=== PATIENT | male | born 1965 | race Caucasian/White ===

== ENCOUNTER 2022-06-23 10:48 | Emergency (ER) | payer MEDICARE, MEDICAID, SELFPAY ==
--- NOTE | ~2022-06-23 | CT_ITS ---
EXAMINATION: CT HEAD WITHOUT CONTRAST CT CERVICAL SPINE WITHOUT CONTRAST CLINICAL INFORMATION: Found down. Unwitnessed fall. COMPARISON: None available. TECHNIQUE: Contiguous axial imaging was performed from the skull base to vertex without intravenous administration of contrast. Contiguous axial imaging was performed from the upper chest through the skull base without intravenous administration of contrast. Coronal and sagittal reformats were obtained at the acquisition workstation. This CT examination was performed using dose optimization techniques as appropriate, variously including the following: *Automated exposure control. *Adjustment of mA and/or kV according to patient size (this includes techniques or standardized protocols for targeted exams where dose is matched to indication/reason for exam; i.e. extremities or head). *Use of iterative reconstruction technique. DLP: 2449 mGy-cm FINDINGS: Head: Changes of prior left pterional craniotomy. There is also changes of prior surgery of the anterior wall the right maxillary sinus and malleable plate and screw fixation of the right mandibular body/ramus. There is no evidence of acute intracranial hemorrhage or edematous territorial infarction. Khan-white matter differentiation is preserved. Scattered and partially confluent hypoattenuation in the periventricular and deep white matter are consistent with moderate microangiopathy. Proportional prominence of the ventricles and sulcal spaces without evidence of obstructive hydrocephalus. No abnormal mass effect or midline shift. No extra-axial fluid collections. Chronic hyperostotic changes of the right maxillary sinus green. Chronic appearing depression of the right lamina papyracea. Chronic appearing deformity of the nasal bones. Moderate mucosal thickening of the right maxillary sinus. Mild mucosal thickening of the remaining paranasal sinuses. The mastoid air cells and visualized paranasal sinuses are clear. Cervical Spine: The atlantooccipital and atlantoaxial articulations remain well aligned. Moderate to advanced degenerative arthropathy of the atlantodental articulation. Ankylosis of the C3-C4 and C6-C7 facets. Straightening of the normal cervical lordosis. Otherwise, normal anatomic alignment. No evidence of acute fracture or subluxation. The vertebral body heights are maintained. Advanced degenerative disc disease at C3-C4 and from C5-T1. Moderate degenerative disc disease at all additional levels. Disc-osteophyte complex formation at C5-C6 and C6-C7 appears to lead to at least mild spinal canal stenosis at these levels. Facet and uncovertebral joint arthropathy leads to osseous encroachment on the neural foramina from C2-C7. There is no prevertebral soft tissue swelling. The thyroid gland and remaining cervical soft tissues are normal in appearance. Moderate paraseptal blebs along the right lung apex. Otherwise, the lung apices demonstrate no abnormalities. CT/CT cervical spine wo IV con IMPRESSION: 1. No evidence of acute intracranial hemorrhage or edematous territorial infarction. 2. Moderate underlying microangiopathy and generalized cerebral volume loss. 3. No evidence of acute fracture or traumatic subluxation of the cervical spine. 4. Moderate to advanced multilevel degenerative spondyloarthropathy of the cervical spine. On this limited exam without intrathecal contrast, there appears to be at least mild spinal canal stenoses at C5-C6 and C6-C7.
[2022-06-23 11:01] VITALS: BP 118/80; BP 121/84; PULSE 88; PULSE 89; RESP 18; TEMP 36.4; O2SAT 95; BMI 26.9
--- NOTE | 2022-06-23 11:20 | PC.NURSE ---
patient a/ox3 . words slurred , patient reports drinking a liter of vodka today . heart rate regular at 89 bets per minutes . breathing even and unlabored . lungs diminished throughout , history of smoking . patient also reports use of fentynl as times but not today . skin is dry and warm . abdomen soft . patient to C.T. for images . patient aware of plan of care .
--- NOTE | 2022-06-23 11:22 | ED_ITS ---
HPI - Alcohol General Chief Complaint: ETOH/Substance Use Stated Complaint: ETOH INTOX,FOUND ON GROUND PER EMS Time Seen by Provider: 06/23/22 11:07 Source: patient and EMS Mode of arrival: EMS Limitations: altered mental status (Intoxication) History of Present Illness HPI narrative: 57 y/o homeless male with history of psychotic disorder and polysubstance use who presents to the ER via EMS after he was found intoxicated, passed out at a bus stop. Patient reports drinking half a gallon of vodka today. He states he fell and hit his head last week. He cannot recall or give any details surrounding the event. He is a poor historian. Patient arrives to the ER intoxicated, slurring his words. He is incontinent of urine. He has superficial abrasions on the dorsal aspect of his bilateral hands and fingers. Wounds appear to be old. He also has dried blood on the top of his head, no open wounds or active bleeding. We have no record of the patient here. He states he usually goes to [facility] or [facility]. Will get lab workup and CT scan of his head and neck given he was found down. MD complaint: alcohol intoxication Last drink: Just prior to admission Amount of alcohol consumed: 1/2 of a gal of vodka Chronic alcohol use: Yes Previous visits for alcohol intoxication: Yes Treatments prior to arrival: none Related Data Allergies Allergy/AdvReac Type Severity Reaction Status Date / Time naproxen [NAPROXEN] Allergy Intermediate RASH Unverified 02/29/20 17:00 Review of Systems Review of Systems: Yes all other systems are reviewed and are negative [facility] Social History Social History Alcohol intake: current Smoked in Last 30 Days: Yes Advance Directives: No Advance Directives Information Provided: No Physical Exam ED Vital Signs: Vital Signs - 24 hr 06/23/22 11:01 06/23/22 13:41 Temperature 97.6 F 98.6 F Pulse Rate 89 90 Respiratory Rate 18 20 Blood Pressure 121/84 122/93 H Pulse Oximetry 95 96 Oxygen Delivery Method Room Air Room Air BMI result Body Mass Index 26.9 Appearance: Somewhat lethargic male sitting up in the stretcher, appears much older than stated age. Oriented X2. No acute distress. Poorly kempt Head: Normocephalic, 3 cm area of dried blood on the top of the head, no open wounds. Eyes: Pupils equal, round and reactive to light. ENT: Pharynx normal. Poor dentition. Neck: Normal inspection. Neck supple. CVS: Normal heart rate and rhythm. Pulses normal. Respiratory: No respiratory distress. Breath sounds normal. Abdomen: Soft and nontender. +BS x4 Skin: Skin warm and dry. Normal skin color. Normal skin turgor. No rashes. Extremities: No lower extremity edema. Dorsal aspect of digits 2 through 5 on the bilateral hands with superficial abrasions in various stages of healing. Neuro: Oriented X 2. Moves all extremities, follows simple commands, can answer basic questions, intermittently confused and hostile. Course Course Course Narrative: 57-year-old male with history of polysubstance abuse and alcohol abuse presents to the ER for evaluation after he was found down, intoxicated at a bus station today. Given dried blood on the head and lack of history, will get CT of the head and neck along with basic lab workup. Will attempt to get records from [facility] as patient has a [facility] bracelet on and hospital socks on. Reevaluation(s) Reevaluation #1: [facility] records reviewed - patient was in [facility] ER last night at 06:45 after he was found down noncommunicative at a bus station with a broken bottle of liquor next to him. He was given 100 mg of phenobarbital and ultimately discharged at 06:00 today. His records reveal that he frequently leaves AMA. Labs and imaging are still pending. Reevaluation #2: Labs unremarkable. Mild hypokalemia. Given oral repletion. No coagulopathy. Cbc hemolyzed. He had recent lab work done at [facility]. Will hold off on restarting him. Alcohol level is 233. Will evaluate him for possible detox once clinically sober Reevaluation #3: Patient AAO x3, he is wanting to go home. We discussed detox and he declined. He wants to leave. Counseled on his lab results. Stable for d/c. Medical Decision Making Medical Decision Making [facility] Narrative: 57-year-old male with history of polysubstance abuse and alcohol abuse and dependence presents to the ER for evaluation after was found down by station. W ill need to rule out ICH or traumatic intracranial injury, spinal injury. No other evidence major trauma on examination. Will check labs, imaging, U tox and alcohol level. Differential Diagnosis Differential Diagnoses: The differential diagnosis associated with the presentation includes Alcohol intoxication, polysubstance abuse, ICH, metabolic derangements, anemia, syncope and collapse Lab Data MDM Lab Attestation statement: I reviewed the patient's lab results. Lab work reviewed, mild hypokalemia with potassium of 3.1 Mild rhabdomyolysis with CK of 484. 06/23/22 12:24 Labs: Lab Results 06/23/22 06/23/22 06/23/22 Range/Units 12:24 12:24 13:28 WBC Cancelled RBC Cancelled Hgb Cancelled Hct Cancelled MCV Cancelled MCH Cancelled MCHC Cancelled RDW Cancelled Plt Count Cancelled MPV Cancelled Immature Gran % (Auto) Cancelled Neut % (Auto) Cancelled Lymph % (Auto) Cancelled [place] % (Auto) Cancelled Eos % (Auto) Cancelled Baso % (Auto) Cancelled Lymph # (Auto) Cancelled [place] # (Auto) Cancelled Eos # (Auto) Cancelled Baso # (Auto) Cancelled Abs Immat Gran (auto) Cancelled Absolute Neuts (auto) Cancelled Absolute Nucleated RBC Cancelled Nucleated RBC % (auto) Cancelled PT (10.0-13.1) SEC INR (0.9-1.1) APTT (26.0-36.4) SEC Sodium 143 (135-145) mmol/L Potassium 3.2 L (3.3-5.1) mmol/L Chloride 104 (96-108) mmol/L Carbon Dioxide 29 (22-29) mmol/L Anion Gap 13 (12-20) BUN 4 L (9-16) mg/dL Creatinine 0.64 (0.5-1.4) mg/dL Estim Creat Clear Calc 143.9 Estimated GFR > 60 Random Glucose 95 (60-115) mg/dL Calcium 8.6 (8.4-10.2) mg/dL Magnesium 1.6 (1.6-2.6) mg/dL Total Bilirubin 0.3 (0.0-1.0) mg/dL Direct Bilirubin < 0.2 (0.0-0.5) mg/dL AST 43 H (5-37) U/L ALT 24 (0-40) U/L Alkaline Phosphatase 78 (39-117) U/L Total Creatine Kinase 484 H (38-174) U/L Total Protein 6.3 L (6.5-8.0) g/dL Albumin 3.8 (3.5-5.0) g/dL Urine Opiates Screen Not Detected (Not Detect) Urine Fentanyl Screen Not Detected (Not Detect) Ur Barbiturates Screen POSITIVE H (Not Detect) Ur Phencyclidine Scrn Not Detected (Not Detect) Ur Amphetamines Screen Not Detected (Not Detect) U Benzodiazepines Scrn Not Detected (Not Detect) Urine Cocaine Screen Not Detected (Not Detect) U Marijuana (THC) Screen Not Detected (Not Detect) Ethyl Alcohol mg/dL 06/23/22 06/23/22 Range/Units 13:28 13:28 WBC RBC Hgb Hct MCV MCH MCHC RDW Plt Count MPV Immature Gran % (Auto) Neut % (Auto) Lymph % (Auto) [place] % (Auto) Eos % (Auto) Baso % (Auto) Lymph # (Auto) [place] # (Auto) Eos # (Auto) Baso # (Auto) Abs Immat Gran (auto) Absolute Neuts (auto) Absolute Nucleated RBC Nucleated RBC % (auto) PT 11.9 (10.0-13.1) SEC INR 1.0 (0.9-1.1) APTT 28.7 (26.0-36.4) SEC Sodium (135-145) mmol/L Potassium (3.3-5.1) mmol/L Chloride (96-108) mmol/L Carbon Dioxide (22-29) mmol/L Anion Gap (12-20) BUN (9-16) mg/dL Creatinine (0.5-1.4) mg/dL Estim Creat Clear Calc Estimated GFR Random Glucose (60-115) mg/dL Calcium (8.4-10.2) mg/dL Magnesium (1.6-2.6) mg/dL Total Bilirubin (0.0-1.0) mg/dL Direct Bilirubin (0.0-0.5) mg/dL AST (5-37) U/L ALT (0-40) U/L Alkaline Phosphatase (39-117) U/L Total Creatine Kinase (38-174) U/L Total Protein (6.5-8.0) g/dL Albumin (3.5-5.0) g/dL Urine Opiates Screen (Not Detect) Urine Fentanyl Screen (Not Detect) Ur Barbiturates Screen (Not Detect) Ur Phencyclidine Scrn (Not Detect) Ur Amphetamines Screen (Not Detect) U Benzodiazepines Scrn (Not Detect) Urine Cocaine Screen (Not Detect) U Marijuana (THC) Screen (Not Detect) Ethyl Alcohol 233 mg/dL Radiology Impression Discussion of test interpretation with radiology: I have reviewed the radiologist's reading. Radiologist Impression: IMPRESSION: 1.? No evidence of acute intracranial hemorrhage or edematous territorial infarction. 2.? Moderate underlying microangiopathy and generalized cerebral volume loss. 3.? No evidence of acute fracture or traumatic subluxation of the cervical spine. 4.? Moderate to advanced multilevel degenerative spondyloarthropathy of the cervical spine. On this limited exam without intrathecal contrast, there appears to be at least mild spinal canal stenoses at C5-C6 and C6-C7. Independent Historian Clinical information obtained from an independent historian. History obtained from or confirmed by: EMS External Record Review External record reviewed: Outside ED record [facility] reviewed, discharged early this morning after receiving phenobarbital. Social Determinants Patient?s care significantly limited by Social Determinants of Health including: Inadequate housing, Alcoholism and drug addiction in family, Unemployment and Other Social Determinant of Health Medications Administered Discontinued Medications Generic Name Dose Route Start Last Admin Trade Name Freq PRN Reason Stop Dose Admin Potassium Chloride 40 meq 06/23/22 14:04 06/23/22 15:13 Potassium Chloride Er 20 Meq Tab.Er.Prt PO 06/23/22 14:05 40 meq ONCE ONE Administration Discharge Plan Discharge Clinical Impression: Alcoholic intoxication, Rhabdomyolysis, Acute hypokalemia Patient Disposition: Home, Self-Care Additional Instructions: Do not drink alcohol or use illicit drugs. They can kill you. Recommend detox. Follow-up with your primary care doctor. Interventions: Steedman-Suicide Risk Severity Scale Last Done: 06/23/22 15:13
[2022-06-23 12:56] LABS: Amphetamine Screen Urine Not Detected (Not Detect); Barbiturates, Urine POSITIVE (Not Detect); Benzodiazepines Screen Urine Not Detected (Not Detect); Cannabinoid Screen Urine Not Detected (Not Detect); Cocaine Screen Urine Not Detected (Not Detect); Fentanyl, urine Not Detected (Not Detect); Opiate Screen Urine Not Detected (Not Detect); Phencyclidine Screen Urine Not Detected (Not Detect)
[2022-06-23 13:41] VITALS: BP 122/93; PULSE 90; RESP 20; TEMP 37; O2SAT 96
[2022-06-23 13:42] LABS: Prothrombin Time 11.9 SEC (10.0-13.1)
[2022-06-23 13:45] LABS: Partial Thromboplastin Time 28.7 SEC (26.0-36.4)
[2022-06-23 13:52] LABS: Ethanol 233 mg/dL
[2022-06-23 13:56] LABS: Alanine Aminotransferase 24 U/L (0-40); Albumin Level 3.8 g/dL (3.5-5.0); Alkaline Phosphatase 78 U/L (39-117); Anion Gap 13 (12-20); Aspartate Amino Transferase 43 U/L (5-37); Bilirubin Direct < 0.2 mg/dL (0.0-0.5); Bilirubin Total 0.3 mg/dL (0.0-1.0); Blood Urea Nitrogen 4 mg/dL (9-16); Calcium 8.6 mg/dL (8.4-10.2); Carbon Dioxide 29 mmol/L (22-29); Chloride 104 mmol/L (96-108); Creatinine Clr Calc Pharmacy 143.9; Estimated Glomerular Filt Rate > 60; Glucose Random 95 mg/dL (60-115); Magnesium 1.6 mg/dL (1.6-2.6); Potassium 3.2 mmol/L (3.3-5.1); Sodium 143 mmol/L (135-145); Total Protein 6.3 g/dL (6.5-8.0)
[2022-06-23] MEDS: Potassium Chloride ER 20 MEQ TAB.ER.PRT 40 MEQ PO (15:13)
== END 2022-06-23 16:20 | disposition home or self-care (01) ==
PROVIDERS: Physician Assistant; Emergency Provider Student in an Organized Health Care Education/Training Program
DX: F19.10 Other psychoactive substance abuse, uncomplicated (principal); F10.220 Alcohol dependence with intoxication, uncomplicated; Y90.7 Blood alcohol level of 200-239 mg/100 ml; E87.6 Hypokalemia; M62.82 Rhabdomyolysis; Z91.81 History of falling
CPT/HCPCS: 36415; 70450; 72125; 80048; 80076; 80307; 82077; 82550; 83735; 85025; 85610; 85730; 99284; 99285

== ENCOUNTER 2022-06-23 19:25 | Emergency (ER) | payer MEDICARE, MEDICAID, SELFPAY ==
[2022-06-23 19:31] VITALS: BP 121/84; BP 131/77; PULSE 91; PULSE 92; RESP 14; TEMP 36.6; O2SAT 93; O2SAT 94; BMI 36.6
[2022-06-23 20:13] LABS: MANUAL DIFF FLAG NO
[2022-06-23 20:15] LABS: Basophils Percent Auto 0.6 % (0-2); Eosinophils Absolute Auto 0.2 X10*3/uL (0.0-0.4); Eosinophils Percent Auto 3.3 % (0-4); Hematocrit 33.3 % (42.0-52.0); Hemoglobin 10.5 g/dl (14.0-18.0); Imm Gran Abs Auto 0.01 X10*3/uL (0.00-0.03); Imm Gran Pct Auto 0.2 % (0.0-0.4); Lymphocytes Absolute Auto 1.8 X10*3/uL (1.2-4.9); Mean Corpuscular HGB Conc 31.5 g/dl (31.0-36.0); Mean Corpuscular Hemoglobin 22.6 pg (27.0-33.0); Mean Corpuscular Volume 71.6 fL (80.0-98.0); Mean Platelet Volume 9.1 fL (9.4-12.4); Monocytes Absolute Auto 0.4 X10*3/uL (0.1-1.2); Monocytes Percent Auto 8.9 % (2-11); Neutrophils Absolute Auto 2.4 x10*3/uL (2.0-8.3); Platelet Count 223 X10*3/uL (160-400); Red Blood Count 4.65 X10*6/uL (4.60-5.80); Red Cell Distribution Width 22.5 % (11.0-16.0); White Blood Count 4.8 X10*3/uL (4.8-10.8)
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
--- OUTSIDE RECORDS SUMMARY | 2022-06-23 20:25 | XMS_ITS | Continuity of Care Document ---
:1965 Author Organization [facility] Address [address] [place] [address]- Care Team Providers Name Role Phone Madhu HASSAN, Елена Primary Care Physician Encounter [facility] Date(s): 03/25/21 - 04/24/21 [facility] [address] [place], [place] [address] Allergies, Adverse Reactions, Alerts Substance Reaction Severity [...] Refills, Maintenance, 12/27/20 9:09:00 EDT, CR Tablet, [facility]/pharmacy #[id number], Partial fill upon patient request if the prescription is for a schedule II opioid drug., 182, cm, 12/27/20 6:15:00 E... Start Date: 12/27/20 Stop Date: 04/26/21 Status: Orderedazithromycin 250 mg oral tablet 1 tablet = 250 mg, By Mouth, Daily, begin tomorrow, # 4 tablet, 0 Refills, Maintenance, 02/25/21 17:53:00 EDT, Tablet, [facility]/pharmacy #[id number], Partial fill upon patient request if the prescription is for aschedule II opioid drug., 183, cm, 01/24/21 11:13... Start Date: 02/25/21 Stop Date: 03/01/21 Status: OrderedcloNIDine 0.1 mg oral tablet 1, tablet, By Mouth, 2 times a day, # 60 tablet, Refills 0, Tot. Refills 0, Maintenance, 12/22/20 15:38:00 EDT, Route to Pharmacy Electronically, [id number], 182, cm, 11/22/20 11:13:00 EDT, Height, 88.2, [...] 11 Refills, Maintenance, 11/22/20 11:29:00 EDT, Inhaler, [facility]/pharmacy #[id number], Partial fill upon patient request if the prescription is for a schedule II opioid drug., 1 puffs Inhalation Daily, 182, cm, 11/22/20 11:... Start Date: 11/22/20 Status: Orderednicotine 21 mg/24 hr transdermal film, extended release 1 patch, Topically, Daily, # 30 patch, 0 Refills, Maintenance, 01/24/21 13:02:00 EDT, Patch, [facility], Partial fill upon patient request if [...] 0 Refills, Maintenance, 01/24/21 13:01:00 EDT, Lozenge, [facility], Partial fill upon patient request if [...] capsule, By Mouth, Daily at bedtime, # 90 capsule, Refills 11, Tot. Refills 11, Maintenance, 04/11/21 16:46:00 EDT, Route to Pharmacy Electronically, [facility]/pharmacy #[id number], Partial fill upon patient request if the prescription is for a schedule... Start Date: 04/11/21 Status: OrderedProAir HFA 90 mcg/inh inhalation aerosol 2 puffs, Inhalation, Every 4 hours, PRN as needed for wheezing, # 2 each, 11 Refills, Maintenance, 11/22/20 11:29:00 EDT, [id number] fill upon patient request if the prescription is for a schedule II opioid drug., 2 puffs Inh... Start Date: 11/22/20 Stop Date: 11/17/21 Status: OrderedrisperiDONE 1 mg oral tablet 1, tablet, By Mouth, Daily in AM, # 90 tablet, Refills 11, Tot. Refills 11, Maintenance, 04/11/21 16:46:00 EDT, [id number], cm, 03/31/21 19:04:00 EDT, Height, 82, kg, 03/31/21 19:04:00 EDT, Dry Weight Start Date: 04/11/21 Status: OrderedrisperiDONE 2 mg oral tablet 1, tablet, By Mouth, Daily at bedtime, # 90 tablet, Refills 11, Tot. Refills 11, Maintenance, 04/11/21 16:46:00 EDT, [id number], cm, 03/31/21 19:04:00 EDT, Height, 82, kg, 03/31/21 19:04:00 EDT, Dry Weight Start Date: 04/11/21 Status: OrderedSuboxone 8 mg-2 mg sublingual film 1 film, Sublingual, Daily, dissolve under the tongue, # 7 film, 0 Refills, Maintenance, 01/24/21 11:11:00 EDT, Film, [facility] 3, Partial fill upon patient request if the prescription is for a schedule II opioid drug. [id number], 1 film Hilario... Start Date: 01/24/21 Status: Orderedthiamine 100 mg oral tablet 100 mg, 1, tablet, By Mouth, 2 times a day, # 90 tablet, Refills 0, Tot. Refills 0, Maintenance, 01/24/21 13:02:00 EDT, Route to Pharmacy Electronically, [facility] 3, Partial fill upon patient request if the prescription is for a schedule... Start Date: 01/24/21 Status: OrderedtraZODone 150 mg oral tablet 1 tablet = 150 mg, By Mouth, Daily at bedtime, # 90 tablet, 11 Refills, Maintenance, 04/11/21 16:46:00 EDT, Tablet, [facility]/pharmacy #[id number], Partial fill upon patient request if the prescription is for a schedule II opioid drug., 183, cm, 03/31/21 19:04:00... Start Date: 04/11/21 Status: OrderedTrileptal 600 mg oral tablet 1 tablet = 600 mg, By Mouth, 2 times a day, # 180 tablet, 11 Refills, Maintenance, 04/11/21 16:46:00EDT, Tablet, [facility]/pharmacy #[id number], Partial fill upon patient request if the prescription is for a schedule II opioid drug., 183, cm, 03/31/21 19:04:00 E... Start Date: 04/11/21 Status: Ordered Problem List Condition Effective Dates [...]
--- OUTSIDE RECORDS SUMMARY | 2022-06-23 20:25 | XMS_ITS | Continuity of Care Document ---
:[address] [facility] Address [address] [place] [address]- Care Team Providers Name Role Phone Madhu HASSAN, Елена Primary Care Physician Encounter [facility] Date(s): 09/05/20 - 10/16/20 [facility] [address] [place], [place] [address] Attending Physician: Елена Leung MD Allergies, [...] 0 Refills, Maintenance, 10/11/20 9:27:00 EDT, Inhaler, [facility], Partial fill upon patient request if the prescription is for a schedule II opioid drug., 1 puffs Inhalation Daily, 182, cm, 09/19/20... Start Date: 10/11/20 Status: Orderedfolic acid 1 mg oral tablet 1 mg, 1, tablet, By Mouth, Daily, # 30 tablet, Refills 0, Tot. Refills 0, Maintenance, 09/19/20 11:10:00 EDT, Route to Pharmacy Electronically, [facility]/pharmacy #[id number], 182, cm, 09/19/20 0:43:00 EDT, Height, 88.2, kg, 09/17/20 2:30:00 EDT, Dry Weight Start Date: 09/19/20 Stop Date: 10/19/20 Status: OrderedHabitrol 21 mg/24 hr transdermal film, extended release 1 patch, Topically, Daily, for 30 days, # 30 patch, 0 Refills, Acute 10/19/20 11:12:00 EDT, 09/19/2110:12:00 EDT, Patch, [facility]/pharmacy #[id number], Partial fill upon patient request if the prescription is for a schedule II opioid drug., 1 patch Topically Da... Start Date: 09/19/20 Stop Date: 10/19/20 Status: OrderedMethadone Liquid = 45 mg, By Mouth, Daily, 0 Refills, Maintenance, 09/16/20 21:50:00 EDT, Solution, Partial fill uponpatient request if the prescription is for a schedule II opioid drug. Start Date: 09/16/20 Status: Orderedmultivitamin Multiple Vitamins oral tablet 1 tablet, By Mouth, Daily, # 30 tablet, 0 Refills, Maintenance, 10/11/20 9:27:00 EDT, Tablet, [facility], Partial fill upon patient request if the prescription is for a schedule II opioiddrug., 1 tablet By Mouth Daily,x30 days, 182, cm,... Start Date: 10/11/20 Stop Date: 11/10/20 Status: Orderedprazosin 5 mg oral capsule 5 mg, 1, capsule, By Mouth, Daily at bedtime, Refills 0, Maintenance, 02/05/20 7:33:00 EDT Start Date: 02/05/20 Status: OrderedProAir HFA 90 mcg/inh inhalation aerosol 2 puffs, Inhalation, Every 4 hours, PRN as needed for wheezing, # 2 each, 0 Refills, Maintenance, 07/02/20 9:41:00 EST, Aerosol, [facility]/pharmacy #[id number], Partial fill upon patient request if the prescription is for a schedule II opioid drug., 2 puffs Inhal... Start Date: 07/02/20 Stop Date: 08/01/20 Status: Orderedpyridoxine 50 mg oral tablet 50 mg, 1, tablet, By Mouth, Daily, for 30 days, # 30 tablet, Refills 0, Tot. Refills 0, Acute 11/10/20 9:27:00 EDT, 10/11/20 9:27:00 EDT, Route to Pharmacy Electronically, [facility], Partial fill upon patient request if the prescription... Start Date: 10/11/20 Stop Date: 11/10/20 Status: OrderedRisperDAL 1 mg oral tablet 1 [...] tablet, Refills 0, Tot. Refills 0, Acute 11/10/20 9:28:00 EDT, 10/11/20 9:28:00 EDT, Route to Pharmacy Electronically, [facility], Partial fill upon patient request if the prescriptio... Start Date: 10/11/20 Stop Date: 11/10/20 Status: OrderedtraZODone 150 mg oral tablet 1 [...]
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
--- OUTSIDE RECORDS SUMMARY | 2022-06-23 20:26 | XMS_ITS | Continuity of Care Document ---
:1965 Author Organization [facility] Address [address] [place] [address]- Care Team Providers Name Role Phone Madhu HASSAN, Елена Primary Care Physician Encounter [facility] Date(s): 03/19/21 - 04/18/21 [facility] [address] [place], [place] [address] Allergies, Adverse Reactions, Alerts Substance Reaction Severity [...] Refills, Maintenance, 12/27/20 9:09:00 EDT, CR Tablet, [facility]/pharmacy #[id number], Partial fill upon patient request if the prescription is for a schedule II opioid drug., 182, cm, 12/27/20 6:15:00 E... Start Date: 12/27/20 Stop Date: 04/26/21 Status: Orderedazithromycin 250 mg oral tablet 1 tablet = 250 mg, By Mouth, Daily, begin tomorrow, # 4 tablet, 0 Refills, Maintenance, 02/25/21 17:53:00 EDT, Tablet, [facility]/pharmacy #[id number], Partial fill upon patient request if the prescription is for aschedule II opioid drug., 183, cm, 01/24/21 11:13... Start Date: 02/25/21 Stop Date: 03/01/21 Status: OrderedcloNIDine 0.1 mg oral tablet 1, tablet, By Mouth, 2 times a day, # 60 tablet, Refills 0, Tot. Refills 0, Maintenance, 12/22/20 15:38:00 EDT, Route to Pharmacy Electronically, [id number], 182, cm, 11/22/20 11:13:00 EDT, Height, 88.2, [...] 11 Refills, Maintenance, 11/22/20 11:29:00 EDT, Inhaler, [facility]/pharmacy #[id number], Partial fill upon patient request if the prescription is for a schedule II opioid drug., 1 puffs Inhalation Daily, 182, cm, 11/22/20 11:... Start Date: 11/22/20 Status: Orderednicotine 21 mg/24 hr transdermal film, extended release 1 patch, Topically, Daily, # 30 patch, 0 Refills, Maintenance, 01/24/21 13:02:00 EDT, Patch, [facility], Partial fill upon patient request if [...] 0 Refills, Maintenance, 01/24/21 13:01:00 EDT, Lozenge, [facility], Partial fill upon patient request if [...] 04/11/21 16:46:00 EDT, Route to Pharmacy Electronically, [facility]/pharmacy #[id number], Partial fill upon patient request if the prescription is for a schedule... Start Date: 04/11/21 Status: OrderedProAir HFA 90 mcg/inh inhalation aerosol 2 puffs, Inhalation, Every 4 hours, PRN as needed for wheezing, # 2 each, 11 Refills, Maintenance, 11/22/20 11:29:00 EDT, [id number] Partial fill upon patient request if the prescription is for a schedule II opioid drug., 2 puffs Inh... Start Date: 11/22/20 Stop Date: 11/17/21 Status: OrderedrisperiDONE 1 mg oral tablet 1, tablet, By Mouth, Daily in AM, # 90 tablet, Refills 11, Tot. Refills 11, Maintenance, 04/11/21 16:46:00 EDT, [id number], 183, cm, 03/31/21 19:04:00 EDT, Height, 82, kg, 03/31/21 19:04:00 EDT, Dry Weight Start Date: 04/11/21 Status: OrderedrisperiDONE 2 mg oral tablet 1, tablet, By Mouth, Daily at bedtime, # 90 tablet, Refills 11, Tot. Refills 11, Maintenance, 04/11/21 16:46:00 EDT, [id number], 183, cm, 03/31/21 19:04:00 EDT, Height, 82, kg, 03/31/21 19:04:00 EDT, Dry Weight Start Date: 04/11/21 Status: OrderedSuboxone 8 mg-2 mg sublingual film 1 film, Sublingual, Daily, dissolve under the tongue, # 7 film, 0 Refills, Maintenance, 01/24/21 11:11:00 EDT, Film, [facility], Partial fill upon patient request if the prescription is for a schedule II opioid drug. [id number], 1 film Hilario... Start Date: 01/24/21 Status: Orderedthiamine 100 mg oral tablet 100 mg, 1, tablet, By Mouth, 2 times a day, # 90 tablet, Refills 0, Tot. Refills 0, Maintenance, 01/24/21 13:02:00 EDT, Route to Pharmacy Electronically, [facility], Partial fill upon patient request if the prescription is for a schedule... Start Date: 01/24/21 Status: OrderedtraZODone 150 mg oral tablet 1 tablet = 150 mg, By Mouth, Daily at bedtime, # 90 tablet, 11 Refills, Maintenance, 04/11/21 16:46:00 EDT, Tablet, [facility]/pharmacy #[id number], Partial fill upon patient request if the prescription is for a schedule II opioid drug., 183, cm, 03/31/21 19:04:00... Start Date: 04/11/21 Status: OrderedTrileptal 600 mg oral tablet 1 tablet = 600 mg, By Mouth, 2 times a day, # 180 tablet, 11 Refills, Maintenance, 04/11/21 16:46:00EDT, Tablet, [facility]/pharmacy #[id number], Partial fill upon patient request [...]
--- OUTSIDE RECORDS SUMMARY | 2022-06-23 20:26 | XMS_ITS | Continuity of Care Document ---
:1965 Author Organization [facility] Address [address] [place] [address]- Care Team Providers Name Role Phone Елена Leung MD Primary Care Physician Encounter [facility] [place] Date(s): 01/03/21 - 01/04/[address] [address]- Encounter Diagnosis Alcohol intoxication (Final) - 01/04/21 Discharge Disposition: A-D/C Home Attending Physician: Morales Kebede MD Admitting Physician: Morales Kebede MD Referring Physician: Not on Staff, Referring [...] Refills, Maintenance, 12/27/20 9:09:00 EDT, CR Tablet, [facility]/pharmacy #[id number], Partial fill upon patient request if the prescription is for a schedule II opioid drug., 182, cm, 12/27/20 6:15:00 E... Start Date: 12/27/20 Stop Date: 04/26/21 Status: OrderedcloNIDine 0.1 mg oral tablet 1, tablet, By Mouth, 2 times a day, # 60 tablet, Refills 0, Tot. Refills 0, Maintenance, 12/22/20 15:38:00 EDT, Route to Pharmacy Electronically, [id number], 182, cm, 11/22/20 11:13:00 EDT, Height, 88.2, [...] 11 Refills, Maintenance, 11/22/20 11:29:00 EDT, Inhaler, [facility]/pharmacy #[id number], Partial fill upon patient request if the prescription is for a schedule II opioid drug., 1 puffs Inhalation Daily, 182, cm, 11/22/20 11:... Start Date: 11/22/20 Status: Orderedfolic acid 1 mg oral tablet 1 mg, 1, tablet, By Mouth, Daily, # 30 tablet, Refills 0, Tot. Refills 0, Maintenance, 09/19/20 11:10:00 EDT, Route to Pharmacy Electronically, [facility]/pharmacy #[id number], 182, cm, 09/19/20 0:43:00 EDT, Height, 88.2, kg, 09/17/20 2:30:00 EDT, Dry Weight Start Date: 09/19/20 Stop Date: 10/19/20 Status: Orderedmultivitamin Multiple Vitamins oral tablet 1 tablet, By Mouth, Daily, # 30 tablet, 0 Refills, Maintenance, 10/11/20 9:27:00 EDT, Tablet, [facility], Partial fill upon patient [...] 11/22/20 11:31:00 EDT, Route to Pharmacy Electronically, [facility]/pharmacy #[id number], Partial fill upon patient request if the prescription is for a schedule II... Start Date: 11/22/20 Status: OrderedProAir HFA 90 mcg/inh inhalation aerosol 2 puffs, Inhalation, Every 4 hours, PRN as needed for wheezing, # 2 each, 11 Refills, Maintenance, 11/22/20 11:29:00 EDT, Aerosol, [facility]/pharmacy #[id number], Partial fill upon patient request if the prescription is for a schedule II opioid drug., 2 puffs Inh... Start Date: 11/22/20 Stop Date: 11/17/21 Status: OrderedrisperiDONE 1 mg oral tablet 1, tablet, By Mouth, Daily in AM, # 30 tablet, Refills 0, Tot. Refills 0, Maintenance, 12/22/20 15:38:00 EDT, Route to Pharmacy Electronically, [id number], 182, cm, 11/22/20 11:13:00 EDT, Height, 88.2, kg, 09/17/20 2:30:00 EDT, Dry Weight Start Date: 12/22/20 Status: OrderedrisperiDONE 2 mg oral tablet 1, tablet, By Mouth, Daily at bedtime, # 30 tablet, Refills 0, Tot. Refills 0, Maintenance, 12/22/2114:38:00 EDT, Route to Pharmacy Electronically, [id number], 182, cm, 11/22/20 11:13:00 EDT, Height, 88.2, kg, 09/17/20 2:30:00 EDT, Dry Weight Start Date: 12/22/20 Status: OrderedtraZODone 150 mg oral tablet 1 tablet = 150 mg, By Mouth, Daily at bedtime, # 30 tablet, 0 Refills, Maintenance, 11/22/20 11:31:00 EDT, Tablet, [facility]/pharmacy #[id number], Partial fill upon patient request if the prescription is for a schedule II opioid drug., 182, cm, 11/22/20 11:13:00... Start Date: 11/22/20 Status: OrderedTrileptal 600 mg oral tablet 1 tablet = 600 mg, By Mouth, 2 times a day, # 60 tablet, 0 Refills, Maintenance, 11/22/20 11:31:00 EDT, Tablet, [facility]acy #[id number], Partial fill upon patient request if the prescription is for a schedule II opioid drug., 182, cm, 11/22/20 11:13:00 EDT... Start Date: 11/22/20 Status: OrderedViagra 25 mg oral tablet 1 tablet = 25 mg, By Mouth, Daily, PRN as needed for erectile dysfunction, # 5 tablet, 0 Refills, Maintenance, 11/22/20 11:36:00 EDT, Tablet, [facility]acy [id number], Partial fill upon patient request [...] 2007 Vital Signs Most recent to oldest [Reference Range]: 1 2 Oxygen Saturation [94-100 %] 95 % (01/03/21 6:59 PM) Pulse Rate [55-90 bpm] 86 bpm 86 bpm (01/03/21 7:00 PM) (01/03/21 6:59 PM) Blood Pressure [90-138/55-84 mm Hg] 116/74 mm Hg 116/ 74 mm Hg (01/03/21 7:00 PM) (01/03/21 6:59 PM) Respiratory Rate [16-30 br/min] 18 br/min 17 br/mi n (01/03/21 7:00 PM) (01/03/21 6:59 PM) Temperature [96.8-100.4 DegF] 97.3 DegF (01/03/21 6:59 PM) Mode of Delivery (Oxygen) Room air (01/03/21 6:59 PM) Temperature Route Oral (01/03/21 6:59 PM) Social History Social History Type Response Smoking Status 10 or more cigarettes (1/2 p ack or more)/day in last 30 days; Other: smokes 2 ppd for over 35+ years (age 11); entered on: 08/16/20 Sex
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
--- OUTSIDE RECORDS SUMMARY | 2022-06-23 20:26 | XMS_ITS | Continuity of Care Document ---
:1965 Author Organization [facility] Address [address] [place] [address]- Care Team Providers Name Role Phone Madhu HASSAN, Елена Primary Care Physician [facility]counter [facility] Date(s): 03/21/21 - 04/20/21 [facility] [address] [place], [place] [address] Allergies, Adverse Reactions, Alerts Substance Reaction [...] Refills, Maintenance, 12/27/20 9:09:00 EDT, CR Tablet, [facility]/pharmacy #[id number], Partial fill upon patient request if the prescription is for a schedule II opioid drug., 182, cm, 12/27/20 6:15:00 E... Start Date: 12/27/20 Stop Date: 04/26/21 Status: Orderedazithromycin 250 mg oral tablet 1 tablet = 250 mg, By Mouth, Daily, begin tomorrow, # 4 tablet, 0 Refills, Maintenance, 02/25/21 17:53:00 EDT, Tablet, [facility]/pharmacy #[id number], Partial fill upon patient request if the prescription is for aschedule II opioid drug., 183, cm, 01/24/21 11:13... Start Date: 02/25/21 Stop Date: 03/01/21 Status: OrderedcloNIDine 0.1 mg oral tablet 1, tablet, By Mouth, 2 times a day, # 60 tablet, Refills 0, Tot. Refills 0, Maintenance, 12/22/20 15:38:00 EDT, Route to Pharmacy Electronically, [facility] [id number], 182, cm, 11/22/20 11:13:00 EDT, Height, 88.2, [...] 11 Refills, Maintenance, 11/22/20 11:29:00 EDT, Inhaler, [facility]/pharmacy #[id number], Partial fill upon patient request if the prescription is for a schedule II opioid drug., 1 puffs Inhalation Daily, 182, cm, 11/22/20 11:... Start Date: 11/22/20 Status: Orderednicotine 21 mg/24 hr transdermal film, extended release 1 patch, Topically, Daily, # 30 patch, 0 Refills, Maintenance, 01/24/21 13:02:00 EDT, Patch, [facility], Partial fill upon patient request [...] 0 Refills, Maintenance, 01/24/21 13:01:00 EDT, Lozenge, [facility], Partial fill upon patient request [...] 04/11/21 16:46:00 EDT, Route to Pharmacy Electronically, [facility]/pharmacy #[id number], Partial fill upon patient request if the prescription is for a schedule... Start Date: 04/11/21 Status: OrderedProAir HFA 90 mcg/inh inhalation aerosol 2 puffs, Inhalation, Every 4 hours, PRN as needed for wheezing, # 2 each, 11 Refills, Maintenance, 11/22/20 11:29:00 EDT, [facility]ol[id number] Partial fill upon patient request if the prescription is for a schedule II opioid drug., 2 puffs Inh... Start Date: 11/22/20 Stop Date: 11/17/21 Status: OrderedrisperiDONE 1 mg oral tablet 1, tablet, By Mouth, Daily in AM, # 90 tablet, Refills 11, Tot. Refills 11, Maintenance, 04/11/21 16:46:00 EDT, [id number] 183, cm, 03/31/21 19:04:00 EDT, Height, 82, kg, 03/31/21 19:04:00 EDT, Dry Weight Start Date: 04/11/21 Status: OrderedrisperiDONE 2 mg oral tablet 1, tablet, By Mouth, Daily at bedtime, # 90 tablet, Refills 11, Tot. Refills 11, Maintenance, 04/11/21 16:46:00 EDT, [id number] 183, cm, 03/31/21 19:04:00 EDT, Height, 82, kg, 03/31/21 19:04:00 EDT, Dry Weight Start Date: 04/11/21 Status: OrderedSuboxone 8 mg-2 mg sublingual film 1 film, Sublingual, Daily, dissolve under the tongue, # 7 film, 0 Refills, Maintenance, 01/24/21 11:11:00 EDT, Film, [facility], Partial fill upon patient request if the prescription is for a schedule II opioid drug. [id number], 1 film Hilario... Start Date: 01/24/21 Status: Orderedthiamine 100 mg oral tablet 100 mg, 1, tablet, By Mouth, 2 times a day, # 90 tablet, Refills 0, Tot. Refills 0, Maintenance, 01/24/21 13:02:00 EDT, Route to Pharmacy Electronically, [facility], Partial fill upon patient request if the prescription is for a schedule... Start Date: 01/24/21 Status: OrderedtraZODone 150 mg oral tablet 1 tablet = 150 mg, By Mouth, Daily at bedtime, # 90 tablet, 11 Refills, Maintenance, 04/11/21 16:46:00 EDT, Tablet, [facility]/pharmacy #[id number], Partial fill upon patient request if the prescription is for a schedule II opioid drug., 183, cm, 03/31/21 19:04:00... Start Date: 04/11/21 Status: OrderedTrileptal 600 mg oral tablet 1 tablet = 600 mg, By Mouth, 2 times a day, # 180 tablet, 11 Refills, Maintenance, 04/11/21 16:46:00EDT, Tablet, [facility]/pharmacy #[id number], Partial fill upon patient request [...]
--- OUTSIDE RECORDS SUMMARY | 2022-06-23 20:26 | XMS_ITS | Continuity of Care Document ---
:1965 Author Organization [facility] Address [address] [place] [address]- Care Team Providers Name Role Phone Not on Staff, PCP Primary Care Physician Unavailable [facility] Date(s): 05/10/20 - 06/09/20 [facility] [address] [place] [id number] Attending Physician: Leena Linton Admitting Physician: Leena Linton Referring Physician: Leena Linton Allergies, Adverse Reactions, Alerts Substance Reaction Severity [...] 09/01/19 8:57:00 EDT, Route to Pharmacy Electronically, [facility], 183, cm, 09/01/19 0:45:00 EDT, Height, 86.5, kg, 08/29/19 22:05:00 EDT, Dry Weight Start Date: 09/01/19 Status: Orderedgabapentin 100 mg oral capsule 100 mg, 1, capsule, By Mouth, 3 times a day, # 90 capsule, Refills 0, Tot. Refills 0, Maintenance, 08/09/19 17:41:00 EST, Route to Pharmacy Electronically, [facility]/pharmacy #[id number], 186, cm, 07/31/19 11:36:00 EST, Height, 86, kg, 07/30/19 23:47:00 EST, Dry... Start Date: 08/09/19 Status: OrderedoxyCODONE 5 mg oral tablet 5 mg, 1, tablet, By Mouth, Every 6 hours, PRN, # 10 tablet, Refills 0, Tot. Refills 0, Maintenance, for pain, 09/01/19 8:57:00 EDT, Route to Pharmacy Electronically, [facility], Partial fill upon patient request, 183, cm, 09/01/19 0:45:0... Start Date: 09/01/19 Status: Orderedprazosin 5 mg oral capsule 5 mg, 1, capsule, By Mouth, Daily at bedtime, Refills 0, Maintenance, 02/05/20 7:33:00 EDT Start Date: 02/05/20 Status: OrderedRisperDAL 1 mg oral tablet 1 mg, 1, tablet, By Mouth, 2 times a day, # 60 tablet, Refills 0, Maintenance, 02/05/20 7:32:00 EDT Start Date: 02/05/20 Status: OrderedSEROquel 25 mg oral tablet 50 mg, 2, tablet, By Mouth, Daily at bedtime, # 60 tablet, Refills 0, Tot. Refills 0, Maintenance, 09/01/19 9:03:00 EDT, Route to Pharmacy Electronically, [facility], 183, cm, 09/01/19 0:45:00 EDT, Height, 86.5, kg, 08/29/19 22:05:00 EDT... Start Date: 09/01/19 Status: OrderedtiZANidine 4 mg oral capsule 1 capsule = 4 mg, By Mouth, 3 times a day, # 90 capsule, 1 Refills, Maintenance, 01/26/20 16:20:00 EDT, Capsule, [facility], 183, cm, 09/01/19 0:45:00 EDT, Height, 86.5, kg, 08/29/19 22:05:00 EDT, Dry Weight Start Date: 01/26/20 Status: OrderedtiZANidine 4 mg oral tablet 4 mg, 1, tablet, By Mouth, 3 times a day, PRN, # 21 tablet, Refills 0, Tot. Refills 0, Maintenance, Spasm, 01/29/20 9:18:00 EDT, Route to Pharmacy Electronically, [facility], 183, cm, 09/01/19 [...]
--- OUTSIDE RECORDS SUMMARY | 2022-06-23 20:26 | XMS_ITS | Continuity of Care Document ---
:1965 Author Organization [facility] Address [address] [place] [address], [address] [place] [address]- Care Team Providers Name Role Phone Jazmin Cosby DO Primary Care Physician Encounter [facility] [place] Date(s): 01/26/20 - 02/25/[address], [address] [place] [address]- [facility] Attending Physician: AdmLeena duarte Admitting Physician: Admtr, Leena Referring Physician: Admtr, Ar8 Allergies, Adverse Reactions, Alerts Substance Reaction Severity [...] 09/01/19 8:57:00 EDT, Route to Pharmacy Electronically, [facility], 183, cm, 09/01/19 0:45:00 EDT, Height, 86.5, kg, 08/29/19 22:05:00 EDT, Dry Weight Start Date: 09/01/19 Status: Orderedgabapentin 100 mg oral capsule 100 mg, 1, capsule, By Mouth, 3 times a day, # 90 capsule, Refills 0, Tot. Refills 0, Maintenance, 08/09/19 17:41:00 EST, Route to Pharmacy Electronically, [facility]/pharmacy #[id number], 186, cm, 07/31/19 11:36:00 EST, Height, 86, kg, 07/30/19 23:47:00 EST, Dry... Start Date: 08/09/19 Status: OrderedoxyCODONE 5 mg oral tablet 5 mg, 1, tablet, By Mouth, Every 6 hours, PRN, # 10 tablet, Refills 0, Tot. Refills 0, Maintenance, for pain, 09/01/19 8:57:00 EDT, Route to Pharmacy Electronically, [facility], Partial fill upon patient [...] 09/01/19 9:03:00 EDT, Route to Pharmacy Electronically, [facility], 183, cm, 09/01/19 0:45:00 EDT, Height, 86.5, kg, 08/29/19 22:05:00 EDT... Start Date: 09/01/19 Status: OrderedtiZANidine 4 mg oral capsule 1 capsule = 4 mg, By Mouth, 3 times a day, # 90 capsule, 1 Refills, Maintenance, 01/26/20 16:20:00 EDT, Capsule, [facility], 183, cm, 09/01/19 0:45:00 EDT, Height, 86.5, kg, 08/29/19 22:05:00 EDT, Dry Weight Start Date: 01/26/20 Status: OrderedtiZANidine 4 mg oral tablet 4 mg, 1, tablet, By Mouth, 3 times a day, PRN, # 21 tablet, Refills 0, Tot. Refills 0, Maintenance, Spasm, 01/29/20 9:18:00 EDT, Route to Pharmacy Electronically, [facility], 183, cm, 09/01/19 0:45:00 [...]
--- OUTSIDE RECORDS SUMMARY | 2022-06-23 20:26 | XMS_ITS | Continuity of Care Document ---
:1965 Author Organization [facility] Address [address] [place] [address]- Care Team Providers Name Role Phone Not on Staff, PCP Primary Care Physician Unavailable [facility]counter [facility] Date(s): 08/02/20 - 08/03/20 [facility] [address] [place] [id number]- Encounter Diagnosis Alcohol intoxication (Final) - 08/02/20 Discharge Disposition: A-D/C Home Attending Physician: Eyal Saravia MD Admitting Physician: Eyal Saravia MD Referring Physician: Not on Staff, Referring [...] 09/01/19 8:57:00 EDT, Route to Pharmacy Electronically, [facility], 183, cm, 09/01/19 0:45:00 EDT, Height, 86.5, kg, 08/29/19 22:05:00 EDT, Dry Weight Start Date: 09/01/19 Status: Orderedgabapentin 100 mg oral capsule 100 mg, 1, capsule, By Mouth, 3 times a day, # 90 capsule, Refills 0, Tot. Refills 0, Maintenance, 08/09/19 17:41:00 EST, [id number], cm, 07/31/19 11:36:00 EST, Height, 86, kg, 07/30/19 23:47:00 EST, Dry... Start Date: 08/09/19 Status: Orderedondansetron 4 mg oral tablet, disintegrating 1 tablet = 4 mg, By Mouth, Every 8 hours, PRN as needed for nausea/vomiting, # 9 tablet, 0 Refills, Maintenance, 07/02/20 9:41:00 EST, DIS Tablet, [facility]/pharmacy #[id number], Partial fill upon patient request,192, cm, 05/08/20 10:23:00 EST, Height, 88.5, kg,... Start Date: 07/02/20 Stop Date: 07/05/20 Status: OrderedoxyCODONE 5 mg oral tablet 5 mg, 1, tablet, By Mouth, Every 6 hours, PRN, # 10 tablet, Refills 0, Tot. Refills 0, Maintenance, for pain, 09/01/19 8:57:00 EDT, Route to Pharmacy Electronically, [facility], Partial fill upon patient [...] 0 Refills, Maintenance, 07/02/20 9:41:00 EST, Aerosol, [facility]/pharmacy #[id number], Partial fill upon patient request if [...] 09/01/19 9:03:00 EDT, Route to Pharmacy Electronically, [facility], 183, cm, 09/01/19 0:45:00 EDT, Height, 86.5, kg, 08/29/19 22:05:00 EDT... Start Date: 09/01/19 Status: OrderedtiZANidine 4 mg oral capsule 1 capsule = 4 mg, By Mouth, 3 times a day, # 90 capsule, 1 Refills, Maintenance, 01/26/20 16:20:00 EDT, Capsule, [facility], 183, cm, 09/01/19 0:45:00 EDT, Height, 86.5, kg, 08/29/19 22:05:00 EDT, Dry Weight Start Date: 01/26/20 Status: OrderedtiZANidine 4 mg oral tablet 4 mg, 1, tablet, By Mouth, 3 times a day, PRN, # 21 tablet, Refills 0, Tot. Refills 0, Maintenance, Spasm, 01/29/20 9:18:00 EDT, Route to Pharmacy Electronically, [facility], 183, cm, 09/01/19 0:45:00 [...] 3 [Reference Range]: Oxygen Saturation [94-100 %] 98 % 97 % 95 % (08/03/20 6:32 AM) (08/03/20 3:10 AM) (08/03/20 1:2 3 AM) Pulse Rate [55-90 bpm] 88 bpm 87 bpm 101 bpm (08/03/20 6:32 AM) (08/03/20 3:10 AM) *H* (08/03/20 1:24 AM ) Blood Pressure [90-138/55-84 131/93 mm Hg 105/86 mm Hg 112 /82 mm Hg mm Hg] (08/03/20 6:32 AM) (08/03/20 3:10 AM) (08/03/20 1:2 4 AM) Respiratory Rate [16-30 16 br/min 16 br/min 22 br/mi n br/min] (08/03/20 6:32 AM) (08/03/20 3:10 AM) (08/03/20 1:2 4 AM) Temperature [96.8-100.4 DegF] 97.7 DegF 97.8 DegF (08/02/20 10:28 PM) (08/02/20 4:41 PM) Mode of Delivery (Oxygen) Room air Room air Room a ir (08/03/20 6:32 AM) (08/03/20 3:10 AM) (08/03/20 1:2 3 AM) Blood pressure sites Arm, left Arm, left (08/03/20 6:32 AM) (08/02/20 10:28 PM) Temperature Route Oral Oral (08/02/20 10:28 PM) (08/02/20 4:41 PM) Social History Social History Type Response Smoking Status Current every day smoker entered on: 04/25/16 Sex
--- OUTSIDE RECORDS SUMMARY | 2022-06-23 20:26 | XMS_ITS | Continuity of Care Document ---
:1965 Author Organization [facility] [place], [facility] Address [address] [place] [address]- Care Team Providers Name Role Phone Madhu HASSAN, Елена Primary Care Physician [facility]counter [facility] Date(s): 12/27/20 - 01/26/21 [facility] [place] [address] [place] [address]- Allergies, Adverse Reactions, Alerts Substance Reaction Severity [...] Refills, Maintenance, 12/27/20 9:09:00 EDT, CR Tablet, [facility]/pharmacy #[id number], Partial fill upon patient request if the prescription is for a schedule II opioid drug., 182, cm, 12/27/20 6:15:00 E... Start Date: 12/27/20 Stop Date: 04/26/21 Status: OrderedcloNIDine 0.1 mg oral tablet 1, tablet, By Mouth, 2 times a day, # 60 tablet, Refills 0, Tot. Refills 0, Maintenance, 12/22/20 15:38:00 EDT, Route to Pharmacy Electronically, [id number], 182, cm, 11/22/20 11:13:00 EDT, Height, 88.2, [...] 11 Refills, Maintenance, 11/22/20 11:29:00 EDT, Inhaler, [facility]/pharmacy #[id number], Partial fill upon patient request if the prescription is for a schedule II opioid drug., 1 puffs Inhalation Daily, 182, cm, 11/22/20 11:... Start Date: 11/22/20 Status: Orderednicotine 21 mg/24 hr transdermal film, extended release 1 patch, Topically, Daily, # 30 patch, 0 Refills, Maintenance, 01/24/21 13:02:00 EDT, Patch, [facility], Partial fill upon patient [...] 0 Refills, Maintenance, 01/24/21 13:01:00 EDT, Lozenge, [facility], Partial fill upon patient [...] 11/22/20 11:31:00 EDT, Route to Pharmacy Electronically, [facility]/pharmacy #[id number], Partial fill upon patient request if the prescription is for a schedule II... Start Date: 11/22/20 Status: OrderedProAir HFA 90 mcg/inh inhalation aerosol 2 puffs, Inhalation, Every 4 hours, PRN as needed for wheezing, # 2 each, 11 Refills, Maintenance, 11/22/20 11:29:00 EDT, Aerosol, [facility]/pharmacy #[id number], Partial fill upon patient request if the prescription is for a schedule II opioid drug., 2 puffs Inh... Start Date: 11/22/20 Stop Date: 11/17/21 Status: OrderedrisperiDONE 1 mg oral tablet 1, tablet, By Mouth, Daily in AM, # 30 tablet, Refills 0, Tot. Refills 0, Maintenance, 12/22/20 15:38:00 EDT, Route to Pharmacy Electronically, [id number], 182, cm, 11/22/20 11:13:00 EDT, Height, 88.2, kg, 09/17/20 2:30:00 EDT, Dry Weight Start Date: 12/22/20 Status: OrderedrisperiDONE 2 mg oral tablet 1, tablet, By Mouth, Daily at bedtime, # 30 tablet, Refills 0, Tot. Refills 0, Maintenance, 12/22/2114:38:00 EDT, Route to Pharmacy Electronically, [id number], 182, cm, 11/22/20 11:13:00 EDT, Height, 88.2, kg, 09/17/20 2:30:00 EDT, Dry Weight Start Date: 12/22/20 Status: OrderedSuboxone 8 mg-2 mg sublingual film 1 film, Sublingual, Daily, dissolve under the tongue, # 7 film, 0 Refills, Maintenance, 01/24/21 11:11:00 EDT, Film, [facility], Partial fill upon patient request if the prescription is for a schedule II opioid drug. [id number], 1 film Hilario... Start Date: 01/24/21 Status: Orderedthiamine 100 mg oral tablet 100 mg, 1, tablet, By Mouth, 2 times a day, # 90 tablet, Refills 0, Tot. Refills 0, Maintenance, 01/24/21 13:02:00 EDT, Route to Pharmacy Electronically, [facility], Partial fill upon patient request if the prescription is for a schedule... Start Date: 01/24/21 Status: OrderedtraZODone 150 mg oral tablet 1 tablet = 150 mg, By Mouth, Daily at bedtime, # 30 tablet, 0 Refills, Maintenance, 11/22/20 11:31:00 EDT, Tablet, [facility]/pharmacy #[id number], Partial fill upon patient request if the prescription is for a schedule II opioid drug., 182, cm, 11/22/20 11:13:00... Start Date: 11/22/20 Status: OrderedTrileptal 600 mg oral tablet 1 tablet = 600 mg, By Mouth, 2 times a day, # 60 tablet, 0 Refills, Maintenance, 11/22/20 11:31:00 EDT, Tablet, [facility]/pharmacy #[id number], Partial fill upon patient request [...]
--- OUTSIDE RECORDS SUMMARY | 2022-06-23 20:26 | XMS_ITS | Continuity of Care Document ---
:1965 Author Organization [facility] Address [address] [place] [id number]- Care Team Providers Name Role Phone Елена Leung MD Primary Care Physician [place] [facility] [place] 08/16[place]21 - 08/20/[address] [address]- Encounter Diagnosis Alcohol intoxication (Final) - 08/16/21 Discharge Disposition: A-D/C AMA Attending Physician: Gail Carrero MD Admitting Physician: Radha Rodriguez MD Referring Physician: Not on Staff, Referring MD Allergies, Adverse Reactions, Alerts Substance Reaction Severity Status penicillins1 Active Naprosyn itching Active Swelling 1Tolerates cefazolin Immunizations Given and Recorded Vaccine Date Status [...] he undersands but continues to refuse. Medications Carafate 1 gm oral tablet 1 Gm, 1, tablet, By Mouth, 3 times a day before meals, # 90 tablet, Refills 0, Tot. Refills 0, Maintenance, 07/10/21 7:56:00 EST, Route to Pharmacy Electronically, [facility]-, Partial fill upon patient request if the prescript... Start Date: 07/10/21 Status: Orderedfluticasone-vilanterol 200 mcg-25 mcg/inh inhalation powder 1 puffs, Inhalation, Daily, # 1 each, 3 Refills, Maintenance, 07/10/21 7:55:00 EST, Inhaler, [facility]-, Partial fill upon patient request if the prescription is for a scheduleII opioid drug., 1 puffs Inhalation Daily,x30 day... Start Date: 07/10/21 Stop Date: 11/07/21 Status: Orderedgabapentin 400 mg oral capsule 400 mg, 1, capsule, By Mouth, 3 times a day, # 90 capsule, Refills 0, Tot. Refills 0, Maintenance, 07/10/21 7:55:00 EST, Route to Pharmacy Electronically, [facility], Partial fill upon patient request if the prescription is fo... Start Date: 07/10/21 Status: Orderedlisinopril 2.5 mg oral tablet 2.5 mg, 1, tablet, By Mouth, Daily, # 30 tablet, Refills 0, Maintenance, 08/16/21 21:23:00 EST, Partial fill upon patient request if the prescription is for a schedule II opioid drug. Start Date: 08/16/21 Status: Orderedmirtazapine 30 mg oral tablet 1 tablet = 30 mg, By Mouth, Daily at bedtime, # 90 tablet, 11 Refills, Maintenance, 07/10/21 7:55:00EST, Tablet, [facility]-, Partial fill upon patient request if the prescription is for a schedule II opioid drug., 183, cm, 01... Start Date: 07/10/21 Status: Orderedpantoprazole 40 mg oral delayed release tablet = 40 mg, By Mouth, Daily, # 30 each, 0 Refills, Maintenance, 07/10/21 7:55:00 EST, EC Tablet, 183, cm, 07/10/21 6:22:00 EST, Height, 88.3, kg, 07/06/21 0:05:00 EST, Dry Weight Start Date: 07/10/21 Status: Orderedprazosin 5 mg oral capsule 5 mg, Capsule, By Mouth, 08/19/21 21:00:00 EST Start Date: 08/19/21 Stop Date: 08/19/21 Status: Completedprazosin 5 mg oral capsule 5 mg, 1, [...] 3 Refills, Maintenance, 07/10/21 7:55:00 EST, Aerosol, [facility]-, Partial fill upon patient request if the prescription is for a schedule II opioid teresa... Start Date: 07/10/21 Stop Date: 11/07/21 Status: OrderedrisperiDONE 1 mg oral tablet 1 mg, 1, tablet, By Mouth, 2 times a day, # 60 tablet, Refills 0, Tot. Refills 0, Maintenance, 07/10/21 7:56:00 EST, Route to Pharmacy Electronically, [facility], Partial fill upon patient request if the prescription is for a... Start Date: 07/10/21 Status: OrderedtraZODone 150 mg oral tablet 1 [...] 0 Refills, Maintenance, 07/10/21 7:55:00 EST, Tablet, [facility]-, Partial fill upon patient request if the [...] hernia(Confirmed) Active 1second pneumothorax in 2007 Results Orders for Microbiology Reports Name Date Blood Culture 08/18/21 Blood Culture #2 08/18/21 Microbiology Reports TEST:Blood Culture STATUS:Auth (Verified) BODY SITE: SOURCE:Blood COLLECTED DATE/TIME:08/18/21 11:19 AMBlood Culture SPECIMEN DESCRIPTION : BLOOD SPECIAL REQUESTS : CRITICAL VALUE CALLED AND VERIFIED BY READBACK FOR: GRAM POSITIVE COCCI TO [id number],08/19 AT 0930 BY TECH 155 CULTURE : STAPH. SPECIES, NOT STAPH. AUREUS Single isolates of Staph. species, not Staph. aureus, Micrococci, Bacillus species, Diphtheroids, Cutibacterium acnes (formerly Propionibacterium acnes) and Viridans Group Streptococci could be skin contaminants. Multiple isolates of these organisms are more likely to be significant. Staphylococcus species (not S. aureus) was identified by multi-plex PCR REPORT STATUS : FINAL 08/20/2021TEST:Blood Culture, Second Order STATUS:Unauthenticated BODY SITE: SOURCE:Blood COLLECTED DATE/TIME:08/18/21 11:13 AMBlood Culture, Second Order SPECIMEN DESCRIPTION : BLOOD RAC SPECIAL REQUESTS : NONE CULTURE : NO GROWTH AFTER 48 HOURS REPORT STATUS : PRELIMINARY REPORT Radiology Reports Exam Date Time Procedure Performing Provider Status 08/18/21 5:37 PM Abdomen AP Janay Moore; Willard (Arturo brittany) Notes:(Abdomen AP) Reason For Exam: PainRESULT: XR Abdomen AP XR Abdomen AP 1 view INDICATION/CLINICAL QUESTION: Reason: Pain; Clinical Question(s): Perforation COMPARISON: None FINDINGS: Normal bowel gas pattern. No evidence of obstruction. No evidence of pneumoperitoneum. Please note that exam was performed supine and the hemidiaphragms were not included on the [id number]. No organomegaly, masses or calcifications. No acute bone findings. IMPRESSION: Nonobstructive bowel gas pattern. No evidence of pneumoperitoneum on supine exam without inclusion of the hemidiaphragms. WSN: [id number] Ordering Physician: Carl Pepe Dictated By: Mark Leiva MD Dictated Date/Time: 08/18/21 5:39 pm Reviewed By: Mark Leiva MD Signed By: Mark Leiva MD Signed Date/Time: 08/18/21 5:39 pm Transcribed By: DAVIN Transcribed Date/Time: 08/18/21 5:38 pm Vital Signs Most recent to oldest 1 2 3 [Reference Range]: Height 182 cm 182 cm 182 cm (08/18/21 8:10 PM) (08/17/21 7:45 AM) (08/16/21 11:44 PM) Weight 88.2 kg 88.2 kg (08/16/21 11:44 PM) (08/16/21 11:00 PM) Oxygen Saturation [94-100 %] 96 % 95 % 95 % (08/20/21 7:00 AM) (08/19/21 8:00 PM) (08/19/21 5:45 P M) Pulse Rate [55-90 bpm] 83 bpm 79 bpm 95 bpm (08/20/21 7:00 AM) (08/19/21 10:42 PM) *H* (08/19/21 8:00 PM) Body Mass Index [18.5-24.99] 26.63 *H* (08/16/21 11:44 PM) Blood Pressure [90-138/55-84 mm 136/98 mm Hg 139/93 mm Hg 139/93 mm Hg Hg] (08/20/21 7:00 AM) *H* *H* (08/19/21 10:42 PM) (08/19/21 10:30 PM) Respiratory Rate [16-30 br/min] 17 br/min 16 br/min 18 br/min (08/20/21 7:00 AM) (08/20/21 4:00 AM) (08/20/21 12:00 AM) Temperature [96.8-100.4 DegF] 98.6 DegF 98 DegF 97 .8 DegF (08/20/21 7:00 AM) (08/19/21 10:42 PM) (08/19/21 8:00 PM) Liters per Minute 1 L/min 2 L/min (08/17/21 7:45 AM) (08/16/21 8:32 PM) Mode of Delivery (Oxygen) Room air Room air Room a ir (08/20/21 7:00 AM) (08/19/21 8:00 PM) (08/19/21 5:45 P M) Blood pressure sites Arm, left Arm, right Arm, left (08/20/21 7:00 AM) (08/19/21 8:00 PM) (08/18/21 8:10 P M) Temperature Route Oral Oral Oral (08/20/21 7:00 AM) (08/19/21 10:42 PM) (08/19/21 8:00 PM) Dry Weight 88.2 kg (08/16/21 11:44 PM) Weight Obtained Via Bed scale (08/16/21 11:00 PM) Social History Social History Type Response Smoking Status 10 or more cigarettes (1/2 p ack or more)/day in last 30 days; Other: smokes 2 ppd for over 35+ years (age 11); entered on: 08/16/20 Sex
--- OUTSIDE RECORDS SUMMARY | 2022-06-23 20:26 | XMS_ITS | Continuity of Care Document ---
:1965 Author Organization [facility] Address [address] [place] [address]- Care Team Providers Name Role Phone Not on Staff, PCP Primary Care Physician Unavailable Encounter [facility] Date(s): 09/16/20 - 09/19/[address] [address] Encounter Diagnosis Alcohol withdrawal (Final) - 09/16/20 Alcohol abuse (Final) - 09/16/20 Seizure (Final) - 09/16/20 Discharge Disposition: A-Transfer VNA/Home Health Attending Physician: Mckinley HASSAN, Corinna Joya Admitting Physician: Abdelrahman Napier MD Referring Physician: Not on Staff, Referring [...] Start Date: 09/16/20 Stop Date: 09/30/20 Status: Orderedfolic acid 1 mg oral tablet 1 mg, 1, tablet, By Mouth, Daily, # 30 tablet, Refills 0, Tot. Refills 0, Maintenance, 09/19/20 11:10:00 EDT, Route to Pharmacy Electronically, [facility]/pharmacy #[id number], 182, cm, 09/19/20 0:43:00 EDT, Height, 88.2, kg, 09/17/20 2:30:00 EDT, Dry Weight Start Date: 09/19/20 Stop Date: 10/19/20 Status: OrderedHabitrol 21 mg/24 hr transdermal film, extended release 1 patch, Topically, Daily, for 30 days, # 30 patch, 0 Refills, Acute 10/19/20 11:12:00 EDT, 09/19/2110:12:00 EDT, Patch, [facility]/pharmacy #[id number], Partial fill upon patient request [...] OrderedMethadone Liquid 45 mg, Solution, By Mouth, 09/19/20 9:00:00 EDT Start Date: 09/19/20 Stop Date: 09/19/20 Status: Completedprazosin 5 mg oral capsule 5 mg, Capsule, By Mouth, 09/18/20 21:00:00 EDT Start Date: 09/18/20 Stop Date: 09/18/20 Status: Completedprazosin 5 mg oral capsule 5 mg, 1, capsule, By Mouth, Daily at bedtime, Refills 0, Maintenance, 02/05/20 7:33:00 EDT Start Date: 02/05/20 Status: OrderedProAir HFA 90 mcg/inh inhalation aerosol 2 puffs, Inhalation, Every 4 hours, PRN as needed for wheezing, # 2 each, 0 Refills, Maintenance, 07/02/20 9:41:00 EST, Aerosol, [facility]/pharmacy #[id number], Partial fill upon patient request [...] tablet, Refills 0, Tot. Refills 0, Acute 10/19/20 11:12:00 EDT, 09/19/20 11:12:00 EDT, Route to Pharmacy Electronically, [facility]/pharmacy #[id number], Partial fill upon patient request if the prescription is... Start Date: 09/19/20 Stop Date: 10/19/20 Status: OrderedtraZODone 150 mg oral tablet 1 [...] Exam Date Time Procedure Performing Provider Status 09/16/20 10:26 PM Shoulder Min 2 Views Left Emma Bueno; Au th (Verified) Notes:(Shoulder Min 2 Views Left) Reason For Exam: PainRESULT: Shoulder Min 2 Views Left Shoulder Min 2 Views Left, 3 views Reason: Pain; Clinical Question(s): Fracture COMPARISON: Left shoulder radiographs dated 07/18/2018 and 07/10/2018. Comparison is also made with CT of the chest dated 12/30/2018. FINDINGS: No fracture or dislocation. No arthritic change of the glenohumeral joint. Normal AC joint and portions of the clavicle included on the exam. Mineralization adjacent to the posterior aspect of the greater tuberosity is compatible with calcific tendinopathy. IMPRESSION: Findings compatible with known calcific tendinopathy. No acute displaced fracture. WSN: [id number] Ordering Physician: Katina Mcmahon Dictated By: Annette Fortune MD Dictated Date/Time: 09/16/20 11:11 p Reviewed By: Annette Fortune MD Signed By: Annette Fortune MD Signed Date/Time: 09/16/20 11:11 pm Transcribed By: DAVIN Transcribed Date/Time: 09/16/20 11:09 pm Exam Date Time Procedure Performing Provider Status 09/16/20 3:39 PM Chest 2 Views Frontal and Lat Sonya Burt [facility] (Verified) Notes:(Chest 2 Views Frontal and Lat) Reason For Exam: Shortness of Breath RESULT: Chest 2 Views Frontal and Lat Chest 2 Views Frontal and Lat Hx of Present Illness: presented to ED with c o SOB, nausea, tremors,etoh withdrawal. pt states lastdrink was last night. pt requesting to go back to rehab; Reason: Shortness of Breath; Clinical Question(s): Pneumonia COMPARISON: Chest radiograph dated 07/02/2020. FINDINGS: LINES AND TUBES: None. LUNGS AND PLEURA: Linear density in the left mid to lower lung likely reflects atelectasis. The lungs are otherwise clear. No pleural effusion. No pneumothorax. HEART, MEDIASTINUM AND MING: Heart is normal in size. Ectatic aorta, similar contour to prior. BONES AND SOFT TISSUES: No acute abnormality. Old right clavicle fracture. IMPRESSION: No acute abnormality. WSN: [id number] Ordering Physician: Ilene Salinas Dictated By: Sima Reese MD Dictated Date/Time: 09/16/20 3:46 pm Reviewed By: Sima Reese MD Signed By: Sima Reese MD Signed Date/Time: 09/16/20 3:46 pm Transcribed By: DAVIN Transcribed Date/Time: 09/16/20 3:45 pm Vital Signs Most recent to oldest 1 2 3 [Reference Range]: Height 182 cm 182 cm 182 cm (09/19/20 11:44 AM) (09/19/20 12:43 AM) (09/18/20 4:34 PM) Weight 88.2 kg (09/17/20 2:21 AM) Oxygen Saturation [94-100 %] 95 % 96 % 96 % (09/19/20 11:44 AM) (09/19/20 12:43 AM) (09/18/20 4:34 PM) Pulse Rate [55-90 bpm] 70 bpm 73 bpm 70 bpm (09/19/20 11:44 AM) (09/19/20 12:43 AM) (09/18/20 4:34 PM) Body Mass Index [18.5-24.99] 26.63 *H* (09/17/20 2:21 AM) Blood Pressure [90-138/55-84 mm 129/90 mm Hg 123/85 mm Hg 128/82 mm Hg Hg] (09/19/20 11:44 AM) (09/19/20 12:43 AM) (09/18/20 9:30 PM) Respiratory Rate [16-30 br/min] 20 br/min 18 br/min 20 br/min (09/19/20 12:06 PM) (09/19/20 11:44 AM) (09/19/20 11:0 6 AM) Temperature [96.8-100.4 DegF] 97.9 DegF 97.8 DegF 97 .7 DegF (09/19/20 11:44 AM) (09/19/20 12:43 AM) (09/18/20 4:34 PM) Liters per Minute 2 L/min 2 L/min (09/17/20 2:21 AM) (09/17/20 1:51 AM) Mode of Delivery (Oxygen) Room air Room air Room a ir (09/19/20 11:44 AM) (09/19/20 12:43 AM) (09/18/20 4:34 PM) Blood pressure sites Arm, left Arm, left Arm, left (09/19/20 11:44 AM) (09/19/20 12:43 AM) (09/18/20 4:34 PM) Temperature Route Oral Oral Oral (09/19/20 11:44 AM) (09/19/20 12:43 AM) (09/18/20 4:34 PM) Dry Weight 88.2 kg (09/17/20 2:21 AM) Social History Social History Type Response Smoking Status 10 or more cigarettes (1/2 p ack or more)/day in last 30 days; Other: smokes 2 ppd for over 35+ years (age 11); entered on: 08/16/20 Sex
--- OUTSIDE RECORDS SUMMARY | 2022-06-23 20:26 | XMS_ITS | Continuity of Care Document ---
:1965 Author Organization [facility] Address [address] [place] [address]- Care Team Providers Name Role Phone Not on Staff, PCP Primary Care Physician Unavailable [facility] Date(s): 07/02/20 - 07/02/[address] [address]- Encounter Diagnosis COPD exacerbation (Final) - 07/02/20 Discharge Disposition: A-D/C Home Attending Physician: Ilene Salinas MD Admitting Physician: Ilene Salinas MD Referring Physician: Not on Staff, Referring [...] 09/01/19 8:57:00 EDT, Route to Pharmacy Electronically, [facility], 183, cm, 09/01/19 0:45:00 EDT, Height, 86.5, kg, 08/29/19 22:05:00 EDT, Dry Weight Start Date: 09/01/19 Status: Orderedgabapentin 100 mg oral capsule 100 mg, 1, capsule, By Mouth, 3 times a day, # 90 capsule, Refills 0, Tot. Refills 0, Maintenance, 08/09/19 17:41:00 EST, [id number], cm, 07/31/19 11:36:00 EST, Height, 86, kg, 07/30/19 23:47:00 EST, Dry... Start Date: 08/09/19 Status: Orderedondansetron 4 mg oral tablet, disintegrating 1 tablet = 4 mg, By Mouth, Every 8 hours, PRN as needed for nausea/vomiting, # 9 tablet, 0 Refills, Maintenance, 07/02/20 9:41:00 EST, DIS Tablet, [id number] upon patient request,192, cm, 05/08/20 10:23:00 EST, Height, 88.5, kg,... Start Date: 07/02/20 Stop Date: 07/05/20 Status: OrderedoxyCODONE 5 mg oral tablet 5 mg, 1, tablet, By Mouth, Every 6 hours, PRN, # 10 tablet, Refills 0, Tot. Refills 0, Maintenance, for pain, 09/01/19 8:57:00 EDT, Route to Pharmacy Electronically, [facility], Partial fill upon patient request, [...] Maintenance, 07/02/20 9:41:00 EST, Aerosol, [facility]/pharmacy #[id number], Partial fill upon patient request if [...] 09/01/19 9:03:00 EDT, Route to Pharmacy Electronically, [facility], 183, cm, 09/01/19 0:45:00 EDT, Height, 86.5, kg, 08/29/19 22:05:00 EDT... Start Date: 09/01/19 Status: OrderedtiZANidine 4 mg oral capsule 1 capsule = 4 mg, By Mouth, 3 times a day, # 90 capsule, 1 Refills, Maintenance, 01/26/20 16:20:00 EDT, Capsule, [facility], 183, cm, 09/01/19 0:45:00 EDT, Height, 86.5, kg, 08/29/19 22:05:00 EDT, Dry Weight Start Date: 01/26/20 Status: OrderedtiZANidine 4 mg oral tablet 4 mg, 1, tablet, By Mouth, 3 times a day, PRN, # 21 tablet, Refills 0, Tot. Refills 0, Maintenance, Spasm, 01/29/20 9:18:00 EDT, Route to Pharmacy Electronically, [facility], 183, cm, 09/01/19 0:45:00 EDT, [...] Exam Date Time Procedure Performing Provider Status 07/02/20 9:26 AM Chest Portable Raul Espinosa (Verified ) Notes:(Chest Portable) Reason For Exam: Shortness of BreathRESULT: Chest Portable Examination: Portable chest performed on 07/02/20. History: Generalized malaise. Shortness of breath. Findings: A frontal view of the chest is compared to a prior study dated 05/01/2020. The cardiac silhouette is within normal limits for size. Ectasia of the aorta is seen. The lungs areclear. Deformity of the right clavicle is likely the sequela of prior trauma. IMPRESSION: There is no acute cardiopulmonary disease. WSN: [id number] Ordering Physician: Manav Candelario Dictated By: Ivy Marcum MD Dictated Date/Time: 07/02/20 9:31 am Reviewed By: vIy Marcum MD Signed By: Ivy Marcum MD Signed Date/Time: 07/02/20 9:31 am Transcribed By: DAVIN Transcribed Date/Time: 07/02/20 9:29 am Vital Signs Most recent to oldest [Reference Range]: 1 2 Weight 88.5 kg (07/02/20 8:53 AM) Oxygen Saturation [94-100 %] 95 % 100 % (07/02/20 8:53 AM) (07/02/20 8:28 AM) Pulse Rate [55-90 bpm] 81 bpm 100 bpm (07/02/20 8:53 AM) *H* (07/02/20 8:28 AM) Blood Pressure [90-138/55-84 mm Hg] 139/94 mm Hg *H* (07/02/20 8:53 AM) Respiratory Rate [16-30 br/min] 20 br/min 18 br/mi n (07/02/20 8:53 AM) (07/02/20 8:28 AM) Temperature [96.8-100.4 DegF] 97.9 DegF (07/02/20 8:53 AM) Liters per Minute 0 L/min (07/02/20 8:53 AM) Mode of Delivery (Oxygen) Room air (07/02/20 8:53 AM) Blood pressure sites Arm, left (07/02/20 8:53 AM) Temperature Route Oral (07/02/20 8:53 AM) Dry Weight 88.5 kg (07/02/20 8:53 AM) Weight Obtained Via Patient/family stated (07/02/20 8:53 AM) Dry Weight Obtained Via Patient/family stated (07/02/20 8:53 AM) Social History Social History Type Response Smoking Status Current every day smoker entered on: 04/25/16 Sex
--- OUTSIDE RECORDS SUMMARY | 2022-06-23 20:26 | XMS_ITS | Continuity of Care Document ---
:1965 Author Organization [facility] Address [address] [place] [id number]- Care Team Providers Name Role Phone Елена Leung MD Primary Care Physician Encounter [facility] [place] Date(s): 06/19/21 - 06/30/[address] [id number] Discharge Disposition: A-D/C Home Attending Physician: Kimberlee Martinez DO Admitting Physician: Gail Carrero MD Referring Physician: Not on Staff, Referring [...] Given P atient Refuses pneumococcal 23-valent vaccine 9/6/16 Not Given P atient Refuses influenza virus [...] 3 times a day, # 180 tablet, 2 Refills, Maintenance, 06/30/21 15:36:00 EST, EC Tablet, [facility], Partial fill upon patient request if the prescription is for a schedule II opioid drug., 184, cm, 06/28/21 16... Start Date: 06/30/21 Stop Date: 09/28/21 Status: OrderedCarafate 1 gm oral tablet 1 Gm, 1, tablet, By Mouth, 3 times a day before meals, # 90 tablet, Refills 0, Tot. Refills 0, Maintenance, 06/30/21 15:36:00 EST, Route to Pharmacy Electronically, [facility], Partial fill upon patient request if the prescription is for... Start Date: 06/30/21 Status: Orderedfluticasone-vilanterol 200 mcg-25 mcg/inh inhalation powder 1 puffs, Inhalation, Daily, # 1 each, 3 Refills, Maintenance, 06/30/21 15:37:00 EST, Inhaler, [facility], Partial fill upon patient request if the prescription is for a schedule II opioiddrug., 1 puffs Inhalation Daily,x30 days, 184, cm... Start Date: 06/30/21 Stop Date: 10/28/21 Status: Orderedfolic acid 1 mg oral tablet 1 mg, 1, tablet, By Mouth, Daily, # 30 tablet, Refills 0, Tot. Refills 0, Maintenance, 06/30/21 15:12:00 EST, Route to Pharmacy Electronically, [facility], Partial fill upon patient request if the prescription is for a schedule II opioid... Start Date: 06/30/21 Status: Orderedgabapentin 400 mg oral capsule 400 mg, 1, capsule, By Mouth, 3 times a day, # 90 capsule, Refills 0, Tot. Refills 0, Maintenance, 06/30/21 15:10:00 EST, Route to Pharmacy Electronically, [facility], Partial fill upon patient request if the prescription is for a schedu... Start Date: 06/30/21 Status: Orderedgabapentin 400 mg oral capsule 400 mg, Capsule, By Mouth, 06/30/21 15:00:00 EST Start Date: 06/30/21 Stop Date: 06/30/21 Status: Completedlisinopril 5 mg oral tablet 2.5 mg, 0.5, tablet, By Mouth, Daily, # 15 tablet, Refills 0, Tot. Refills 0, Maintenance, 06/30/21 15:10:00 EST, Route to Pharmacy Electronically, [facility], Partial fill upon patient request if the prescription is for a schedule II op... Start Date: 06/30/21 Status: Orderedlisinopril 5 mg oral tablet 2.5 mg, Tablet, By Mouth, Hold for: sBP<100, 06/30/21 9:00:00 EST Start Date: 06/30/21 Stop Date: 06/30/21 Status: Completedmirtazapine 30 mg oral tablet 1 tablet = 30 mg, By Mouth, Daily at bedtime, # 30 tablet, 0 Refills, Maintenance, 06/30/21 15:10:00EST, Tablet, [facility], Partial fill upon patient request if the prescription is for a schedule II opioid drug., 184, cm, 06/28/21 16:4... Start Date: 06/30/21 Status: Orderedpantoprazole 40 mg oral delayed release tablet = 40 mg, By Mouth, Daily, # 30 each, 0 Refills, Maintenance, 06/30/21 15:11:00 EST, EC Tablet, 184, cm, 06/28/21 16:47:00 EST, Height, 88.5, kg, 06/19/21 14:47:00 EST, Dry Weight Start Date: 06/30/21 Status: Orderedprazosin 1 mg oral capsule 1 mg, 1, capsule, By Mouth, Daily, # 30 capsule, Refills 0, Tot. Refills 0, Maintenance, 06/30/21 15:11:00 EST, Route to Pharmacy Electronically, [facility], Partial fill upon patient request if the prescription is for a schedule II opio... Start Date: 06/30/21 Status: Orderedprazosin 1 mg oral capsule 1 mg, Capsule, By Mouth, 06/30/21 9:00:00 EST Start Date: 06/30/21 Stop Date: 06/30/21 Status: Completedprazosin 2 mg oral capsule 1 capsule = 2 mg, By Mouth, Daily at bedtime, # 30 capsule, 0 Refills, Maintenance, 06/30/21 15:11:00 EST, Capsule, [facility], Partial fill upon patient request if the prescription is for a schedule II opioid drug., 184, cm, 06/28/21 16... Start Date: 06/30/21 Status: OrderedProAir HFA 90 mcg/inh inhalation aerosol 2 puffs, Inhalation, Every 4 hours, PRN as needed for wheezing, # 2 each, 3 Refills, Maintenance, 06/30/21 15:10:00 EST, Aerosol, [facility], Partial fill upon patient request if the prescription is for a schedule II opioid drug., 2 puff... Start Date: 06/30/21 Stop Date: 10/28/21 Status: OrderedrisperiDONE 1 mg oral tablet 1 mg, 1, tablet, By Mouth, 2 times a day, # 60 tablet, Refills 0, Tot. Refills 0, Maintenance, 06/30/21 15:11:00 EST, Route to Pharmacy Electronically, [facility], Partial fill upon patient request if the prescription is for a schedule I... Start Date: 06/30/21 Status: OrderedSodium Chloride 1000 mg oral tablet 2 tablet = 2 Gm, By Mouth, 2 times a day, # 12 tablet, 0 Refills, Maintenance, 06/30/21 15:12:00 EST, Tablet, [facility], Partial fill upon patient request if the prescription is for a schedule II opioid drug., 184, cm, 06/28/21 16:47:00... Start Date: 06/30/21 Stop Date: 07/03/21 Status: Orderedthiamine 100 mg oral tablet 100 mg, 1, tablet, By Mouth, Daily, # 30 tablet, Refills 0, Tot. Refills 0, Maintenance, 06/30/21 15:12:00 EST, Route to Pharmacy Electronically, [facility], Partial fill upon patient request if the prescription is for a schedule II opio... Start Date: 06/30/21 Status: OrderedtraZODone 150 mg oral tablet 1 tablet = 150 mg, By Mouth, Daily at bedtime, # 30 tablet, 0 Refills, Maintenance, 06/30/21 15:11:00 EST, [facility] fill upon patient request if the prescription is fora schedule II opioid drug., 184, cm, 06/28/21 16:... Start Date: 06/30/21 Status: OrderedTrileptal 600 mg oral tablet 1 tablet = 600 mg, By Mouth, 2 times a day, # 180 tablet, 0 Refills, Maintenance, 06/30/21 15:10:00 EST, Tablet, [facility], Partial fill upon patient request if the prescription is for aschedule II opioid drug., 184, cm, 06/28/21 16:47... Start Date: 06/30/21 Status: Ordered Problem List Condition Effective Dates [...] Exam Date Time Procedure Performing Provider Status 06/19/21 9:19 AM Chest Portable Rocio Bravo; Auth (Arturo d) Notes:(Chest Portable) Reason For Exam: Shortness of BreathRESULT: Chest Portable Chest Portable Hx of Present Illness: Pt c o nausea, dry heaves, last drink and fentanyl use approx 26 hours ago. Pt requesting detox; Reason: Shortness of Breath; Clinical Question(s): Pneumonia COMPARISON: Multiple priors, most recent 06/13/2021. FINDINGS: LINES AND TUBES: None. LUNGS AND PLEURA: Clear lungs. Normal pulmonary vascularity. No pleural effusion. No pneumothorax. HEART, MEDIASTINUM AND MING: Heart is normal in size. Aorta is somewhat tortuous. BONES AND SOFT TISSUES: No acute abnormality. Multiple bilateral posterior rib fractures in various stages of healing. IMPRESSION: No acute cardiopulmonary abnormality. WSN: [id number] Ordering Physician: Virginia Sotelo Dictated By: Bonifacio Mason MD Dictated Date/Time: 06/19/21 9:28 am Reviewed By: Bonifacio Mason MD Signed By: Bonifacio Mason MD Signed Date/Time: 06/19/21 9:28 am Transcribed By: DAVIN Transcribed Date/Time: 06/19/21 9:22 am Vital Signs Most recent to oldest 1 2 3 4 [Reference Range]: Height 184 cm 184 cm 184 cm (06/28/21 4:47 PM) (06/28/21 8:35 AM) (06/23/21 11:29 PM) Weight 88.5 kg (06/19/21 2:44 PM) Oxygen Saturation 96 % 95 % 96 % [94-100 %] (06/30/21 3:00 PM) (06/30/21 11:00 AM) (06/30/21 8:25 AM) Pulse Rate [55-90 bpm] 67 bpm 66 bpm 56 bpm (06/30/21 3:00 PM) (06/30/21 11:00 AM) (06/30/21 8:25 AM) Body Mass Index 26.14 [18.5-24.99] *H* (06/19/21 2:44 PM) Blood Pressure 96/64 mm Hg 104/62 mm Hg 114/73 mm Hg 114/73 mm Hg [90-138/55-84 mm Hg] (06/30/21 3:00 PM) (06/30/21 11:00 AM) (06/30/21 8:25 AM) (06/30/21 8:25 AM) Respiratory Rate [16-30 18 br/min 20 br/min 19 br/min br/min] (06/30/21 4:02 PM) (06/30/21 3:00 PM) (06/30/21 11:00 AM) Temperature [96.8-100.4 98.4 DegF 98.1 DegF 98.2 DegF DegF] (06/30/21 8:25 AM) (06/30/21 4:00 AM) (06/29/21 11:00 PM) Liters per Minute 2 L/min (06/21/21 8:00 AM) Mode of Delivery Room air Room air Room air (Oxygen) (06/30/21 3:00 PM) (06/30/21 11:00 AM) (06/30/21 8:25 AM) Blood pressure sites Arm, right Arm, right Arm, right (06/30/21 3:00 PM) (06/30/21 11:00 AM) (06/30/21 8:25 AM) Temperature Route Oral Oral Oral (06/30/21 4:00 AM) (06/29/21 11:00 PM) (06/29/21 7:00 PM) Dry Weight 88.5 kg (06/19/21 2:44 PM) Social History Social History Type Response Smoking Status 10 or more cigarettes (1/2 p ack or more)/day in last 30 days; Other: smokes 2 ppd for over 35+ years (age 11); entered on: 08/16/20 Sex
--- OUTSIDE RECORDS SUMMARY | 2022-06-23 20:26 | XMS_ITS | Continuity of Care Document ---
:1965 Author Organization [facility] Address [address] [place] [id number]- Care Team Providers Name Role Phone Елена Leung MD Primary Care Physician Encounter [facility] Date(s): 09/22/21 - 09/23/[address] [address]- Encounter Diagnosis Alcohol withdrawal (Final) - 09/22/21 Seizures (Final) - 09/22/21 Discharge Disposition: A-D/C AMA Attending Physician: Corinna Sen MD Admitting Physician: Radha Rodriguez MD Referring [...] 07/10/21 7:56:00 EST, Route to Pharmacy Electronically, [facility]-, Partial fill upon patient request if the prescript... Start Date: 07/10/21 Status: Orderedfluticasone-vilanterol 200 mcg-25 mcg/inh inhalation powder 1 puffs, Inhalation, Daily, # 1 each, 3 Refills, Maintenance, 07/10/21 7:55:00 EST, Inhaler, [facility]-, Partial fill upon patient request if the prescription is for a scheduleII opioid drug., 1 puffs Inhalation Daily,x30 day... Start Date: 07/10/21 Stop Date: 11/07/21 Status: Orderedgabapentin 400 mg oral capsule 400 mg, 1, capsule, By Mouth, 3 times a day, # 90 capsule, Refills 0, Tot. Refills 0, Maintenance, 07/10/21 7:55:00 EST, Route to Pharmacy Electronically, [facility], Partial fill upon patient request if the prescription is fo... Start Date: 07/10/21 Status: Orderedgabapentin 400 mg oral capsule 400 mg, Capsule, By Mouth, 09/23/21 9:00:00 EDT Start Date: 09/23/21 Stop Date: 09/23/21 Status: Completedlisinopril 2.5 mg oral tablet 2.5 mg, 1, tablet, By Mouth, Daily, # 30 tablet, Refills 0, Maintenance, 08/16/21 21:23:00 EST, Partial fill upon patient request if the prescription is for a schedule II opioid drug. Start Date: 08/16/21 Status: Orderedlisinopril 5 mg oral tablet 2.5 mg, Tablet, By Mouth, 09/23/21 9:00:00 EDT Start Date: 09/23/21 Stop Date: 09/23/21 Status: Completedmirtazapine 30 mg oral tablet 1 tablet = 30 mg, By Mouth, Daily at bedtime, # 90 tablet, 11 Refills, Maintenance, 07/10/21 7:55:00EST, Tablet, [facility]-, Partial fill upon patient request if the prescription is for a schedule II opioid drug., 183, cm, 01... Start Date: 07/10/21 Status: OrderedMultivitamin Tablet 1 tablet, By Mouth, Daily, 0 Refills, Maintenance, 09/04/21 9:42:00 EDT, Tablet, Partial fill upon patient request if the prescription is for a schedule II opioid drug. Start Date: 09/04/21 Status: Orderedpantoprazole 40 mg oral delayed release tablet = 40 mg, By Mouth, Daily, # 30 each, 0 Refills, Maintenance, 07/10/21 7:55:00 EST, EC Tablet, 183, cm, 07/10/21 6:22:00 EST, Height, 88.3, kg, 07/06/21 0:05:00 EST, Dry Weight Start Date: 07/10/21 Status: Orderedprazosin 1 mg oral capsule 1 mg, Capsule, By Mouth, 09/23/21 9:00:00 EDT Start Date: 09/23/21 Stop Date: 09/23/21 Status: Completedprazosin 1 mg oral capsule 1 mg, 1, [...] 3 Refills, Maintenance, 07/10/21 7:55:00 EST, Aerosol, [facility]-, Partial fill upon patient request if the prescription is for a schedule II opioid teresa... Start Date: 07/10/21 Stop Date: 11/07/21 Status: OrderedPyridoxine Tablet 50 mg, By Mouth, Daily, Refills 0, Maintenance, 09/04/21 9:42:00 EDT, Partial fill upon patient request if the prescription is for a schedule II opioid drug. Start Date: 09/04/21 Status: OrderedrisperiDONE 1 mg oral tablet 1 [...] II opioid drug. Start Date: 09/04/21 Status: Orderedthiamine 100 mg oral tablet 100 mg, 1, tablet, By Mouth, Daily, Refills 0, Maintenance, 09/04/21 9:42:00 EDT, Partial fill upon patient request if the prescription is for a schedule II opioid drug. Start Date: 09/04/21 Status: OrderedtraZODone 150 mg oral tablet 1 [...] 0 Refills, Maintenance, 07/10/21 7:55:00 EST, Tablet, [facility], Partial fill upon patient request if the prescription is for a schedule II opioid drug., 183, cm, 06/15... Start Date: 07/10/21 Status: OrderedUrea Powder = 15 Gm, By Mouth, 2 times a day, 0 Refills, Maintenance, 09/04/21 9:42:00 EDT, Powder, Partial fillupon patient request if the prescription is for a schedule II opioid drug. Start Date: 09/04/21 Status: Ordered Problem List Condition Effective Dates [...] 3 [Reference Range]: Oxygen Saturation [94-100 %] 99 % 97 % 97 % (09/23/21 9:18 AM) (09/23/21 7:37 AM) (09/23/21 6:0 8 AM) Pulse Rate [55-90 bpm] 86 bpm 88 bpm 81 bpm (09/23/21 9:18 AM) (09/23/21 7:37 AM) (09/23/21 6:0 8 AM) Blood Pressure [90-138/55-84 mm 142/100 mm Hg 142/100 mm Hg 147/89 mm Hg Hg] *H* *H* *H* (09/23/21 9:21 AM) (09/23/21 9:18 AM) (09/23/21 7:3 7 AM) Respiratory Rate [16-30 br/min] 18 br/min 19 br/min 18 br/min (09/23/21 9:22 AM) (09/23/21 9:18 AM) (09/23/21 7:3 7 AM) Temperature [96.8-100.4 DegF] 97.5 DegF 97.8 DegF 98 .5 DegF (09/23/21 7:37 AM) (09/23/21 2:47 AM) (09/23/21 2:4 0 AM) Liters per Minute 3 L/min 3 L/min 3 L/min (09/23/21 6:08 AM) (09/23/21 2:47 AM) (09/23/21 2:4 0 AM) Mode of Delivery (Oxygen) Room air Room air Nasal cannula (09/23/21 9:18 AM) (09/23/21 7:37 AM) (09/23/21 6:0 8 AM) Blood pressure sites Arm, left Arm, left Arm, left (09/23/21 9:18 AM) (09/23/21 7:37 AM) (09/23/21 6:0 8 AM) Temperature Route Oral Oral Oral (09/23/21 7:37 AM) (09/23/21 2:47 AM) (09/23/21 2:4 0 AM) Social History Social History Type Response Smoking Status Cigars or pipes but not reinier y within last 30 days entered on: 08/25/21 Sex
--- OUTSIDE RECORDS SUMMARY | 2022-06-23 20:26 | XMS_ITS | Continuity of Care Document ---
:1965 Author Organization [facility] Address [address] [place] [id number]- Care Team Providers Name Role Phone Елена Leung MD Primary Care Physician Encounter [facility] [place] Date(s): 11/26/21 - 11/27/[address] [address]- Encounter Diagnosis Opioid overdose (Final) - 11/26/21 Discharge Disposition: A-D/C AMA Attending Physician: Jayla Anderson MD Admitting Physician: Kayla Whelan MD Referring Physician: Not on Staff, Referring MD Allergies, Adverse Reactions, Alerts Substance Reaction Severity Status penicillins1 Active Naprosyn itching Active Swelling [id number] Anaphylactic reaction requiring IM epinephrine S evere Active 1Tolerates [id number] reaction requiring IM epinephrine Immunizations Given and [...] but continues to refuse. Medications Breo Ellipta 100 mcg-25 mcg/inh inhalation powder 1 puffs, Inhalation, Daily, Maintenance, 11/27/21 10:46:00 EDT, Powder, ; Start Date: 11/27/21 Status: Orderedcyclobenzaprine 10 mg oral tablet 10 mg, 1, tablet, By Mouth, 3 times a day, PRN, Refills 0, Maintenance, for spasm, 10/10/21 12:59:00EDT, ; Start Date: 10/10/21 Status: Orderedgabapentin 400 mg oral capsule 400 mg, 1, capsule, By Mouth, 3 times a day, Maintenance, 11/27/21 10:43:00 EDT, ; Start Date: 11/27/21 Status: Orderedibuprofen 600 mg oral tablet 600 mg, 1, tablet, By Mouth, 3 times a day, PRN, Refills 0, Maintenance, as needed, 10/10/21 12:57:00 EDT, ; Start Date: 10/10/21 Status: Orderedmirtazapine 30 mg oral tablet 1 tablet = 30 mg, By Mouth, Daily at bedtime, # 90 tablet, 11 Refills, Maintenance, 07/10/21 7:55:00EST, Tablet, [facility]-, Partial fill upon patient request if the [...] AM, Refills 0, Maintenance, 09/04/21 9:42:00 EDT, ; Start Date: 09/04/21 Status: Orderedprazosin 5 mg oral capsule 5 mg, 1, capsule, By Mouth, Daily at bedtime, Refills 0, Maintenance, 09/26/20 0:51:00 EDT, ; Start Date: 09/26/20 Status: OrderedProAir HFA 90 mcg/inh inhalation aerosol 2 puffs, Inhalation, Every 4 hours, PRN as needed for wheezing, # 2 each, 3 Refills, Maintenance, 07/10/21 7:55:00 EST, Aerosol, [facility], Partial fill upon patient request if the prescription is for a schedule II opioid teresa... Start Date: 07/10/21 Stop Date: 11/07/21 Status: OrderedrisperiDONE 1 mg oral tablet 1 mg, 1, tablet, By Mouth, Daily in AM, Refills 0, Maintenance, 09/04/21 9:42:00 EDT, ; Start Date: 09/04/21 Status: OrderedrisperiDONE 2 mg oral tablet, disintegrating 1 tablet = 2 mg, By Mouth, Daily at bedtime, Maintenance, 11/27/21 10:45:00 EDT, DIS Tablet, ; Start Date: 11/27/21 Status: OrderedtraZODone 150 mg oral tablet 1 tablet = 150 mg, By Mouth, Daily at bedtime, 0 Refills, Maintenance, 09/26/20 0:51:00 EDT, Tablet,; Start Date: 09/26/20 Status: OrderedTrileptal 600 mg oral tablet 1 tablet = 600 mg, By Mouth, 2 times a day, # 180 tablet, 0 Refills, Maintenance, 07/10/21 7:55:00 EST, Tablet, [facility], Partial fill upon patient request if the [...] for Microbiology Reports Name Date Blood Culture 11/26/21 Microbiology Reports TEST:Blood Culture STATUS:Unauthenticated BODY SITE: SOURCE:Blood COLLECTED DATE/TIME:11/26/21 6:19 PMBlood Culture SPECIMEN DESCRIPTION : BLOOD NO SITE SPECIAL REQUESTS : NONE CULTURE : NO GROWTH AFTER 24 HOURS REPORT STATUS : PRELIMINARY REPORT Radiology Reports Exam Date Time Procedure Performing Provider Status 11/26/21 6:41 PM Chest Portable James De La Garza; Willard (Verified) Notes:(Chest Portable) Reason For Exam: Shortness of BreathRESULT: Chest Portable Examination: Portable chest performed on 11/26/2021. History: Shortness of breath. Findings: A frontal view of the chest is compared to a prior study dated 10/11/2021. The cardiac silhouette is within normal limits for size. Left basilar atelectasis is noted. The lungs are otherwise clear. Deformity of the distal right clavicle may be the sequela of prior trauma. Impression: Left basilar atelectasis. WSN: [id number] Ordering Physician: Lázaro Medina Dictated By: Ivy Marcum MD Dictated Date/Time: 11/26/21 6:48 pm Reviewed By: Ivy Marcum MD Signed By: Ivy Marcum MD Signed Date/Time: 11/26/21 6:48 pm Transcribed By: DAVIN Transcribed Date/Time: 11/26/21 6:47 pm Vital Signs Most recent to oldest 1 2 3 [Reference Range]: Oxygen Saturation [94-100 %] 100 % 95 % 94 % (11/27/21 9:29 AM) (11/27/21 6:36 AM) (11/27/21 4:2 7 AM) Pulse Rate [55-90 bpm] 78 bpm 82 bpm 77 bpm (11/27/21 9:29 AM) (11/27/21 6:36 AM) (11/27/21 4:2 7 AM) Blood Pressure [90-138/55-84 160/102 mm Hg 159/88 mm Hg 161 /93 mm Hg mm Hg] *H* *H* *H* (11/27/21 9:29 AM) (11/27/21 6:36 AM) (11/27/21 4:2 7 AM) Respiratory Rate [16-30 16 br/min 18 br/min 18 br/mi n br/min] (11/27/21 9:29 AM) (11/27/21 6:36 AM) (11/27/21 4:2 7 AM) Temperature [96.8-100.4 DegF] 97.7 DegF 97.2 DegF 98 .2 DegF (11/27/21 6:36 AM) (11/27/21 4:27 AM) (11/27/21 12: 43 AM) Liters per Minute 3 L/min (11/26/21 6:36 PM) Mode of Delivery (Oxygen) Room air Room air Room a ir (11/27/21 6:36 AM) (11/27/21 4:27 AM) (11/27/21 2:4 5 AM) Blood pressure sites Arm, right Arm, right Arm, right (11/27/21 6:36 AM) (11/27/21 4:27 AM) (11/27/21 2:4 5 AM) Temperature Route Oral Oral Oral (11/27/21 6:36 AM) (11/27/21 4:27 AM) (11/26/21 7:0 4 PM) Social History Social History Type Response Smoking Status Not obtained due to cognitiv e impairment entered on: 09/24/21 Sex
--- OUTSIDE RECORDS SUMMARY | 2022-06-23 20:26 | XMS_ITS | Continuity of Care Document ---
:1965 Author Organization [facility] Address [address] [place] [address]- Care Team Providers Name Role Phone Madhu HASSAN, Елена Primary Care Physician Encounter [facility] Date(s): 04/11/21 - 05/11/21 [facility] [address] [place], [place] [address] Allergies, Adverse Reactions, Alerts Substance Reaction [...] Refills, Maintenance, 12/27/20 9:09:00 EDT, CR Tablet, [facility]/pharmacy #[id number], Partial fill upon patient request if the prescription is for a schedule II opioid drug., 182, cm, 12/27/20 6:15:00 E... Start Date: 12/27/20 Stop Date: 04/26/21 Status: OrderedcloNIDine 0.1 mg oral tablet 1, tablet, By Mouth, 2 times a day, # 60 tablet, Refills 0, Tot. Refills 0, Maintenance, 12/22/20 15:38:00 EDT, Route to Pharmacy Electronically, [facility] STORE [id number], 182, cm, 11/22/20 11:13:00 EDT, Height, 88.2, [...] 11 Refills, Maintenance, 11/22/20 11:29:00 EDT, Inhaler, [facility]/pharmacy #[id number], Partial fill upon patient request if the prescription is for a schedule II opioid drug., 1 puffs Inhalation Daily, 182, cm, 11/22/20 11:... Start Date: 11/22/20 Status: Orderedmirtazapine 15 mg oral tablet 1 tablet = 15 mg, By Mouth, Daily at bedtime, # 30 tablet, 0 Refills, Maintenance, 05/06/21 10:38:00EST, Tablet, Partial fill upon patient request if the prescription is for a schedule II opioid drug. Start Date: 05/06/21 Status: Orderednicotine 21 mg/24 hr transdermal film, extended release 1 patch, Topically, Daily, # 30 patch, 0 Refills, Maintenance, 01/24/21 13:02:00 EDT, Patch, [facility] 3, Partial fill upon patient request [...] 0 Refills, Maintenance, 01/24/21 13:01:00 EDT, Lozenge, [facility] 3, Partial fill upon patient request [...] 04/11/21 16:46:00 EDT, Route to Pharmacy Electronically, [facility]/pharmacy #[id number], Partial fill upon patient request if the prescription is for a schedule... Start Date: 04/11/21 Status: OrderedProAir HFA 90 mcg/inh inhalation aerosol 2 puffs, Inhalation, Every 4 hours, PRN as needed for wheezing, # 2 each, 11 Refills, Maintenance, 11/22/20 11:29:00 EDT, Aerosol, [facility]/pharmacy #[id number], Partial fill upon patient request if the prescription is for a schedule II opioid drug., 2 puffs Inh... Start Date: 11/22/20 Stop Date: 11/17/21 Status: OrderedrisperiDONE 1 mg oral tablet See Instructions, 1 tablet By Mouth Daily in AM, 2 daily at PM, # 30 tablet, Refills 11, Tot. Refills 11, Maintenance, 04/11/21 16:46:00 EDT, Instructions Replace Required Details, Route to Pharmacy Electronically, [facility]/pharmacy #[id number], 183, cm, ... Start Date: 04/11/21 Status: OrderedrisperiDONE 2 mg oral tablet 1, tablet, By Mouth, Daily at bedtime, # 90 tablet, Refills 11, Tot. Refills 11, Maintenance, 04/11/21 16:46:00 EDT, Route to Pharmacy Electronically, [facility]/pharmacy #[id number], 183, cm, 03/31/21 19:04:00 EDT, Height, 82, kg, 03/31/21 19:04:00 EDT, Dry Weight Start Date: 04/11/21 Status: Orderedthiamine 100 mg oral tablet 100 mg, 1, tablet, By Mouth, 2 times a day, # 90 tablet, Refills 0, Tot. Refills 0, Maintenance, 01/24/21 13:02:00 EDT, Route to Pharmacy Electronically, [facility], Partial fill upon patient request if the prescription is for a schedule... Start Date: 01/24/21 Status: OrderedtraZODone 150 mg oral tablet 1 tablet = 150 mg, By Mouth, Daily at bedtime, # 90 tablet, 11 Refills, Maintenance, 04/11/21 16:46:00 EDT, Tablet, [facility]/pharmacy #[id number], Partial fill upon patient request if the prescription is for a schedule II opioid drug., 183, cm, 03/31/21 19:04:00... Start Date: 04/11/21 Status: OrderedTrileptal 600 mg oral tablet 1 tablet = 600 mg, By Mouth, 2 times a day, # 180 tablet, 11 Refills, Maintenance, 04/11/21 16:46:00EDT, Tablet, [facility]/pharmacy #[id number], Partial fill upon patient [...]
--- OUTSIDE RECORDS SUMMARY | 2022-06-23 20:26 | XMS_ITS | Continuity of Care Document ---
:1965 Author Organization [facility] Address [address] [place] [address]- Care Team Providers Name Role Phone Елена Leung MD Primary Care Physician Encounter [facility] [place] Date(s): 03/26/21 - 06/08/21 [facility] [address] [place], [place] [address] Attending Physician: Елена Leung MD Allergies, Adverse [...] Refills, Maintenance, 12/27/20 9:09:00 EDT, CR Tablet, [facility]/pharmacy #[id number], Partial fill upon patient request if the prescription is for a schedule II opioid drug., 182, cm, 12/27/20 6:15:00 E... Start Date: 12/27/20 Stop Date: 04/26/21 Status: OrderedcloNIDine 0.1 mg oral tablet 1, tablet, By Mouth, 2 times a day, # 60 tablet, Refills 0, Tot. Refills 0, Maintenance, 12/22/20 15:38:00 EDT, Route to Pharmacy Electronically, [facility] STORE [id number], 182, cm, 11/22/20 11:13:00 EDT, Height, 88.2, [...] 11 Refills, Maintenance, 11/22/20 11:29:00 EDT, Inhaler, [facility]/pharmacy #[id number], Partial fill upon patient request [...] 0 Refills, Maintenance, 01/24/21 13:02:00 EDT, Patch, [facility] 3, Partial fill upon patient request [...] 0 Refills, Maintenance, 01/24/21 13:01:00 EDT, Lozenge, [facility] 3, Partial fill upon patient request [...] 04/11/21 16:46:00 EDT, Route to Pharmacy Electronically, [facility]/pharmacy #[id number], Partial fill upon patient request if the prescription is for a schedule... Start Date: 04/11/21 Status: OrderedProAir HFA 90 mcg/inh inhalation aerosol 2 puffs, Inhalation, Every 4 hours, PRN as needed for wheezing, # 2 each, 11 Refills, Maintenance, 11/22/20 11:29:00 EDT, Aerosol, [facility]/pharmacy #1130, Partial fill upon patient request [...] Replace Required Details, Route to Pharmacy Electronically, [facility]/pharmacy #1130, 183, cm, ... Start Date: 04/11/21 Status: OrderedrisperiDONE 2 mg oral tablet 1, tablet, By Mouth, Daily at bedtime, # 90 tablet, Refills 11, Tot. Refills 11, Maintenance, 04/11/21 16:46:00 EDT, Route to Pharmacy Electronically, [facility]/pharmacy #[id number], 183, cm, 03/31/21 19:04:00 EDT, Height, 82, kg, 03/31/21 19:04:00 EDT, Dry Weight Start Date: 04/11/21 Status: Orderedthiamine 100 mg oral tablet 100 mg, 1, tablet, By Mouth, 2 times a day, # 90 tablet, Refills 0, Tot. Refills 0, Maintenance, 01/24/21 13:02:00 EDT, Route to Pharmacy Electronically, [facility], Partial fill upon patient request if the prescription is for a schedule... Start Date: 01/24/21 Status: OrderedtraZODone 150 mg oral tablet 1 tablet = 150 mg, By Mouth, Daily at bedtime, # 90 tablet, 11 Refills, Maintenance, 04/11/21 16:46:00 EDT, Tablet, [facility]/pharmacy #[id number], Partial fill upon patient request [...]
--- OUTSIDE RECORDS SUMMARY | 2022-06-23 20:26 | XMS_ITS | Continuity of Care Document ---
:1965 Author Organization [facility] Address [address] [place] [address]- Care Team Providers Name Role Phone Елена Leung MD Primary Care Physician Encounter [facility] Date(s): 03/07/21 - 03/08/[address] [address]- Discharge Disposition: A-D/C Home Attending Physician: Wisam Bhakta DO Admitting Physician: Wisam Bhakta DO Referring Physician: Not on Staff, Referring MD Allergies, Adverse Reactions, Alerts Substance Reaction Severity Status penicillins Active Naprosyn itching Active Swelling Immunizations Given and Recorded Vaccine Date Status Refusal Reason SARS-CoV-2 (COVID-19) Ad26 vaccine 10/18/20 Recorded tetanus/diphtheria/pertussis, acel(Tdap) 09/28/18 Given tetanus/diphtheria/pertussis, acel(Tdap) 07/25/14 [...] Refills, Maintenance, 12/27/20 9:09:00 EDT, CR Tablet, [facility]/pharmacy #[id number], Partial fill upon patient request if the prescription is for a schedule II opioid drug., 182, cm, 12/27/20 6:15:00 E... Start Date: 12/27/20 Stop Date: 04/26/21 Status: Orderedazithromycin 250 mg oral tablet 1 tablet = 250 mg, By Mouth, Daily, begin tomorrow, # 4 tablet, 0 Refills, Maintenance, 02/25/21 17:53:00 EDT, Tablet, [facility]/pharmacy #[id number], Partial fill upon patient request if the prescription is for aschedule II opioid drug., 183, cm, 01/24/21 11:13... Start Date: 02/25/21 Stop Date: 03/01/21 Status: OrderedcloNIDine 0.1 mg oral tablet 1, tablet, By Mouth, 2 times a day, # 60 tablet, Refills 0, Tot. Refills 0, Maintenance, 12/22/20 15:38:00 EDT, Route to Pharmacy Electronically, [facility] STORE [id number], 182, cm, 11/22/20 11:13:00 EDT, Height, 88.2, [...] 11 Refills, Maintenance, 11/22/20 11:29:00 EDT, Inhaler, [facility]/pharmacy #[id number], Partial fill upon patient request if the prescription is for a schedule II opioid drug., 1 puffs Inhalation Daily, 182, cm, 11/22/20 11:... Start Date: 11/22/20 Status: Orderednicotine 21 mg/24 hr transdermal film, extended release 1 patch, Topically, Daily, # 30 patch, 0 Refills, Maintenance, 01/24/21 13:02:00 EDT, Patch, [facility] 3, Partial fill upon patient [...] 0 Refills, Maintenance, 01/24/21 13:01:00 EDT, Lozenge, [facility] 3, Partial fill upon patient [...] 11/22/20 11:31:00 EDT, Route to Pharmacy Electronically, [facility]/pharmacy #[id number], Partial fill upon patient request if the prescription is for a schedule II... Start Date: 11/22/20 Status: OrderedProAir HFA 90 mcg/inh inhalation aerosol 2 puffs, Inhalation, Every 4 hours, PRN as needed for wheezing, # 2 each, 11 Refills, Maintenance, 11/22/20 11:29:00 EDT, Aerosol, [facility]/pharmacy #1130, Partial fill upon patient request if the prescription is for a schedule II opioid drug., 2 puffs Inh... Start Date: 11/22/20 Stop Date: 11/17/21 Status: OrderedrisperiDONE 1 mg oral tablet 1, tablet, By Mouth, Daily in AM, # 30 tablet, Refills 0, Tot. Refills 0, Maintenance, 12/22/20 15:38:00 EDT, Route to Pharmacy Electronically, [facility] STORE [id number], 182, cm, 11/22/20 11:13:00 EDT, Height, 88.2, kg, 09/17/20 2:30:00 EDT, Dry Weight Start Date: 12/22/20 Status: OrderedrisperiDONE 2 mg oral tablet 1, tablet, By Mouth, Daily at bedtime, # 30 tablet, Refills 0, Tot. Refills 0, Maintenance, 12/22/2114:38:00 EDT, Route to Pharmacy Electronically, [facility] STORE [id number], 182, cm, 11/22/20 11:13:00 EDT, Height, 88.2, kg, 09/17/20 2:30:00 EDT, Dry Weight Start Date: 12/22/20 Status: OrderedSuboxone 8 mg-2 mg sublingual film 1 film, Sublingual, Daily, dissolve under the tongue, # 7 film, 0 Refills, Maintenance, 01/24/21 11:11:00 EDT, Film, [facility] 3, Partial fill upon patient request if the prescription is for a schedule II opioid drug. [id number], 1 film Hilario... Start Date: 01/24/21 Status: Orderedthiamine 100 mg oral tablet 100 mg, 1, tablet, By Mouth, 2 times a day, # 90 tablet, Refills 0, Tot. Refills 0, Maintenance, 01/24/21 13:02:00 EDT, Route to Pharmacy Electronically, [facility] 3, Partial fill upon patient request if the prescription is for a schedule... Start Date: 01/24/21 Status: OrderedtraZODone 150 mg oral tablet 1 tablet = 150 mg, By Mouth, Daily at bedtime, # 30 tablet, 0 Refills, Maintenance, 11/22/20 11:31:00 EDT, Tablet, [facility]/pharmacy #[id number], Partial fill upon patient request if the prescription is for a schedule II opioid drug., Leana, cm, 11/22/20 11:13:00... Start Date: 11/22/20 Status: OrderedTrileptal 600 mg oral tablet 1 tablet = 600 mg, By Mouth, 2 times a day, # 60 tablet, 0 Refills, Maintenance, 11/22/20 11:31:00 EDT, Tablet, [facility]/pharmacy #[id number], Partial fill upon patient [...] Range]: 1 2 Oxygen Saturation [94-100 %] 98 % 97 % (03/08/21 6:20 AM) (03/08/21 12:10 AM) Pulse Rate [55-90 bpm] 98 bpm 87 bpm *H* (03/08/21 12:10 AM) (03/08/21 6:20 AM) Blood Pressure [90-138/55-84 mm Hg] 130/89 mm Hg 133/ 97 mm Hg (03/08/21 6:20 AM) (03/08/21 12:10 AM) Respiratory Rate [16-30 br/min] 18 br/min 17 br/mi n (03/08/21 6:20 AM) (03/08/21 12:10 AM) Temperature [96.8-100.4 DegF] 97.7 DegF 98 DegF (03/08/21 6:20 AM) (03/08/21 12:10 AM) Mode of Delivery (Oxygen) Room air Room air (03/08/21 6:20 AM) (03/08/21 12:10 AM) Temperature Route Oral Oral (03/08/21 6:20 AM) (03/08/21 12:10 AM) Social History Social History Type Response Smoking Status 10 or more cigarettes (1/2 p ack or more)/day in last 30 days; Other: smokes 2 ppd for over 35+ years (age 11); entered on: 08/16/20 Sex
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
--- OUTSIDE RECORDS SUMMARY | 2022-06-23 20:27 | XMS_ITS | Continuity of Care Document ---
:1965 Author Organization [facility] Address [address] [place] [id number]- Care Team Providers Name Role Phone Елена Leung MD Primary Care Physician Encounter [facility] [place] Date(s): 08/20/21 - 08/20/[address] [address]- Encounter Diagnosis Acute alcohol intoxication (Final) - 08/20/21 Discharge Disposition: A-D/C Home Attending Physician: Cr Calderon MD Admitting Physician: Cr Calderon MD Referring Physician: Not on Staff, Referring [...] 07/10/21 7:56:00 EST, Route to Pharmacy Electronically, [facility]-, Partial fill upon patient request if the prescript... Start Date: 07/10/21 Status: Orderedfluticasone-vilanterol 200 mcg-25 mcg/inh inhalation powder 1 puffs, Inhalation, Daily, # 1 each, 3 Refills, Maintenance, 07/10/21 7:55:00 EST, Inhaler, [facility]-, Partial fill upon patient request if the prescription is for a scheduleII opioid drug., 1 puffs Inhalation Daily,x30 day... Start Date: 07/10/21 Stop Date: 11/07/21 Status: Orderedgabapentin 400 mg oral capsule 400 mg, 1, capsule, By Mouth, 3 times a day, # 90 capsule, Refills 0, Tot. Refills 0, Maintenance, 07/10/21 7:55:00 EST, Route to Pharmacy Electronically, [facility], Partial fill upon patient request if [...] tablet, 11 Refills, Maintenance, 07/10/21 7:55:00EST, Tablet, [facility]-, Partial fill upon patient request if [...] 3 Refills, Maintenance, 07/10/21 7:55:00 EST, Aerosol, [facility]-, Partial fill upon patient request if the prescription is for a schedule II opioid teresa... Start Date: 07/10/21 Stop Date: 11/07/21 Status: OrderedrisperiDONE 1 mg oral tablet 1 mg, 1, tablet, By Mouth, 2 times a day, # 60 tablet, Refills 0, Tot. Refills 0, Maintenance, 07/10/21 7:56:00 EST, Route to Pharmacy Electronically, [facility]-, Partial fill upon patient request if [...] 0 Refills, Maintenance, 07/10/21 7:55:00 EST, Tablet, [facility]-, Partial fill upon patient request if [...] Vital Signs Most recent to oldest [Reference 1 2 3 Range]: Height 180 cm 180 cm 180 cm (08/20/21 9:09 PM) (08/20/21 5:38 PM) (08/20/21 12:50 PM) Weight 90 kg 90 kg 90 kg (08/20/21 9:09 PM) (08/20/21 5:51 PM) (08/20/21 5:38 P M) Oxygen Saturation [94-100 %] 96 % 96 % 99 % (08/20/21 9:09 PM) (08/20/21 5:38 PM) (08/20/21 12:50 PM) Pulse Rate [55-90 bpm] 94 bpm 78 bpm 91 bpm *H* (08/20/21 5:38 PM) *H* (08/20/21 9:09 PM) (08/20/21 12:50 P M) Body Mass Index [18.5-24.99] 27.78 27.78 *H* *H* (08/20/21 9:09 PM) (08/20/21 5:38 PM) Blood Pressure [90-138/55-84 mm 124/54 mm Hg 99/60 mm Hg 115/85 mm Hg Hg] (08/20/21 9:09 PM) (08/20/21 5:38 PM) (08/20/21 12:50 PM) Respiratory Rate [16-30 br/min] 16 br/min 16 br/min 18 br/min (08/20/21 9:09 PM) (08/20/21 5:38 PM) (08/20/21 12:50 PM) Temperature [96.8-100.4 DegF] 97.6 DegF 97.5 DegF 97 .4 DegF (08/20/21 9:09 PM) (08/20/21 5:38 PM) (08/20/21 12:50 PM) Mode of Delivery (Oxygen) Room air Room air Room a ir (08/20/21 9:09 PM) (08/20/21 5:51 PM) (08/20/21 5:38 P M) Blood pressure sites Arm, right Arm, right Arm, right (08/20/21 9:09 PM) (08/20/21 5:51 PM) (08/20/21 5:38 P M) Temperature Route Oral Oral Rectal (08/20/21 9:09 PM) (08/20/21 5:38 PM) (08/20/21 12:50 PM) Social History Social History Type Response Smoking Status 10 or more cigarettes (1/2 p ack or more)/day in last 30 days; Other: smokes 2 ppd for over 35+ years (age 11); entered on: 08/16/20 Sex
--- OUTSIDE RECORDS SUMMARY | 2022-06-23 20:27 | XMS_ITS | Continuity of Care Document ---
:[address] [facility] Address [address] [place] [address]- Care Team Providers Name Role Phone Елена Leung MD [id number] Date(s): [facility]/22/20 - 11/29/[facility] [address] [place] [address]- Encounter Diagnosis Gastritis, alcoholic (Discharge Diagnosis) - 11/22/20 Acute gastritis with bleeding (Discharge Diagnosis) - 11/22/20 Post-traumatic stress disorder, chronic (Discharge Diagnosis) - 11/22/20 Alcohol abuse (Discharge Diagnosis) - 11/22/20 Alcohol dependency (Discharge Diagnosis) - 11/22/20 Asthma (Discharge Diagnosis) - 11/22/20 Attending Physician: Елена Leung MD Referring Physician: Mckinley HASSAN, Corinna Joya Allergies, Adverse Reactions, Alerts Substance Reaction Severity [...] 11/22/20 11:31:00 EDT, Route to Pharmacy Electronically, [facility]/pharmacy #[id number], Partial fill upon [...] 11 Refills, Maintenance, 11/22/20 11:29:00 EDT, Inhaler, [facility]/pharmacy #[id number], Partial fill upon patient request if the prescription is for a schedule II opioid drug., 1 puffs Inhalation Daily, 182, cm, 11/22/20 11:... Start Date: 11/22/20 Status: Orderedfolic acid 1 mg oral tablet 1 mg, 1, tablet, By Mouth, Daily, # 30 tablet, Refills 0, Tot. Refills 0, Maintenance, 09/19/20 11:10:00 EDT, Route to Pharmacy Electronically, [facility]/pharmacy #[id number], 182, cm, 09/19/20 0:43:00 EDT, [...] 0 Refills, Maintenance, 10/11/20 9:27:00 EDT, Tablet, [facility], Partial fill upon [...] 11/22/20 11:31:00 EDT, Route to Pharmacy Electronically, [facility]/pharmacy #[id number], Partial fill upon patient request if the prescription is for a schedule II... Start Date: 11/22/20 Status: OrderedProAir HFA 90 mcg/inh inhalation aerosol 2 puffs, Inhalation, Every 4 hours, PRN as needed for wheezing, # 2 each, 11 Refills, Maintenance, 11/22/20 11:29:00 EDT, Aerosol, [facility]/pharmacy #[id number], Partial fill upon patient request if the prescription is for a schedule II opioid drug., 2 puffs Inh... Start Date: 11/22/20 Stop Date: 11/17/21 Status: OrderedRisperDAL 1 mg oral tablet 1 mg, 1, tablet, By Mouth, Daily in AM, # 30 tablet, Refills 0, Tot. Refills 0, Maintenance, 11/22/20 11:31:00 EDT, Route to Pharmacy Electronically, [facility]/pharmacy #[id number], Partial fill upon patient request if the prescription is for a schedule II opioid... Start Date: 11/22/20 Status: OrderedrisperiDONE 2 mg oral tablet 2 mg, 1, tablet, By Mouth, Daily at bedtime, # 30 tablet, Refills 0, Tot. Refills 0, Maintenance, 11/22/20 11:31:00 EDT, Route to Pharmacy Electronically, [facility]/pharmacy #[id number], Partial fill upon patient request if the prescription is for a schedule II o... Start Date: 11/22/20 Status: Orderedthiamine 100 mg oral tablet 100 mg, 1, tablet, By Mouth, Daily, for 30 days, # 30 tablet, Refills 0, Tot. Refills 0, Acute 12/11/20 11:21:00 EDT, 11/11/20 11:21:00 EDT, Route to Pharmacy Electronically, [facility], Partial fill upon patient request if the prescript... Start Date: 11/11/20 Stop Date: 12/11/20 Status: OrderedtraZODone 150 mg oral tablet 1 tablet = 150 mg, By Mouth, Daily at bedtime, # 30 tablet, 0 Refills, Maintenance, 11/22/20 11:31:00 EDT, Tablet, [facility]/pharmacy #[id number], Partial fill upon [...] Umbilical hernia(Confirmed) Active 1second pneumothorax in 2007 Diagnosis Diagnosis Type Effective Dates Health Clinical Infor mant Status Service Gastritis, Discharge 11/22/20 alcoholic Diagnosis Acute gastritis Discharge 11/22/20 with bleeding Diagnosis Post-traumatic Discharge 11/22/20 stress disorder, Diagnosis chronic Alcohol abuse Discharge 11/22/20 Diagnosis Alcohol Discharge 11/22/20 dependency Diagnosis Asthma Discharge 11/22/20 Diagnosis Vital Signs Most recent to oldest [Reference Range]: 1 Height 182 cm (11/22/20 11:13 AM) Weight 91.1 kg (11/22/20 11:13 AM) Oxygen Saturation [94-100 %] 95 % (11/22/20 11:13 AM) Pulse Rate [55-90 bpm] 104 bpm *H* (11/22/20 11:13 AM) Body Mass Index [18.5-24.99] 27.5 *H* (11/22/20 11:13 AM) Blood Pressure [90-138/55-84 mm Hg] 148/76 mm Hg *H* (11/22/20 11:13 AM) Temperature [96.8-100.4 DegF] 98.5 DegF (11/22/20 11:13 AM) Blood pressure sites Arm, left (11/22/20 11:13 AM) Temperature Route Temporal (11/22/20 11:13 AM) Weight Obtained Via Standing scale (11/22/20 11:13 AM) Social History Social History Type Response Smoking Status 10 or more cigarettes (1/2 p ack or more)/day in last 30 days; Other: smokes 2 ppd for over 35+ years (age 11); entered on: 08/16/20 Sex
--- OUTSIDE RECORDS SUMMARY | 2022-06-23 20:27 | XMS_ITS | Continuity of Care Document ---
:1965 Author Organization [facility] Address [address] [place] [address]- Care Team Providers Name Role Phone Faboi Leung MD Primary Care Physician [place] [facility](s): 03/31/21 - 05/01/21 [facility] [address] [place], [place] [address] Attending Physician: [employer], Angie Allergies, Adverse Reactions, Alerts Substance Reaction Severity [...] Refills, Maintenance, 12/27/20 9:09:00 EDT, CR Tablet, [facility]/pharmacy #[id number], Partial fill upon patient request if the prescription is for a schedule II opioid drug., 182, cm, 12/27/20 6:15:00 E... Start Date: 12/27/20 Stop Date: 04/26/21 Status: Orderedazithromycin 250 mg oral tablet 1 tablet = 250 mg, By Mouth, Daily, begin tomorrow, # 4 tablet, 0 Refills, Maintenance, 02/25/21 17:53:00 EDT, Tablet, [facility]/pharmacy #[id number], Partial fill upon patient request if the prescription is for aschedule II opioid drug., 183, cm, 01/24/21 11:13... Start Date: 02/25/21 Stop Date: 03/01/21 Status: OrderedcloNIDine 0.1 mg oral tablet 1, tablet, By Mouth, 2 times a day, # 60 tablet, Refills 0, Tot. Refills 0, Maintenance, 12/22/20 15:38:00 EDT, Route to Pharmacy Electronically, [id number], 182, cm, 11/22/20 11:13:00 EDT, Height, 88.2, [...] 11 Refills, Maintenance, 11/22/20 11:29:00 EDT, Inhaler, [facility]/pharmacy #[id number], Partial fill upon patient request if the prescription is for a schedule II opioid drug., 1 puffs Inhalation Daily, 182, cm, 11/22/20 11:... Start Date: 11/22/20 Status: Orderednicotine 21 mg/24 hr transdermal film, extended release 1 patch, Topically, Daily, # 30 patch, 0 Refills, Maintenance, 01/24/21 13:02:00 EDT, Patch, [facility], Partial fill upon patient request [...] 0 Refills, Maintenance, 01/24/21 13:01:00 EDT, Lozenge, [facility], Partial fill upon patient request [...] 04/11/21 16:46:00 EDT, Route to Pharmacy Electronically, [facility]/pharmacy #[id number], Partial fill upon patient request if the prescription is for a schedule... Start Date: 04/11/21 Status: OrderedProAir HFA 90 mcg/inh inhalation aerosol 2 puffs, Inhalation, Every 4 hours, PRN as needed for wheezing, # 2 each, 11 Refills, Maintenance, 11/22/20 11:29:00 EDT, [facility]ol[id number] Partial fill upon patient request if the prescription is for a schedule II opioid drug., 2 puffs Inh... Start Date: 11/22/20 Stop Date: 11/17/21 Status: OrderedrisperiDONE 1 mg oral tablet 1, tablet, By Mouth, Daily in AM, # 90 tablet, Refills 11, Tot. Refills 11, Maintenance, 04/11/21 16:46:00 EDT, [id number] 183, cm, 03/31/21 19:04:00 EDT, Height, 82, kg, 03/31/21 19:04:00 EDT, Dry Weight Start Date: 04/11/21 Status: OrderedrisperiDONE 2 mg oral tablet 1, tablet, By Mouth, Daily at bedtime, # 90 tablet, Refills 11, Tot. Refills 11, Maintenance, 04/11/21 16:46:00 EDT, [id number] 183, cm, 03/31/21 19:04:00 EDT, Height, 82, kg, 03/31/21 19:04:00 EDT, Dry Weight Start Date: 04/11/21 Status: OrderedSuboxone 8 mg-2 mg sublingual film 1 film, Sublingual, Daily, dissolve under the tongue, # 7 film, 0 Refills, Maintenance, 01/24/21 11:11:00 EDT, Film, [facility], Partial fill upon patient request if the prescription is for a schedule II opioid drug. [id number], 1 film Hilario... Start Date: 01/24/21 Status: Orderedthiamine 100 mg oral tablet 100 mg, 1, tablet, By Mouth, 2 times a day, # 90 tablet, Refills 0, Tot. Refills 0, Maintenance, 01/24/21 13:02:00 EDT, Route to Pharmacy Electronically, [facility] 3, Partial fill upon patient request if the prescription is for a schedule... Start Date: 01/24/21 Status: OrderedtraZODone 150 mg oral tablet 1 tablet = 150 mg, By Mouth, Daily at bedtime, # 90 tablet, 11 Refills, Maintenance, 04/11/21 16:46:00 EDT, Tablet, [facility]/pharmacy #[id number], Partial fill upon patient request if the prescription is for a schedule II opioid drug., 183, cm, 03/31/21 19:04:00... Start Date: 04/11/21 Status: OrderedTrileptal 600 mg oral tablet 1 tablet = 600 mg, By Mouth, 2 times a day, # 180 tablet, 11 Refills, Maintenance, 04/11/21 16:46:00EDT, Tablet, [facility]/pharmacy #[id number], Partial fill upon patient request [...]
--- OUTSIDE RECORDS SUMMARY | 2022-06-23 20:27 | XMS_ITS | Continuity of Care Document ---
:1965 Author Organization [facility] Address [address] [place] [address]- Care Team Providers Name Role Phone Елена Leung MD Primary Care Physician Encounter [facility] Date(s): 06/17/21 - 07/18/21 [facility] [address] [place], [place] [address] Attending Physician: Елена Leung MD Allergies, [...] 07/10/21 7:56:00 EST, Route to Pharmacy Electronically, [facility] Partial fill upon patient request if the prescript... Start Date: 07/10/21 Status: Orderedfluticasone-vilanterol 200 mcg-25 mcg/inh inhalation powder 1 puffs, Inhalation, Daily, # 1 each, 3 Refills, Maintenance, 07/10/21 7:55:00 EST, Inhaler, [facility], Partial fill upon patient request if the prescription is for a scheduleII opioid drug., 1 puffs Inhalation Daily,x30 day... Start Date: 07/10/21 Stop Date: 11/07/21 Status: Orderedfolic acid 1 mg oral tablet 1 mg, 1, tablet, By Mouth, Daily, # 30 tablet, Refills 0, Tot. Refills 0, Maintenance, 07/10/21 7:55:00 EST, Route to Pharmacy Electronically, [facility], Partial fill upon patient request if the prescription is for a schedule... Start Date: 07/10/21 Status: Orderedgabapentin 400 mg oral capsule 400 mg, 1, capsule, By Mouth, 3 times a day, # 90 capsule, Refills 0, Tot. Refills 0, Maintenance, 07/10/21 7:55:00 EST, Route to Pharmacy Electronically, [facility], Partial fill upon patient request if the prescription is fo... Start Date: 07/10/21 Status: Orderedmethadone 10 mg oral tablet = 65 mg, By Mouth, Daily, 0 Refills, Maintenance, 07/16/21 7:50:00 EST, Tablet, Partial fill upon patient request if the prescription is for a schedule II opioid drug. Start Date: 07/16/21 Status: Orderedmirtazapine 30 mg oral tablet 1 tablet = 30 mg, By Mouth, Daily at bedtime, # 90 tablet, 11 Refills, Maintenance, 07/10/21 7:55:00EST, Tablet, [facility]-, Partial fill upon patient request if the prescription is for a schedule II opioid drug., 183, cm, 01... Start Date: 07/10/21 Status: OrderedNicoderm C-Q Clear 21 mg/24 hr transdermal film, extended release 1 patch, Topically, Daily, # 30 patch, 0 Refills, Maintenance, 07/16/21 7:51:00 EST, Patch, [facility], Partial fill upon patient request if the prescription is for a schedule II opioid drug., 182, cm, 07/11/21 21:01:00 EST, Height, 87,... Start Date: 07/16/21 Status: Orderedpantoprazole 40 mg oral delayed release tablet = 40 mg, By Mouth, Daily, # 30 each, 0 Refills, Maintenance, 07/10/21 7:55:00 EST, EC Tablet, 183, cm, 07/10/21 6:22:00 EST, Height, 88.3, kg, 07/06/21 0:05:00 EST, Dry Weight Start Date: 07/10/21 Status: OrderedProAir HFA 90 mcg/inh inhalation aerosol 2 puffs, Inhalation, Every 4 hours, PRN as needed for wheezing, # 2 each, 3 Refills, Maintenance, 07/10/21 7:55:00 EST, Aerosol, [facility]-, Partial fill upon patient request if the prescription is for a schedule II opioid teresa... Start Date: 07/10/21 Stop Date: 11/07/21 Status: OrderedrisperiDONE 1 mg oral tablet 1 mg, 1, tablet, By Mouth, 2 times a day, # 60 tablet, Refills 0, Tot. Refills 0, Maintenance, 07/10/21 7:56:00 EST, Route to Pharmacy Electronically, [facility]-, Partial fill upon patient request if the prescription is for a... Start Date: 07/10/21 Status: Orderedthiamine 100 mg oral tablet 100 mg, 1, tablet, By Mouth, Daily, # 30 tablet, Refills 0, Tot. Refills 0, Maintenance, 07/10/21 7:56:00 EST, Route to Pharmacy Electronically, [facility], Partial fill upon patient request if the prescription is for a schedu... Start Date: 07/10/21 Status: OrderedtraZODone 150 mg oral tablet 1 tablet = 150 mg, By Mouth, Daily at bedtime, # 90 tablet, 11 Refills, Maintenance, 07/10/21 7:56:00 EST, Tablet, [facility]-, Partial fill upon patient request if the prescription is for a schedule II opioid drug., 183, cm, 0... Start Date: 07/10/21 Status: OrderedTrileptal 600 mg oral tablet 1 tablet = 600 mg, By Mouth, 2 times a day, # 180 tablet, 0 Refills, Maintenance, 07/10/21 7:55:00 EST, Tablet, [facility], Partial fill upon patient request if the prescription is for a schedule II opioid drug., 183, cm, 2... Start Date: 07/10/21 Status: Ordered Problem List [...]
--- OUTSIDE RECORDS SUMMARY | 2022-06-23 20:27 | XMS_ITS | Continuity of Care Document ---
:[address] [facility] Address [address] [place] [address]- Care Team Providers Name Role Phone Madhu HASSAN, Елена Primary Care Physician Encounter [facility] Date(s): 03/28/21 - 04/27/21 [facility] [address] [place], [place] [address] Allergies, Adverse Reactions, Alerts Substance Reaction Severity [...] Refills, Maintenance, 12/27/20 9:09:00 EDT, CR Tablet, [facility]/pharmacy #[id number], Partial fill upon patient request if the prescription is for a schedule II opioid drug., 182, cm, 12/27/20 6:15:00 E... Start Date: 12/27/20 Stop Date: 04/26/21 Status: Orderedazithromycin 250 mg oral tablet 1 tablet = 250 mg, By Mouth, Daily, begin tomorrow, # 4 tablet, 0 Refills, Maintenance, 02/25/21 17:53:00 EDT, Tablet, [facility]/pharmacy #[id number], Partial fill upon patient request if the prescription is for aschedule II opioid drug., 183, cm, 01/24/21 11:13... Start Date: 02/25/21 Stop Date: 03/01/21 Status: OrderedcloNIDine 0.1 mg oral tablet 1, tablet, By Mouth, 2 times a day, # 60 tablet, Refills 0, Tot. Refills 0, Maintenance, 12/22/20 15:38:00 EDT, Route to Pharmacy Electronically, [id number], 182, cm, 11/22/20 11:13:00 EDT, Height, 88.2, [...] 11 Refills, Maintenance, 11/22/20 11:29:00 EDT, Inhaler, [facility]/pharmacy #[id number], Partial fill upon patient request if the prescription is for a schedule II opioid drug., 1 puffs Inhalation Daily, 182, cm, 11/22/20 11:... Start Date: 11/22/20 Status: Orderednicotine 21 mg/24 hr transdermal film, extended release 1 patch, Topically, Daily, # 30 patch, 0 Refills, Maintenance, 01/24/21 13:02:00 EDT, Patch, [facility], Partial fill upon patient request if [...] 0 Refills, Maintenance, 01/24/21 13:01:00 EDT, Lozenge, [facility], Partial fill upon patient request if [...] 04/11/21 16:46:00 EDT, Route to Pharmacy Electronically, [facility]/pharmacy #[id number], Partial fill upon patient request if the prescription is for a schedule... Start Date: 04/11/21 Status: OrderedProAir HFA 90 mcg/inh inhalation aerosol 2 puffs, Inhalation, Every 4 hours, PRN as needed for wheezing, # 2 each, 11 Refills, Maintenance, 11/22/20 11:29:00 EDT, [id number] fill upon patient request if the prescription is for a schedule II opioid drug., 2 puffs Inh... Start Date: 11/22/20 Stop Date: 11/17/21 Status: OrderedrisperiDONE 1 mg oral tablet 1, tablet, By Mouth, Daily in AM, # 90 tablet, Refills 11, Tot. Refills 11, Maintenance, 04/11/21 16:46:00 EDT, [id number], cm, 03/31/21 19:04:00 EDT, Height, 82, kg, 03/31/21 19:04:00 EDT, Dry Weight Start Date: 04/11/21 Status: OrderedrisperiDONE 2 mg oral tablet 1, tablet, By Mouth, Daily at bedtime, # 90 tablet, Refills 11, Tot. Refills 11, Maintenance, 04/11/21 16:46:00 EDT, [id number], cm, 03/31/21 19:04:00 EDT, Height, 82, kg, 03/31/21 19:04:00 EDT, Dry Weight Start Date: 04/11/21 Status: OrderedSuboxone 8 mg-2 mg sublingual film 1 film, Sublingual, Daily, dissolve under the tongue, # 7 film, 0 Refills, Maintenance, 01/24/21 11:11:00 EDT, Film, [facility], Partial fill upon patient request if the prescription is for a schedule II opioid drug. [id number], 1 film Hilario... Start Date: 01/24/21 Status: Orderedthiamine 100 mg oral tablet 100 mg, 1, tablet, By Mouth, 2 times a day, # 90 tablet, Refills 0, Tot. Refills 0, Maintenance, 01/24/21 13:02:00 EDT, Route to Pharmacy Electronically, [facility] 3, Partial fill upon patient request if the prescription is for a schedule... Start Date: 01/24/21 Status: OrderedtraZODone 150 mg oral tablet 1 tablet = 150 mg, By Mouth, Daily at bedtime, # 90 tablet, 11 Refills, Maintenance, 04/11/21 16:46:00 EDT, Tablet, [facility]/pharmacy #[id number], Partial fill upon patient request if the prescription is for a schedule II opioid drug., 183, cm, 03/31/21 19:04:00... Start Date: 04/11/21 Status: OrderedTrileptal 600 mg oral tablet 1 tablet = 600 mg, By Mouth, 2 times a day, # 180 tablet, 11 Refills, Maintenance, 04/11/21 16:46:00EDT, Tablet, [facility]/pharmacy #[id number], Partial fill upon patient [...]
--- OUTSIDE RECORDS SUMMARY | 2022-06-23 20:27 | XMS_ITS | Continuity of Care Document ---
:[address] [facility] Address [address] [place] [address]- Care Team Providers Name Role Phone Madhu HASSAN, Елена Primary Care Physician Encounter [facility] Date(s): 03/11/21 - 04/10/21 [facility] [address] [place], [place] [address] Allergies, Adverse Reactions, Alerts Substance Reaction Severity [...] Refills, Maintenance, 12/27/20 9:09:00 EDT, CR Tablet, [facility]/pharmacy #[id number], Partial fill upon patient request if the prescription is for a schedule II opioid drug., 182, cm, 12/27/20 6:15:00 E... Start Date: 12/27/20 Stop Date: 04/26/21 Status: Orderedazithromycin 250 mg oral tablet 1 tablet = 250 mg, By Mouth, Daily, begin tomorrow, # 4 tablet, 0 Refills, Maintenance, 02/25/21 17:53:00 EDT, Tablet, [facility]/pharmacy #[id number], Partial fill upon patient request if the prescription is for aschedule II opioid drug., 183, cm, 01/24/21 11:13... Start Date: 02/25/21 Stop Date: 03/01/21 Status: OrderedcloNIDine 0.1 mg oral tablet 1, tablet, By Mouth, 2 times a day, # 60 tablet, Refills 0, Tot. Refills 0, Maintenance, 12/22/20 15:38:00 EDT, Route to Pharmacy Electronically, [id number], 182, cm, 11/22/20 11:13:00 EDT, Height, 88.2, [...] 11 Refills, Maintenance, 11/22/20 11:29:00 EDT, Inhaler, [facility]/pharmacy #[id number], Partial fill upon patient request if the prescription is for a schedule II opioid drug., 1 puffs Inhalation Daily, 182, cm, 11/22/20 11:... Start Date: 11/22/20 Status: Orderednicotine 21 mg/24 hr transdermal film, extended release 1 patch, Topically, Daily, # 30 patch, 0 Refills, Maintenance, 01/24/21 13:02:00 EDT, Patch, [facility], Partial fill upon patient request [...] 0 Refills, Maintenance, 01/24/21 13:01:00 EDT, Lozenge, [facility], Partial fill upon patient request [...] 11/22/20 11:31:00 EDT, Route to Pharmacy Electronically, [facility]/pharmacy #[id number], Partial fill upon patient request if the prescription is for a schedule II... Start Date: 11/22/20 Status: OrderedProAir HFA 90 mcg/inh inhalation aerosol 2 puffs, Inhalation, Every 4 hours, PRN as needed for wheezing, # 2 each, 11 Refills, Maintenance, 11/22/20 11:29:00 EDT, Aerosol, [facility]/pharmacy #[id number], Partial fill upon patient request if the prescription is for a schedule II opioid drug., 2 puffs Inh... Start Date: 11/22/20 Stop Date: 11/17/21 Status: OrderedrisperiDONE 1 mg oral tablet 1, tablet, By Mouth, Daily in AM, # 30 tablet, Refills 0, Tot. Refills 0, Maintenance, 12/22/20 15:38:00 EDT, Route to Pharmacy Electronically, [id number], 182, cm, 11/22/20 11:13:00 EDT, Height, 88.2, kg, 09/17/20 2:30:00 EDT, Dry Weight Start Date: 12/22/20 Status: OrderedrisperiDONE 2 mg oral tablet 1, tablet, By Mouth, Daily at bedtime, # 30 tablet, Refills 0, Tot. Refills 0, Maintenance, 12/22/2114:38:00 EDT, Route to Pharmacy Electronically, [facility] [id number], 182, cm, 11/22/20 11:13:00 EDT, Height, 88.2, kg, 09/17/20 2:30:00 EDT, Dry Weight Start Date: 12/22/20 Status: OrderedSuboxone 8 mg-2 mg sublingual film 1 film, Sublingual, Daily, dissolve under the tongue, # 7 film, 0 Refills, Maintenance, 01/24/21 11:11:00 EDT, Film, [facility], Partial fill upon patient request if the prescription is for a schedule II opioid drug. [id number], 1 film Hilario... Start Date: 01/24/21 Status: Orderedthiamine 100 mg oral tablet 100 mg, 1, tablet, By Mouth, 2 times a day, # 90 tablet, Refills 0, Tot. Refills 0, Maintenance, 01/24/21 13:02:00 EDT, Route to Pharmacy Electronically, [facility], Partial fill upon patient request if the prescription is for a schedule... Start Date: 01/24/21 Status: OrderedtraZODone 150 mg oral tablet 1 tablet = 150 mg, By Mouth, Daily at bedtime, # 30 tablet, 0 Refills, Maintenance, 11/22/20 11:31:00 EDT, Tablet, [facility]/pharmacy #[id number], Partial fill upon patient request if the prescription is for a schedule II opioid drug., 182, cm, 11/22/20 11:13:00... Start Date: 11/22/20 Status: OrderedTrileptal 600 mg oral tablet 1 tablet = 600 mg, By Mouth, 2 times a day, # 60 tablet, 0 Refills, Maintenance, 11/22/20 11:31:00 EDT, Tablet, [facility]/pharmacy #[id number], Partial fill upon patient [...]
--- OUTSIDE RECORDS SUMMARY | 2022-06-23 20:27 | XMS_ITS | Continuity of Care Document ---
:1965 Author Organization [facility] Address [address] [place] [phone]- Care Team Providers Name Role Phone Елена Leung MD Primary Care Physician Encounter [facility] [place] [place] Date(s): 02/25/21 - 02/25/[address] [address]- Encounter Diagnosis Alcohol abuse with intoxication (Final) - 02/25/21 CAP (community acquired pneumonia) (Final) - 02/25/21 Discharge Disposition: A-D/C Home Attending Physician: Olive Angel MD Admitting Physician: Olive Angel MD Referring Physician: Not on Staff, Referring [...] Refills, Maintenance, 12/27/20 9:09:00 EDT, CR Tablet, [facility]/pharmacy #[id number], Partial fill upon patient request if the prescription is for a schedule II opioid drug., 182, cm, 12/27/20 6:15:00 E... Start Date: 12/27/20 Stop Date: 04/26/21 Status: Orderedazithromycin 250 mg oral tablet 1 tablet = 250 mg, By Mouth, Daily, begin tomorrow, # 4 tablet, 0 Refills, Maintenance, 02/25/21 17:53:00 EDT, Tablet, [facility]/pharmacy #[id number], Partial fill upon patient request if the prescription is for aschedule II opioid drug., 183, cm, 01/24/21 11:13... Start Date: 02/25/21 Stop Date: 03/01/21 Status: OrderedcloNIDine 0.1 mg oral tablet 1, tablet, By Mouth, 2 times a day, # 60 tablet, Refills 0, Tot. Refills 0, Maintenance, 12/22/20 15:38:00 EDT, Route to Pharmacy Electronically, [id number], 182, cm, 11/22/20 11:13:00 EDT, Height, 88.2, [...] 11 Refills, Maintenance, 11/22/20 11:29:00 EDT, Inhaler, [facility]/pharmacy #[id number], Partial fill upon patient request if the prescription is for a schedule II opioid drug., 1 puffs Inhalation Daily, 182, cm, 11/22/20 11:... Start Date: 11/22/20 Status: Orderednicotine 21 mg/24 hr transdermal film, extended release 1 patch, Topically, Daily, # 30 patch, 0 Refills, Maintenance, 01/24/21 13:02:00 EDT, Patch, [facility], Partial fill upon patient request if [...] 0 Refills, Maintenance, 01/24/21 13:01:00 EDT, Lozenge, [facility], Partial fill upon patient request if [...] 11/22/20 11:31:00 EDT, Route to Pharmacy Electronically, [facility]/pharmacy #[id number], Partial fill upon patient request if the prescription is for a schedule II... Start Date: 11/22/20 Status: OrderedProAir HFA 90 mcg/inh inhalation aerosol 2 puffs, Inhalation, Every 4 hours, PRN as needed for wheezing, # 2 each, 11 Refills, Maintenance, 11/22/20 11:29:00 EDT, Aerosol, [facility]/pharmacy #[id number], Partial fill upon patient request if the prescription is for a schedule II opioid drug., 2 puffs Inh... Start Date: 11/22/20 Stop Date: 11/17/21 Status: OrderedrisperiDONE 1 mg oral tablet 1, tablet, By Mouth, Daily in AM, # 30 tablet, Refills 0, Tot. Refills 0, Maintenance, 12/22/20 15:38:00 EDT, Route to Pharmacy Electronically, [id number], 182, cm, 11/22/20 11:13:00 EDT, Height, 88.2, kg, 09/17/20 2:30:00 EDT, Dry Weight Start Date: 12/22/20 Status: OrderedrisperiDONE 2 mg oral tablet 1, tablet, By Mouth, Daily at bedtime, # 30 tablet, Refills 0, Tot. Refills 0, Maintenance, 12/22/2114:38:00 EDT, Route to Pharmacy Electronically, [id number], 182, cm, 11/22/20 11:13:00 EDT, Height, 88.2, kg, 09/17/20 2:30:00 EDT, Dry Weight Start Date: 12/22/20 Status: OrderedSuboxone 8 mg-2 mg sublingual film 1 film, Sublingual, Daily, dissolve under the tongue, # 7 film, 0 Refills, Maintenance, 01/24/21 11:11:00 EDT, Film, [facility], Partial fill upon patient request if the prescription is for a schedule II opioid drug. [id number], 1 film Hilario... Start Date: 01/24/21 Status: Orderedthiamine 100 mg oral tablet 100 mg, 1, tablet, By Mouth, 2 times a day, # 90 tablet, Refills 0, Tot. Refills 0, Maintenance, 01/24/21 13:02:00 EDT, Route to Pharmacy Electronically, [facility], Partial fill upon patient request if the prescription is for a schedule... Start Date: 01/24/21 Status: OrderedtraZODone 150 mg oral tablet 1 tablet = 150 mg, By Mouth, Daily at bedtime, # 30 tablet, 0 Refills, Maintenance, 11/22/20 11:31:00 EDT, Tablet, [facility]/pharmacy #[id number], Partial fill upon patient request if the prescription is for a schedule II opioid drug., haily Dueñas, 11/22/20 11:13:00... Start Date: 11/22/20 Status: OrderedTrileptal 600 mg oral tablet 1 tablet = 600 mg, By Mouth, 2 times a day, # 60 tablet, 0 Refills, Maintenance, 11/22/20 11:31:00 EDT, Tablet, [facility]/pharmacy #[id number], Partial fill upon [...] Exam Date Time Procedure Performing Provider Status 02/25/21 1:14 PM Chest Portable Krystal Egan; Auth (Verified) Notes:(Chest Portable) Reason For Exam: Chest Pain;Other:RESULT: Chest Portable Chest Portable HX OF PRESENT ILLNESS: Hypoxic to 87% on RA. 94% on 2lpm NC. Back pain. Etoh.; Reason: Chest Pain; Clinical Question(s): CHF COMPARISON: 01/15/2021, CT angiogram from 02/21/2021 FINDINGS: LINES AND TUBES: None. LUNGS AND PLEURA: There is new left basilar airspace opacity. No pleural effusion. No pneumothorax. HEART, MEDIASTINUM AND MING: Heart is normal in size. Normal mediastinal and hilar contour. BONES AND SOFT TISSUES: No acute abnormality. IMPRESSION: New left basilar airspace opacity could be due to atelectasis, pneumonia, or aspiration. WSN: [id number] Ordering Physician: Deyanira Guardado Dictated By: Mark Cota MD Dictated Date/Time: 02/25/21 4:21 pm Reviewed By: Mark Cota MD Signed By: Mark Cota MD Signed Date/Time: 02/25/21 4:21 pm Transcribed By: DAVIN Transcribed Date/Time: 02/25/21 4:19 pm Vital Signs Most recent to oldest 1 2 3 [Reference Range]: Oxygen Saturation [94-100 %] 97 % 95 % 93 % (02/25/21 6:05 PM) (02/25/21 3:20 PM) *L* (02/25/21 12:35 P M) Pulse Rate [55-90 bpm] 91 bpm 97 bpm 91 bpm *H* *H* *H* (02/25/21 6:05 PM) (02/25/21 3:20 PM) (02/25/21 12: 35 PM) Blood Pressure [90-138/55-84 120/74 mm Hg 122/73 mm Hg 118 /83 mm Hg mm Hg] (02/25/21 6:05 PM) (02/25/21 3:20 PM) (02/25/21 12: 35 PM) Respiratory Rate [16-30 19 br/min 20 br/min 17 br/mi n br/min] (02/25/21 6:05 PM) (02/25/21 3:20 PM) (02/25/21 12: 35 PM) Temperature [96.8-100.4 98.2 DegF DegF] (02/25/21 12:02 PM) Liters per Minute 3 L/min 2 L/min 2 L/min (02/25/21 3:20 PM) (02/25/21 12:35 PM) (02/25/21 12 :02 PM) Mode of Delivery (Oxygen) Room air Nasal cannula Nasal cannula (02/25/21 6:05 PM) (02/25/21 3:20 PM) (02/25/21 12: 35 PM) Blood pressure sites Arm, left (02/25/21 12:02 PM) Temperature Route Oral (02/25/21 12:02 PM) Social History Social History Type Response Smoking Status 10 or more cigarettes (1/2 p ack or more)/day in last 30 days; Other: smokes 2 ppd for over 35+ years (age 11); entered on: 08/16/20 Sex
--- OUTSIDE RECORDS SUMMARY | 2022-06-23 20:27 | XMS_ITS | Continuity of Care Document ---
:1965 Author Organization [facility] Address [address] [place] [phone]- Care Team Providers Name Role Phone Елена Leung MD Primary Care Physician [place] [facility] [place] 09/27/[place] - 09/28/[address] [address]- Encounter Diagnosis Alcohol intoxication (Final) - 09/27/20 Discharge Disposition: A-D/C Home Attending Physician: Rian Mckoy MD Admitting Physician: Rian Mckoy MD Referring Physician: Not on Staff, Referring [...] 09/19/20 11:10:00 EDT, Route to Pharmacy Electronically, [facility]/pharmacy #[id number], 182, cm, 09/19/20 0:43:00 EDT, Height, 88.2, kg, 09/17/20 2:30:00 EDT, Dry Weight Start Date: 09/19/20 Stop Date: 10/19/20 Status: OrderedHabitrol 21 mg/24 hr transdermal film, extended release 1 patch, Topically, Daily, for 30 days, # 30 patch, 0 Refills, Acute 10/19/20 11:12:00 EDT, 09/19/2110:12:00 EDT, Patch, [facility]/pharmacy #[id number], Partial fill upon patient request if the prescription is for a schedule II opioid drug., 1 patch Topically Da... Start Date: 09/19/20 Stop Date: 10/19/20 Status: OrderedMethadone Liquid = 45 mg, By Mouth, Daily, 0 Refills, Maintenance, 09/16/20 21:50:00 EDT, Solution, Partial fill uponpatient request if the prescription is for a schedule II opioid drug. Start Date: 09/16/20 Status: Orderedprazosin 5 mg oral capsule 5 mg, 1, capsule, By Mouth, Daily at bedtime, Refills 0, Maintenance, 02/05/20 7:33:00 EDT Start Date: 02/05/20 Status: OrderedProAir HFA 90 mcg/inh inhalation aerosol 2 puffs, Inhalation, Every 4 hours, PRN as needed for wheezing, # 2 each, 0 Refills, Maintenance, 07/02/20 9:41:00 EST, Aerosol, [facility]/pharmacy #[id number], Partial fill upon patient [...] 09/19/20 11:12:00 EDT, Route to Pharmacy Electronically, [facility]/pharmacy #[id number], Partial fill upon patient [...] Exam Date Time Procedure Performing Provider Status 09/27/20 5:59 PM Chest 2 Views Frontal and Lat Wes, Nelta; Au th (Verified) Notes:(Chest 2 Views Frontal and Lat) Reason For Exam: trauma;Other:RESULT: Chest 2 Views Frontal and Lat Chest 2 Views Frontal and Lat Hx of Present Illness: etoh; Reason: Other:; trauma; Clinical Question(s): Pleural Effusion COMPARISON: 09/16/2020. FINDINGS: LINES AND TUBES: None. LUNGS AND PLEURA: Clear lungs. Normal pulmonary vascularity. No pleural effusion. No pneumothorax. HEART, MEDIASTINUM AND MING: Heart is normal in size. Tortuous aorta. Normal upper mediastinal and hilar contour. BONES AND SOFT TISSUES: No acute abnormality. IMPRESSION: No acute abnormality. No change to prior study. WSN: [id number] Ordering Physician: Rocio Madera Dictated By: Gucci Orozco MD Dictated Date/Time: 09/27/20 6:16 pm Reviewed By: Gucci Orozco MD Signed By: Gucci Orozco MD Signed Date/Time: 09/27/20 6:16 pm Transcribed By: DAVIN Transcribed Date/Time: 09/27/20 6:07 pm Vital Signs Most recent to oldest 1 2 3 [Reference Range]: Oxygen Saturation [94-100 %] 96 % 90 % 93 % (09/27/20 11:33 PM) *L* *L* (09/27/20 6:56 PM) (09/27/20 6:54 PM) Pulse Rate [55-90 bpm] 81 bpm 78 bpm 64 bpm (09/27/20 11:33 PM) (09/27/20 6:53 PM) (09/27/20 4: 54 PM) Blood Pressure [90-138/55-84 116/81 mm Hg 95/66 mm Hg 109 /72 mm Hg mm Hg] (09/27/20 11:33 PM) (09/27/20 6:53 PM) (09/27/20 4: 54 PM) Respiratory Rate [16-30 20 br/min 16 br/min 15 br/mi n br/min] (09/27/20 11:33 PM) (09/27/20 6:53 PM) *L* (09/27/20 4:54 PM ) Temperature [96.8-100.4 DegF] 98 DegF 97.5 DegF 97 .3 DegF (09/27/20 11:33 PM) (09/27/20 6:53 PM) (09/27/20 4: 54 PM) Liters per Minute 2 L/min (09/27/20 6:56 PM) Mode of Delivery (Oxygen) Room air Nasal cannula Room a ir (09/27/20 11:33 PM) (09/27/20 6:56 PM) (09/27/20 6: 54 PM) Blood pressure sites Arm, right Arm, left (09/27/20 11:33 PM) (09/27/20 6:53 PM) Temperature Route Oral Oral Oral (09/27/20 11:33 PM) (09/27/20 6:53 PM) (09/27/20 4: 54 PM) Social History Social History Type Response Smoking Status 10 or more cigarettes (1/2 p ack or more)/day in last 30 days; Other: smokes 2 ppd for over 35+ years (age 11); entered on: 08/16/20 Sex
--- OUTSIDE RECORDS SUMMARY | 2022-06-23 20:27 | XMS_ITS | Continuity of Care Document ---
:1965 Author Organization [facility] Address [address] [place] [address]- Care Team Providers Name Role Phone Not on Staff, PCP Primary Care Physician Unavailable Encounter [facility] Date(s): 08/01/20 - 08/01/20 [facility] [address] [place] [phone]- Encounter Diagnosis Alcohol dependence (Final) - 08/01/20 Discharge Disposition: A-D/C Home Attending Physician: Maye Collier MD Admitting Physician: Maye Collier MD Referring Physician: Not on Staff, Referring [...] 09/01/19 8:57:00 EDT, Route to Pharmacy Electronically, [facility], 183, cm, 09/01/19 0:45:00 EDT, Height, 86.5, kg, 08/29/19 22:05:00 EDT, Dry Weight Start Date: 09/01/19 Status: Orderedgabapentin 100 mg oral capsule 100 mg, 1, capsule, By Mouth, 3 times a day, # 90 capsule, Refills 0, Tot. Refills 0, Maintenance, 08/09/19 17:41:00 EST, [id number] 186, cm, 07/31/19 11:36:00 EST, Height, 86, kg, 07/30/19 23:47:00 EST, Dry... Start Date: 08/09/19 Status: Orderedondansetron 4 mg oral tablet, disintegrating 1 tablet = 4 mg, By Mouth, Every 8 hours, PRN as needed for nausea/vomiting, # 9 tablet, 0 Refills, Maintenance, 07/02/20 9:41:00 EST, DIS Tablet, [facility]/pharmacy #[id number], Partial fill upon patient request,192, cm, 05/08/20 10:23:00 EST, Height, 88.5, kg,... Start Date: 07/02/20 Stop Date: 07/05/20 Status: OrderedoxyCODONE 5 mg oral tablet 5 mg, 1, tablet, By Mouth, Every 6 hours, PRN, # 10 tablet, Refills 0, Tot. Refills 0, Maintenance, for pain, 09/01/19 8:57:00 EDT, Route to Pharmacy Electronically, [facility], Partial fill upon patient [...] 0 Refills, Maintenance, 07/02/20 9:41:00 EST, Aerosol, [facility]/pharmacy #[id number], Partial fill upon patient request [...] 09/01/19 9:03:00 EDT, Route to Pharmacy Electronically, [facility], 183, cm, 09/01/19 0:45:00 EDT, Height, 86.5, kg, 08/29/19 22:05:00 EDT... Start Date: 09/01/19 Status: OrderedtiZANidine 4 mg oral capsule 1 capsule = 4 mg, By Mouth, 3 times a day, # 90 capsule, 1 Refills, Maintenance, 01/26/20 16:20:00 EDT, Capsule, [facility], 183, cm, 09/01/19 0:45:00 EDT, Height, 86.5, kg, 08/29/19 22:05:00 EDT, Dry Weight Start Date: 01/26/20 Status: OrderedtiZANidine 4 mg oral tablet 4 mg, 1, tablet, By Mouth, 3 times a day, PRN, # 21 tablet, Refills 0, Tot. Refills 0, Maintenance, Spasm, 01/29/20 9:18:00 EDT, Route to Pharmacy Electronically, [facility], 183, cm, 09/01/19 0:45:00 [...] Most recent to oldest [Reference Range]: 1 Oxygen Saturation [94-100 %] 97 % (08/01/20 11:09 AM) Pulse Rate [55-90 bpm] 94 bpm *H* (08/01/20 11:09 AM) Blood Pressure [90-138/55-84 mm Hg] 155/111 mm Hg *H* (08/01/20 11:09 AM) Respiratory Rate [16-30 br/min] 16 br/min (08/01/20 11:09 AM) Temperature [96.8-100.4 DegF] 99.6 DegF (08/01/20 11:09 AM) Mode of Delivery (Oxygen) Room air (08/01/20 11:09 AM) Blood pressure sites Arm, right (08/01/20 11:09 AM) Temperature Route Oral (08/01/20 11:09 AM) Social History Social History Type Response Smoking Status Current every day smoker entered on: 04/25/16 Sex
--- OUTSIDE RECORDS SUMMARY | 2022-06-23 20:27 | XMS_ITS | Continuity of Care Document ---
:1965 Author Organization [facility] Address [address] [place] [phone]- Care Team Providers Name Role Phone Not on Staff, PCP Primary Care Physician Unavailable Encounter [facility] Date(s): 11/12/19 - 11/13/[address] [address]- [facility] Discharge Disposition: A-D/C Home Attending Physician: Holden Prabhakar DO Admitting Physician: [...] 09/01/19 8:57:00 EDT, Route to Pharmacy Electronically, [facility], 183, cm, 09/01/19 0:45:00 EDT, Height, 86.5, kg, 08/29/19 22:05:00 EDT, Dry Weight Start Date: 09/01/19 Status: Orderedgabapentin 100 mg oral capsule 100 mg, 1, capsule, By Mouth, 3 times a day, # 90 capsule, Refills 0, Tot. Refills 0, Maintenance, 08/09/19 17:41:00 EST, [id number] 186, cm, 07/31/19 11:36:00 EST, Height, 86, kg, 07/30/19 23:47:00 EST, Dry... Start Date: 08/09/19 Status: OrderedoxyCODONE 5 mg oral tablet 5 mg, 1, tablet, By Mouth, Every 6 hours, PRN, # 10 tablet, Refills 0, Tot. Refills 0, Maintenance, for pain, 09/01/19 8:57:00 EDT, Route to Pharmacy Electronically, [facility], Partial fill upon patient request, 183, cm, 09/01/19 0:45:0... Start Date: 09/01/19 Status: OrderedSEROquel 25 mg oral tablet 50 mg, 2, tablet, By Mouth, Daily at bedtime, # 60 tablet, Refills 0, Tot. Refills 0, Maintenance, 09/01/19 9:03:00 EDT, Route to Pharmacy Electronically, [facility], 183, cm, 09/01/19 0:45:00 EDT, Height, 86.5, kg, 08/29/19 22:05:00 EDT... Start Date: 09/01/19 Status: OrderedtiZANidine 4 mg oral tablet 4 mg, 1, tablet, By Mouth, 3 times a day, PRN, # 21 tablet, Refills 0, Tot. Refills 0, Maintenance, Spasm, 07/31/19 10:11:00 EST, Route to Pharmacy Electronically, [facility]/pharmacy #[id number], 186, cm, 207:08:00 EST, Height, 86, [...] to oldest [Reference 1 2 3 Range]: Oxygen Saturation [94-100 %] 95 % 95 % 91 % (11/13/19 5:00 AM) (11/13/19 12:51 AM) *L* (11/12/19 8:32 PM ) Pulse Rate [55-90 bpm] 88 bpm 99 bpm 86 bpm (11/13/19 5:00 AM) *H* (11/12/19 8:32 P M) (11/13/19 12:51 AM) Blood Pressure [90-138/55-84 mm 126/84 mm Hg 99/63 mm Hg 128/76 mm Hg Hg] (11/13/19 5:00 AM) (11/13/19 12:51 AM) (11/12/19 6:42 PM) Respiratory Rate [16-30 br/min] 18 br/min 16 br/min 17 br/min (11/13/19 5:00 AM) (11/13/19 12:51 AM) (11/12/19 8:32 PM) Temperature [96.8-100.4 DegF] 97.8 DegF 98.6 DegF (11/13/19 5:01 AM) (11/12/19 6:42 PM) Liters per Minute 2 L/min 2 L/min 2 L/min (11/13/19 5:00 AM) (11/13/19 12:51 AM) (11/12/19 6:42 PM) Mode of Delivery (Oxygen) Nasal cannula Nasal cannula Room a ir (11/13/19 5:00 AM) (11/13/19 12:51 AM) (11/12/19 8:32 PM) Blood pressure sites Arm, left Arm, left (11/13/19 5:00 AM) (11/13/19 12:51 AM) Temperature Route Oral Axillary (11/13/19 5:01 AM) (11/12/19 6:42 PM) Social History Social History Type Response Smoking Status Current every day smoker entered on: 04/25/16 Sex
--- OUTSIDE RECORDS SUMMARY | 2022-06-23 20:27 | XMS_ITS | Continuity of Care Document ---
:1965 Author Organization [facility] Address [address] [place] [phone]- Care Team Providers Name Role Phone Елена Leung MD Primary Care Physician Encounter [facility] Date(s): 03/31/21 - 03/31/[address] [address]- Encounter Diagnosis Toxic ingestion (Final) - 03/31/21 Discharge Disposition: A-D/C Home Attending Physician: Holden [...] Maintenance, 12/27/20 9:09:00 EDT, CR Tablet, [facility]/pharmacy #[id number], Partial fill upon patient request if the prescription is for a schedule II opioid drug., 182, cm, 12/27/20 6:15:00 E... Start Date: 12/27/20 Stop Date: 04/26/21 Status: Orderedazithromycin 250 mg oral tablet 1 tablet = 250 mg, By Mouth, Daily, begin tomorrow, # 4 tablet, 0 Refills, Maintenance, 02/25/21 17:53:00 EDT, Tablet, [facility]/pharmacy #[id number], Partial fill upon patient request if the prescription is for aschedule II opioid drug., 183, cm, 01/24/21 11:13... Start Date: 02/25/21 Stop Date: 03/01/21 Status: OrderedcloNIDine 0.1 mg oral tablet 1, tablet, By Mouth, 2 times a day, # 60 tablet, Refills 0, Tot. Refills 0, Maintenance, 12/22/20 15:38:00 EDT, Route to Pharmacy Electronically, [facility] [id number], 182, cm, 11/22/20 11:13:00 EDT, Height, 88.2, [...] Refills, Maintenance, 11/22/20 11:29:00 EDT, Inhaler, [facility]/pharmacy #[id number], Partial fill upon patient request if the prescription is for a schedule II opioid drug., 1 puffs Inhalation Daily, 182, cm, 11/22/20 11:... Start Date: 11/22/20 Status: Orderednicotine 21 mg/24 hr transdermal film, extended release 1 patch, Topically, Daily, # 30 patch, 0 Refills, Maintenance, 01/24/21 13:02:00 EDT, Patch, [facility], Partial fill upon [...] 0 Refills, Maintenance, 01/24/21 13:01:00 EDT, Lozenge, [facility], Partial fill upon [...] 11:31:00 EDT, Route to Pharmacy Electronically, [facility]/pharmacy #[id number], Partial fill upon patient request if the prescription is for a schedule II... Start Date: 11/22/20 Status: OrderedProAir HFA 90 mcg/inh inhalation aerosol 2 puffs, Inhalation, Every 4 hours, PRN as needed for wheezing, # 2 each, 11 Refills, Maintenance, 11/22/20 11:29:00 EDT, Aerosol, [facility]/pharmacy #1130, Partial fill upon patient request if the prescription is for a schedule II opioid drug., 2 puffs Inh... Start Date: 11/22/20 Stop Date: 11/17/21 Status: OrderedrisperiDONE 1 mg oral tablet 1, tablet, By Mouth, Daily in AM, # 30 tablet, Refills 0, Tot. Refills 0, Maintenance, 12/22/20 15:38:00 EDT, Route to Pharmacy Electronically, [facility] [id number], 182, cm, 11/22/20 11:13:00 EDT, Height, 88.2, kg, 09/17/20 2:30:00 EDT, Dry Weight Start Date: 12/22/20 Status: OrderedrisperiDONE 2 mg oral tablet 1, tablet, By Mouth, Daily at bedtime, # 30 tablet, Refills 0, Tot. Refills 0, Maintenance, 12/22/2114:38:00 EDT, Route to Pharmacy Electronically, [facility] [id number], 182, cm, 11/22/20 11:13:00 EDT, Height, 88.2, kg, 09/17/20 2:30:00 EDT, Dry Weight Start Date: 12/22/20 Status: OrderedSuboxone 8 mg-2 mg sublingual film 1 film, Sublingual, Daily, dissolve under the tongue, # 7 film, 0 Refills, Maintenance, 01/24/21 11:11:00 EDT, Film, [facility], Partial fill upon patient request if the prescription is for a schedule II opioid drug. [id number], 1 film Hilario... Start Date: 01/24/21 Status: Orderedthiamine 100 mg oral tablet 100 mg, 1, tablet, By Mouth, 2 times a day, # 90 tablet, Refills 0, Tot. Refills 0, Maintenance, 01/24/21 13:02:00 EDT, Route to Pharmacy Electronically, [facility], Partial fill upon patient request if the prescription is for a schedule... Start Date: 01/24/21 Status: OrderedtraZODone 150 mg oral tablet 1 tablet = 150 mg, By Mouth, Daily at bedtime, # 30 tablet, 0 Refills, Maintenance, 11/22/20 11:31:00 EDT, Tablet, [facility]/pharmacy #[id number], Partial fill upon patient request if the prescription is for a schedule II opioid drug., 182, cm, 11/22/20 11:13:00... Start Date: 11/22/20 Status: OrderedTrileptal 600 mg oral tablet 1 tablet = 600 mg, By Mouth, 2 times a day, # 60 tablet, 0 Refills, Maintenance, 11/22/20 11:31:00 EDT, Tablet, [facility]/pharmacy #[id number], Partial fill upon patient request [...] oldest 1 2 3 [Reference Range]: Height 183 cm 183 cm (03/31/21 7:04 PM) (03/31/21 12:16 PM) Weight 82 kg 82 kg (03/31/21 7:04 PM) (03/31/21 12:16 PM) Oxygen Saturation [94-100 97 % 99 % %] (03/31/21 12:16 PM) (03/31/21 12:16 PM) Pulse Rate [55-90 bpm] 99 bpm 103 bpm *H* *H* (03/31/21 3:11 PM) (03/31/21 12:16 PM) Blood Pressure 126/89 mm Hg 123/84 mm Hg [90-138/55-84 mm Hg] (03/31/21 3:11 PM) (03/31/21 12:16 PM) Respiratory Rate [16-30 18 br/min 16 br/min br/min] (03/31/21 3:11 PM) (03/31/21 12:16 PM) Temperature [96.8-100.4 97.7 DegF DegF] (03/31/21 12:16 PM) Liters per Minute 2 L/min 2 L/min 3 L/min (03/31/21 12:16 PM) (03/31/21 12:16 PM) ( 1 12:00 PM) Mode of Delivery (Oxygen) Nasal cannula Nasal cannula Nasal cannula (03/31/21 12:16 PM) (03/31/21 12:16 PM) ( 1 12:00 PM) Blood pressure sites Arm, left (03/31/21 12:16 PM) Temperature Route Oral (03/31/21 12:16 PM) Dry Weight 82 kg 82 kg (03/31/21 7:04 PM) (03/31/21 12:16 PM) Social History Social History Type Response Smoking Status 10 or more cigarettes (1/2 p ack or more)/day in last 30 days; Other: smokes 2 ppd for over 35+ years (age 11); entered on: 08/16/20 Sex
--- OUTSIDE RECORDS SUMMARY | 2022-06-23 20:27 | XMS_ITS | Continuity of Care Document ---
:1965 Author Organization [facility] Address [address] [place] [phone]- Care Team Providers Name Role Phone Елена Leung MD Primary Care Physician Encounter [facility] Date(s): 07/11/21 - 07/16/[address] [address]- Encounter Diagnosis Hypothermia (Final) - 07/11/21 Discharge Disposition: A-D/C Home Attending Physician: Shay Lopez DO Admitting Physician: Stephen De La Paz MD Referring Physician: Not on Staff, Referring [...] he undersands but continues to refuse. Medications Acetaminophen Tablet 650 mg, Tablet, By Mouth, Every 4 hours, PRN for Pain , Mild, Temperature Greater than 100.5, Routine, 07/11/21 19:43:00 EST Start Date: 07/11/21 Stop Date: 07/16/21 Status: DiscontinuedCarafate 1 gm oral tablet 1 Gm, 1, tablet, By Mouth, 3 times a day before meals, # 90 tablet, Refills 0, Tot. Refills 0, Maintenance, 07/10/21 7:56:00 EST, Route to Pharmacy Electronically, [facility], Partial fill upon patient request if the prescript... Start Date: 07/10/21 Status: Orderedfluticasone-vilanterol 200 mcg-25 mcg/inh inhalation powder 1 puffs, Inhalation, Daily, # 1 each, 3 Refills, Maintenance, 07/10/21 7:55:00 EST, Inhaler, [facility]-, Partial fill upon patient request if the prescription is for a scheduleII opioid drug., 1 puffs Inhalation Daily,x30 day... Start Date: 07/10/21 Stop Date: 11/07/21 Status: Orderedfolic acid 1 mg oral tablet 1 mg, 1, tablet, By Mouth, Daily, # 30 tablet, Refills 0, Tot. Refills 0, Maintenance, 07/10/21 7:55:00 EST, Route to Pharmacy Electronically, [facility], Partial fill upon patient request if the prescription is for a schedule... Start Date: 07/10/21 Status: Orderedgabapentin 400 mg oral capsule 400 mg, 1, capsule, By Mouth, 3 times a day, # 90 capsule, Refills 0, Tot. Refills 0, Maintenance, 07/10/21 7:55:00 EST, Route to Pharmacy Electronically, [facility]-, Partial fill upon patient request if the prescription is fo... Start Date: 07/10/21 Status: Orderedgabapentin 400 mg oral capsule 400 mg, Capsule, By Mouth, 07/16/21 9:00:00 EST Start Date: 07/16/21 Stop Date: 07/16/21 Status: Completedmethadone 10 mg oral tablet = 65 mg, By Mouth, Daily, 0 Refills, Maintenance, 07/16/21 7:50:00 EST, Tablet, Partial fill upon patient request if the prescription is for a schedule II opioid drug. Start Date: 07/16/21 Status: Orderedmethadone 10 mg oral tablet 65 mg, Tablet, By Mouth, 07/16/21 9:00:00 EST Start Date: 07/16/21 Stop Date: 07/16/21 Status: Completedmirtazapine 30 mg oral tablet 1 tablet = 30 mg, By Mouth, Daily at bedtime, # 90 tablet, 11 Refills, Maintenance, 07/10/21 7:55:00EST, Tablet, [facility]-, Partial fill upon patient request if the prescription is for a schedule II opioid drug., 183, cm, 01... Start Date: 07/10/21 Status: OrderedNicoderm C-Q Clear 21 mg/24 hr transdermal film, extended release 1 patch, Topically, Daily, # 30 patch, 0 Refills, Maintenance, 07/16/21 7:51:00 EST, Patch, [facility], Partial fill upon patient request [...] 3 Refills, Maintenance, 07/10/21 7:55:00 EST, Aerosol, [facility], Partial fill upon patient request if the prescription is for a schedule II opioid teresa... Start Date: 07/10/21 Stop Date: 11/07/21 Status: OrderedrisperiDONE 1 mg oral tablet 1 mg, 1, tablet, By Mouth, 2 times a day, # 60 tablet, Refills 0, Tot. Refills 0, Maintenance, 07/10/21 7:56:00 EST, Route to Pharmacy Electronically, [facility], Partial fill upon patient request if the prescription is for a... Start Date: 07/10/21 Status: Orderedthiamine 100 mg oral tablet 100 mg, 1, tablet, By Mouth, Daily, # 30 tablet, Refills 0, Tot. Refills 0, Maintenance, 07/10/21 7:56:00 EST, Route to Pharmacy Electronically, [facility], Partial fill upon patient request if the prescription is for a schedu... Start Date: 07/10/21 Status: OrderedtraZODone 150 mg oral tablet 1 tablet = 150 mg, By Mouth, Daily at bedtime, # 90 tablet, 11 Refills, Maintenance, 07/10/21 7:56:00 EST, Tablet, [facility], Partial fill upon patient request if the prescription is for a schedule II opioid drug., 183, cm, 0... Start Date: 07/10/21 Status: OrderedTrileptal 600 mg oral tablet 1 tablet = 600 mg, By Mouth, 2 times a day, # 180 tablet, 0 Refills, Maintenance, 07/10/21 7:55:00 EST, Tablet, [facility], Partial fill upon patient request if [...] for Microbiology Reports Name Date Blood Culture #2 (BLOOD CULTURE 2) 07/11/21 Blood Culture (BLOOD CULTURE) 07/11/21 Microbiology Reports TEST:Blood Culture, Second Order STATUS:Auth (Verified) BODY SITE: SOURCE:Blood COLLECTED DATE/TIME:07/11/21 7:00 PMBlood Culture, Second Order SPECIMEN DESCRIPTION : BLOOD RH SPECIAL REQUESTS : NONE CULTURE : NO GROWTH 5 DAYS. REPORT STATUS : FINAL 07/16/2021TEST:Blood Culture STATUS:Auth (Verified) BODY SITE: SOURCE:Blood COLLECTED DATE/TIME:07/11/21 4:00 PMBlood Culture SPECIMEN DESCRIPTION : BLOOD R SPECIAL REQUESTS : NONE CULTURE : NO GROWTH 5 DAYS. REPORT STATUS : FINAL 2Radiology Reports Exam Date Time Procedure Performing Provider Status 07/11/21 3:40 PM Chest Portable Gena Murillo; Auth (Verif ied) Notes:(Chest Portable) Reason For Exam: Shortness of BreathRESULT: Chest Portable Chest Portable Hx of Present Illness: found in [place] unconscious- admitted to drug and alcohol use; Reason: Shortness of Breath; Clinical Question(s): Pneumonia COMPARISON: 07/05/2021 FINDINGS: Mild consolidation and airspace disease at the left base IMPRESSION: Mild consolidation and airspace disease at the left lung base may be secondary to small pleural effusion and/or atelectasis. Infection at the left base is not excluded. WSN: [id number] Ordering Physician: Lázaro Medina Dictated By: Morales White MD Dictated Date/Time: 07/11/21 3:45 pm Reviewed By: Morales White MD Signed By: Morales White MD Signed Date/Time: 07/11/21 3:45 pm Transcribed By: DAVIN Transcribed Date/Time: 07/11/21 3:42 pm Vital Signs Most recent to oldest 1 2 3 [Reference Range]: Height 182 cm (07/11/21 9:01 PM) Weight 87 kg (07/11/21 9:01 PM) Oxygen Saturation [94-100 %] 93 % 94 % 92 % *L* (07/16/21 6:00 AM) *L* (07/16/21 8:00 AM) (07/16/21 4:00 AM ) Pulse Rate [55-90 bpm] 55 bpm 70 bpm 65 bpm (07/16/21 8:00 AM) (07/15/21 8:08 PM) (07/15/21 4:00 P M) Body Mass Index [18.5-24.99] 26.26 *H* (07/11/21 9:01 PM) Blood Pressure [90-138/55-84 112/80 mm Hg 101/66 mm Hg 124 /78 mm Hg mm Hg] (07/16/21 8:00 AM) (07/16/21 6:00 AM) (07/16/21 4:00 A M) Respiratory Rate [16-30 15 br/min 11 br/min 11 br/mi n br/min] *L* *L* *L* (07/16/21 10:20 AM) (07/16/21 9:42 AM) (07/16/21 9:42 AM) Temperature [96.8-100.4 DegF] 97.9 DegF 98.3 DegF 98 .4 DegF (07/16/21 8:00 AM) (07/16/21 4:00 AM) (07/16/21 12:00 AM) Liters per Minute 2 L/min 2 L/min 2 L/min (07/13/21 3:00 PM) (07/13/21 11:00 AM) (07/13/21 6: 00 AM) Mode of Delivery (Oxygen) Room air Room air Room a ir (07/16/21 8:00 AM) (07/16/21 6:00 AM) (07/16/21 4:00 A M) Blood pressure sites Arm, right Arm, right Arm, right (07/16/21 8:00 AM) (07/16/21 4:00 AM) (07/16/21 2:00 A M) Temperature Route Axillary Oral Oral (07/16/21 8:00 AM) (07/16/21 4:00 AM) (07/16/21 12:00 AM) Dry Weight 87 kg (07/11/21 9:01 PM) Social History Social History Type Response Smoking Status 10 or more cigarettes (1/2 p ack or more)/day in last 30 days; Other: smokes 2 ppd for over 35+ years (age 11); entered on: 08/16/20 Sex
--- OUTSIDE RECORDS SUMMARY | 2022-06-23 20:27 | XMS_ITS | Continuity of Care Document ---
:1965 Author Organization [facility] Address [address] [place] [phone]- Care Team Providers Name Role Phone Елена Leung MD Primary Care Physician Encounter [facility] Date(s): 06/13/21 - 06/16/[address] [address]- Encounter Diagnosis Opioid abuse (Final) - 06/13/21 Discharge Disposition: A-D/C Home Attending Physician: Rudy Still MD Admitting Physician: Betty Batista MD Referring Physician: Not on Staff, Referring [...] he undersands but continues to refuse. Medications fluticasone-vilanterol 100 mcg-25 mcg/inh inhalation powder 1 puffs, Inhalation, Daily, # 1 each, 11 Refills, Maintenance, 06/16/21 9:49:00 EST, Inhaler, [facility]/pharmacy #[id number], Partial fill upon patient request if the prescription is for a schedule II opioid drug., 1 puffs Inhalation Daily, 180, cm, 06/16/21 8:37... Start Date: 06/16/21 Status: Orderedgabapentin 400 mg oral capsule 400 mg, Capsule, By Mouth, 06/16/21 9:00:00 EST Start Date: 06/16/21 Stop Date: 06/16/21 Status: Completedgabapentin 400 mg oral capsule 400 mg, 1, capsule, By Mouth, 3 times a day, # 90 capsule, Refills 0, Tot. Refills 0, Maintenance, 06/16/21 9:50:00 EST, Route to Pharmacy Electronically, [facility]/pharmacy #[id number], Partial fill upon patient request if the prescription is for a schedule II o... Start Date: 06/16/21 Status: Orderedlisinopril 5 mg oral tablet 5 mg, Tablet, By Mouth, 06/16/21 9:00:00 EST Start Date: 06/16/21 Stop Date: 06/16/21 Status: Completedlisinopril 5 mg oral tablet 5 mg, 1, tablet, By Mouth, Daily, # 30 tablet, Refills 0, Tot. Refills 0, Maintenance, 06/16/21 9:50:00 EST, Route to Pharmacy Electronically, [facility]/pharmacy #[id number], Partial fill upon patient request if the prescription is for a schedule II opioid drug.,... Start Date: 06/16/21 Status: Orderedmirtazapine 30 mg oral tablet 1 tablet = 30 mg, By Mouth, Daily at bedtime, # 30 tablet, 0 Refills, Maintenance, 06/16/21 9:50:00 EST, Tablet, [facility]/pharmacy #[id number], Partial fill upon patient request if the prescription is for a schedule II opioid drug., 180, cm, 06/16/21 8:37:00 EST... Start Date: 06/16/21 Status: Orderedprazosin 1 mg oral capsule 1 mg, Capsule, By Mouth, 06/16/21 9:00:00 EST Start Date: 06/16/21 Stop Date: 06/16/21 Status: Completedprazosin 1 mg oral capsule 1 mg, 1, capsule, By Mouth, Daily, # 30 capsule, Refills 0, Tot. Refills 0, Maintenance, 06/16/21 9:50:00 EST, Route to Pharmacy Electronically, [facility]/pharmacy #[id number], Partial fill upon patient request ifthe prescription is for a schedule II opioid drug... Start Date: 06/16/21 Status: OrderedProAir HFA 90 mcg/inh inhalation aerosol 2 puffs, Inhalation, Every 4 hours, PRN as needed for wheezing, # 2 each, 11 Refills, Maintenance, 06/16/21 9:49:00 EST, Aerosol, [facility]/pharmacy #[id number], Partial fill upon patient request if the prescription is for a schedule II opioid drug., 2 puffs Inha... Start Date: 06/16/21 Stop Date: 06/11/22 Status: OrderedProtonix 20 mg oral delayed release tablet 1 tablet = 20 mg, By Mouth, Daily, # 30 tablet, 0 Refills, Maintenance, 06/16/21 9:13:00 EST, CR Tablet, 180, cm, 06/16/21 8:37:00 EST, Height, 88.6, kg, 05/07/21 18:14:00 EST, Dry Weight Start Date: 06/16/21 Status: OrderedrisperiDONE 1 mg oral tablet 1 mg, 1, tablet, By Mouth, 2 times a day, # 60 tablet, Refills 0, Tot. Refills 0, Maintenance, 06/16/21 9:50:00 EST, Route to Pharmacy Electronically, [facility]/pharmacy #[id number], Partial fill upon patient request if the prescription is for a schedule II opioi... Start Date: 06/16/21 Status: OrderedtraZODone 150 mg oral tablet 1 tablet = 150 mg, By Mouth, Daily at bedtime, # 90 tablet, 11 Refills, Maintenance, 06/16/21 9:50:00 EST, Tablet, [facility]/pharmacy #[id number], Partial fill upon patient request if the prescription is for a schedule II opioid drug., 180haily, 06/16/21 8:37:00 E... Start Date: 06/16/21 Status: OrderedTrileptal 600 mg oral tablet 1 tablet = 600 mg, By Mouth, 2 times a day, # 180 tablet, 11 Refills, Maintenance, 06/16/21 9:50:00 EST, Tablet, [facility]/pharmacy #[id number], Partial fill upon patient request if the prescription is for a schedule II opioid drug., 180 cm, 06/16/21 8:37:00 EST... Start Date: 06/16/21 Status: Ordered Problem List Condition Effective Dates [...] Exam Date Time Procedure Performing Provider Status 06/13/21 10:00 AM Chest 2 Views Frontal and Lat Shelly Rosario ; Auth (Verified) Notes:(Chest 2 Views Frontal and Lat) Reason For Exam: Chest Pain;Other:RESULT: Chest 2 Views Frontal and Lat Chest 2 Views Frontal and Lat Hx of Present Illness: Patient comes in with complaints of withdrawal from Fentanyl and ETOH. Last used and drank yesterday 06 12 2021.; Reason: Other:; Chest Pain; Clinical Question(s): Other: COMPARISON: 03/28/2021 FINDINGS: LINES AND TUBES: None. LUNGS AND PLEURA: Low lung volumes with mild basilar atelectasis. Lungs are otherwise clear with no consolidation. No pleural effusion. No pneumothorax. HEART, MEDIASTINUM AND MING: Heart is normal in size. Normal upper mediastinal and hilar contour. BONES AND SOFT TISSUES: No acute abnormality. IMPRESSION: Low lung volumes with mild basilar atelectasis. WSN: [id number] Ordering Physician: Wisam Bhakta Dictated By: Mark Milligan MD Dictated Date/Time: 06/13/21 10:01 a Reviewed By: Mark Milligan MD Signed By: Mark Milligan MD Signed Date/Time: 06/13/21 10:01 am Transcribed By: DAVIN Transcribed Date/Time: 06/13/21 10:01 am Vital Signs Most recent to oldest 1 2 3 [Reference Range]: Height 180 cm 180 cm 180 cm (06/16/21 8:37 AM) (06/15/21 11:40 PM) (06/15/21 7:23 PM) Oxygen Saturation [94-100 %] 98 % 93 % 93 % (06/16/21 8:37 AM) *L* *L* (06/15/21 11:40 PM) (06/15/21 7:23 P M) Pulse Rate [55-90 bpm] 96 bpm 54 bpm 62 bpm *H* *L* (06/15/21 7:23 PM) (06/16/21 8:37 AM) (06/15/21 11:40 PM) Blood Pressure [90-138/55-84 135/83 mm Hg 135/83 mm Hg 117 /68 mm Hg mm Hg] (06/16/21 9:23 AM) (06/16/21 9:23 AM) (06/16/21 8:37 A M) Respiratory Rate [16-30 18 br/min 18 br/min 20 br/mi n br/min] (06/16/21 9:23 AM) (06/16/21 8:37 AM) (06/15/21 11:40 PM) Temperature [96.8-100.4 DegF] 98.4 DegF 97.4 DegF 97 .4 DegF (06/16/21 8:37 AM) (06/15/21 11:40 PM) (06/15/21 7:23 PM) Liters per Minute 2 L/min 2 L/min 1 L/min (06/15/21 8:17 AM) (06/14/21 7:31 AM) (06/13/21 11:2 9 PM) Mode of Delivery (Oxygen) Room air Room air Room a ir (06/16/21 8:37 AM) (06/15/21 11:40 PM) (06/15/21 7:23 PM) Blood pressure sites Arm, left Arm, left Arm, left (06/16/21 8:37 AM) (06/15/21 11:40 PM) (06/15/21 7:23 PM) Temperature Route Oral Oral Oral (06/16/21 8:37 AM) (06/15/21 11:40 PM) (06/15/21 7:23 PM) Social History Social History Type Response Smoking Status 10 or more cigarettes (1/2 p ack or more)/day in last 30 days; Other: smokes 2 ppd for over 35+ years (age 11); entered on: 08/16/20 Sex
--- OUTSIDE RECORDS SUMMARY | 2022-06-23 20:27 | XMS_ITS | Continuity of Care Document ---
:1965 Author Organization [facility] Address [address] [place] [id number]- Care Team Providers Name Role Phone Madhu HASSAN, Елена Primary Care Physician Encounter [facility] Date(s): 12/06/21 - 12/09/[address] [address]- Encounter Diagnosis Heroin use (Final) - 12/06/21 Discharge Disposition: A-D/C AMA Attending Physician: Lorraine Juárez MD Admitting Physician: Rolf Salcido MD Referring Physician: Not on Staff, Referring MD Allergies, Adverse Reactions, Alerts Substance Reaction Severity Status penicillins1 Active Naprosyn itching Active Swelling [id number] Anaphylactic reaction requiring IM epinephrine S evere Active 1Tolerates [id number] reaction requiring IM epinephrine Immunizations Given and [...] 10:43:00 EDT, ; Start Date: 11/27/21 Status: Orderedgabapentin 400 mg oral capsule 400 mg, Capsule, By Mouth, 12/09/21 15:00:00 EDT Start Date: 12/09/21 Stop Date: 12/09/21 Status: Completedmethadone 10 mg oral tablet 10 mg, Tablet, By Mouth, Once, BITA, 12/09/21 12:26:00 EDT, Stop date 12/09/21 12:26:00 EDT Start Date: 12/09/21 Stop Date: 12/09/21 Status: Completedmirtazapine 30 mg oral tablet 1 tablet = 30 mg, By Mouth, Daily at bedtime, # 90 tablet, 11 Refills, Maintenance, 07/10/21 7:55:00EST, Tablet, [facility], Partial fill upon patient request if the prescription is for a schedule II opioid drug., 183, cm, 01... Start Date: 07/10/21 Status: OrderedNarcan 4 mg/0.1 mL nasal spray = 4 mg, Naris, Left, Once, For overdose on opiates. Administration of a single spray of NARCAN NasalSpray intranasally into one nostril. May repeat in 2-3 minutes as needed., # 1 each, 1 Refills, SoftStop, 11/30/21 12:47:00 EDT, [facility]/pharmacy #[id number],... Start Date: 11/30/21 Status: Orderedprazosin 1 mg oral capsule 1 mg, Capsule, By Mouth, 12/09/21 9:00:00 EDT Start Date: 12/09/21 Stop Date: 12/09/21 Status: Completedprazosin 1 mg oral capsule 1 [...] Maintenance, 07/10/21 7:55:00 EST, Tablet, [facility], Partial fill upon patient request if the [...] Umbilical hernia(Confirmed) Active 1second pneumothorax in 2008 Vital Signs Most recent to oldest 1 2 3 [Reference Range]: Height 175 cm 175 cm 175 cm (12/09/21 11:30 AM) (12/09/21 6:34 AM) (12/08/21 10 :24 PM) Weight 88.5 kg 75 kg (12/06/21 4:02 PM) (12/05/21 7:52 PM) Oxygen Saturation [94-100 97 % 97 % 95 % %] (12/09/21 11:30 AM) (12/09/21 6:34 AM) (12/08/21 10 :24 PM) Pulse Rate [55-90 bpm] 86 bpm 93 bpm 97 bpm (12/09/21 11:30 AM) *H* *H* (12/09/21 6:34 AM) (12/08/21 10:24 PM) Body Mass Index 28.9 [18.5-24.99] *H* (12/06/21 4:02 PM) Blood Pressure 145/93 mm Hg 142/95 mm Hg 138/90 mm Hg [90-138/55-84 mm Hg] *H* *H* (12/09/21 6: 34 AM) (12/09/21 11:30 AM) (12/09/21 7:56 AM) Respiratory Rate [16-30 18 br/min 17 br/min 18 br/mi n br/min] (12/09/21 3:31 PM) (12/09/21 2:31 PM) (12/09/21 1:1 4 PM) Temperature [96.8-100.4 97.5 DegF 97.7 DegF 98.1 Deg F DegF] (12/09/21 11:30 AM) (12/09/21 6:34 AM) (12/08/21 10 :24 PM) Liters per Minute 2 L/min 2 L/min 2 L/min (12/08/21 5:08 AM) (12/06/21 4:02 PM) (12/06/21 1:0 0 PM) Mode of Delivery (Oxygen) Room air Room air Room a ir (12/09/21 11:30 AM) (12/09/21 6:34 AM) (12/08/21 10 :24 PM) Blood pressure sites Arm, right Arm, right Arm, right (12/09/21 11:30 AM) (12/09/21 6:34 AM) (12/08/21 10 :24 PM) Temperature Route Oral Axillary Oral (12/09/21 11:30 AM) (12/09/21 6:34 AM) (12/08/21 10 :24 PM) Dry Weight 91 kg 75 kg (12/06/21 4:02 PM) (12/05/21 7:52 PM) Weight Obtained Via Bed scale (12/06/21 4:02 PM) Dry Weight Obtained Via Patient/family stated (12/06/21 4:02 PM) Social History Social History Type Response Smoking Status Not obtained due to cognitiv e impairment entered on: 09/24/21 Sex
--- OUTSIDE RECORDS SUMMARY | 2022-06-23 20:27 | XMS_ITS | Continuity of Care Document ---
:1965 Author Organization [facility] Address [address] [place] [phone]- Care Team Providers Name Role Phone Madhu HASSAN, Елена Primary Care Physician Encounter [facility] Date(s): 05/06/21 - 05/07/[address] [address] Discharge Disposition: A-D/C AMA Attending Physician: Shay Lopez DO Admitting Physician: Marisol Adair MD Referring Physician: Not on Staff, Referring [...] P atient Refuses influenza virus vaccine, inactivated 11/6/19 Not Given Patient Refuses influenza virus vaccine, [...] Refills, Maintenance, 12/27/20 9:09:00 EDT, CR Tablet, [facility]/pharmacy #[id number], Partial fill upon patient request if the prescription is for a schedule II opioid drug., 182, cm, 12/27/20 6:15:00 E... Start Date: 12/27/20 Stop Date: 04/26/21 Status: OrderedcloNIDine 0.1 mg oral tablet 1, tablet, By Mouth, 2 times a day, # 60 tablet, Refills 0, Tot. Refills 0, Maintenance, 12/22/20 15:38:00 EDT, Route to Pharmacy Electronically, [id number], 182, cm, 11/22/20 11:13:00 EDT, Height, 88.2, kg, 09/17/20 2:30:00 EDT, Dry Weight Start Date: 12/22/20 Status: Orderedcyclobenzaprine 10 mg oral tablet 5 mg, Tablet, By Mouth, 3 times a day, PRN for Spasm, Routine, 05/06/21 10:45:00 EST Start Date: 05/06/21 Stop Date: 06/05/21 Status: Orderedcyclobenzaprine 5 mg oral tablet 1 [...] 11 Refills, Maintenance, 11/22/20 11:29:00 EDT, Inhaler, [facility]/pharmacy #[id number], Partial fill upon patient request [...] 0 Refills, Maintenance, 01/24/21 13:02:00 EDT, Patch, [facility], Partial fill upon [...] 0 Refills, Maintenance, 01/24/21 13:01:00 EDT, [place], [facility], Partial fill upon [...] 04/11/21 16:46:00 EDT, Route to Pharmacy Electronically, [facility]/pharmacy #[id number], Partial fill upon patient request if the prescription is for a schedule... Start Date: 04/11/21 Status: Orderedprazosin 5 mg oral capsule 5 mg, Capsule, By Mouth, 05/07/21 21:00:00 EST Start Date: 05/07/21 Stop Date: 05/07/21 Status: CompletedProAir HFA 90 mcg/inh inhalation aerosol 2 puffs, Inhalation, Every 4 hours, PRN as needed for wheezing, # 2 each, 11 Refills, Maintenance, 11/22/20 11:29:00 EDT, Aerosol, [facility]/pharmacy #[id number], Partial fill upon patient request [...] Replace Required Details, Route to Pharmacy Electronically, [facility]/pharmacy #[id number], 183, cm, ... Start Date: 04/11/21 Status: OrderedrisperiDONE 2 mg oral tablet 1, tablet, By Mouth, Daily at bedtime, # 90 tablet, Refills 11, Tot. Refills 11, Maintenance, 04/11/21 16:46:00 EDT, Route to Pharmacy Electronically, [facility]/pharmacy #[id number], 183, cm, 03/31/21 19:04:00 EDT, Height, 82, kg, 03/31/21 19:04:00 EDT, Dry Weight Start Date: 04/11/21 Status: Orderedthiamine 100 mg oral tablet 100 mg, 1, tablet, By Mouth, 2 times a day, # 90 tablet, Refills 0, Tot. Refills 0, Maintenance, 01/24/21 13:02:00 EDT, Route to Pharmacy Electronically, [facility], Partial fill upon patient request if the prescription is for a schedule... Start Date: 01/24/21 Status: OrderedtraZODone 150 mg oral tablet 1 tablet = 150 mg, By Mouth, Daily at bedtime, # 90 tablet, 11 Refills, Maintenance, 04/11/21 16:46:00 EDT, Tablet, [facility]/pharmacy #[id number], Partial fill upon patient request if the prescription is for a schedule II opioid drug., 183, cm, 03/31/21 19:04:00... Start Date: 04/11/21 Status: OrderedTrileptal 600 mg oral tablet 1 tablet = 600 mg, By Mouth, 2 times a day, # 180 tablet, 11 Refills, Maintenance, 04/11/21 16:46:00EDT, Tablet, [facility]/pharmacy #[id number], Partial fill upon patient request [...] [Reference Range]: Height 183 cm 183 cm 183 cm (05/07/21 8:21 PM) (05/07/21 6:14 PM) (05/07/21 5:19 PM) Weight 88.6 kg 86.36 kg (05/07/21 6:14 PM) (05/05/21 5:46 PM) Oxygen Saturation [94-100 98 % 97 % 95 % %] (05/07/21 8:21 PM) (05/07/21 5:19 PM) (05/07/21 3:19 PM) Pulse Rate [55-90 bpm] 82 bpm 70 bpm 70 bpm (05/07/21 8:21 PM) (05/07/21 6:14 PM) (05/07/21 5:19 PM) Body Mass Index 26.46 [18.5-24.99] *H* (05/07/21 6:14 PM) Blood Pressure 113/70 mm Hg 98/64 mm Hg 123/92 mm Hg [90-138/55-84 mm Hg] (05/07/21 10:02 PM) (05/07/21 8:21 PM) ( 6:14 PM) Respiratory Rate [16-30 17 br/min 18 br/min 16 br/mi n br/min] (05/07/21 8:21 PM) (05/07/21 6:14 PM) (05/07/21 6:11 PM) Temperature [96.8-100.4 98.2 DegF 97.6 DegF 97.6 Deg F DegF] (05/07/21 8:21 PM) (05/07/21 6:14 PM) (05/07/21 5:19 PM) Mode of Delivery (Oxygen) Room air Room air Room a ir (05/07/21 8:21 PM) (05/07/21 5:19 PM) (05/07/21 3:19 PM) Blood pressure sites Arm, left Arm, left Arm, right (05/07/21 8:21 PM) (05/07/21 6:14 PM) (05/07/21 5:19 PM) Temperature Route Oral Oral Oral (05/07/21 8:21 PM) (05/07/21 6:14 PM) (05/07/21 5:19 PM) Dry Weight 88.6 kg 86.36 kg (05/07/21 6:14 PM) (05/05/21 5:46 PM) Social History Social History Type Response Smoking Status 10 or more cigarettes (1/2 p ack or more)/day in last 30 days; Other: smokes 2 ppd for over 35+ years (age 11); entered on: 08/16/20 Sex
--- OUTSIDE RECORDS SUMMARY | 2022-06-23 20:27 | XMS_ITS | Continuity of Care Document ---
:1965 Author Organization [facility] Address [address] [place] [address]- Care Team Providers Name Role Phone Елена Leung MD Primary Care Physician Encounter [facility] [place] Date(s): 12/17/21 - 12/17/[address] [address]- Encounter Diagnosis Alcohol use (Final) - 12/17/21 Discharge Disposition: A-D/C Home Attending Physician: David Jacob MD Admitting Physician: David Jacob MD Referring Physician: Not on Staff, Referring MD Allergies, Adverse Reactions, Alerts Substance Reaction Severity Status penicillins1 Active Naprosyn itching Active Swelling cefTRIAXone2 Anaphylactic reaction requiring IM epinephrine S evere Active 1Tolerates [id number] reaction requiring IM epinephrine Immunizations Given and [...] tablet, 11 Refills, Maintenance, 07/10/21 7:55:00EST, Tablet, [facility]-, Partial fill upon patient request if [...] 1 Refills, [place], 11/30/21 12:47:00 EDT, [facility]/pharmacy #[id number],... Start Date: 11/30/21 Status: Orderedprazosin 1 mg [...] 0 Refills, Maintenance, 07/10/21 7:55:00 EST, Tablet, [facility]-, Partial fill upon patient request if [...] Exam Date Time Procedure Performing Provider Status 12/17/21 1:57 PM Chest 2 Views Frontal and Lat Yonatan , Armida; Au th (Verified) Notes:(Chest 2 Views Frontal and Lat) Reason For Exam: Shortness of Breath, Fever;Other:RESULT: Chest 2 Views Frontal and Lat Examination: Chest performed on 12/17/21. History: Unresponsive Findings: Frontal and lateral views of the chest are compared to a prior study dated 12/11/2021. The cardiac and mediastinal silhouettes are within normal limits. The lungs are clear. The osseous and soft tissue structures are unremarkable. Impression: There is no acute cardiopulmonary disease. WSN: [id number] Ordering Physician: Elizabeth Knowles Dictated By: Ivy Marcum MD Dictated Date/Time: 12/17/21 2:08 pm Reviewed By: Ivy Marcum MD Signed By: Ivy Marcum MD Signed Date/Time: 12/17/21 2:08 pm Transcribed By: DAVIN Transcribed Date/Time: 12/17/21 2:07 pm Vital Signs Most recent to oldest [Reference 1 2 3 Range]: Oxygen Saturation [94-100 %] 94 % 94 % 92 % (12/17/21 3:28 PM) (12/17/21 2:31 PM) *L* (12/17/21 10:44 AM ) Pulse Rate [55-90 bpm] 103 bpm 99 bpm 102 bpm *H* *H* *H* (12/17/21 3:28 PM) (12/17/21 2:31 PM) (12/17/21 10:44 AM) Blood Pressure [90-138/55-84 mm 114/73 mm Hg 131/84 mm Hg 123/73 mm Hg Hg] (12/17/21 3:28 PM) (12/17/21 2:31 PM) (12/17/21 10:44 AM) Respiratory Rate [16-30 br/min] 20 br/min 17 br/min 20 br/min (12/17/21 3:28 PM) (12/17/21 2:31 PM) (12/17/21 10:44 AM) Temperature [96.8-100.4 DegF] 98.2 DegF 97.5 DegF 98 .8 DegF (12/17/21 3:28 PM) (12/17/21 2:31 PM) (12/17/21 10:44 AM) Mode of Delivery (Oxygen) Room air Room air Room a ir (12/17/21 3:28 PM) (12/17/21 2:31 PM) (12/17/21 10:44 AM) Blood pressure sites Arm, left Arm, left (12/17/21 3:28 PM) (12/17/21 2:31 PM) Temperature Route Oral Oral Oral (12/17/21 3:28 PM) (12/17/21 2:31 PM) (12/17/21 10:44 AM) Social History Social History Type Response Smoking Status Not obtained due to cognitiv e impairment entered on: 09/24/21 Sex
--- OUTSIDE RECORDS SUMMARY | 2022-06-23 20:27 | XMS_ITS | Continuity of Care Document ---
:1965 Author Organization [facility] Address [address] [place] [address]- Care Team Providers Name Role Phone Madhu HASSAN, Елена Primary Care Physician Encounter [facility] Date(s): 09/20/20 - 10/20/20 [facility] [address] [place], [place] [address] Allergies, Adverse Reactions, Alerts Substance [...] 0 Refills, Maintenance, 10/11/20 9:27:00 EDT, Inhaler, [facility], Partial fill upon patient request if the prescription is for a schedule II opioid drug., 1 puffs Inhalation Daily, 182, cm, 09/19/20... Start Date: 10/11/20 Status: Orderedfolic acid 1 mg oral tablet 1 mg, 1, tablet, By Mouth, Daily, # 30 tablet, Refills 0, Tot. Refills 0, Maintenance, 09/19/20 11:10:00 EDT, Route to Pharmacy Electronically, [facility]/pharmacy #[id number], 182, cm, 09/19/20 0:43:00 EDT, Height, [...] 0 Refills, Maintenance, 10/11/20 9:27:00 EDT, Tablet, [facility], Partial fill upon patient request [...] 0 Refills, Maintenance, 07/02/20 9:41:00 EST, Aerosol, [facility]/pharmacy #[id number], Partial fill upon patient request if the prescription is for a schedule II opioid drug., 2 puffs Inhal... Start Date: 07/02/20 Stop Date: 08/01/20 Status: Orderedpyridoxine 50 mg oral tablet 50 mg, 1, tablet, By Mouth, Daily, for 30 days, # 30 tablet, Refills 0, Tot. Refills 0, Acute 11/10/20 9:27:00 EDT, 10/11/20 9:27:00 EDT, Route to Pharmacy Electronically, [facility], Partial fill upon patient request [...] 10/11/20 9:28:00 EDT, Route to Pharmacy Electronically, [facility], Partial fill upon patient request [...]
--- OUTSIDE RECORDS SUMMARY | 2022-06-23 20:27 | XMS_ITS | Continuity of Care Document ---
:1965 Author Organization [facility] Address [address] [place] [address]- Care Team Providers Name Role Phone Madhu HASSAN, Елена Primary Care Physician [place] [facility] [place] 12/27/20 - 01/02/[address] [address] Encounter Diagnosis Hyponatremia (Final) - 12/29/20 Discharge Disposition: A-D/C AMA Attending Physician: Sophy Salinas MD Admitting Physician: Jf Valle MD Referring Physician: Not on Staff, Referring [...] Refills, Maintenance, 12/27/20 9:09:00 EDT, CR Tablet, [facility]/pharmacy #[id number], Partial fill upon patient request if the prescription is for a schedule II opioid drug., 182, cm, 12/27/20 6:15:00 E... Start Date: 12/27/20 Stop Date: 04/26/21 Status: OrderedcloNIDine 0.1 mg oral tablet 1, tablet, By Mouth, 2 times a day, # 60 tablet, Refills 0, Tot. Refills 0, Maintenance, 12/22/20 15:38:00 EDT, Route to Pharmacy Electronically, [id number], 182, cm, 11/22/20 11:13:00 EDT, Height, 88.2, [...] 11 Refills, Maintenance, 11/22/20 11:29:00 EDT, Inhaler, [facility]/pharmacy #[id number], Partial fill upon patient request if the prescription is for a schedule II opioid drug., 1 puffs Inhalation Daily, 182, cm, 11/22/20 11:... Start Date: 11/22/20 Status: Orderedfolic acid 1 mg oral tablet 1 mg, 1, tablet, By Mouth, Daily, # 30 tablet, Refills 0, Tot. Refills 0, Maintenance, 09/19/20 11:10:00 EDT, Route to Pharmacy Electronically, [facility]/pharmacy #[id number], 182, cm, 09/19/20 0:43:00 EDT, Height, 88.2, kg, 09/17/20 2:30:00 EDT, Dry Weight Start Date: 09/19/20 Stop Date: 10/19/20 Status: Orderedmethadone 10 mg oral tablet 35 mg, Tablet, By Mouth, 01/02/21 9:00:00 EDT Start Date: 01/02/21 Stop Date: 01/02/21 Status: Completedmultivitamin Multiple Vitamins oral tablet 1 tablet, By Mouth, Daily, # 30 tablet, 0 Refills, Maintenance, 10/11/20 9:27:00 EDT, Tablet, [facility], Partial fill upon patient [...] 11/22/20 11:31:00 EDT, Route to Pharmacy Electronically, [facility]/pharmacy #[id number], Partial fill upon patient request if the prescription is for a schedule II... Start Date: 11/22/20 Status: OrderedProAir HFA 90 mcg/inh inhalation aerosol 2 puffs, Inhalation, Every 4 hours, PRN as needed for wheezing, # 2 each, 11 Refills, Maintenance, 11/22/20 11:29:00 EDT, Aerosol, [facility]/pharmacy #[id number], Partial fill upon patient request if the prescription is for a schedule II opioid drug., 2 puffs Inh... Start Date: 11/22/20 Stop Date: 11/17/21 Status: OrderedrisperiDONE 1 mg oral tablet 1, tablet, By Mouth, Daily in AM, # 30 tablet, Refills 0, Tot. Refills 0, Maintenance, 12/22/20 15:38:00 EDT, Route to Pharmacy Electronically, [id number], 182, cm, 11/22/20 11:13:00 EDT, Height, 88.2, kg, 09/17/20 2:30:00 EDT, Dry Weight Start Date: 12/22/20 Status: OrderedrisperiDONE 2 mg oral tablet 1, tablet, By Mouth, Daily at bedtime, # 30 tablet, Refills 0, Tot. Refills 0, Maintenance, 12/22/2114:38:00 EDT, Route to Pharmacy Electronically, [facility], 182, cm, 11/22/20 11:13:00 EDT, Height, 88.2, kg, 09/17/20 2:30:00 EDT, Dry Weight Start Date: 12/22/20 Status: OrderedtraZODone 150 mg oral tablet 1 tablet = 150 mg, By Mouth, Daily at bedtime, # 30 tablet, 0 Refills, Maintenance, 11/22/20 11:31:00 EDT, Tablet, [facility]/pharmacy #[id number], Partial fill upon patient request if the prescription is for a schedule II opioid drug., 182, cm, 11/22/20 11:13:00... Start Date: 11/22/20 Status: OrderedTrileptal 600 mg oral tablet 1 tablet = 600 mg, By Mouth, 2 times a day, # 60 tablet, 0 Refills, Maintenance, 11/22/20 11:31:00 EDT, Tablet, [facility]/pharmacy #[id number], Partial fill upon patient [...] Exam Date Time Procedure Performing Provider Status 12/27/20 6:30 PM Chest Portable Teri Guillen; Willard ([facility] ed) Notes:(Chest Portable) Reason For Exam: Shortness of BreathRESULT: Chest Portable AP portable chest, INDICATION: Hx of Present Illness: pt left ama from inpt, tool amb back to ed and again left ama at 1500, pt returned appears under the influence, state he sniffed fentanyl and wants to be seen again; Reason: Shortness of Breath; Clinical Question(s): CHF COMPARISON: 12/24/2020 FINDINGS: LINES AND TUBES: None LUNGS AND PLEURA AND MEDIASTINUM: There is no pneumothorax. Heart size is borderline. There is left basilar atelectasis/infiltrate. Possible small left pleural effusion. IMPRESSION: Left basilar atelectasis/infiltrate, worse from previous. Possible small left pleural effusion. WSN: [id number] Ordering Physician: Pratima Chang Dictated By: Cher Vogt MD Dictated Date/Time: 12/27/20 6:40 pm Reviewed By: Cher Vogt MD Signed By: Cher Vogt MD Signed Date/Time: 12/27/20 6:40 pm Transcribed By: DAVIN Transcribed Date/Time: 12/27/20 6:39 pm Vital Signs Most recent to oldest 1 2 3 [Reference Range]: Height 183 cm 183 cm 183 cm (01/02/21 8:16 AM) (01/01/21 8:41 PM) (01/01/21 3:2 4 PM) Weight 85 kg (12/27/20 4:49 PM) Oxygen Saturation [94-100 98 % 97 % 95 % %] (01/01/21 8:41 PM) (01/01/21 3:24 PM) (01/01/21 4:5 6 AM) Pulse Rate [55-90 bpm] 62 bpm 78 bpm 64 bpm (01/02/21 8:16 AM) (01/02/21 12:00 AM) (01/01/21 8: 41 PM) Blood Pressure 138/92 mm Hg 122/74 mm Hg 130/95 mm Hg [90-138/55-84 mm Hg] (01/02/21 8:16 AM) (01/02/21 12:00 AM) ( 8:41 PM) Respiratory Rate [16-30 18 br/min 18 br/min 17 br/mi n br/min] (01/02/21 8:29 AM) (01/02/21 12:00 AM) (01/01/21 8: 41 PM) Temperature [96.8-100.4 98.9 DegF 97.9 DegF 97.5 Deg F DegF] (01/02/21 12:00 AM) (01/01/21 8:41 PM) (01/01/21 3: 24 PM) Mode of Delivery (Oxygen) Room air Room air Room a ir (01/01/21 8:41 PM) (01/01/21 3:24 PM) (01/01/21 4:5 6 AM) Blood pressure sites Arm, left Arm, left Arm, right (01/02/21 8:16 AM) (01/01/21 8:41 PM) (01/01/21 3:2 4 PM) Temperature Route Oral Oral Axillary (01/02/21 12:00 AM) (01/01/21 8:41 PM) (01/01/21 3: 24 PM) Weight Obtained Via Patient/family stated (12/27/20 4:49 PM) Social History Social History Type Response Smoking Status 10 or more cigarettes (1/2 p ack or more)/day in last 30 days; Other: smokes 2 ppd for over 35+ years (age 11); entered on: 08/16/20 Sex
--- OUTSIDE RECORDS SUMMARY | 2022-06-23 20:27 | XMS_ITS | Continuity of Care Document ---
:1965 Author Organization [facility] Address [address] [place] [address]- Care Team Providers Name Role Phone Елена Leung MD Primary Care Physician Encounter [facility] Date(s): 03/08/21 - 03/09/[address] [address]- Encounter Diagnosis Alcohol intoxication (Final) - 03/08/21 Headache (Final) - 03/08/21 Neck pain (Final) - 03/08/21 Discharge Disposition: A-D/C Home Attending Physician: Wisam [...] Refills, Maintenance, 12/27/20 9:09:00 EDT, CR Tablet, [facility]/pharmacy #[id number], Partial fill upon patient request if the prescription is for a schedule II opioid drug., 182, cm, 12/27/20 6:15:00 E... Start Date: 12/27/20 Stop Date: 04/26/21 Status: Orderedazithromycin 250 mg oral tablet 1 tablet = 250 mg, By Mouth, Daily, begin tomorrow, # 4 tablet, 0 Refills, Maintenance, 02/25/21 17:53:00 EDT, Tablet, [facility]/pharmacy #[id number], Partial fill upon patient request if the prescription is for aschedule II opioid drug., 183, cm, 01/24/21 11:13... Start Date: 02/25/21 Stop Date: 03/01/21 Status: OrderedcloNIDine 0.1 mg oral tablet 1, tablet, By Mouth, 2 times a day, # 60 tablet, Refills 0, Tot. Refills 0, Maintenance, 12/22/20 15:38:00 EDT, Route to Pharmacy Electronically, [facility] [id number], 182, cm, 11/22/20 11:13:00 EDT, Height, 88.2, [...] 11 Refills, Maintenance, 11/22/20 11:29:00 EDT, Inhaler, [facility]/pharmacy #[id number], Partial fill upon patient request if the prescription is for a schedule II opioid drug., 1 puffs Inhalation Daily, 182, cm, 11/22/20 11:... Start Date: 11/22/20 Status: Orderednicotine 21 mg/24 hr transdermal film, extended release 1 patch, Topically, Daily, # 30 patch, 0 Refills, Maintenance, 01/24/21 13:02:00 EDT, Patch, [facility], Partial fill upon patient request [...] 0 Refills, Maintenance, 01/24/21 13:01:00 EDT, Lozenge, [facility], Partial fill upon patient request [...] 11/22/20 11:31:00 EDT, Route to Pharmacy Electronically, [facility]/pharmacy #[id number], Partial fill upon patient request if the prescription is for a schedule II... Start Date: 11/22/20 Status: OrderedProAir HFA 90 mcg/inh inhalation aerosol 2 puffs, Inhalation, Every 4 hours, PRN as needed for wheezing, # 2 each, 11 Refills, Maintenance, 11/22/20 11:29:00 EDT, Aerosol, [facility]/pharmacy #[id number], Partial fill upon patient request if the prescription is for a schedule II opioid drug., 2 puffs Inh... Start Date: 11/22/20 Stop Date: 11/17/21 Status: OrderedrisperiDONE 1 mg oral tablet 1, tablet, By Mouth, Daily in AM, # 30 tablet, Refills 0, Tot. Refills 0, Maintenance, 12/22/20 15:38:00 EDT, Route to Pharmacy Electronically, [facility] [id number], 182, cm, 11/22/20 11:13:00 EDT, Height, 88.2, kg, 09/17/20 2:30:00 EDT, Dry Weight Start Date: 12/22/20 Status: OrderedrisperiDONE 2 mg oral tablet 1, tablet, By Mouth, Daily at bedtime, # 30 tablet, Refills 0, Tot. Refills 0, Maintenance, 12/22/2114:38:00 EDT, Route to Pharmacy Electronically, [facility] 07[facility], 182, cm, 11/22/20 11:13:00 EDT, Height, 88.2, kg, 09/17/20 2:30:00 EDT, Dry Weight Start Date: 12/22/20 Status: OrderedSuboxone 8 mg-2 mg sublingual film 1 film, Sublingual, Daily, dissolve under the tongue, # 7 film, 0 Refills, Maintenance, 01/24/21 11:11:00 EDT, Film, [facility], Partial fill upon patient request if the prescription is for a schedule II opioid drug. [id number], 1 film Hilario... Start Date: 01/24/21 Status: Orderedthiamine 100 mg oral tablet 100 mg, 1, tablet, By Mouth, 2 times a day, # 90 tablet, Refills 0, Tot. Refills 0, Maintenance, 01/24/21 13:02:00 EDT, Route to Pharmacy Electronically, [facility], Partial fill upon patient request if the prescription is for a schedule... Start Date: 01/24/21 Status: OrderedtraZODone 150 mg oral tablet 1 tablet = 150 mg, By Mouth, Daily at bedtime, # 30 tablet, 0 Refills, Maintenance, 11/22/20 11:31:00 EDT, Tablet, [facility]/pharmacy #[id number], Partial fill upon patient [...] oldest 1 2 3 4 [Reference Range]: Oxygen Saturation 96 % 95 % 95 % 94 % [94-100 %] (03/09/21 1:45 AM) (03/08/21 9:02 PM) (03/08/21 6:45 PM) (03/08/21 6:45 PM) Pulse Rate [55-90 93 bpm 90 bpm 91 bpm bpm] *H* (03/09/21 1:45 AM) *H* (03/09/21 1:52 AM) (03/08/21 9:02 PM) Blood Pressure 123/90 mm Hg 104/77 mm Hg 119/77 mm Hg [90-138/55-84 mm Hg] (03/09/21 1:52 AM) (03/09/21 1:45 AM) (03/08/21 9 :02 PM) Respiratory Rate 20 br/min 117 br/min 17 br/min [16-30 br/min] (03/09/21 1:52 AM) *H* (03/08/21 9:02 PM) (03/09/21 1:45 AM) Temperature 98.0 DegF [96.8-100.4 DegF] (03/09/21 1:45 AM) Liters per Minute 3 L/min 2 L/min (03/09/21 1:45 AM) (03/08/21 6:45 PM) Mode of Delivery Nasal cannula Room air Nasal cannula Nasal can nula (Oxygen) (03/09/21 1:45 AM) (03/08/21 9:02 PM) (03/08/21 6:45 PM) (03/08/21 6:45 PM) Blood pressure sites Arm, right Arm, right Arm, right (03/09/21 1:45 AM) (03/08/21 9:02 PM) (03/08/21 6:45 PM) Temperature Route Oral (03/09/21 1:45 AM) Social History Social History Type Response Smoking Status 10 or more cigarettes (1/2 p ack or more)/day in last 30 days; Other: smokes 2 ppd for over 35+ years (age 11); entered on: 08/16/20 Sex
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
--- OUTSIDE RECORDS SUMMARY | 2022-06-23 20:28 | XMS_ITS | Continuity of Care Document ---
:1965 Author Organization [facility] Address [address] [place] [address]- Care Team Providers Name Role Phone Елена Leung MD Primary Care Physician [place] [facility] [place] 08[place]21 [facility] [address] [place], [place] [address] Attending Physician: Елена Leung MD Allergies, Adverse [...] Given Patient Refuses influenza virus vaccine, inactivated 11/6/19 Not [...] 7:56:00 EST, Route to Pharmacy Electronically, [facility]-, Partial fill upon patient request if the prescript... Start Date: 07/10/21 Status: Orderedfluticasone-vilanterol 200 mcg-25 mcg/inh inhalation powder 1 puffs, Inhalation, Daily, # 1 each, 3 Refills, Maintenance, 07/10/21 7:55:00 EST, Inhaler, [facility]-, Partial fill upon patient request if the prescription is for a scheduleII opioid drug., 1 puffs Inhalation Daily,x30 day... Start Date: 07/10/21 Stop Date: 11/07/21 Status: Orderedfolic acid 1 mg oral tablet 1 mg, 1, tablet, By Mouth, Daily, # 30 tablet, Refills 0, Tot. Refills 0, Maintenance, 07/10/21 7:55:00 EST, Route to Pharmacy Electronically, [facility], Partial fill upon patient request if the prescription is for a schedule... Start Date: 07/10/21 Status: Orderedgabapentin 400 mg oral capsule 400 mg, 1, capsule, By Mouth, 3 times a day, # 90 capsule, Refills 0, Tot. Refills 0, Maintenance, 07/10/21 7:55:00 EST, Route to Pharmacy Electronically, [facility], Partial fill upon patient request if [...] 11 Refills, Maintenance, 07/10/21 7:55:00EST, Tablet, [facility]-, Partial fill upon patient request if the prescription is for a schedule II opioid drug., 183, cm, 01... Start Date: 07/10/21 Status: OrderedNicoderm C-Q Clear 21 mg/24 hr transdermal film, extended release 1 patch, Topically, Daily, # 30 patch, 0 Refills, Maintenance, 07/16/21 7:51:00 EST, Patch, [facility], Partial fill upon patient request if the prescription is for a schedule II opioid drug., 182, cm, 07/11/21 21:01:00 EST, Height, 87,... Start Date: 07/16/21 Status: Orderedondansetron 4 mg oral tablet, disintegrating 1 tablet = 4 mg, By Mouth, Every 8 hours, PRN as needed for nausea/vomiting, 0 Refills, Maintenance,09/25/20 4:36:00 EDT, DIS Tablet, Partial fill upon patient request if the prescription is for a schedule II opioid drug. Start Date: 09/25/20 Status: OrderedOXcarbazepine 600 mg oral tablet 1 tablet = 600 mg, By Mouth, 2 times a day, # 180 tablet, 0 Refills, Maintenance, 09/26/20 0:50:00 EDT, Tablet, Partial fill upon patient request if the prescription is for a schedule II opioid drug. Start Date: 09/26/20 Status: Orderedpantoprazole 40 mg oral delayed release [...] Refills, Maintenance, 07/10/21 7:55:00 EST, Aerosol, [facility]-, Partial fill upon patient request if the prescription is for a schedule II opioid teresa... Start Date: 07/10/21 Stop Date: 11/07/21 Status: OrderedrisperiDONE 1 mg oral tablet 1 mg, 1, tablet, By Mouth, 2 times a day, # 60 tablet, Refills 0, Tot. Refills 0, Maintenance, 07/10/21 7:56:00 EST, Route to Pharmacy Electronically, [facility], Partial fill upon patient request if the prescription is for a... Start Date: 07/10/21 Status: OrderedrisperiDONE 1 mg oral tablet 1 mg, 1, tablet, By Mouth, 2 times a day, # 60 tablet, Refills 0, Maintenance, 09/26/20 0:50:00 EDT,Partial fill upon patient request if the prescription is for a schedule II opioid drug. Start Date: 09/26/20 Status: Orderedthiamine 100 mg oral tablet 100 mg, 1, tablet, By Mouth, Daily, # 30 tablet, Refills 0, Tot. Refills 0, Maintenance, 07/10/21 7:56:00 EST, Route to Pharmacy Electronically, [facility], Partial fill upon patient request if the prescription is for a schedu... Start Date: 07/10/21 Status: OrderedtraZODone 150 mg oral tablet 1 tablet = 150 mg, By Mouth, Daily at bedtime, # 90 tablet, 11 Refills, Maintenance, 07/10/21 7:56:00 EST, Tablet, [facility], Partial fill upon patient request if the prescription is for a schedule II opioid drug., 183, cm, 0... Start Date: 07/10/21 Status: OrderedtraZODone 150 mg [...] 0 Refills, Maintenance, 07/10/21 7:55:00 EST, Tablet, [facility], Partial fill upon patient request if [...]
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
--- OUTSIDE RECORDS SUMMARY | 2022-06-23 20:28 | XMS_ITS | Continuity of Care Document ---
:1965 Author Organization [facility] Address [address] [place] [address]- Care Team Providers Name Role Phone Not on Staff, PCP Primary Care Physician Unavailable Encounter [facility] Date(s): 03/20/20 - 04/19/[address] [address] Attending Physician: Leena Linton Admitting Physician: Leena [...] 09/01/19 8:57:00 EDT, Route to Pharmacy Electronically, [facility], 183, cm, 09/01/19 0:45:00 EDT, Height, 86.5, kg, 08/29/19 22:05:00 EDT, Dry Weight Start Date: 09/01/19 Status: Orderedgabapentin 100 mg oral capsule 100 mg, 1, capsule, By Mouth, 3 times a day, # 90 capsule, Refills 0, Tot. Refills 0, Maintenance, 08/09/19 17:41:00 EST, Route to Pharmacy Electronically, [facility]/pharmacy #[id number], 186, cm, 07/31/19 11:36:00 EST, Height, 86, kg, 07/30/19 23:47:00 EST, Dry... Start Date: 08/09/19 Status: OrderedoxyCODONE 5 mg oral tablet 5 mg, 1, tablet, By Mouth, Every 6 hours, PRN, # 10 tablet, Refills 0, Tot. Refills 0, Maintenance, for pain, 09/01/19 8:57:00 EDT, Route to Pharmacy Electronically, [facility], Partial fill upon patient [...] 09/01/19 9:03:00 EDT, Route to Pharmacy Electronically, [facility], 183, cm, 09/01/19 0:45:00 EDT, Height, 86.5, kg, 08/29/19 22:05:00 EDT... Start Date: 09/01/19 Status: OrderedtiZANidine 4 mg oral capsule 1 capsule = 4 mg, By Mouth, 3 times a day, # 90 capsule, 1 Refills, Maintenance, 01/26/20 16:20:00 EDT, Capsule, [facility], 183, cm, 09/01/19 0:45:00 EDT, Height, 86.5, kg, 08/29/19 22:05:00 EDT, Dry Weight Start Date: 01/26/20 Status: OrderedtiZANidine 4 mg oral tablet 4 mg, 1, tablet, By Mouth, 3 times a day, PRN, # 21 tablet, Refills 0, Tot. Refills 0, Maintenance, Spasm, 01/29/20 9:18:00 EDT, Route to Pharmacy Electronically, [facility], 183, cm, 09/01/19 0:45:00 [...] Refills, Maintenance, 02/05/20 7:33:00 EDT Start Date: 8/24/20 Status: Ordered Problem List Condition Effective Dates [...]
--- OUTSIDE RECORDS SUMMARY | 2022-06-23 20:28 | XMS_ITS | Continuity of Care Document ---
:1965 Author Organization [facility] Address [address] [place] [address]- Care Team Providers Name Role Phone Madhu HASSAN, Елена Primary Care Physician [place] [facility] [place]): [place] 08/15/[address] [address] Encounter Diagnosis Back pain (Final) - 08/14/21 Fall (Final) - 08/15/21 Discharge Disposition: A-D/C AMA Attending Physician: Ricardo Corbin MD Admitting Physician: Kota Castillo MD Referring Physician: Not on Staff, Referring [...] 07/10/21 7:56:00 EST, Route to Pharmacy Electronically, [facility], Partial fill upon patient request if the prescript... Start Date: 07/10/21 Status: Orderedfluticasone-vilanterol 200 mcg-25 mcg/inh inhalation powder 1 puffs, Inhalation, Daily, # 1 each, 3 Refills, Maintenance, 07/10/21 7:55:00 EST, Inhaler, [facility]-, Partial fill upon patient request if the prescription is for a scheduleII opioid drug., 1 puffs Inhalation Daily,x30 day... Start Date: 07/10/21 Stop Date: 11/07/21 Status: Orderedfolic acid 1 mg oral tablet 1 mg, 1, tablet, By Mouth, Daily, # 30 tablet, Refills 0, Tot. Refills 0, Maintenance, 07/10/21 7:55:00 EST, Route to Pharmacy Electronically, [facility], Partial fill upon patient request if the prescription is for a schedule... Start Date: 07/10/21 Status: Orderedgabapentin 400 mg oral capsule 400 mg, 1, capsule, By Mouth, 3 times a day, # 90 capsule, Refills 0, Tot. Refills 0, Maintenance, 07/10/21 7:55:00 EST, Route to Pharmacy Electronically, [facility], Partial fill upon patient request if the prescription is fo... Start Date: 07/10/21 Status: Orderedmirtazapine 30 mg oral tablet 1 tablet = 30 mg, By Mouth, Daily at bedtime, # 90 tablet, 11 Refills, Maintenance, 07/10/21 7:55:00EST, Tablet, [facility]-, Partial fill upon patient request if the prescription is for a schedule II opioid drug., 183, cm, 01... Start Date: 07/10/21 Status: OrderedNicoderm C-Q Clear 21 mg/24 hr transdermal film, extended release 1 patch, Topically, Daily, # 30 patch, 0 Refills, Maintenance, 07/16/21 7:51:00 EST, Patch, [facility], Partial fill upon patient request if [...] oral capsule 5 mg, Capsule, By Mouth, 08/14/21 21:00:00 EST Start Date: 08/14/21 Stop Date: 08/14/21 Status: Completedprazosin 5 mg oral capsule 5 [...] 3 Refills, Maintenance, 07/10/21 7:55:00 EST, Aerosol, [facility]-, Partial fill upon patient request if the prescription is for a schedule II opioid teresa... Start Date: 07/10/21 Stop Date: 11/07/21 Status: OrderedrisperiDONE 1 mg oral tablet 1 mg, 1, tablet, By Mouth, 2 times a day, # 60 tablet, Refills 0, Tot. Refills 0, Maintenance, 07/10/21 7:56:00 EST, Route to Pharmacy Electronically, [facility], Partial fill upon patient request [...] 07/10/21 7:56:00 EST, Route to Pharmacy Electronically, [facility], Partial fill upon patient request if the prescription is for a schedu... Start Date: 07/10/21 Status: OrderedtraZODone 150 mg oral tablet 1 tablet = 150 mg, By Mouth, Daily at bedtime, # 90 tablet, 11 Refills, Maintenance, 07/10/21 7:56:00 EST, Tablet, [facility], Partial fill upon patient request [...] 0 Refills, Maintenance, 07/10/21 7:55:00 EST, Tablet, [facility]-, Partial fill upon patient request [...] Exam Date Time Procedure Performing Provider Status 08/14/21 8:09 AM Chest Portable Feli Espinosa; Auth (Verified ) Notes:(Chest Portable) Reason For Exam: Shortness of BreathRESULT: Chest Portable Chest Portable Reason: Shortness of Breath; Clinical Question(s): CHF COMPARISON: 07/11/2021. FINDINGS: LINES AND TUBES: None. LUNGS AND PLEURA: Clear lungs. The previous left basilar airspace disease has almost resolved, mild patchy opacity remaining at the medial left lung base partly silhouetting the hemidiaphragm.. Normal pulmonary vascularity. No pleural effusion. No pneumothorax. HEART, MEDIASTINUM AND MING: Heart is normal in size. Normal upper mediastinal and hilar contour. BONES AND SOFT TISSUES: No acute abnormality. IMPRESSION: Improving left basilar consolidation. WSN: [id number] Ordering Physician: Olive Angel Dictated By: Sima Reese MD Dictated Date/Time: 08/14/21 8:14 am Reviewed By: Sima Reese MD Signed By: Sima Reese MD Signed Date/Time: 08/14/21 8:14 am Transcribed By: DAVIN Transcribed Date/Time: 08/14/21 8:13 am Vital Signs Most recent to oldest [Reference 1 2 3 Range]: Oxygen Saturation [94-100 %] 94 % 97 % 93 % (08/15/21:31 AM) (08/15/21 12:00 AM) *L* (08/14/21 8:21 PM) Pulse Rate [55-90 bpm] 70 bpm 71 bpm 88 bpm (08/15/21:31 AM) (08/15/21 12:00 AM) (08/14/21 8:21 PM) Blood Pressure [90-138/55-84 mm 165/96 mm Hg 117/70 mm Hg 132/86 mm Hg Hg] *H* (08/15/21 12:00 AM) (08/14/21 8:43 P M) (08/15/21 7:31 AM) Respiratory Rate [16-30 br/min] 18 br/min 18 br/min 20 br/min (08/15/21 7:31 AM) (08/15/21 12:00 AM) (08/14/21 8:21 PM) Temperature [96.8-100.4 DegF] 97.5 DegF 98.0 DegF 97 .8 DegF (08/15/21 7:31 AM) (08/15/21 12:00 AM) (08/14/21 8:21 PM) Liters per Minute 2 L/min 2 L/min 4 L/min (08/14/21 2:54 PM) (08/14/21 2:08 PM) (08/14/21 8:00 A M) Mode of Delivery (Oxygen) Room air Room air Room a ir (08/15/21 7:31 AM) (08/15/21 12:00 AM) (08/14/21 8:21 PM) Blood pressure sites Arm, left Arm, left Arm, right (08/15/21:31 AM) (08/15/21 12:00 AM) (08/14/21 8:21 PM) Temperature Route Oral Oral Oral (08/15/21 7:31 AM) (08/15/21 12:00 AM) (08/14/21 8:21 PM) Social History Social History Type Response Smoking Status 10 or more cigarettes (1/2 p ack or more)/day in last 30 days; Other: smokes 2 ppd for over 35+ years (age 11); entered on: 08/16/20 Sex
--- OUTSIDE RECORDS SUMMARY | 2022-06-23 20:28 | XMS_ITS | Continuity of Care Document ---
:1965 Author Organization [facility] Address [address] [place] [id number]- Care Team Providers Name Role Phone Madhu HASSAN, Елена Primary Care Physician Encounter [facility] Date(s): 11/13/20 - 01/25/[address] [address] Attending Physician: Tan Donovan MD Admitting Physician: Tan Donovan MD Allergies, Adverse Reactions, Alerts Substance Reaction [...] Refills, Maintenance, 12/27/20 9:09:00 EDT, CR Tablet, [facility]/pharmacy #[id number], Partial fill upon patient request if the prescription is for a schedule II opioid drug., 182, cm, 12/27/20 6:15:00 E... Start Date: 12/27/20 Stop Date: 04/26/21 Status: OrderedcloNIDine 0.1 mg oral tablet 1, tablet, By Mouth, 2 times a day, # 60 tablet, Refills 0, Tot. Refills 0, Maintenance, 12/22/20 15:38:00 EDT, Route to Pharmacy Electronically, [id number], 182, cm, 11/22/20 11:13:00 EDT, Height, 88.2, [...] 11 Refills, Maintenance, 11/22/20 11:29:00 EDT, Inhaler, [facility]/pharmacy #[id number], Partial fill upon patient request if the prescription is for a schedule II opioid drug., 1 puffs Inhalation Daily, 182, cm, 11/22/20 11:... Start Date: 11/22/20 Status: Orderednicotine 21 mg/24 hr transdermal film, extended release 1 patch, Topically, Daily, # 30 patch, 0 Refills, Maintenance, 01/24/21 13:02:00 EDT, Patch, [facility], Partial fill upon [...] Refills, Maintenance, 01/24/21 13:01:00 EDT, [place], [facility], Partial fill upon patient request [...] 11/22/20 11:31:00 EDT, Route to Pharmacy Electronically, [facility]/pharmacy #[id number], Partial fill upon patient request if the prescription is for a schedule II... Start Date: 11/22/20 Status: OrderedProAir HFA 90 mcg/inh inhalation aerosol 2 puffs, Inhalation, Every 4 hours, PRN as needed for wheezing, # 2 each, 11 Refills, Maintenance, 11/22/20 11:29:00 EDT, Aerosol, [facility]/pharmacy #[id number], Partial fill upon patient request if the prescription is for a schedule II opioid drug., 2 puffs Inh... Start Date: 11/22/20 Stop Date: 11/17/21 Status: OrderedrisperiDONE 1 mg oral tablet 1, tablet, By Mouth, Daily in AM, # 30 tablet, Refills 0, Tot. Refills 0, Maintenance, 12/22/20 15:38:00 EDT, Route to Pharmacy Electronically, [id number], 182, cm, 11/22/20 11:13:00 EDT, Height, 88.2, kg, 09/17/20 2:30:00 EDT, Dry Weight Start Date: 12/22/20 Status: OrderedrisperiDONE 2 mg oral tablet 1, tablet, By Mouth, Daily at bedtime, # 30 tablet, Refills 0, Tot. Refills 0, Maintenance, 12/22/2114:38:00 EDT, Route to Pharmacy Electronically, [id number], 182, cm, 11/22/20 11:13:00 EDT, Height, 88.2, kg, 09/17/20 2:30:00 EDT, Dry Weight Start Date: 12/22/20 Status: OrderedSuboxone 8 mg-2 mg sublingual film 1 film, Sublingual, Daily, dissolve under the tongue, # 7 film, 0 Refills, Maintenance, 01/24/21 11:11:00 EDT, Film, [facility], Partial fill upon patient request if the prescription is for a schedule II opioid drug. [id number], 1 film Hilario... Start Date: 01/24/21 Status: Orderedthiamine 100 mg oral tablet 100 mg, 1, tablet, By Mouth, 2 times a day, # 90 tablet, Refills 0, Tot. Refills 0, Maintenance, 01/24/21 13:02:00 EDT, Route to Pharmacy Electronically, [facility], Partial fill upon patient request if the prescription is for a schedule... Start Date: 01/24/21 Status: OrderedtraZODone 150 mg oral tablet 1 tablet = 150 mg, By Mouth, Daily at bedtime, # 30 tablet, 0 Refills, Maintenance, 11/22/20 11:31:00 EDT, Tablet, [facility]/pharmacy #[id number], Partial fill upon patient request if the prescription is for a schedule II opioid drug., 182, cm, 11/22/20 11:13:00... Start Date: 11/22/20 Status: OrderedTrileptal 600 mg oral tablet 1 tablet = 600 mg, By Mouth, 2 times a day, # 60 tablet, 0 Refills, Maintenance, 11/22/20 11:31:00 EDT, Tablet, [facility]/pharmacy #[id number], Partial fill upon [...]
--- OUTSIDE RECORDS SUMMARY | 2022-06-23 20:28 | XMS_ITS | Continuity of Care Document ---
:1965 Author Organization [facility] Address [address] [place] [address]- Care Team Providers Name Role Phone Елена Leung MD Primary Care Physician Encounter [facility] Date(s): 12/11/21 - 12/12/[address] [address]- Discharge Disposition: A-D/C Home Attending Physician: Dennis Mckeon MD Admitting Physician: Dennis Mckeon MD Referring Physician: Not on Staff, Referring MD Allergies, Adverse Reactions, Alerts Substance Reaction Severity Status penicillins1 Active cefTRIAXone2 Anaphylactic reaction requiring IM epinephrine S evere Active Naprosyn itching Active Swelling 1Tolerates [id number] reaction requiring IM epinephrine Immunizations Given and [...] tablet, 11 Refills, Maintenance, 07/10/21 7:55:00EST, Tablet, [facility], Partial fill upon patient request if the [...] each, 1 Refills, [place], 11/30/21 12:47:00 EDT, [facility]/pharmacy #[id number],... Start Date: 11/30/21 Status: Orderedprazosin 1 mg [...] 0 Refills, Maintenance, 07/10/21 7:55:00 EST, Tablet, [facility]-, Partial fill upon patient request if the [...] Range]: Oxygen Saturation [94-100 %] 96 % 95 % 94 % (12/12/21 3:26 AM) (12/11/21 9:23 PM) (12/11/21 6:00 PM) Pulse Rate [55-90 bpm] 102 bpm 96 bpm 96 bpm *H* *H* *H* (12/12/21 5:20 AM) (12/12/21 3:26 AM) (12/12/21 3:26 A M) Blood Pressure [90-138/55-84 mm 138/86 mm Hg 137/88 mm Hg 137/88 mm Hg Hg] (12/12/21 5:20 AM) (12/12/21 3:26 AM) (12/12/21 3:26 A M) Respiratory Rate [16-30 br/min] 18 br/min 16 br/min 16 br/min (12/12/21 5:20 AM) (12/12/21 3:26 AM) (12/12/21 3:26 A M) Temperature [96.8-100.4 DegF] 98.4 DegF (12/11/21 6:00 PM) Mode of Delivery (Oxygen) Room air Room air (12/12/21 3:26 AM) (12/11/21 6:00 PM) Blood pressure sites Arm, right (12/11/21 6:00 PM) Temperature Route Oral (12/11/21 6:00 PM) Social History Social History Type Response Smoking Status Not obtained due to cognitiv e impairment entered on: 09/24/21 Sex
--- OUTSIDE RECORDS SUMMARY | 2022-06-23 20:28 | XMS_ITS | Continuity of Care Document ---
:1965 Author Organization [facility] Address [address] [place] [id number]- Care Team Providers Name Role Phone Елена Leung MD Primary Care Physician Encounter [facility] [place] Date(s): 01/10/21 - 01/10/[address] [id number]- Discharge Disposition: A-D/C Home Attending Physician: Ciro Watts MD Admitting Physician: Ciro Watts MD Referring Physician: Not on Staff, Referring [...] Refills, Maintenance, 12/27/20 9:09:00 EDT, CR Tablet, [facility]/pharmacy #[id number], Partial fill upon patient request if the prescription is for a schedule II opioid drug., 182, cm, 12/27/20 6:15:00 E... Start Date: 12/27/20 Stop Date: 04/26/21 Status: OrderedcloNIDine 0.1 mg oral tablet 1, tablet, By Mouth, 2 times a day, # 60 tablet, Refills 0, Tot. Refills 0, Maintenance, 12/22/20 15:38:00 EDT, Route to Pharmacy Electronically, [facility] STORE [id number], 182, cm, 11/22/20 11:13:00 EDT, Height, 88.2, [...] 11 Refills, Maintenance, 11/22/20 11:29:00 EDT, Inhaler, [facility]/pharmacy #[id number], Partial fill upon patient request if the prescription is for a schedule II opioid drug., 1 puffs Inhalation Daily, 182, cm, 11/22/20 11:... Start Date: 11/22/20 Status: Orderedfolic acid 1 mg oral tablet 1 mg, 1, tablet, By Mouth, Daily, # 30 tablet, Refills 0, Tot. Refills 0, Maintenance, 09/19/20 11:10:00 EDT, Route to Pharmacy Electronically, [facility]/pharmacy #[id number], 182, cm, 09/19/20 0:43:00 EDT, Height, 88.2, kg, 09/17/20 2:30:00 EDT, Dry Weight Start Date: 09/19/20 Stop Date: 10/19/20 Status: Orderedmultivitamin Multiple Vitamins oral tablet 1 tablet, By Mouth, Daily, # 30 tablet, 0 Refills, Maintenance, 10/11/20 9:27:00 EDT, Tablet, [facility], Partial fill upon [...] 11/22/20 11:31:00 EDT, Route to Pharmacy Electronically, [facility]/pharmacy #[id number], Partial fill upon patient request if the prescription is for a schedule II... Start Date: 11/22/20 Status: OrderedProAir HFA 90 mcg/inh inhalation aerosol 2 puffs, Inhalation, Every 4 hours, PRN as needed for wheezing, # 2 each, 11 Refills, Maintenance, 11/22/20 11:29:00 EDT, Aerosol, [facility]/pharmacy #[id number], Partial fill upon patient request if the prescription is for a schedule II opioid drug., 2 puffs Inh... Start Date: 11/22/20 Stop Date: 11/17/21 Status: OrderedrisperiDONE 1 mg oral tablet 1, tablet, By Mouth, Daily in AM, # 30 tablet, Refills 0, Tot. Refills 0, Maintenance, 12/22/20 15:38:00 EDT, Route to Pharmacy Electronically, [id number], 182, cm, 11/22/20 11:13:00 EDT, Height, 88.2, kg, 09/17/20 2:30:00 EDT, Dry Weight Start Date: 12/22/20 Status: OrderedrisperiDONE 2 mg oral tablet 1, tablet, By Mouth, Daily at bedtime, # 30 tablet, Refills 0, Tot. Refills 0, Maintenance, 12/22/2114:38:00 EDT, Route to Pharmacy Electronically, [id number], 182, cm, 11/22/20 11:13:00 EDT, Height, 88.2, kg, 09/17/20 2:30:00 EDT, Dry Weight Start Date: 12/22/20 Status: OrderedtraZODone 150 mg oral tablet 1 tablet = 150 mg, By Mouth, Daily at bedtime, # 30 tablet, 0 Refills, Maintenance, 11/22/20 11:31:00 EDT, Tablet, [facility]/pharmacy #[id number], Partial fill upon patient request if [...] Exam Date Time Procedure Performing Provider Status 01/10/21 7:57 PM Chest Portable Lizett Galvan; Willard (Verified) Notes:(Chest Portable) Reason For Exam: Chest Pain;Other:RESULT: Chest Portable Chest Portable INDICATION: Unresponsive, alcohol and fentanyl abuse COMPARISON: 12/27/2020, 11/28/2020 FINDINGS: LINES AND TUBES: None. LUNGS AND PLEURA: Unchanged small left basilar airspace opacity. Unchanged probable trace left pleural effusion. No pneumothorax. HEART, MEDIASTINUM AND MING: Heart is normal in size. Aorta is somewhat tortuous. BONES AND SOFT TISSUES: No acute abnormality. IMPRESSION: Unchanged small left atelectasis or pneumonia, with probable superimposed pleural effusion. I have personally reviewed the images and I agree with this report. WSN: [id number] Ordering Physician: Damion Williamson Dictated By: Jim Higgins DO Dictated Date/Time: 01/10/21 8:16 pm Reviewed By: Jimmy Millan MD Signed By: Jimmy Millan MD Signed Date/Time: 01/10/21 8:21 pm Transcribed By: DAVIN Transcribed Date/Time: 01/10/21 8:08 pm Vital Signs Most recent to oldest 1 2 3 [Reference Range]: Oxygen Saturation [94-100 %] 96 % 97 % 98 % (01/10/21 10:27 PM) (01/10/21 6:11 PM) (01/10/21 5: 15 PM) Pulse Rate [55-90 bpm] 80 bpm 77 bpm 88 bpm (01/10/21 10:27 PM) (01/10/21 6:11 PM) (01/10/21 5: 56 PM) Blood Pressure [90-138/55-84 114/74 mm Hg 101/62 mm Hg 104 /71 mm Hg mm Hg] (01/10/21 10:27 PM) (01/10/21 6:11 PM) (01/10/21 5: 56 PM) Respiratory Rate [16-30 18 br/min 12 br/min 16 br/mi n br/min] (01/10/21 10:27 PM) *L* (01/10/21 5:56 PM) (01/10/21 6:11 PM) Temperature [96.8-100.4 98.2 DegF 97.8 DegF DegF] (01/10/21 10:27 PM) (01/10/21 5:56 PM) Liters per Minute 2 L/min 15 L/min (01/10/21 6:11 PM) (01/10/21 5:15 PM) Mode of Delivery (Oxygen) Room air Nasal cannula Nonreb reather mask (01/10/21 10:27 PM) (01/10/21 6:11 PM) (01/10/21 5: 15 PM) Blood pressure sites Arm, left Arm, left Arm, right (01/10/21 10:27 PM) (01/10/21 6:11 PM) (01/10/21 5: 56 PM) Temperature Route Oral Oral (01/10/21 10:27 PM) (01/10/21 5:56 PM) Social History Social History Type Response Smoking Status 10 or more cigarettes (1/2 p ack or more)/day in last 30 days; Other: smokes 2 ppd for over 35+ years (age 11); entered on: 08/16/20 Sex
--- OUTSIDE RECORDS SUMMARY | 2022-06-23 20:28 | XMS_ITS | Continuity of Care Document ---
:1965 Author Organization [facility] Address [address] [place] [address]- Care Team Providers Name Role Phone Not on Staff, PCP Primary Care Physician Unavailable Encounter [facility] Date(s): 03/08/20 - 03/09/[address] [address]- [facility] Encounter Diagnosis Acute alcohol intoxication (Final) - 03/08/20 Discharge Disposition: A-D/C Home Attending Physician: Ynady HASSAN, Morales Moreira Admitting Physician: Morales Kebede MD Referring Physician: [...] 09/01/19 8:57:00 EDT, Route to Pharmacy Electronically, [facility], 183, cm, 09/01/19 0:45:00 EDT, Height, 86.5, kg, 08/29/19 22:05:00 EDT, Dry Weight Start Date: 09/01/19 Status: Orderedgabapentin 100 mg oral capsule 100 mg, 1, capsule, By Mouth, 3 times a day, # 90 capsule, Refills 0, Tot. Refills 0, Maintenance, 08/09/19 17:41:00 EST, Route to Pharmacy Electronically, [facility]/pharmacy #[id number], 186, cm, 07/31/19 11:36:00 EST, Height, 86, kg, 07/30/19 23:47:00 EST, Dry... Start Date: 08/09/19 Status: OrderedoxyCODONE 5 mg oral tablet 5 mg, 1, tablet, By Mouth, Every 6 hours, PRN, # 10 tablet, Refills 0, Tot. Refills 0, Maintenance, for pain, 09/01/19 8:57:00 EDT, Route to Pharmacy Electronically, [facility], Partial fill upon patient request, [...] 09/01/19 9:03:00 EDT, Route to Pharmacy Electronically, [facility], 183, cm, 09/01/19 0:45:00 EDT, Height, 86.5, kg, 08/29/19 22:05:00 EDT... Start Date: 09/01/19 Status: OrderedtiZANidine 4 mg oral capsule 1 capsule = 4 mg, By Mouth, 3 times a day, # 90 capsule, 1 Refills, Maintenance, 01/26/20 16:20:00 EDT, Capsule, [facility], 183, cm, 09/01/19 0:45:00 EDT, Height, 86.5, kg, 08/29/19 22:05:00 EDT, Dry Weight Start Date: 01/26/20 Status: OrderedtiZANidine 4 mg oral tablet 4 mg, 1, tablet, By Mouth, 3 times a day, PRN, # 21 tablet, Refills 0, Tot. Refills 0, Maintenance, Spasm, 01/29/20 9:18:00 EDT, Route to Pharmacy Electronically, [facility], 183, cm, 09/01/19 0:45:00 EDT, [...] Range]: Oxygen Saturation [94-100 %] 96 % 96 % 95 % (03/09/20 6:23 AM) (03/09/20 1:39 AM) (03/08/20 8:1 7 PM) Pulse Rate [55-90 bpm] 74 bpm 62 bpm 63 bpm (03/09/20 6:23 AM) (03/09/20 1:39 AM) (03/08/20 8:1 7 PM) Blood Pressure [90-138/55-84 mm 138/96 mm Hg 129/96 mm Hg 124/89 mm Hg Hg] (03/09/20 6:23 AM) (03/09/20 1:39 AM) (03/08/20 8:1 7 PM) Respiratory Rate [16-30 br/min] 18 br/min 16 br/min 19 br/min (03/09/20 6:23 AM) (03/09/20 1:39 AM) (03/08/20 8:1 7 PM) Temperature [96.8-100.4 DegF] 98 DegF 98.1 DegF (03/09/20 6:23 AM) (03/08/20 8:17 PM) Mode of Delivery (Oxygen) Room air Room air Room a ir (03/09/20 6:23 AM) (03/09/20 1:39 AM) (03/08/20 8:1 7 PM) Blood pressure sites Arm, left Arm, right (03/09/20 6:23 AM) (03/08/20 8:17 PM) Temperature Route Oral Oral (03/09/20 6:23 AM) (03/08/20 8:17 PM) Social History Social History Type Response Smoking Status Current every day smoker entered on: 04/25/16 Sex
--- OUTSIDE RECORDS SUMMARY | 2022-06-23 20:28 | XMS_ITS | Continuity of Care Document ---
:1965 Author Organization [facility] Address [address] [place] [id number]- Care Team Providers Name Role Phone Елена Leung MD Primary Care Physician Encounter [facility] [place] Date(s): 12/18/21 - 12/31/[address] [id number] Discharge Disposition: A-D/C Skilled Nursing, Assisted, or Halfway Fac Attending Physician: Naomi Rossi MD Admitting Physician: Byron Jeffery MD Referring Physician: Not on Staff, Referring MD Allergies, Adverse Reactions, Alerts Substance Reaction Severity Status naproxen Unknown Active penicillins1 Active Naprosyn itching Active Swelling cefTRIAXone2 Anaphylactic reaction requiring IM epinephrine S evere Active 1Tolerates [id number] reaction requiring IM epinephrine Immunizations Given and [...] acamprosate 333 mg oral delayed release tablet 180 each, TAKE 2 TABLETS BY MOUTH THREE TIMES A DAY, 0 Refills, 12/19/21 14:15:00 EDT, Partial fill upon patient request if the prescription is for a schedule II opioid drug. Start Date: 12/19/21 Status: OrderedBreo Ellipta 200 mcg-25 mcg/inh inhalation powder 60 each, INHALE 1 PUFF INTO THE LUNGS DAILY, 0 Refills, 12/19/21 14:16:00 EDT, Partial fill upon patient request if the prescription is for a schedule II opioid drug. Start Date: 12/19/21 Status: Orderedfolic acid 1 mg oral tablet 1 mg, 1, tablet, By Mouth, Daily, # 30 tablet, Refills 0, Tot. Refills 0, Maintenance, 12/31/21 10:07:00 EDT, Route to Pharmacy Electronically, [facility]/pharmacy #[id number], Partial fill upon patient request if the prescription is for a schedule II opioid drug.... Start Date: 12/31/21 Status: Orderedgabapentin 400 mg oral capsule 400 mg, 1, capsule, By Mouth, 3 times a day, Maintenance, 11/27/21 10:43:00 EDT, ; Start Date: 11/27/21 Status: Orderedgabapentin 400 mg oral capsule 400 mg, Capsule, By Mouth, 12/31/21 9:00:00 EDT Start Date: 12/31/21 Stop Date: 12/31/21 Status: Completedmirtazapine 30 mg oral tablet 1 tablet = 30 mg, By Mouth, Daily at bedtime, # 90 tablet, 11 Refills, Maintenance, 07/10/21 7:55:00EST, Tablet, [facility]-, Partial fill upon patient request if the prescription is for a schedule II opioid drug., 183, cm, 01... Start Date: 07/10/21 Status: Orderedmultivitamin with minerals Multiple Vitamins with Minerals oral capsule See Instructions, 1 capsule By Mouth Daily, # 30 each, 0 Refills, Maintenance, 12/31/21 10:07:00 EDT, Capsule, [facility]/pharmacy #[id number], Partial fill upon patient request if the prescription is for a schedule II opioid drug., 1 capsule By Mouth Daily, 180,... Start Date: 12/31/21 Status: OrderedNarcan 4 mg/0.1 mL nasal spray = 4 mg, Naris, Left, Once, For overdose on opiates. Administration of a single spray of NARCAN NasalSpray intranasally into one nostril. May repeat in 2-3 minutes as needed., # 1 each, 1 Refills, SoftStop, 11/30/21 12:47:00 EDT, [facility]/pharmacy #[id number],... Start Date: 11/30/21 Status: OrderedoxyCODONE 5 mg oral tablet 5 mg, Tablet, By Mouth, Every 6 hours, PRN for Pain , Severe, Routine, 12/29/21 10:00:00 EDT Start Date: 12/29/21 Stop Date: 12/31/21 Status: Discontinuedpantoprazole 40 mg oral delayed release tablet = 40 mg, By Mouth, 2 times a day, # 60 tablet, 2 Refills, Maintenance, 12/31/21 10:21:00 EDT, EC Tablet, 180, cm, 12/23/21 14:38:00 EDT, Height, 74.2, kg, 12/19/21 14:19:00 EDT, Dry Weight Start Date: 12/31/21 Stop Date: 03/31/22 Status: Orderedprazosin 1 mg oral capsule 1 mg, Capsule, By Mouth, 12/31/21 9:00:00 EDT Start Date: 12/31/21 Stop Date: 12/31/21 Status: Completedprazosin 1 mg oral capsule 1 mg, 1, capsule, By Mouth, Daily in AM, Refills 0, Maintenance, 09/04/21 9:42:00 EDT, ; Start Date: 09/04/21 Status: Orderedprazosin 5 mg oral capsule 5 mg, Capsule, By Mouth, 12/30/21 21:00:00 EDT Start Date: 12/30/21 Stop Date: 12/30/21 Status: Completedprazosin 5 mg oral capsule 5 mg, 1, capsule, By Mouth, Daily at bedtime, Refills 0, Maintenance, 09/26/20 0:51:00 EDT, ; Start Date: 09/26/20 Status: Orderedpyridoxine 50 mg oral tablet 50 mg, 1, tablet, By Mouth, Daily, for 30 days, # 30 tablet, Refills 0, Tot. Refills 0, Acute 01/30/22 10:07:00 EDT, 12/31/21 10:07:00 EDT, Route to Pharmacy Electronically, [facility]/pharmacy #[id number], Partialfill upon patient request if the prescription is... Start Date: 12/31/21 Stop Date: 01/30/22 Status: OrderedrisperiDONE 1 mg oral tablet 1 mg, 1, tablet, By Mouth, Daily in AM, Refills 0, Maintenance, 09/04/21 9:42:00 EDT, ; Start Date: 09/04/21 Status: OrderedrisperiDONE 2 mg oral tablet, disintegrating 1 tablet = 2 mg, By Mouth, Daily at bedtime, Maintenance, 11/27/21 10:45:00 EDT, DIS Tablet, ; Start Date: 11/27/21 Status: OrderedSodium Chloride 1000 mg oral tablet 1 tablet = 1 Gm, By Mouth, 3 times a day, # 6 tablet, 0 Refills, Maintenance, 12/31/21 10:19:00 EDT,Tablet, [facility]/pharmacy #[id number], Partial fill upon patient request if the prescription is for a schedule II opioid drug., 180, cm, 12/23/21 14:38:00 EDT, H... Start Date: 12/31/21 Stop Date: 01/02/22 Status: Orderedthiamine 100 mg oral tablet 100 mg, 1, tablet, By Mouth, 2 times a day, for 30 days, # 60 tablet, Refills 0, Tot. Refills 0, Acute 01/30/22 10:07:00 EDT, 12/31/21 10:07:00 EDT, Route to Pharmacy Electronically, [facility]/pharmacy #[id number], Partial fill upon patient request if the prescri... Start Date: 12/31/21 Stop Date: 01/30/22 Status: OrderedtraZODone 150 mg oral tablet 1 tablet = 150 mg, By Mouth, Daily at bedtime, 0 Refills, Maintenance, 09/26/20 0:51:00 EDT, Tablet,; Start Date: 09/26/20 Status: OrderedTrileptal 600 mg oral tablet 1 tablet = 600 mg, By Mouth, 2 times a day, # 180 tablet, 0 Refills, Maintenance, 07/10/21 7:55:00 EST, Tablet, [facility]-, Partial fill upon patient request if [...] Exam Date Time Procedure Performing Provider Status 12/23/21 10:08 AM Chest Portable Gena Murillo; Auth (Veri fied) Notes:(Chest Portable) Reason For Exam: CoughRESULT: Chest Portable Chest Portable Reason: Cough; Clinical Question(s): Pneumonia COMPARISON: 12/17/2021 at 1:59 PM. FINDINGS: LINES AND TUBES: None. LUNGS AND PLEURA: Clear lungs. Normal pulmonary vascularity. No pleural effusion. No pneumothorax. HEART, MEDIASTINUM AND MING: Heart is normal in size. Normal upper mediastinal and hilar contour. BONES AND SOFT TISSUES: No acute abnormality. IMPRESSION: No evidence of active cardiopulmonary disease is seen. No interval change is noted. WSN: [id number] Ordering Physician: Cedric Galan Dictated By: Tommie Ng MD, V Dictated Date/Time: 12/23/21 3:40 pm Reviewed By: Tommie Ng MD, V Signed By: Tommie Ng MD, V Signed Date/Time: 12/23/21 3:40 pm Transcribed By: CSMichelle Transcribed Date/Time: 12/23/21 3:39 pm Vital Signs Most recent to oldest 1 2 3 [Reference Range]: Height 180 cm 180 cm 180 cm (12/23/21 2:38 PM) (12/23/21 10:44 AM) (12/22/21 2: 35 AM) Weight 74.2 kg (12/19/21 2:13 PM) Oxygen Saturation [94-100 %] 96 % 98 % 98 % (12/31/21 8:00 AM) (12/30/21 8:37 PM) (12/30/21 2:0 0 PM) Pulse Rate [55-90 bpm] 73 bpm 76 bpm 73 bpm (12/31/21 8:00 AM) (12/30/21 8:37 PM) (12/30/21 2:0 0 PM) Body Mass Index [18.5-24.99] 22.9 (12/19/21 2:13 PM) Blood Pressure [90-138/55-84 120/82 mm Hg 122/78 mm Hg 138 /85 mm Hg mm Hg] (12/31/21 8:22 AM) (12/30/21 8:37 PM) (12/30/21 2:0 0 PM) Respiratory Rate [16-30 18 br/min 18 br/min 16 br/mi n br/min] (12/31/21 9:21 AM) (12/31/21 8:21 AM) (12/31/21 5:5 8 AM) Temperature [96.8-100.4 DegF] 97.7 DegF 98.1 DegF 97 .8 DegF (12/31/21 8:00 AM) (12/30/21 8:37 PM) (12/30/21 2:0 0 PM) Liters per Minute 2 L/min 2 L/min 2 L/min (12/23/21 2:25 AM) (12/23/21 2:00 AM) (12/23/21 1:4 5 AM) Mode of Delivery (Oxygen) Room air Room air Room a ir (12/31/21 8:00 AM) (12/30/21 8:37 PM) (12/30/21 2:0 0 PM) Blood pressure sites Arm, right Arm, left Arm, left (12/31/21 8:00 AM) (12/30/21 8:37 PM) (12/30/21 2:0 0 PM) Temperature Route Oral Oral Oral (12/31/21 8:00 AM) (12/30/21 8:37 PM) (12/30/21 2:0 0 PM) Dry Weight 74.2 kg (12/19/21 2:13 PM) Weight Obtained Via Bed scale (12/19/21 2:13 PM) Dry Weight Obtained Via Bed scale (12/19/21 2:13 PM) Social History Social History Type Response Smoking Status Not obtained due to cognitiv e impairment entered on: 09/24/21 Sex
--- OUTSIDE RECORDS SUMMARY | 2022-06-23 20:28 | XMS_ITS | Continuity of Care Document ---
:1965 Author Organization [facility] Address [address] [place] [address]- Care Team Providers Name Role Phone Елена Leung MD Primary Care Physician [place] [facility] [place] - 03/29/[address] [address]- Discharge Disposition: A-D/C Home Attending Physician: Rian [...] Maintenance, 12/27/20 9:09:00 EDT, CR Tablet, [facility]/pharmacy #[id number], Partial fill upon patient request if the prescription is for a schedule II opioid drug., 182, cm, 12/27/20 6:15:00 E... Start Date: 12/27/20 Stop Date: 04/26/21 Status: Orderedazithromycin 250 mg oral tablet 1 tablet = 250 mg, By Mouth, Daily, begin tomorrow, # 4 tablet, 0 Refills, Maintenance, 02/25/21 17:53:00 EDT, Tablet, [facility]/pharmacy #[id number], Partial fill upon patient request if the prescription is for aschedule II opioid drug., 183, cm, 01/24/21 11:13... Start Date: 02/25/21 Stop Date: 03/01/21 Status: OrderedcloNIDine 0.1 mg oral tablet 1, tablet, By Mouth, 2 times a day, # 60 tablet, Refills 0, Tot. Refills 0, Maintenance, 12/22/20 15:38:00 EDT, Route to Pharmacy Electronically, [facility] ST[id number], 182, cm, 11/22/20 11:13:00 EDT, Height, 88.2, [...] Refills, Maintenance, 11/22/20 11:29:00 EDT, Inhaler, [facility]/pharmacy #[id number], Partial fill upon patient request if the prescription is for a schedule II opioid drug., 1 puffs Inhalation Daily, 182, cm, 11/22/20 11:... Start Date: 11/22/20 Status: Orderednicotine 21 mg/24 hr transdermal film, extended release 1 patch, Topically, Daily, # 30 patch, 0 Refills, Maintenance, 01/24/21 13:02:00 EDT, Patch, [facility] 3, Partial fill upon patient request [...] 0 Refills, Maintenance, 01/24/21 13:01:00 EDT, Lozenge, [facility] 3, Partial fill upon patient request [...] 11:31:00 EDT, Route to Pharmacy Electronically, [facility]/pharmacy #[id number], Partial fill upon patient request if the prescription is for a schedule II... Start Date: 11/22/20 Status: OrderedProAir HFA 90 mcg/inh inhalation aerosol 2 puffs, Inhalation, Every 4 hours, PRN as needed for wheezing, # 2 each, 11 Refills, Maintenance, 11/22/20 11:29:00 EDT, Aerosol, [facility]/pharmacy #[id number], Partial fill upon patient request if the prescription is for a schedule II opioid drug., 2 puffs Inh... Start Date: 11/22/20 Stop Date: 11/17/21 Status: OrderedrisperiDONE 1 mg oral tablet 1, tablet, By Mouth, Daily in AM, # 30 tablet, Refills 0, Tot. Refills 0, Maintenance, 12/22/20 15:38:00 EDT, Route to Pharmacy Electronically, [facility] STORE [id number], 182, cm, 11/22/20 11:13:00 EDT, Height, 88.2, kg, 09/17/20 2:30:00 EDT, Dry Weight Start Date: 12/22/20 Status: OrderedrisperiDONE 2 mg oral tablet 1, tablet, By Mouth, Daily at bedtime, # 30 tablet, Refills 0, Tot. Refills 0, Maintenance, 12/22/2114:38:00 EDT, Route to Pharmacy Electronically, [facility] ST[id number], 182, cm, 11/22/20 11:13:00 EDT, Height, 88.2, kg, 09/17/20 2:30:00 EDT, Dry Weight Start Date: 12/22/20 Status: OrderedSuboxone 8 mg-2 mg sublingual film 1 film, Sublingual, Daily, dissolve under the tongue, # 7 film, 0 Refills, Maintenance, 01/24/21 11:11:00 EDT, Film, [facility], Partial fill upon patient request if the prescription is for a schedule II opioid drug. [id number], 1 film Hilario... Start Date: 01/24/21 Status: Orderedthiamine 100 mg oral tablet 100 mg, 1, tablet, By Mouth, 2 times a day, # 90 tablet, Refills 0, Tot. Refills 0, Maintenance, 01/24/21 13:02:00 EDT, Route to Pharmacy Electronically, [facility], Partial fill upon patient request if the prescription is for a schedule... Start Date: 01/24/21 Status: OrderedtraZODone 150 mg oral tablet 1 tablet = 150 mg, By Mouth, Daily at bedtime, # 30 tablet, 0 Refills, Maintenance, 11/22/20 11:31:00 EDT, Tablet, [facility]/pharmacy #[id number], Partial fill upon patient request if the prescription is for a schedule II opioid drug., haily Dueñas, 11/22/20 11:13:00... Start Date: 11/22/20 Status: OrderedTrileptal 600 mg oral tablet 1 tablet = 600 mg, By Mouth, 2 times a day, # 60 tablet, 0 Refills, Maintenance, 11/22/20 11:31:00 EDT, Tablet, [facility]/pharmacy #[id number], Partial fill upon patient request [...] Exam Date Time Procedure Performing Provider Status 03/28/21 7:38 PM Chest 2 Views Frontal and Lat Do , Roly; A ut (Verified) Notes:(Chest 2 Views Frontal and Lat) Reason For Exam: AnginaRESULT: Chest 2 Views Frontal and Lat Chest 2 Views Frontal and Lat Hx of Present Illness: Pt arrives biba s p fall with etoh use. Pt reports he drank enough today and noted with slurred speech and eyes glassy with odor of etoh. PT c o chest pain x 2 months.; Reason:Angina; Clinical Question(s): CHF COMPARISON: Chest radiograph 02/25/2021 FINDINGS: LINES AND TUBES: None. LUNGS AND PLEURA: Low lung volumes. Clear lungs. Normal pulmonary vascularity. No pleural effusion. No pneumothorax. HEART, MEDIASTINUM AND MING: Heart is normal in size. Normal upper mediastinal and hilar contour. BONES AND SOFT TISSUES: Skeletal degenerative changes. Healed left rib fractures. IMPRESSION: No acute abnormality. WSN: [id number] Ordering Physician: Amy Ballesteros Dictated By: Mark Leiva MD Dictated Date/Time: 03/28/21 7:42 pm Reviewed By: Mark Leiva MD Signed By: Mark Leiva MD Signed Date/Time: 03/28/21 7:42 pm Transcribed By: DAVIN Transcribed Date/Time: 03/28/21 7:40 pm Vital Signs Most recent to oldest 1 2 3 [Reference Range]: Height 183 cm 183 cm 183 cm (03/29/21 2:09 AM) (03/28/21 10:46 PM) (03/28/21 10:37 PM) Weight 105 kg 105 kg 105 kg (03/29/21 2:09 AM) (03/28/21 10:46 PM) (03/28/21 10:37 PM) Oxygen Saturation [94-100 94 % 92 % %] (03/28/21 8:33 PM) *L* (03/28/21 6:36 PM) Pulse Rate [55-90 bpm] 73 bpm 76 bpm 94 bpm (03/28/21 10:37 PM) (03/28/21 8:33 PM) *H* (03/28/21 6:36 P M) Body Mass Index 31.35 31.35 31.35 [18.5-24.99] *>HHI* *>HHI* *>HHI* (03/28/21 10:46 PM) (03/28/21 10:37 PM) ( 1 9:07 PM) Blood Pressure 103/68 mm Hg 84/55 mm Hg 88/50 mm Hg [90-138/55-84 mm Hg] (03/28/21 10:46 PM) *L* *L* (03/28/21 10:37 PM) (03/28/21 9: 07 PM) Respiratory Rate [16-30 14 br/min 16 br/min br/min] *L* (03/28/21 6:36 PM) (03/28/21 8:33 PM) Temperature [96.8-100.4 98.4 DegF 98.1 DegF DegF] (03/28/21 8:33 PM) (03/28/21 6:36 PM) Mode of Delivery (Oxygen) Room air Room air (03/28/21 8:33 PM) (03/28/21 6:36 PM) Blood pressure sites Arm, right Arm, right Arm, right (03/28/21 10:46 PM) (03/28/21 10:37 PM) ( 1 8:33 PM) Temperature Route Oral Oral (03/28/21 8:33 PM) (03/28/21 6:36 PM) Dry Weight 105 kg 105 kg 105 kg (03/29/21 2:09 AM) (03/28/21 10:46 PM) (03/28/21 10:37 PM) Social History Social History Type Response Smoking Status 10 or more cigarettes (1/2 p ack or more)/day in last 30 days; Other: smokes 2 ppd for over 35+ years (age 11); entered on: 08/16/20 Sex
--- OUTSIDE RECORDS SUMMARY | 2022-06-23 20:28 | XMS_ITS | Continuity of Care Document ---
:1965 Author Organization [facility] Address [address] [place] [address], [address] [place] [address]- Care Team Providers Name Role Phone Not on Staff, PCP Primary Care Physician Unavailable Encounter [facility] Date(s): 01/08/20 - 02/07/[address], [address] [place] [address]- [facility] Allergies, Adverse Reactions, Alerts Substance Reaction Severity [...] EDT, Route to Pharmacy Electronically, [facility] 3, 183, cm, 09/01/19 0:45:00 EDT, Height, 86.5, kg, 08/29/19 22:05:00 EDT, Dry Weight Start Date: 09/01/19 Status: Orderedgabapentin 100 mg oral capsule 100 mg, 1, capsule, By Mouth, 3 times a day, # 90 capsule, Refills 0, Tot. Refills 0, Maintenance, 08/09/19 17:41:00 EST, [id number] 186, cm, 07/31/19 11:36:00 EST, Height, 86, kg, 07/30/19 23:47:00 EST, Dry... Start Date: 08/09/19 Status: OrderedoxyCODONE 5 mg oral tablet 5 mg, 1, tablet, By Mouth, Every 6 hours, PRN, # 10 tablet, Refills 0, Tot. Refills 0, Maintenance, for pain, 09/01/19 8:57:00 EDT, Route to Pharmacy Electronically, [facility] 3, Partial fill upon patient request, 183, [...] 09/01/19 9:03:00 EDT, Route to Pharmacy Electronically, [facility] 3, 183, cm, 09/01/19 0:45:00 EDT, Height, 86.5, kg, 08/29/19 22:05:00 EDT... Start Date: 09/01/19 Status: OrderedtiZANidine 4 mg oral capsule 1 capsule = 4 mg, By Mouth, 3 times a day, # 90 capsule, 1 Refills, Maintenance, 01/26/20 16:20:00 EDT, Capsule, [facility], 183, cm, 09/01/19 0:45:00 EDT, Height, 86.5, kg, 08/29/19 22:05:00 EDT, Dry Weight Start Date: 01/26/20 Status: OrderedtiZANidine 4 mg oral tablet 4 mg, 1, tablet, By Mouth, 3 times a day, PRN, # 21 tablet, Refills 0, Tot. Refills 0, Maintenance, Spasm, 01/29/20 9:18:00 EDT, Route to Pharmacy Electronically, [facility], 183, cm, 09/01/19 0:45:00 [...]
--- OUTSIDE RECORDS SUMMARY | 2022-06-23 20:28 | XMS_ITS | Continuity of Care Document ---
:1965 Author Organization [facility] Address [address] [place] [address]- Care Team Providers Name Role Phone Елена Leung MD Primary Care Physician Encounter [facility] [place] Date(s): 08/25/21 - 09/04/[address] [address] Encounter Diagnosis Alcohol intoxication (Final) - 08/25/21 Alcohol intoxication (Final) - 09/04/21 Discharge Disposition: Disch/Trans to IP Rehab or unit w/in Hos Attending Physician: Tray HASSAN, Migueltimo Admitting Physician: Virginia Husain MD Referring Physician: Not on Staff, Referring [...] 07/10/21 7:56:00 EST, Route to Pharmacy Electronically, [facility], Partial fill upon patient request if the prescript... Start Date: 07/10/21 Status: Orderedfluticasone-vilanterol 200 mcg-25 mcg/inh inhalation powder 1 puffs, Inhalation, Daily, # 1 each, 3 Refills, Maintenance, 07/10/21 7:55:00 EST, Inhaler, [facility], Partial fill upon patient request if the prescription is for a scheduleII opioid drug., 1 puffs Inhalation Daily,x30 day... Start Date: 07/10/21 Stop Date: 11/07/21 Status: Orderedgabapentin 400 mg oral capsule 400 mg, Capsule, By Mouth, 09/04/21 9:00:00 EDT Start Date: 09/04/21 Stop Date: 09/04/21 Status: Completedgabapentin 400 mg oral capsule 400 mg, 1, capsule, By Mouth, 3 times a day, # 90 capsule, Refills 0, Tot. Refills 0, Maintenance, 07/10/21 7:55:00 EST, Route to Pharmacy Electronically, [facility], Partial fill upon patient request if the [...] oral tablet 2.5 mg, Tablet, By Mouth, 09/04/21 9:00:00 EDT Start Date: 09/04/21 Stop Date: 09/04/21 Status: Completedmirtazapine 30 mg oral tablet 1 tablet = 30 mg, By Mouth, Daily at bedtime, # 90 tablet, 11 Refills, Maintenance, 07/10/21 7:55:00EST, Tablet, [facility]-, Partial fill upon patient request if the [...] oral capsule 1 mg, Capsule, By Mouth, 09/04/21 9:00:00 EDT Start Date: 09/04/21 Stop Date: 09/04/21 Status: Completedprazosin 1 mg oral capsule 1 [...] 3 Refills, Maintenance, 07/10/21 7:55:00 EST, Aerosol, [facility]-, Partial fill upon patient request if the [...] EST, Tablet, [facility]-, Partial fill upon patient request if the [...] oldest 1 2 3 [Reference Range]: Height 184 cm 184 cm 184 cm (09/04/21 8:17 AM) (09/03/21 11:55 PM) (09/03/21 4: 20 AM) Weight 90.4 kg 85.6 kg 85.6 kg (09/01/21 3:00 AM) (08/29/21 4:00 AM) (08/29/21 2:0 0 AM) Oxygen Saturation [94-100 %] 99 % 95 % 95 % (09/04/21 8:17 AM) (09/03/21 11:55 PM) (09/03/21 8: 00 PM) Pulse Rate [55-90 bpm] 70 bpm 62 bpm 74 bpm (09/04/21 8:17 AM) (09/03/21 11:55 PM) (09/03/21 8: 00 PM) Body Mass Index [18.5-24.99] 26.58 *H* (08/28/21 7:28 AM) Blood Pressure [90-138/55-84 107/80 mm Hg 107/80 mm Hg 107 /80 mm Hg mm Hg] (09/04/21 8:54 AM) (09/04/21 8:53 AM) (09/04/21 8:1 7 AM) Respiratory Rate [16-30 18 br/min 18 br/min 15 br/mi n br/min] (09/04/21 9:31 AM) (09/04/21 8:52 AM) *L* (09/04/21 8:17 AM ) Temperature [96.8-100.4 DegF] 98.7 DegF 96.7 DegF 97 .4 DegF (09/04/21 8:17 AM) *L* (09/03/21 8:00 PM) (09/03/21 11:55 PM) Liters per Minute 0 L/min 0 L/min 0 L/min (09/02/21 3:05 PM) (09/02/21 10:05 AM) (09/01/21 7: 50 PM) Mode of Delivery (Oxygen) Room air Room air Room a ir (09/03/21 11:55 PM) (09/03/21 8:00 PM) (09/03/21 3: 00 PM) Blood pressure sites Arm, left Arm, right Arm, right (09/04/21 8:17 AM) (09/03/21 11:55 PM) (09/03/21 7: 00 PM) Temperature Route Temporal Temporal Temporal (09/04/21 8:17 AM) (09/03/21 11:55 PM) (09/03/21 3: 00 PM) Dry Weight 91.0 kg (08/28/21 7:28 AM) Weight Obtained Via Bed scale Bed scale Standing sca le (08/29/21 4:00 AM) (08/29/21 2:00 AM) (08/28/21 7:2 8 AM) Social History Social History Type Response Smoking Status Cigars or pipes but not reinier y within last 30 days entered on: 08/25/21 Sex
--- OUTSIDE RECORDS SUMMARY | 2022-06-23 20:28 | XMS_ITS | Continuity of Care Document ---
:1965 Author Organization [facility] Address [address] [place] [address]- Care Team Providers Name Role Phone Not on Staff, PCP Primary Care Physician Unavailable Encounter [facility] Date(s): 09/16/20 - 09/16/[address] [address]- Discharge Disposition: A-Error Chart/Home (ED Only) Attending Physician: Cr Munoz MD Admitting Physician: Cr Munoz MD Referring Physician: Not on Staff, Referring [...] to Pharmacy Electronically, [facility], 183, cm, 09/01/19 0:45:00 EDT, Height, 86.5, kg, 08/29/19 22:05:00 EDT, Dry Weight Start Date: 09/01/19 Status: OrderedMethadone Liquid = 45 mg, By [...] II opioid drug. Start Date: 09/16/20 Status: OrderedtraZODone 150 mg oral tablet 1 [...]
--- OUTSIDE RECORDS SUMMARY | 2022-06-23 20:28 | XMS_ITS | Continuity of Care Document ---
:1965 Author Organization [facility] Address [address] [place] [address]- Care Team Providers Name Role Phone Елена Leung MD Primary Care Physician [place] [facility] [place] 12/27/[place] - 12/27/[address] [address]- Encounter Diagnosis Opioid overdose (Final) - 12/27/20 Discharge Disposition: A-D/C AMA Attending Physician: Olive Angel MD Admitting Physician: [...] Maintenance, 12/27/20 9:09:00 EDT, CR Tablet, [facility]/pharmacy #[id number], Partial fill upon patient request if the prescription is for a schedule II opioid drug., 182, cm, 12/27/20 6:15:00 E... Start Date: 12/27/20 Stop Date: 04/26/21 Status: OrderedcloNIDine 0.1 mg oral tablet 1, tablet, By Mouth, 2 times a day, # 60 tablet, Refills 0, Tot. Refills 0, Maintenance, 12/22/20 15:38:00 EDT, Route to Pharmacy Electronically, [facility] ST[facility] [id number], 182, cm, 11/22/20 11:13:00 EDT, Height, 88.2, [...] Refills, Maintenance, 11/22/20 11:29:00 EDT, Inhaler, [facility]/pharmacy #[id number], Partial fill upon patient request if the prescription is for a schedule II opioid drug., 1 puffs Inhalation Daily, 182, cm, 11/22/20 11:... Start Date: 11/22/20 Status: Orderedfolic acid 1 mg oral tablet 1 mg, 1, tablet, By Mouth, Daily, # 30 tablet, Refills 0, Tot. Refills 0, Maintenance, 09/19/20 11:10:00 EDT, Route to Pharmacy Electronically, [facility]/pharmacy #[id number], 182, cm, 09/19/20 0:43:00 EDT, Height, 88.2, kg, 09/17/20 2:30:00 EDT, Dry Weight Start Date: 09/19/20 Stop Date: 10/19/20 Status: Orderedmultivitamin Multiple Vitamins oral tablet 1 tablet, By Mouth, Daily, # 30 tablet, 0 Refills, Maintenance, 10/11/20 9:27:00 EDT, Tablet, [facility], Partial fill upon patient request [...] 11:31:00 EDT, Route to Pharmacy Electronically, [facility]/pharmacy #[id number], Partial fill upon patient request if the prescription is for a schedule II... Start Date: 11/22/20 Status: OrderedProAir HFA 90 mcg/inh inhalation aerosol 2 puffs, Inhalation, Every 4 hours, PRN as needed for wheezing, # 2 each, 11 Refills, Maintenance, 11/22/20 11:29:00 EDT, Aerosol, [facility]/pharmacy #[id number], Partial fill upon patient request if the prescription is for a schedule II opioid drug., 2 puffs Inh... Start Date: 11/22/20 Stop Date: 11/17/21 Status: OrderedrisperiDONE 1 mg oral tablet 1, tablet, By Mouth, Daily in AM, # 30 tablet, Refills 0, Tot. Refills 0, Maintenance, 12/22/20 15:38:00 EDT, Route to Pharmacy Electronically, [facility], 182, cm, 11/22/20 11:13:00 EDT, Height, 88.2, kg, 09/17/20 2:30:00 EDT, Dry Weight Start Date: 12/22/20 Status: OrderedrisperiDONE 2 mg oral tablet 1, tablet, By Mouth, Daily at bedtime, # 30 tablet, Refills 0, Tot. Refills 0, Maintenance, 12/22/2114:38:00 EDT, Route to Pharmacy Electronically, [facility] [id number], 182, cm, 11/22/20 11:13:00 EDT, Height, 88.2, kg, 09/17/20 2:30:00 EDT, Dry Weight Start Date: 12/22/20 Status: OrderedtraZODone 150 mg oral tablet 1 tablet = 150 mg, By Mouth, Daily at bedtime, # 30 tablet, 0 Refills, Maintenance, 11/22/20 11:31:00 EDT, Tablet, [facility]/pharmacy #[id number], Partial fill upon patient request if the prescription is for a schedule II opioid drug., 182, cm, 11/22/20 11:13:00... Start Date: 11/22/20 Status: OrderedTrileptal 600 mg oral tablet 1 tablet = 600 mg, By Mouth, 2 times a day, # 60 tablet, 0 Refills, Maintenance, 11/22/20 11:31:00 EDT, Tablet, [facility]/pharmacy #[id number], Partial fill upon patient [...] [Reference Range]: 1 Oxygen Saturation [94-100 %] 100 % (12/27/20 3:40 PM) Pulse Rate [55-90 bpm] 82 bpm (12/27/20 3:40 PM) Blood Pressure [90-138/55-84 mm Hg] 89/63 mm Hg *L* (12/27/20 3:40 PM) Respiratory Rate [16-30 br/min] 18 br/min (12/27/20 3:40 PM) Temperature [96.8-100.4 DegF] 98.3 DegF (12/27/20 3:40 PM) Liters per Minute 2 L/min (12/27/20 3:40 PM) Mode of Delivery (Oxygen) Nasal cannula (12/27/20 3:40 PM) Blood pressure sites Arm, right (12/27/20 3:40 PM) Temperature Route Oral (12/27/20 3:40 PM) Social History Social History Type Response Smoking Status 10 or more cigarettes (1/2 p ack or more)/day in last 30 days; Other: smokes 2 ppd for over 35+ years (age 11); entered on: 08/16/20 Sex
--- OUTSIDE RECORDS SUMMARY | 2022-06-23 20:28 | XMS_ITS | Continuity of Care Document ---
:1965 Author Organization [facility] Address [address] [place] [address]- Care Team Providers Name Role Phone Еелна Leung MD Primary Care Physician Encounter [facility] [place] Date(s): 12/04/21 - 12/05/[address] [address]- Encounter Diagnosis Alcohol intoxication (Final) - 12/05/21 Discharge Disposition: A-D/C Home Referring Physician: Not on Staff, Referring MD Allergies, Adverse Reactions, Alerts Substance Reaction Severity Status penicillins1 Active Naprosyn itching Active Swelling cefTRIAXone2 Anaphylactic reaction requiring IM epinephrine S evere Active 1Tolerates deaatimvp5Hjulkxlgusti reaction requiring IM epinephrine Immunizations Given and [...] tablet, 11 Refills, Maintenance, 07/10/21 7:55:00EST, Tablet, [facility] Partial fill upon patient request if [...] each, 1 Refills, SoftStop, 11/30/21 12:47:00 EDT, [facility]/pharmacy #[id number],... Start Date: 11/30/21 Status: OrderedOXcarbazepine 600 [...] 3 Refills, Maintenance, 07/10/21 7:55:00 EST, Aerosol, [facility]-, Partial fill upon patient request if [...] 0 Refills, Maintenance, 07/10/21 7:55:00 EST, Tablet, [facility]-, Partial fill upon patient request if [...] Range]: 1 2 Oxygen Saturation [94-100 %] 93 % 93 % *L* *L* (12/04/21 11:37 PM) (12/04/21 8:13 PM) Pulse Rate [55-90 bpm] 87 bpm 100 bpm (12/04/21 11:37 PM) *H* (12/04/21 8:13 PM) Blood Pressure [90-138/55-84 mm Hg] 107/60 mm Hg 111/ 70 mm Hg (12/04/21 11:37 PM) (12/04/21 8:13 PM) Respiratory Rate [16-30 br/min] 20 br/min 22 br/mi n (12/04/21 11:37 PM) (12/04/21 8:13 PM) Temperature [96.8-100.4 DegF] 97.9 DegF (12/04/21 11:37 PM) Mode of Delivery (Oxygen) Room air Room air (12/04/21 11:37 PM) (12/04/21 8:13 PM) Blood pressure sites Arm, right Arm, right (12/04/21 11:37 PM) (12/04/21 8:13 PM) Temperature Route Oral (12/04/21 11:37 PM) Social History Social History Type Response Smoking Status Not obtained due to cognitiv e impairment entered on: 09/24/21 Sex
--- OUTSIDE RECORDS SUMMARY | 2022-06-23 20:28 | XMS_ITS | Continuity of Care Document ---
:1965 Author Organization [facility] Address [address] [place] [address]- Care Team Providers Name Role Phone Елена Leung MD Primary Care Physician [place] [facility] [place] 09/26/20 - 09/26/[address] [address]- Discharge Disposition: A-D/C Home Attending Physician: Juan Robledo MD Admitting Physician: Juan Robledo MD Referring Physician: Not on Staff, Referring [...] 09/19/20 11:10:00 EDT, Route to Pharmacy Electronically, [facility]/pharmacy #[id number], 182, cm, 09/19/20 0:43:00 EDT, Height, 88.2, kg, 09/17/20 2:30:00 EDT, Dry Weight Start Date: 09/19/20 Stop Date: 10/19/20 Status: OrderedHabitrol 21 mg/24 hr transdermal film, extended release 1 patch, Topically, Daily, for 30 days, # 30 patch, 0 Refills, Acute 10/19/20 11:12:00 EDT, 09/19/2110:12:00 EDT, Patch, [facility]/pharmacy #[id number], Partial fill upon patient request [...] 0 Refills, Maintenance, 07/02/20 9:41:00 EST, Aerosol, [facility]/pharmacy #[id number], Partial fill upon patient request [...] 09/19/20 11:12:00 EDT, Route to Pharmacy Electronically, [facility]/pharmacy #[id number], Partial fill upon patient request [...] [Reference Range]: 1 Oxygen Saturation [94-100 %] 98 % (09/26/20 5:17 PM) Pulse Rate [55-90 bpm] 68 bpm (09/26/20 5:17 PM) Blood Pressure [90-138/55-84 mm Hg] 132/87 mm Hg (09/26/20 5:17 PM) Respiratory Rate [16-30 br/min] 16 br/min (09/26/20 5:17 PM) Temperature [96.8-100.4 DegF] 97.4 DegF (09/26/20 5:17 PM) Mode of Delivery (Oxygen) Room air (09/26/20 5:17 PM) Blood pressure sites Arm, left (09/26/20 5:17 PM) Temperature Route Oral (09/26/20 5:17 PM) Social History Social History Type Response Smoking Status 10 or more cigarettes (1/2 p ack or more)/day in last 30 days; Other: smokes 2 ppd for over 35+ years (age 11); entered on: 08/16/20 Sex
--- OUTSIDE RECORDS SUMMARY | 2022-06-23 20:28 | XMS_ITS | Continuity of Care Document ---
:1965 Author Organization [facility] Address [address] [place] [id number]- Care Team Providers Name Role Phone Madhu HASSAN, Елена Primary Care Physician [place] [facility] [place] 07/05/21 - 07/10/[address] [address] [place] Encounter Diagnosis Alcohol use with withdrawal (Final) - 07/05/21 Opiate overdose (Final) - 07/05/21 Discharge Disposition: A-D/C Home Attending Physician: Kenny Tracy MD Admitting Physician: Cam Anderson MD Referring Physician: Not on Staff, Referring [...] Refills, Maintenance, 06/30/21 15:36:00 EST, EC Tablet, [facility], Partial fill upon patient request if the prescription is for a schedule II opioid drug., 184, cm, 06/28/21 16... Start Date: 06/30/21 Stop Date: 09/28/21 Status: OrderedCarafate 1 gm oral tablet 1 Gm, 1, tablet, By Mouth, 3 times a day before meals, # 90 tablet, Refills 0, Tot. Refills 0, Maintenance, 07/10/21 7:56:00 EST, Route to Pharmacy Electronically, [facility]-, Partial fill upon patient request if the prescript... Start Date: 07/10/21 Status: Orderedfluticasone-vilanterol 200 mcg-25 mcg/inh inhalation powder 1 puffs, Inhalation, Daily, # 1 each, 3 Refills, Maintenance, 07/10/21 7:55:00 EST, Inhaler, [facility]-, Partial fill upon patient request if the prescription is for a scheduleII opioid drug., 1 puffs Inhalation Daily,x30 day... Start Date: 07/10/21 Stop Date: 11/07/21 Status: Orderedfolic acid 1 mg oral tablet 1 mg, 1, tablet, By Mouth, Daily, # 30 tablet, Refills 0, Tot. Refills 0, Maintenance, 07/10/21 7:55:00 EST, Route to Pharmacy Electronically, [facility], Partial fill upon patient request if the prescription is for a schedule... Start Date: 07/10/21 Status: Orderedgabapentin 400 mg oral capsule 400 mg, Capsule, By Mouth, 07/10/21 9:00:00 EST Start Date: 07/10/21 Stop Date: 07/10/21 Status: Completedgabapentin 400 mg oral capsule 400 mg, 1, capsule, By Mouth, 3 times a day, # 90 capsule, Refills 0, Tot. Refills 0, Maintenance, 07/10/21 7:55:00 EST, Route to Pharmacy Electronically, [facility], Partial fill upon patient request if the prescription is fo... Start Date: 07/10/21 Status: Orderedlisinopril 5 mg oral tablet 2.5 mg, Tablet, By Mouth, 07/10/21 9:00:00 EST Start Date: 07/10/21 Stop Date: 07/10/21 Status: Completedlisinopril 5 mg oral tablet 2.5 mg, 0.5, tablet, By Mouth, Daily, # 15 tablet, Refills 0, Tot. Refills 0, Maintenance, 07/10/21 7:55:00 EST, Route to Pharmacy Electronically, [facility], Partial fill uponpatient request if the prescription is for a sche... Start Date: 07/10/21 Status: Orderedmethadone 10 mg oral tablet See Instructions, 6 tablet By Mouth Daily, # 5 tablet, 0 Refills, Acute 07/11/21 12:00:00 EST, 07/09/21 16:54:00 EST, Tablet, Partial fill upon patient request if the prescription is for a schedule II opioid drug. Start Date: 07/09/21 Stop Date: 07/11/21 Status: Orderedmethadone 10 mg oral tablet 60 mg, Tablet, By Mouth, 07/10/21 9:00:00 EST Start Date: 07/10/21 Stop Date: 07/10/21 Status: Completedmirtazapine 30 mg oral tablet 1 tablet = 30 mg, By Mouth, Daily at bedtime, # 90 tablet, 11 Refills, Maintenance, 07/10/21 7:55:00EST, Tablet, [id number], Partial fill upon patient request if the [...] 07/10/21 7:55:00 EST, Route to Pharmacy Electronically, [facility], Partial fill upon patient request if the prescription is for a schedu... Start Date: 07/10/21 Status: Orderedprazosin 2 mg oral capsule 1 capsule = 2 mg, By Mouth, Daily at bedtime, # 30 capsule, 0 Refills, Maintenance, 07/10/21 7:55:00EST, Capsule, [facility], Partial fill upon patient request if the prescription is for a schedule II opioid drug., 183, cm, 0... Start Date: 07/10/21 Status: OrderedProAir HFA 90 mcg/inh inhalation aerosol 2 puffs, Inhalation, Every 4 hours, PRN as needed for wheezing, # 2 each, 3 Refills, Maintenance, 07/10/21 7:55:00 EST, Aerosol, [facility], Partial fill upon patient request if the prescription is for a schedule II opioid teresa... Start Date: 07/10/21 Stop Date: 11/07/21 Status: OrderedrisperiDONE 1 mg oral tablet 1 mg, 1, tablet, By Mouth, 2 times a day, # 60 tablet, Refills 0, Tot. Refills 0, Maintenance, 07/10/21 7:56:00 EST, Route to Pharmacy Electronically, [facility], Partial fill upon patient request if the prescription is for a... Start Date: 07/10/21 Status: Orderedthiamine 100 mg oral tablet 100 mg, 1, tablet, By Mouth, Daily, # 30 tablet, Refills 0, Tot. Refills 0, Maintenance, 07/10/21 7:56:00 EST, Route to Pharmacy Electronically, [facility]-, Partial fill upon patient request if the prescription is for a schedu... Start Date: 07/10/21 Status: OrderedtraZODone 150 mg oral tablet 1 tablet = 150 mg, By Mouth, Daily at bedtime, # 90 tablet, 11 Refills, Maintenance, 07/10/21 7:56:00 EST, Tablet, [facility]-, Partial fill upon patient request if the prescription is for a schedule II opioid drug., 183, cm, 0... Start Date: 07/10/21 Status: OrderedTrileptal 600 mg oral tablet 1 tablet = 600 mg, By Mouth, 2 times a day, # 180 tablet, 0 Refills, Maintenance, 07/10/21 7:55:00 EST, Tablet, [facility]-, Partial fill upon patient request [...] Exam Date Time Procedure Performing Provider Status 07/05/21 4:22 PM Chest Portable Andressa Ochoa; Auth (Verified) Notes:(Chest Portable) Reason For Exam: Shortness of BreathRESULT: Chest Portable Chest Portable Hx of Present Illness: +etoh +covid; Reason: Shortness of Breath; Clinical Question(s): CHF COMPARISON: Multiple priors, most recent dated 06/19/2021 FINDINGS: LINES AND TUBES: None. LUNGS AND PLEURA: Right lung apex is partially obscured by patient's overlying chin. No definite focal consolidation. Normal pulmonary vascularity. No pleural effusion. No definite pneumothorax. HEART, MEDIASTINUM AND MING: Heart is normal in size. Normal upper mediastinal and hilar contour. BONES AND SOFT TISSUES: No acute abnormality. A few old left-sided rib fractures again noted. IMPRESSION: No radiographic evidence of acute cardiopulmonary disease. WSN: [id number] Ordering Physician: Fabiano Wise Dictated By: Jackie Stewart MD Dictated Date/Time: 07/05/21 4:30 pm Reviewed By: Jackie Stewart MD Signed By: Jackie Stewart MD Signed Date/Time: 07/05/21 4:30 pm Transcribed By: DAVIN Transcribed Date/Time: 07/05/21 4:29 pm Vital Signs Most recent to oldest 1 2 3 [Reference Range]: Height 183 cm 183 cm 183 cm (07/10/21 6:00 AM) (07/09/21 11:00 PM) (07/09/21 5: 15 PM) Weight 90.7 kg 91 kg 88.3 kg (07/10/21 6:00 AM) (07/08/21 10:36 PM) (07/06/21 12 :05 AM) Oxygen Saturation [94-100 %] 94 % 98 % 94 % (07/10/21 6:00 AM) (07/09/21 11:00 PM) (07/09/21 5: 15 PM) Pulse Rate [55-90 bpm] 55 bpm 48 bpm 63 bpm (07/10/21 6:00 AM) *L* (07/09/21 5:15 PM) (07/09/21 11:00 PM) Body Mass Index [18.5-24.99] 27.08 27.17 26. 37 *H* *H* *H* (07/10/21 6:00 AM) (07/08/21 10:36 PM) (07/06/21 12 :05 AM) Blood Pressure [90-138/55-84 113/83 mm Hg 95/61 mm Hg 81/ 47 mm Hg mm Hg] (07/10/21 8:41 AM) (07/10/21 6:00 AM) *L* (07/09/21 11:00 P M) Respiratory Rate [16-30 18 br/min 18 br/min 18 br/mi n br/min] (07/10/21 8:42 AM) (07/10/21 8:41 AM) (07/10/21 6:0 0 AM) Temperature [96.8-100.4 97.9 DegF 97.9 DegF 97.9 Deg F DegF] (07/10/21 6:00 AM) (07/09/21 11:00 PM) (07/09/21 5: 15 PM) Liters per Minute 1 L/min 2 L/min 2 L/min (07/07/21 8:00 PM) (07/06/21 6:00 AM) (07/06/21 4:0 0 AM) Mode of Delivery (Oxygen) Room air Room air Room a ir (07/10/21 6:00 AM) (07/09/21 11:00 PM) (07/09/21 11 :01 AM) Blood pressure sites Arm, right Arm, right Arm, right (07/10/21 6:00 AM) (07/09/21 5:15 PM) (07/09/21 11: 01 AM) Temperature Route Oral Oral Oral (07/10/21 6:00 AM) (07/09/21 11:00 PM) (07/09/21 5: 15 PM) Dry Weight 88.3 kg (07/06/21 12:05 AM) Weight Obtained Via Bed scale Bed scale Bed scale (07/10/21 6:00 AM) (07/08/21 10:36 PM) (07/06/21 12 :05 AM) Dry Weight Obtained Via Bed scale (07/06/21 12:05 AM) Social History Social History Type Response Smoking Status 10 or more cigarettes (1/2 p ack or more)/day in last 30 days; Other: smokes 2 ppd for over 35+ years (age 11); entered on: 08/16/20 Sex
--- OUTSIDE RECORDS SUMMARY | 2022-06-23 20:28 | XMS_ITS | Continuity of Care Document ---
:1965 Author Organization [facility] Address [address] [place] [id number]- Care Team Providers Name Role Phone Madhu HASSAN, Елена Primary Care Physician Encounter [facility] [place] Date(s): 11/28/21 - 11/30/[address] [address] Encounter Diagnosis Opioid overdose (Final) - 11/28/21 Discharge Disposition: A-D/C AMA Attending Physician: Ling HASSAN [facility] Admitting Physician: Cam Anderson MD Referring Physician: Not on Staff, Referring MD Allergies, Adverse Reactions, Alerts Substance Reaction Severity Status penicillins1 Active Naprosyn itching Active Swelling cefTRIAXone2 Anaphylactic reaction requiring IM epinephrine S evere Active 1Tolerates [id number] reaction requiring IM epinephrine Immunizations Given and [...] oral capsule 400 mg, Capsule, By Mouth, 11/30/21 9:00:00 EDT Start Date: 11/30/21 Stop Date: 11/30/21 Status: Completedibuprofen 600 mg oral tablet 600 mg, 1, tablet, By Mouth, 3 times a day, PRN, Refills 0, Maintenance, as needed, 10/10/21 12:57:00 EDT, ; Start Date: 10/10/21 Status: Orderedmirtazapine 30 mg oral tablet 1 tablet = 30 mg, By Mouth, Daily at bedtime, # 90 tablet, 11 Refills, Maintenance, 07/10/21 7:55:00EST, Tablet, [facility]-, Partial fill upon patient request if the prescription is for a schedule II opioid drug., 183, cm, . Start Date: 07/10/21 Status: OrderedNarcan 4 mg/0.1 mL nasal spray = 4 mg, Naris, Left, Once, For overdose on opiates. Administration of a single spray of NARCAN NasalSpray intranasally into one nostril. May repeat in 2-3 minutes as needed., # 1 each, 1 Refills, SoftStop, 11/30/21 12:47:00 EDT, [facility]/pharmacy #[id number],... Start Date: 11/30/21 Status: Orderedpantoprazole 40 mg oral delayed release tablet 1 tablet = 40 mg, By Mouth, Daily, # 30 tablet, 1 Refills, Maintenance, 09/27/21 8:31:00 EDT, EC Tablet, 182, cm, 09/25/21 1:40:00 EDT, Height, 88, kg, 09/25/21 1:40:00 EDT, Dry Weight Start Date: 09/27/21 Status: Orderedprazosin 1 mg oral capsule 1 mg, Capsule, By Mouth, 11/30/21 9:00:00 EDT Start Date: 11/30/21 Stop Date: 11/30/21 Status: Completedprazosin 1 mg oral capsule 1 [...] Maintenance, 07/10/21 7:55:00 EST, Aerosol, [facility]-, Partial fill upon patient request if [...] Maintenance, 07/10/21 7:55:00 EST, Tablet, [facility]-, Partial fill upon patient request if [...] oldest 1 2 3 [Reference Range]: Height 182.8 cm (11/29/21 6:44 PM) Weight 88.7 kg (11/29/21 6:44 PM) Oxygen Saturation [94-100 %] 95 % 93 % 91 % (11/30/21 6:00 AM) *L* *L* (11/30/21 4:00 AM) (11/30/21 12:00 AM) Pulse Rate [55-90 bpm] 77 bpm 74 bpm 71 bpm (11/30/21 6:00 AM) (11/30/21 5:33 AM) (11/30/21 4:0 0 AM) Body Mass Index [18.5-24.99] 26.54 *H* (11/29/21 6:44 PM) Blood Pressure [90-138/55-84 138/84 mm Hg 138/84 mm Hg 150 /95 mm Hg mm Hg] (11/30/21 9:43 AM) (11/30/21 6:00 AM) *H* (11/30/21 5:33 AM ) Respiratory Rate [16-30 17 br/min 17 br/min 18 br/mi n br/min] (11/30/21 9:44 AM) (11/30/21 6:00 AM) (11/30/21 5:3 3 AM) Temperature [96.8-100.4 DegF] 97.8 DegF 97.6 DegF 98 .6 DegF (11/30/21 6:00 AM) (11/30/21 4:00 AM) (11/30/21 12: 00 AM) Liters per Minute 1 L/min 2 L/min 1 L/min (11/30/21 4:00 AM) (11/29/21 6:44 PM) (11/29/21 4:0 0 PM) Mode of Delivery (Oxygen) Room air Nasal cannula Room a ir (11/30/21 6:00 AM) (11/30/21 4:00 AM) (11/30/21 12: 00 AM) Blood pressure sites Arm, right Arm, right Arm, right (11/30/21 4:00 AM) (11/30/21 12:00 AM) (11/29/21 6: 44 PM) Temperature Route Temporal Axillary Axillary (11/30/21 6:00 AM) (11/30/21 4:00 AM) (11/30/21 12: 00 AM) Dry Weight 88.7 kg (11/29/21 6:44 PM) Social History Social History Type Response Smoking Status Not obtained due to cognitiv e impairment entered on: 09/24/21 Sex
--- OUTSIDE RECORDS SUMMARY | 2022-06-23 20:28 | XMS_ITS | Continuity of Care Document ---
:1965 Author Organization [facility] Address [address] [place] [phone]- Care Team Providers Name Role Phone Елена Leung MD Primary Care Physician [place] [facility] [place](s): 09/24/21 - 09/27/[address] [address] Discharge Disposition: A-D/C Home Attending Physician: Dariel Burkett MD Admitting Physician: Millicent HASSAN, Katharine Veliz Referring Physician: Not on Staff, Referring MD [...] gabapentin 400 mg oral capsule 400 mg, Capsule, By Mouth, 09/27/21 9:00:00 EDT Start Date: 09/27/21 Stop Date: 09/27/21 Status: Completedlisinopril 5 mg oral tablet 2.5 mg, Tablet, By Mouth, 09/27/21 9:00:00 EDT Start Date: 09/27/21 Stop Date: 09/27/21 Status: Completedmirtazapine 30 mg oral tablet 1 tablet = 30 mg, By Mouth, Daily at bedtime, # 90 tablet, 11 Refills, Maintenance, 07/10/21 7:55:00EST, Tablet, [facility]-, Partial fill upon patient request [...] oral capsule 1 mg, Capsule, By Mouth, 09/27/21 9:00:00 EDT Start Date: 09/27/21 Stop Date: 09/27/21 Status: Completedprazosin 1 mg oral capsule 1 [...] 3 Refills, Maintenance, 07/10/21 7:55:00 EST, Aerosol, [facility]-, Partial fill upon patient request [...] for 30 days, # 30 tablet, Refills 1, Tot. Refills 1, Acute 11/26/21 8:30:00 EDT, 09/27/21 8:30:00 EDT, Route to Pharmacy Electronically, [facility]/pharmacy #[id number], Partial fill upon patient request if the prescription is f... Start Date: 09/27/21 Stop Date: 11/26/21 Status: OrderedtraZODone 150 mg oral tablet 1 [...] 0 Refills, Maintenance, 07/10/21 7:55:00 EST, Tablet, [facility]-, Partial fill upon patient request [...] Exam Date Time Procedure Performing Provider Status 09/26/21 11:43 AM Chest Portable Raul Espinosa) Notes:(Chest Portable) Reason For Exam: (?) aspiration pneumonitis;Other:RESULT: Chest Portable Chest Portable INDICATION: (?) aspiration pneumonitis; Clinical Question(s): Aspiration / Aspiration COMPARISON: 08/14/2021 FINDINGS: LINES AND TUBES: None. LUNGS AND PLEURA: Clear lungs. Normal pulmonary vascularity. No pleural effusion. No pneumothorax. HEART, MEDIASTINUM AND MING: Heart is normal in size. Normal mediastinal and hilar contour. BONES AND SOFT TISSUES: No acute abnormality. IMPRESSION: No evidence of acute abnormality. WSN: [id number] Ordering Physician: Dariel Burkett Dictated By: Mark Cota MD Dictated Date/Time: 09/26/21 11:55 a Reviewed By: Mark Cota MD Signed By: Mark Cota MD Signed Date/Time: 09/26/21 11:55 am Transcribed By: DAVIN Transcribed Date/Time: 09/26/21 11:55 am Exam Date Time Procedure Performing Provider Status 09/24/21 8:41 PM Lumbar Spine 2 or 3 Views Janay Moore; Aut h (Verified) Notes:(Lumbar Spine 2 or 3 Views) Reason For Exam: with Pain;TraumaRESULT: Lumbar Spine 2 or 3 Views Thoracic Spine 3 Views, Lumbar Spine 2 or 3 Views Hx of Present Illness: Pt was found passed out on a park bench. Pt here for ETOH; Reason: Trauma; With Pain; Clinical Question(s): Fracture Dislocation; Order Comment: Patient started having an attack possible seziure in room during exam. Need to obtain Lateral views still, in RM 2 didn't send AP images [id number] COMPARISON: 04/24/2017 FINDINGS: Thoracic spine: Thoracic kyphosis. Vertebral body heights are preserved. No specific evidence of acute fracture or subluxation. Partially visualized bilateral lung khan are clear. Lumbar spine: Mildly exaggerated lumbar lordosis. Retrolisthesis of L4 on L5. Multilevel mild vertebral body height loss. Mild to moderate multilevel endplate and discogenic degenerative changes, most significantly at L5-S1 and L3-L4. Moderate facet hypertrophy. Nonspecific nonobstructive bowel gas pattern. No specific radiographic evidence of acute fracture orsubluxation. IMPRESSION: No specific evidence of acute osseous abnormality to the thoracic or lumbar spine. Please note that radiographs have limited sensitivity for detection of nondisplaced or subtle osseous abnormalities, which are better evaluated by CT. WSN: [id number] Ordering Physician: Alisha Wesley Dictated By: Dennis Melvin MD Dictated Date/Time: 09/24/21 8:56 pm Reviewed By: Dennis Melvin MD Signed By: Dennis Melvin MD Signed Date/Time: 09/24/21 8:56 pm Transcribed By: DAVIN Transcribed Date/Time: 09/24/21 8:49 pm Exam Date Time Procedure Performing Provider Status 09/24/21 8:41 PM Thoracic Spine 3 Views Janay Moore; Auth ( Verified) Notes:(Thoracic Spine 3 Views) Reason For Exam: With Pain;TraumaRESULT: Thoracic Spine 3 Views Thoracic Spine 3 Views, Lumbar Spine 2 or 3 Views Hx of Present Illness: Pt was found passed out on a park bench. Pt here for ETOH; Reason: Trauma; With Pain; Clinical Question(s): Fracture Dislocation; Order Comment: Patient started having an attack possible seziure in room during exam. Need to obtain Lateral views still, in RM 2 didn't send AP images [id number] COMPARISON: 04/24/2017 FINDINGS: Thoracic spine: Thoracic kyphosis. Vertebral body heights are preserved. No specific evidence of acute fracture or subluxation. Partially visualized bilateral lung khan are clear. Lumbar spine: Mildly exaggerated lumbar lordosis. Retrolisthesis of L4 on L5. Multilevel mild vertebral body height loss. Mild to moderate multilevel endplate and discogenic degenerative changes, most significantly at L5-S1 and L3-L4. Moderate facet hypertrophy. Nonspecific nonobstructive bowel gas pattern. No specific radiographic evidence of acute fracture orsubluxation. IMPRESSION: No specific evidence of acute osseous abnormality to the thoracic or lumbar spine. Please note that radiographs have limited sensitivity for detection of nondisplaced or subtle osseous abnormalities, which are better evaluated by CT. WSN: [id number] Ordering Physician: Alisha Wesley Dictated By: Dennis Melvin MD Dictated Date/Time: 09/24/21 8:56 pm Reviewed By: Dennis Melvin MD Signed By: Dennis Melvin MD Signed Date/Time: 09/24/21 8:56 pm Transcribed By: DAVIN Transcribed Date/Time: 09/24/21 8:49 pm Vital Signs Most recent to oldest 1 2 3 4 [Reference Range]: Height 182 cm (09/25/21 1:39 AM) Weight 88.0 kg (09/25/21 1:39 AM) Oxygen Saturation 100 % 95 % 99 % [94-100 %] (09/27/21 7:00 AM) (09/26/21 11:00 PM) (09/26/21 7:00 PM) Pulse Rate [55-90 bpm] 72 bpm 72 bpm 73 bpm (09/27/21 9:05 AM) (09/27/21 7:00 AM) (09/26/21 7:00 PM) Body Mass Index 26.57 [18.5-24.99] *H* (09/25/21 1:39 AM) Blood Pressure 132/89 mm Hg 132/89 mm Hg 143/100 mm Hg 143/100 mm H g [90-138/55-84 mm Hg] (09/27/21 9:05 AM) (09/27/21 8:00 AM) *H* *H* (09/27/21 7:10 AM) (09/27/21 7 :10 AM) Respiratory Rate 20 br/min 20 br/min 18 br/min [16-30 br/min] (09/27/21 9:05 AM) (09/27/21 7:10 AM) (09/26/21 11:00 P M) Temperature 98.6 DegF 98.0 DegF 97.7 DegF [96.8-100.4 DegF] (09/27/21 7:00 AM) (09/26/21 7:00 PM) (09/26/21 4:00 PM) Liters per Minute 2 L/min 2 L/min 2 L/min (09/26/21 7:00 PM) (09/26/21 4:00 PM) (09/26/21 12:00 PM) Mode of Delivery Room air Room air Nasal cannula (Oxygen) (09/27/21 7:00 AM) (09/26/21 11:00 PM) (09/26/21 7:00 PM) Blood pressure sites Arm, left Arm, left Arm, right (09/27/21 8:00 AM) (09/27/21 7:00 AM) (09/26/21 7:00 PM) Temperature Route Axillary Oral Axillary (09/27/21 7:00 AM) (09/26/21 7:00 PM) (09/26/21 4:00 PM) Dry Weight 88.0 kg (09/25/21 1:39 AM) Social History Social History Type Response Smoking Status Not obtained due to cognitiv e impairment entered on: 09/24/21 Sex
--- OUTSIDE RECORDS SUMMARY | 2022-06-23 20:29 | XMS_ITS | Continuity of Care Document ---
:1965 Author Organization [facility] Address [address] [place] [address]- Care Team Providers Name Role Phone Елена Leung MD Primary Care Physician Encounter [facility] [place] Date(s): 02/25/21 - 06/25/21 [facility] [address] [place], [place] [address] Attending Physician: Елена Leung MD Allergies, Adverse [...] Given Patient Refuses influenza virus vaccine, inactivated 11/27/16 Not Given Permanently Refused influenza virus vaccine, [...] 11 Refills, Maintenance, 06/16/21 9:49:00 EST, Inhaler, [facility]/pharmacy #[id number], Partial fill upon patient request if the prescription is for a schedule II opioid drug., 1 puffs Inhalation Daily, 180, cm, 06/16/21 8:37... Start Date: 06/16/21 Status: Orderedgabapentin 400 mg oral capsule 400 mg, 1, capsule, By Mouth, 3 times a day, # 90 capsule, Refills 0, Tot. Refills 0, Maintenance, 06/16/21 9:50:00 EST, Route to Pharmacy Electronically, [facility]/pharmacy #[id number], Partial fill upon patient request if the prescription is for a schedule II o... Start Date: 06/16/21 Status: Orderedlisinopril 5 mg oral tablet 5 mg, 1, tablet, By Mouth, Daily, # 30 tablet, Refills 0, Tot. Refills 0, Maintenance, 06/16/21 9:50:00 EST, Route to Pharmacy Electronically, [facility]/pharmacy #[id number], Partial fill upon patient request if the prescription is for a schedule II opioid drug.,... Start Date: 06/16/21 Status: Orderedmirtazapine 30 mg oral tablet 1 tablet = 30 mg, By Mouth, Daily at bedtime, # 30 tablet, 0 Refills, Maintenance, 06/16/21 9:50:00 EST, Tablet, [facility]/pharmacy #[id number], Partial fill upon patient request if the prescription is for a schedule II opioid drug., 180, cm, 06/16/21 8:37:00 EST... Start Date: 06/16/21 Status: Orderedprazosin 1 mg oral capsule 1 mg, 1, capsule, By Mouth, Daily, # 30 capsule, Refills 0, Tot. Refills 0, Maintenance, 06/16/21 9:50:00 EST, Route to Pharmacy Electronically, [facility]/pharmacy #[id number], Partial fill upon patient request ifthe prescription is for a schedule II opioid drug... Start Date: 06/16/21 Status: Orderedprazosin 2 mg oral capsule 1 capsule = 2 mg, By Mouth, Daily at bedtime, 0 Refills, Maintenance, 06/20/21 11:26:00 EST, Partialfill upon patient request if the prescription is for a schedule II opioid drug. Start Date: 06/20/21 Status: OrderedProAir HFA 90 mcg/inh inhalation aerosol 2 puffs, Inhalation, Every 4 hours, PRN as needed for wheezing, # 2 each, 11 Refills, Maintenance, 06/16/21 9:49:00 EST, Aerosol, [facility]/pharmacy #[id number], Partial fill upon [...] 06/16/21 9:50:00 EST, Route to Pharmacy Electronically, [facility]/pharmacy #[id number], Partial fill upon patient request if the prescription is for a schedule II opioi... Start Date: 06/16/21 Status: OrderedtraZODone 150 mg oral tablet 1 tablet = 150 mg, By Mouth, Daily at bedtime, # 90 tablet, 11 Refills, Maintenance, 06/16/21 9:50:00 EST, Tablet, [facility]/pharmacy #[id number], Partial fill upon patient request if the prescription is for a schedule II opioid drug., 180, cm, 06/16/21 8:37:00 E... Start Date: 06/16/21 Status: OrderedTrileptal 600 mg oral tablet 1 tablet = 600 mg, By Mouth, 2 times a day, # 180 tablet, 11 Refills, Maintenance, 06/16/21 9:50:00 EST, Tablet, [facility]/pharmacy #[id number], Partial fill upon [...]
--- OUTSIDE RECORDS SUMMARY | 2022-06-23 20:29 | XMS_ITS | Continuity of Care Document ---
:[address] [facility] Address [address] [place] [address]- Care Team Providers Name Role Phone Елена Leung MD Primary Care Physician Encounter [facility] [place] Date(s): 07/14/21 - 08/13/21 [facility] [address] [place], [place] [address] Attending Physician: Leena Linton Admitting Physician: AdmtrLeena Referring Physician: Admtr, Ar8 Allergies, Adverse Reactions, [...] 07/10/21 7:56:00 EST, Route to Pharmacy Electronically, [facility]-, Partial fill upon patient request if the prescript... Start Date: 07/10/21 Status: Orderedfluticasone-vilanterol 200 mcg-25 mcg/inh inhalation powder 1 puffs, Inhalation, Daily, # 1 each, 3 Refills, Maintenance, 07/10/21 7:55:00 EST, Inhaler, [facility], Partial fill upon patient request if the prescription is for a scheduleII opioid drug., 1 puffs Inhalation Daily,x30 day... Start Date: 07/10/21 Stop Date: 11/07/21 Status: Orderedfolic acid 1 mg oral tablet 1 mg, 1, tablet, By Mouth, Daily, # 30 tablet, Refills 0, Tot. Refills 0, Maintenance, 07/10/21 7:55:00 EST, Route to Pharmacy Electronically, [facility], Partial fill upon patient request if the prescription is for a schedule... Start Date: 07/10/21 Status: Orderedgabapentin 400 mg oral capsule 400 mg, 1, capsule, By Mouth, 3 times a day, # 90 capsule, Refills 0, Tot. Refills 0, Maintenance, 07/10/21 7:55:00 EST, Route to Pharmacy Electronically, [facility], Partial fill upon patient request if [...] tablet, 11 Refills, Maintenance, 07/10/21 7:55:00EST, Tablet, [facility]-, Partial fill upon patient request if the prescription is for a schedule II opioid drug., 183, cm, 01... Start Date: 07/10/21 Status: OrderedNicoderm C-Q Clear 21 mg/24 hr transdermal film, extended release 1 patch, Topically, Daily, # 30 patch, 0 Refills, Maintenance, 07/16/21 7:51:00 EST, Patch, [facility], Partial fill upon patient request if [...] 3 Refills, Maintenance, 07/10/21 7:55:00 EST, Aerosol, [facility]-, Partial fill upon patient request if the prescription is for a schedule II opioid teresa... Start Date: 07/10/21 Stop Date: 11/07/21 Status: OrderedrisperiDONE 1 mg oral tablet 1 mg, 1, tablet, By Mouth, 2 times a day, # 60 tablet, Refills 0, Tot. Refills 0, Maintenance, 07/10/21 7:56:00 EST, Route to Pharmacy Electronically, [facility], Partial fill upon patient request if [...] 07/10/21 7:56:00 EST, Route to Pharmacy Electronically, [facility], Partial fill upon patient request if the prescription is for a schedu... Start Date: 07/10/21 Status: OrderedtraZODone 150 mg oral tablet 1 tablet = 150 mg, By Mouth, Daily at bedtime, # 90 tablet, 11 Refills, Maintenance, 07/10/21 7:56:00 EST, Tablet, [facility], Partial fill upon patient request if [...] 0 Refills, Maintenance, 07/10/21 7:55:00 EST, Tablet, [facility]-, Partial fill upon patient request if [...]
--- OUTSIDE RECORDS SUMMARY | 2022-06-23 20:29 | XMS_ITS | Continuity of Care Document ---
:[address] [facility] Address [address] [place] [address]- Care Team Providers Name Role Phone Madhu HASSAN, Елена Primary Care Physician Encounter [facility] Date(s): 07/04/21 - 08/03/21 [facility] [address] [place], [place] [address] Allergies, Adverse Reactions, Alerts Substance Reaction Severity [...] 07/10/21 7:56:00 EST, Route to Pharmacy Electronically, [facility]-, Partial fill upon patient request if the prescript... Start Date: 07/10/21 Status: Orderedfluticasone-vilanterol 200 mcg-25 mcg/inh inhalation powder 1 puffs, Inhalation, Daily, # 1 each, 3 Refills, Maintenance, 07/10/21 7:55:00 EST, Inhaler, [facility]-, Partial fill upon patient request if the prescription is for a scheduleII opioid drug., 1 puffs Inhalation Daily,x30 day... Start Date: 07/10/21 Stop Date: 11/07/21 Status: Orderedfolic acid 1 mg oral tablet 1 mg, 1, tablet, By Mouth, Daily, # 30 tablet, Refills 0, Tot. Refills 0, Maintenance, 07/10/21 7:55:00 EST, Route to Pharmacy Electronically, [facility], Partial fill upon patient request if the prescription is for a schedule... Start Date: 07/10/21 Status: Orderedgabapentin 400 mg oral capsule 400 mg, 1, capsule, By Mouth, 3 times a day, # 90 capsule, Refills 0, Tot. Refills 0, Maintenance, 07/10/21 7:55:00 EST, Route to Pharmacy Electronically, [facility], Partial fill upon patient request if [...] tablet, 11 Refills, Maintenance, 07/10/21 7:55:00EST, Tablet, [facility]-, Partial fill upon patient request if the prescription is for a schedule II opioid drug., 183, cm, 01... Start Date: 07/10/21 Status: OrderedNicoderm C-Q Clear 21 mg/24 hr transdermal film, extended release 1 patch, Topically, Daily, # 30 patch, 0 Refills, Maintenance, 07/16/21 7:51:00 EST, Patch, [facility], Partial fill upon patient [...] 3 Refills, Maintenance, 07/10/21 7:55:00 EST, Aerosol, [facility]-, Partial fill upon patient request if the prescription is for a schedule II opioid teresa... Start Date: 07/10/21 Stop Date: 11/07/21 Status: OrderedrisperiDONE 1 mg oral tablet 1 mg, 1, tablet, By Mouth, 2 times a day, # 60 tablet, Refills 0, Tot. Refills 0, Maintenance, 07/10/21 7:56:00 EST, Route to Pharmacy Electronically, [facility], Partial fill upon patient request if [...] 07/10/21 7:56:00 EST, Route to Pharmacy Electronically, [facility], Partial fill upon patient request if the prescription is for a schedu... Start Date: 07/10/21 Status: OrderedtraZODone 150 mg oral tablet 1 tablet = 150 mg, By Mouth, Daily at bedtime, # 90 tablet, 11 Refills, Maintenance, 07/10/21 7:56:00 EST, Tablet, [facility], Partial fill upon patient request if [...] 0 Refills, Maintenance, 07/10/21 7:55:00 EST, Tablet, [facility], Partial fill upon patient request if [...]
--- OUTSIDE RECORDS SUMMARY | 2022-06-23 20:29 | XMS_ITS | Continuity of Care Document ---
:1965 Author Organization [facility] Address [address] [place] [address]- Care Team Providers Name Role Phone Елена Leung MD Primary Care Physician [place] [facility] [place] Date(s[place] 11/27/21 - 11/27/[address] [address]- Encounter Diagnosis Altered mental status (Final) - 11/27/21 Hyponatremia (Final) - 11/27/21 Opioid overdose (Final) - 11/27/21 Alcohol intoxication (Final) - 11/27/21 Discharge Disposition: A-D/C AMA Attending Physician: Olive Angel MD Admitting Physician: Olive Angel MD Referring Physician: Not on Staff, Referring MD Allergies, Adverse Reactions, Alerts Substance Reaction Severity Status penicillins1 Active Naprosyn itching Active Swelling cefTRIAXone2 Anaphylactic reaction requiring IM epinephrine S evere Active 1Tolerates yvycrlhkc1Twwrlicqcdoz reaction requiring IM epinephrine Immunizations Given and [...] tablet, 11 Refills, Maintenance, 07/10/21 7:55:00EST, Tablet, [facility]-, Partial fill upon patient request if the prescription is for a schedule II opioid drug., 183, cm, ... Start Date: 07/10/21 Status: Orderedpantoprazole 40 mg [...] 3 Refills, Maintenance, 07/10/21 7:55:00 EST, Aerosol, [facility]-, Partial fill upon patient request if the [...] 0 Refills, Maintenance, 07/10/21 7:55:00 EST, Tablet, [facility]-, Partial fill upon patient request if the [...] [Reference Range]: 1 Oxygen Saturation [94-100 %] 99 % (11/27/21 11:44 AM) Pulse Rate [55-90 bpm] 103 bpm *H* (11/27/21 11:44 AM) Blood Pressure [90-138/55-84 mm Hg] 111/79 mm Hg (11/27/21 11:44 AM) Respiratory Rate [16-30 br/min] 16 br/min (11/27/21 11:44 AM) Mode of Delivery (Oxygen) Room air (11/27/21 11:44 AM) Blood pressure sites Arm, right (11/27/21 11:44 AM) Social History Social History Type Response Smoking Status Not obtained due to cognitiv e impairment entered on: 09/24/21 Sex
--- OUTSIDE RECORDS SUMMARY | 2022-06-23 20:29 | XMS_ITS | Continuity of Care Document ---
:1965 Author Organization [facility] Address [address] [place] [address]- Care Team Providers Name Role Phone Елена Leung MD Primary Care Physician Encounter [facility] [place] Date(s): 11/28/20 - 11/30/[address] [address] Discharge Disposition: A-D/C AMA Attending Physician: Parag Chou MD Admitting Physician: Freida Joel DO Referring Physician: Not on Staff, Referring [...] 11/22/20 11:31:00 EDT, [facility] to Pharmacy [facility], [facility] 11 Refills, Maintenance, 11/22/20 11:29:00 EDT, Inhaler, [facility]/pharmacy #[id number], Partial fill [...] 0 Refills, Maintenance, 10/11/20 9:27:00 EDT, Tablet, [facility], Partial fill upon patient [...] 11/22/20 11:31:00 EDT, Route to Pharmacy Electronically, [facility]/pharmacy #[id number], Partial fill upon patient request if the prescription is for a schedule II... Start Date: 11/22/20 Status: OrderedpredniSONE 20 mg oral tablet 3 tablet = 60 mg, By Mouth, Daily, for 5 days, with food or milk, # 15 tablet, 0 Refills, Acute 12/06/20 0:03:00 EDT, 12/01/20 0:03:00 EDT, Tablet, [id number], Partial fill upon patient requestif the [...] 11/22/20 11:31:00 EDT, Route to Pharmacy Electronically, [facility]/pharmacy #[id number], Partial fill upon patient request if the prescription is for a schedule II opioid... Start Date: 11/22/20 Status: OrderedrisperiDONE 2 mg oral tablet 2 mg, 1, tablet, By Mouth, Daily at bedtime, # 30 tablet, Refills 0, Tot. Refills 0, Maintenance, 11/22/20 11:31:00 EDT, Route to Pharmacy Electronically, [facility]/pharmacy #[id number], Partial fill upon patient request if the prescription is for a schedule II o... Start Date: 11/22/20 Status: Orderedthiamine 100 mg oral tablet 100 mg, 1, tablet, By Mouth, Daily, for 30 days, # 30 tablet, Refills 0, Tot. Refills 0, Acute 12/11/20 11:21:00 EDT, 11/11/20 11:21:00 EDT, Route to Pharmacy Electronically, [facility], Partial fill upon patient request if the prescript... Start Date: 11/11/20 Stop Date: 12/11/20 Status: OrderedtraZODone 150 mg oral tablet 1 tablet = 150 mg, By Mouth, Daily at bedtime, # 30 tablet, 0 Refills, Maintenance, 11/22/20 11:31:00 EDT, Tablet, [facility]/pharmacy #[id number], Partial fill upon patient request if the prescription is for a schedule II opioid drug., 182, cm, 11/22/20 11:13:00... Start Date: 11/22/20 Status: OrderedTrileptal 600 mg oral tablet 1 tablet = 600 mg, By Mouth, 2 times a day, # 60 tablet, 0 Refills, Maintenance, 11/22/20 11:31:00 EDT, Tablet, [facility]/pharmacy #[id number], Partial fill upon patient request if the prescription is for a schedule II opioid drug., 182, cm, 11/22/20 11:13:00 EDT... Start Date: 11/22/20 Status: OrderedViagra 25 mg oral tablet 1 tablet = 25 mg, By Mouth, Daily, PRN as needed for erectile dysfunction, # 5 tablet, 0 Refills, Maintenance, 11/22/20 11:36:00 EDT, Tablet, [facility]/pharmacy #[id number], Partial fill [...] Exam Date Time Procedure Performing Provider Status 11/28/20 6:35 PM Chest 2 Views Frontal and Lat Fabian [facility] (Verified) Notes:(Chest 2 Views Frontal and Lat) Reason For Exam: COPDRESULT: Chest 2 Views Frontal and Lat Examination: Chest performed on 11/28/2020. History: Lethargy. COPD. Findings: Frontal and lateral views of the chest are compared to a prior study dated 10/07/2020. The cardiac and mediastinal silhouettes are within normal limits. The lungs are clear. The osseous and soft tissue structures are unremarkable. Impression: There is no acute cardiopulmonary disease. WSN: [id number] Ordering Physician: Nathan Hooper Dictated By: Ivy Marcum MD Dictated Date/Time: 11/28/20 6:54 pm Reviewed By: Ivy Marcum MD Signed By: Ivy Marcum MD Signed Date/Time: 11/28/20 6:54 pm Transcribed By: DAVIN Transcribed Date/Time: 11/28/20 6:54 pm Vital Signs Most recent to oldest 1 2 3 [Reference Range]: Oxygen Saturation [94-100 %] 97 % 95 % 100 % (11/30/20 5:31 AM) (11/29/20 11:50 PM) (11/29/20 5: 00 PM) Pulse Rate [55-90 bpm] 78 bpm 82 bpm 71 bpm (11/30/20 5:31 AM) (11/29/20 11:50 PM) (11/29/20 9: 16 PM) Blood Pressure [90-138/55-84 139/85 mm Hg 125/76 mm Hg 125 /72 mm Hg mm Hg] *H* (11/29/20 11:50 PM) (11/29/20 9:16 PM) (11/30/20 5:31 AM) Respiratory Rate [16-30 18 br/min 18 br/min 18 br/mi n br/min] (11/30/20 5:31 AM) (11/29/20 11:50 PM) (11/29/20 9: 16 PM) Temperature [96.8-100.4 DegF] 97.6 DegF 98.2 DegF 97 .6 DegF (11/30/20 5:31 AM) (11/29/20 11:50 PM) (11/29/20 5: 00 PM) Liters per Minute 3 L/min 3 L/min 4 L/min (11/30/20 5:31 AM) (11/29/20 11:50 PM) (11/29/20 5: 54 AM) Mode of Delivery (Oxygen) Nasal cannula Nasal cannula Nasal cannula (11/30/20 5:31 AM) (11/29/20 11:50 PM) (11/29/20 5: 54 AM) Blood pressure sites Arm, left Arm, left Arm, left (11/30/20 5:31 AM) (11/29/20 11:50 PM) (11/29/20 5: 00 PM) Temperature Route Oral Oral Oral (11/30/20 5:31 AM) (11/29/20 11:50 PM) (11/29/20 5: 00 PM) Social History Social History Type Response Smoking Status 10 or more cigarettes (1/2 p ack or more)/day in last 30 days; Other: smokes 2 ppd for over 35+ years (age 11); entered on: 08/16/20 Sex
--- OUTSIDE RECORDS SUMMARY | 2022-06-23 20:29 | XMS_ITS | Continuity of Care Document ---
:1965 Author Organization [facility] Address [address] [place] [address]- Care Team Providers Name Role Phone Елена Leung MD Primary Care Physician [place] [facility] [place] Date(s): 09/27/21 - 09/28/[address] [address]- Encounter Diagnosis Alcohol intoxication (Final) - 09/27/21 Discharge Disposition: A-D/C Home Attending Physician: David Jacob MD Admitting Physician: David Jacob MD Referring Physician: Not on Staff, Referring MD Allergies, Adverse Reactions, Alerts Substance Reaction Severity Status penicillins1 Active Naprosyn itching Active Swelling cefTRIAXone2 Anaphylactic reaction requiring IM epinephrine S evere Active 1Tolerates [id number] reaction requiring IM epinephrine Immunizations Given and [...] he undersands but continues to refuse. Medications mirtazapine 30 mg oral tablet 1 tablet = 30 mg, By Mouth, Daily at bedtime, # 90 tablet, 11 Refills, Maintenance, 07/10/21 7:55:00EST, Tablet, [facility]-, Partial fill upon patient request if [...] 3 Refills, Maintenance, 07/10/21 7:55:00 EST, Aerosol, [facility]-, Partial fill upon patient request if [...] 09/27/21 8:30:00 EDT, Route to Pharmacy Electronically, [facility]/pharmacy #[id number], Partial fill upon patient request if the [...] 0 Refills, Maintenance, 07/10/21 7:55:00 EST, Tablet, [facility], Partial fill upon patient request if [...] Range]: Oxygen Saturation [94-100 %] 99 % 95 % 99 % (09/28/21 9:58 AM) (09/28/21 8:06 AM) (09/27/21 10: 30 PM) Pulse Rate [55-90 bpm] 91 bpm 88 bpm 70 bpm *H* (09/28/21 8:06 AM) (09/28/21 1:00 AM) (09/28/21 9:58 AM) Blood Pressure [90-138/55-84 137/98 mm Hg 142/98 mm Hg 125 /80 mm Hg mm Hg] (09/28/21 9:58 AM) *H* (09/28/21 1:00 AM) (09/28/21 8:06 AM) Respiratory Rate [16-30 18 br/min 18 br/min 18 br/mi n br/min] (09/28/21 9:58 AM) (09/28/21 8:06 AM) (09/28/21 1:0 0 AM) Temperature [96.8-100.4 DegF] 97.7 DegF 97 DegF 97 .4 DegF (09/28/21 8:06 AM) (09/28/21 1:00 AM) (09/27/21 5:3 9 PM) Liters per Minute 2 L/min 2 L/min (09/27/21 10:30 PM) (09/27/21 8:00 PM) Mode of Delivery (Oxygen) Room air Room air Nasal cannula (09/28/21 9:58 AM) (09/28/21 8:06 AM) (09/27/21 10: 30 PM) Blood pressure sites Arm, right Arm, right Arm, left (09/28/21 9:58 AM) (09/28/21 8:06 AM) (09/27/21 10: 30 PM) Temperature Route Oral Oral (09/28/21 8:06 AM) (09/28/21 1:00 AM) Social History Social History Type Response Smoking Status Not obtained due to cognitiv e impairment entered on: 09/24/21 Sex
--- OUTSIDE RECORDS SUMMARY | 2022-06-23 20:29 | XMS_ITS | Continuity of Care Document ---
:1965 Author Organization [facility] Address [address] [place] [address]- Care Team Providers Name Role Phone Елена Leung MD Primary Care Physician Encounter [facility] [place] Date(s): 10/03/21 - 10/07/[address] [address] Encounter Diagnosis Positive blood culture (Final) - 10/03/21 Discharge Disposition: A-D/C AMA Attending Physician: Tara Oakley DO Admitting Physician: Jf Valle MD Referring Physician: Not on Staff, Referring MD Allergies, Adverse Reactions, Alerts Substance Reaction Severity Status penicillins1 Active cefTRIAXone2 Anaphylactic reaction requiring IM epinephrine S evere Active Naprosyn itching Active Swelling 1Tolerates [id number] reaction requiring IM epinephrine Immunizations Given and [...] he undersands but continues to refuse. Medications Gabapentin = 400 mg, By Mouth, 3 times a day, 0 Refills, Maintenance, 09/29/21 18:19:00 EDT, Partial fill upon patient request if the prescription is for a schedule II opioid drug. Start Date: 09/29/21 Status: Orderedgabapentin 400 mg oral capsule 400 mg, Capsule, By Mouth, Hold for: SBP less than 100 or oversedation, 10/07/21 9:00:00 EDT Start Date: 10/07/21 Stop Date: 10/07/21 Status: Completedmirtazapine 30 mg oral tablet 1 tablet = 30 mg, By Mouth, Daily at bedtime, # 90 tablet, 11 Refills, Maintenance, 07/10/21 7:55:00EST, Tablet, [facility], Partial fill upon patient request if [...] oral capsule 1 mg, Capsule, By Mouth, 10/07/21 9:00:00 EDT Start Date: 10/07/21 Stop Date: 10/07/21 Status: Completedprazosin 1 mg oral capsule 1 [...] 3 Refills, Maintenance, 07/10/21 7:55:00 EST, Aerosol, [facility]-, Partial fill upon patient request if [...] 09/27/21 8:30:00 EDT, Route to Pharmacy Electronically, [facility]/pharmacy #[id number], Partial fill upon patient request if the [...] 0 Refills, Maintenance, 07/10/21 7:55:00 EST, Tablet, [facility]-, Partial fill upon patient request if [...] for Microbiology Reports Name Date Blood Culture 10/03/21 Blood Culture #2 10/03/21 Microbiology Reports TEST:Blood Culture, Second Order STATUS:Unauthenticated BODY SITE: SOURCE:Blood COLLECTED DATE/TIME:10/03/21 7:00 PMBlood Culture, Second Order SPECIMEN DESCRIPTION : BLOOD NO SITE SPECIAL REQUESTS : NONE CULTURE : NO GROWTH 4 DAYS REPORT STATUS : PRELIMINARY REPORT TEST:Blood Culture STATUS:Unauthenticated BODY SITE: SOURCE:Blood COLLECTED DATE/TIME:10/03/21 6:05 PMBlood Culture SPECIMEN DESCRIPTION : BLOOD NO SITE SPECIAL REQUESTS : NONE CULTURE : NO GROWTH 4 DAYS REPORT STATUS : PRELIMINARY REPORT Radiology Reports Exam Date Time Procedure Performing Provider Status 10/03/21 6:50 PM Chest Portable Rocio Bravo; Auth (Arturo d) Notes:(Chest Portable) Reason For Exam: Shortness of BreathRESULT: Chest Portable Chest Portable Hx of Present Illness: Patient comes in after a suspected Heroin overdose. Received 8mg of Narcan byPD on scene.; Reason: Shortness of Breath; Clinical Question(s): Pneumonia COMPARISON: 09/28/2021. FINDINGS: LINES AND TUBES: None. LUNGS AND PLEURA: Low lung volumes with mild basilar atelectasis. Lungs are otherwise clear with no consolidation. No pleural effusion. No pneumothorax. HEART, MEDIASTINUM AND MING: Heart is normal in size. Normal upper mediastinal and hilar contour. BONES AND SOFT TISSUES: No acute abnormality. IMPRESSION: No acute abnormality. WSN: [id number] Ordering Physician: Mony Kathleen Dictated By: Mark Milligan MD Dictated Date/Time: 10/03/21 6:56 pm Reviewed By: Mark Milligan MD Signed By: Mark Milligan MD Signed Date/Time: 10/03/21 6:56 pm Transcribed By: DAVIN Transcribed Date/Time: 10/03/21 6:55 pm Vital Signs Most recent to oldest 1 2 3 [Reference Range]: Height 183 cm 183 cm 183 cm (10/07/21 3:19 AM) (10/06/21 11:16 PM) (10/06/21 8: 29 PM) Weight 79.9 kg 85.6 kg 86 kg (10/07/21 6:01 AM) (10/05/21 5:13 AM) (10/04/21 7:1 9 PM) Oxygen Saturation [94-100 %] 98 % 92 % 94 % (10/07/21 8:00 AM) *L* (10/06/21 11:16 PM) (10/07/21 3:19 AM) Pulse Rate [55-90 bpm] 62 bpm 88 bpm 62 bpm (10/07/21 8:00 AM) (10/07/21 3:19 AM) (10/06/21 11: 16 PM) Body Mass Index [18.5-24.99] 25.68 *H* (10/04/21 7:19 PM) Blood Pressure [90-138/55-84 147/96 mm Hg 110/65 mm Hg 121 /68 mm Hg mm Hg] *H* (10/07/21 3:19 AM) (10/06/21 11:16 PM) (10/07/21 8:28 AM) Respiratory Rate [16-30 20 br/min 17 br/min 16 br/mi n br/min] (10/07/21 8:29 AM) (10/07/21 3:19 AM) (10/06/21 11: 16 PM) Temperature [96.8-100.4 DegF] 97.2 DegF 97.6 DegF 97 .6 DegF (10/07/21 8:00 AM) (10/07/21 3:19 AM) (10/06/21 11: 16 PM) Liters per Minute 2.6 L/min 2.5 L/min 2.5 L/min (10/04/21 6:06 PM) (10/04/21 1:27 PM) (10/04/21 10: 41 AM) Mode of Delivery (Oxygen) Room air Room air Room a ir (10/07/21 8:00 AM) (10/07/21 3:19 AM) (10/06/21 11: 16 PM) Blood pressure sites Arm, right Arm, left Arm, left (10/07/21 3:19 AM) (10/06/21 11:16 PM) (10/06/21 8: 29 PM) Temperature Route Oral Oral Oral (10/07/21 8:00 AM) (10/07/21 3:19 AM) (10/06/21 11: 16 PM) Dry Weight 86 kg (10/04/21 7:19 PM) Weight Obtained Via Bed scale (10/05/21 5:13 AM) Social History Social History Type Response Smoking Status Not obtained due to cognitiv e impairment entered on: 09/24/21 Sex
--- OUTSIDE RECORDS SUMMARY | 2022-06-23 20:29 | XMS_ITS | Continuity of Care Document ---
:1965 Author Organization [facility] Address [address] [place] [address], [address] [place] [address]- Care Team Providers Name Role Phone Not on Staff, PCP Primary Care Physician Unavailable Encounter [facility] Date(s): 01/26/20 - 02/02/[address], [address] [place] [address]- [facility] Attending Physician: Not on Staff, Attending MD Allergies, Adverse Reactions, Alerts Substance Reaction [...] 09/01/19 8:57:00 EDT, Route to Pharmacy Electronically, [facility], 183, cm, 09/01/19 0:45:00 EDT, Height, 86.5, kg, 08/29/19 22:05:00 EDT, Dry Weight Start Date: 09/01/19 Status: Orderedgabapentin 100 mg oral capsule 100 mg, 1, capsule, By Mouth, 3 times a day, # 90 capsule, Refills 0, Tot. Refills 0, Maintenance, 08/09/19 17:41:00 EST, [id number], cm, 07/31/19 11:36:00 EST, Height, 86, kg, 07/30/19 23:47:00 EST, Dry... Start Date: 08/09/19 Status: OrderedoxyCODONE 5 mg oral tablet 5 mg, 1, tablet, By Mouth, Every 6 hours, PRN, # 10 tablet, Refills 0, Tot. Refills 0, Maintenance, for pain, 09/01/19 8:57:00 EDT, Route to Pharmacy Electronically, [facility], Partial fill upon patient request, 183, cm, 09/01/19 0:45:0... Start Date: 09/01/19 Status: OrderedSEROquel 25 mg oral tablet 50 mg, 2, tablet, By Mouth, Daily at bedtime, # 60 tablet, Refills 0, Tot. Refills 0, Maintenance, 09/01/19 9:03:00 EDT, Route to Pharmacy Electronically, [facility], 183, cm, 09/01/19 0:45:00 EDT, Height, 86.5, kg, 08/29/19 22:05:00 EDT... Start Date: 09/01/19 Status: OrderedtiZANidine 4 mg oral capsule 1 capsule = 4 mg, By Mouth, 3 times a day, # 90 capsule, 1 Refills, Maintenance, 01/26/20 16:20:00 EDT, Capsule, [facility] 3, 183, cm, 09/01/19 0:45:00 EDT, Height, 86.5, kg, 08/29/19 22:05:00 EDT, Dry Weight Start Date: 01/26/20 Status: OrderedtiZANidine 4 mg oral tablet 4 mg, 1, tablet, By Mouth, 3 times a day, PRN, # 21 tablet, Refills 0, Tot. Refills 0, Maintenance, Spasm, 01/29/20 9:18:00 EDT, Route to Pharmacy Electronically, [facility], 183, cm, 09/01/19 0:45:00 EDT, Height, 86.5, kg, 08/29/19 22:0... Start Date: 01/29/20 Stop Date: 02/05/20 Status: OrderedTylenol 325 mg oral [...]
--- OUTSIDE RECORDS SUMMARY | 2022-06-23 20:29 | XMS_ITS | Continuity of Care Document ---
:1965 Author Organization [facility] Address [address] [place] [phone]- Care Team Providers Name Role Phone Елена Leung MD Primary Care Physician Encounter [facility] [place] Date(s): 12/09/21 - 12/10/[address] [address]- Discharge Disposition: A-D/C Walkout Attending Physician: Ilene Hernandez MD Admitting Physician: Ilene Hernandez MD Referring Physician: Not on Staff, Referring MD Allergies, Adverse Reactions, Alerts Substance Reaction Severity Status penicillins1 Active Naprosyn itching Active Swelling cefTRIAXone2 Anaphylactic reaction requiring IM epinephrine S evere Active 1Tolerates qgyyvywfy0Vjvxabumzryt reaction requiring IM epinephrine Immunizations Given and [...] tablet, 11 Refills, Maintenance, 07/10/21 7:55:00EST, Tablet, [facility], Partial fill upon patient request [...] 1 Refills, [place], 11/30/21 12:47:00 EDT, [facility]/pharmacy #[id number],... Start Date: 11/30/21 Status: Orderedprazosin 1 mg [...] 0 Refills, Maintenance, 07/10/21 7:55:00 EST, Tablet, [facility]-, Partial fill upon patient request if [...] Range]: Oxygen Saturation [94-100 %] 97 % 96 % 96 % (12/10/21 8:12 AM) (12/10/21 6:30 AM) (12/10/21 3:3 3 AM) Pulse Rate [55-90 bpm] 84 bpm 90 bpm 83 bpm (12/10/21 8:12 AM) (12/10/21 6:30 AM) (12/10/21 3:3 3 AM) Blood Pressure [90-138/55-84 mm 124/74 mm Hg 120/76 mm Hg 121/86 mm Hg Hg] (12/10/21 8:12 AM) (12/10/21 6:30 AM) (12/10/21 3:3 3 AM) Respiratory Rate [16-30 br/min] 16 br/min 16 br/min 16 br/min (12/10/21 8:12 AM) (12/10/21 6:30 AM) (12/10/21 3:3 3 AM) Temperature [96.8-100.4 DegF] 97.9 DegF 97.8 DegF 97 .9 DegF (12/10/21 8:12 AM) (12/10/21 6:30 AM) (12/09/21 7:3 8 PM) Liters per Minute 2 L/min 2 L/min 2 L/min (12/09/21 9:50 PM) (12/09/21 7:56 PM) (12/09/21 7:3 8 PM) Mode of Delivery (Oxygen) Room air Room air Room a ir (12/10/21 8:12 AM) (12/10/21 6:30 AM) (12/10/21 3:3 3 AM) Blood pressure sites Arm, right Arm, left Arm, right (12/10/21 8:12 AM) (12/10/21 6:30 AM) (12/10/21 3:3 3 AM) Temperature Route Oral Oral Axillary (12/10/21 8:12 AM) (12/10/21 6:30 AM) (12/09/21 7:3 8 PM) Social History Social History Type Response Smoking Status Not obtained due to cognitiv e impairment entered on: 09/24/21 Sex
--- OUTSIDE RECORDS SUMMARY | 2022-06-23 20:29 | XMS_ITS | Continuity of Care Document ---
:1965 Author Organization [facility] Address [address] [place] [address]- Care Team Providers Name Role Phone Not on Staff, PCP Primary Care Physician Unavailable Encounter [facility] [place] Date(s): 09/25/20 - 09/26/[address] [id number] Encounter Diagnosis Alcohol intoxication (Final) - 09/24/20 Discharge Disposition: A-D/C AMA Attending Physician: Tan HASSAN, Wisam Lawler Admitting Physician: Brent Serrano MD Referring Physician: Not on Staff, Referring MD Allergies, Adverse Reactions, Alerts No Known Medication Allergies Medications ondansetron 4 mg oral tablet, disintegrating 1 tablet [...] II opioid drug. Start Date: 09/26/20 Status: Orderedprazosin 5 mg oral capsule 5 mg, 1, capsule, By Mouth, Daily at bedtime, Refills 0, Maintenance, 09/26/20 0:51:00 EDT, Partial fill upon patient request if the prescription is for a schedule II opioid drug. Start Date: 09/26/20 Status: OrderedrisperiDONE 1 mg oral tablet 1 mg, 1, tablet, By Mouth, 2 times a day, # 60 tablet, Refills 0, Maintenance, 09/26/20 0:50:00 EDT,Partial fill upon patient request if the prescription is for a schedule II opioid drug. Start Date: 09/26/20 Status: OrderedtraZODone 150 mg oral tablet 1 tablet = 150 mg, By Mouth, Daily at bedtime, # 90 tablet, 0 Refills, Maintenance, 09/26/20 0:51:00EDT, Tablet, Partial fill upon patient request if the prescription is for a schedule II opioid drug. Start Date: 09/26/20 Status: Ordered Problem List Condition Effective Dates Status Health Status Informant Alcohol abuse(Confirmed) Active Alcohol withdrawal(Confirmed) Active Results Radiology Reports Exam Date Time Procedure Performing Provider Status 09/24/20 5:33 PM Shoulder Min 2 Views Left Kimberlee De La Rosa; Au th (Verified) Notes:(Shoulder Min 2 Views Left) Reason For Exam: with Pain;TraumaRESULT: Shoulder Min 2 Views Left Shoulder Min 2 Views Left, 2 views Hx of Present Illness: ETOH, Found down [place] the [place] by PD.; Reason: Trauma; with Pain; Clinical Question(s): Fracture COMPARISON: None. FINDINGS: No fracture or dislocation. No significant arthritic change of the glenohumeral joint. Normal AC joint and portions of the clavicle included on the exam. Possible faint calcification of the rotator cuff. The visualized left lung apex is clear. IMPRESSION: No acute abnormality. WSN: [id number] Ordering Physician: Ilene Salinas Dictated By: Bonifacio Mason MD Dictated Date/Time: 09/24/20 5:39 pm Reviewed By: Bonifacio Mason MD Signed By: Bonifacio Mason MD Signed Date/Time: 09/24/20 5:39 pm Transcribed By: DAVIN Transcribed Date/Time: 09/24/20 5:38 pm Vital Signs Most recent to oldest 1 2 3 [Reference Range]: Height 182 cm 182 cm 182 cm (09/26/20 11:15 AM) (09/26/20 5:28 AM) (09/25/20 11 :43 PM) Weight 89 kg (09/25/20 2:43 PM) Oxygen Saturation [94-100 97 % 96 % 97 % %] (09/26/20 11:15 AM) (09/26/20 5:28 AM) (09/25/20 11 :43 PM) Pulse Rate [55-90 bpm] 61 bpm 60 bpm 58 bpm (09/26/20 11:15 AM) (09/26/20 5:28 AM) (09/25/20 11 :43 PM) Body Mass Index 26.87 [18.5-24.99] *H* (09/25/20 2:43 PM) Blood Pressure 148/91 mm Hg 138/80 mm Hg 132/76 mm Hg [90-138/55-84 mm Hg] *H* (09/26/20 5:28 AM) (09/25/20 11:43 PM) (09/26/20 11:15 AM) Respiratory Rate [16-30 18 br/min 18 br/min 18 br/mi n br/min] (09/26/20:15 AM) (09/26/20 5:28 AM) (09/25/20 11 :43 PM) Temperature [96.8-100.4 98.1 DegF 98.3 DegF 98.0 Deg F DegF] (09/26/20 11:15 AM) (09/26/20 5:28 AM) (09/25/20 11 :43 PM) Liters per Minute 2 L/min (09/24/20 3:55 PM) Mode of Delivery (Oxygen) Room air Room air Room a ir (09/26/20 11:15 AM) (09/26/20 5:28 AM) (09/25/20 11 :43 PM) Blood pressure sites Arm, right Arm, right Leg, left (09/26/20:15 AM) (09/26/20 5:28 AM) (09/25/20 11 :43 PM) Temperature Route Oral Oral Oral (09/26/20 11:15 AM) (09/26/20 5:28 AM) (09/25/20 11 :43 PM) Dry Weight 89 kg (09/25/20 2:43 PM) Weight Obtained Via Patient/family stated (09/25/20 2:43 PM)
--- OUTSIDE RECORDS SUMMARY | 2022-06-23 20:29 | XMS_ITS | Continuity of Care Document ---
:1965 Author Organization [facility] Address [address] [place] [phone]- Care Team Providers Name Role Phone Елена Leung MD Primary Care Physician Encounter [facility] [place] Date(s): 02/21/21 - 02/21/[address] [address]- Encounter Diagnosis Headache (Final) - 02/21/21 Cocaine intoxication (Final) - 02/21/21 Precordial chest pain (Final) - 02/21/21 Discharge Disposition: A-D/C Home Attending Physician: Wisam [...] Refills, Maintenance, 12/27/20 9:09:00 EDT, CR Tablet, [facility]/pharmacy #[id number], Partial fill upon patient request if the prescription is for a schedule II opioid drug., 182, cm, 12/27/20 6:15:00 E... Start Date: 12/27/20 Stop Date: 04/26/21 Status: OrderedcloNIDine 0.1 mg oral tablet 1, tablet, By Mouth, 2 times a day, # 60 tablet, Refills 0, Tot. Refills 0, Maintenance, 12/22/20 15:38:00 EDT, Route to Pharmacy Electronically, [id number], 182, cm, 11/22/20 11:13:00 EDT, Height, 88.2, [...] 11 Refills, Maintenance, 11/22/20 11:29:00 EDT, Inhaler, [facility]/pharmacy #[id number], Partial fill upon patient request if the prescription is for a schedule II opioid drug., 1 puffs Inhalation Daily, 182, cm, 11/22/20 11:... Start Date: 11/22/20 Status: Orderednicotine 21 mg/24 hr transdermal film, extended release 1 patch, Topically, Daily, # 30 patch, 0 Refills, Maintenance, 01/24/21 13:02:00 EDT, Patch, [facility], Partial fill upon patient [...] 0 Refills, Maintenance, 01/24/21 13:01:00 EDT, [place], [facility], Partial fill upon patient [...] 11/22/20 11:31:00 EDT, Route to Pharmacy Electronically, [facility]/pharmacy #[id number], Partial fill upon patient request if the prescription is for a schedule II... Start Date: 11/22/20 Status: OrderedProAir HFA 90 mcg/inh inhalation aerosol 2 puffs, Inhalation, Every 4 hours, PRN as needed for wheezing, # 2 each, 11 Refills, Maintenance, 11/22/20 11:29:00 EDT, Aerosol, [facility]/pharmacy #[id number], Partial fill upon patient request if the prescription is for a schedule II opioid drug., 2 puffs Inh... Start Date: 11/22/20 Stop Date: 11/17/21 Status: OrderedrisperiDONE 1 mg oral tablet 1, tablet, By Mouth, Daily in AM, # 30 tablet, Refills 0, Tot. Refills 0, Maintenance, 12/22/20 15:38:00 EDT, Route to Pharmacy Electronically, [id number], 182, cm, 11/22/20 11:13:00 EDT, Height, 88.2, kg, 09/17/20 2:30:00 EDT, Dry Weight Start Date: 12/22/20 Status: OrderedrisperiDONE 2 mg oral tablet 1, tablet, By Mouth, Daily at bedtime, # 30 tablet, Refills 0, Tot. Refills 0, Maintenance, 12/22/2114:38:00 EDT, Route to Pharmacy Electronically, [id number], 182, cm, 11/22/20 11:13:00 EDT, Height, 88.2, kg, 09/17/20 2:30:00 EDT, Dry Weight Start Date: 12/22/20 Status: OrderedSuboxone 8 mg-2 mg sublingual film 1 film, Sublingual, Daily, dissolve under the tongue, # 7 film, 0 Refills, Maintenance, 01/24/21 11:11:00 EDT, Film, [facility], Partial fill upon patient request if the prescription is for a schedule II opioid drug. [id number], 1 film Hilario... Start Date: 01/24/21 Status: Orderedthiamine 100 mg oral tablet 100 mg, 1, tablet, By Mouth, 2 times a day, # 90 tablet, Refills 0, Tot. Refills 0, Maintenance, 01/24/21 13:02:00 EDT, Route to Pharmacy Electronically, [facility], Partial fill upon patient request if the prescription is for a schedule... Start Date: 01/24/21 Status: OrderedtraZODone 150 mg oral tablet 1 tablet = 150 mg, By Mouth, Daily at bedtime, # 30 tablet, 0 Refills, Maintenance, 11/22/20 11:31:00 EDT, Tablet, [facility]/pharmacy #[id number], Partial fill upon patient request if the prescription is for a schedule II opioid drug., 182, cm, 11/22/20 11:13:00... Start Date: 11/22/20 Status: OrderedTrileptal 600 mg oral tablet 1 tablet = 600 mg, By Mouth, 2 times a day, # 60 tablet, 0 Refills, Maintenance, 11/22/20 11:31:00 EDT, Tablet, [facility]/pharmacy #[id number], Partial fill upon patient [...] Active PTSD (post-traumatic stress Active disorder)(Confirmed) H/O pneumothorax(Confirmed)1 1982 Active Cervicalgia(Confirmed) Active Umbilical hernia(Confirmed) Active 1second pneumothorax in 2007 Vital Signs Most recent to oldest 1 2 3 [Reference Range]: Oxygen Saturation [94-100 %] 95 % 96 % 93 % (02/21/21 5:06 PM) (02/21/21 1:30 PM) *L* (02/21/21 6:39 AM ) Pulse Rate [55-90 bpm] 86 bpm 84 bpm 89 bpm (02/21/21 5:06 PM) (02/21/21 1:30 PM) (02/21/21 6:3 9 AM) Blood Pressure [90-138/55-84 mm 14/91 mm Hg 146/82 mm Hg 151/92 mm Hg Hg] *L* *H* *H* (02/21/21 5:06 PM) (02/21/21 1:30 PM) (02/21/21 6:3 9 AM) Respiratory Rate [16-30 br/min] 13 br/min 18 br/min 24 br/min *L* (02/21/21 1:30 PM) (02/21/21 3:06 AM) (02/21/21 5:06 PM) Temperature [96.8-100.4 DegF] 98.1 DegF 98.5 DegF 98 .4 DegF (02/21/21 5:06 PM) (02/21/21 1:30 PM) (02/21/21 3:0 6 AM) Mode of Delivery (Oxygen) Room air Room air Room a ir (02/21/21 5:06 PM) (02/21/21 1:30 PM) (02/21/21 6:3 9 AM) Blood pressure sites Arm, right Arm, right Arm, right (02/21/21 5:06 PM) (02/21/21 6:39 AM) (02/21/21 3:0 6 AM) Temperature Route Oral Oral Oral (02/21/21 5:06 PM) (02/21/21 1:30 PM) (02/21/21 3:0 6 AM) Social History Social History Type Response Smoking Status 10 or more cigarettes (1/2 p ack or more)/day in last 30 days; Other: smokes 2 ppd for over 35+ years (age 11); entered on: 08/16/20 Sex
--- OUTSIDE RECORDS SUMMARY | 2022-06-23 20:29 | XMS_ITS | Continuity of Care Document ---
:1965 Author Organization [facility] Address [address] [place] [id number]- Care Team Providers Name Role Phone Елена Leung MD Primary Care Physician Encounter [facility] [place] Date(s): 09/28/21 - 10/01/[address] [address] Encounter Diagnosis Alcohol use (Final) - 09/28/21 Hypothermia (Final) - 09/28/21 Anaphylaxis (Final) - 09/28/21 Discharge Disposition: A-D/C AMA Attending Physician: Ta Enriquez MD Admitting Physician: Angel Brunner MD Referring Physician: Not on Staff, Referring MD Allergies, Adverse Reactions, Alerts Substance Reaction Severity Status penicillins1 Active Naprosyn itching Active Swelling cefTRIAXone2 Anaphylactic reaction requiring IM epinephrine S evere Active 1Tolerates xejlkanha7Knspnhbotsfh reaction requiring IM epinephrine Immunizations Given and [...] II opioid drug. Start Date: 09/29/21 Status: Orderedmirtazapine 30 mg oral tablet 1 tablet = 30 mg, By Mouth, Daily at bedtime, # 90 tablet, 11 Refills, Maintenance, 07/10/21 7:55:00EST, Tablet, [facility]-, Partial fill upon patient request [...] oral capsule 5 mg, Capsule, By Mouth, 09/30/21 21:00:00 EDT Start Date: 09/30/21 Stop Date: 09/30/21 Status: Completedprazosin 5 mg oral capsule 5 [...] 3 Refills, Maintenance, 07/10/21 7:55:00 EST, Aerosol, [facility], Partial fill upon patient request if [...] 09/27/21 8:30:00 EDT, Route to Pharmacy Electronically, [facility]/pharmacy #[id number], Partial fill upon patient request if the [...] 0 Refills, Maintenance, 07/10/21 7:55:00 EST, Tablet, [facility]-, Partial fill upon patient request [...] abuse(Confirmed) Active H/O pneumothorax(Confirmed)1982 Active Cervicalgia(Confirmed) Active Obese class I(Confirmed) Active Opiate misuse(Confirmed) Active Umbilical hernia(Confirmed) Active 1second pneumothorax in 2007 Results Orders for Microbiology Reports Name Date Blood Culture 09/28/21 Blood Culture #2 09/28/21 Microbiology Reports TEST:Blood Culture, Second Order STATUS:Unauthenticated BODY SITE: SOURCE:Blood COLLECTED DATE/TIME:09/28/21 6:18 PMBlood Culture, Second Order SPECIMEN DESCRIPTION : BLOOD LAC SPECIAL REQUESTS : CRITICAL VALUE CALLED AND VERIFIED BY READBACK FOR: GRAM NEGATIVE RODS IN BLOOD TO S2, [id number] BY [employer] [id number] ON 10/01/21 AT 0914. CULTURE : GRAM NEGATIVE RODS Proteus species was identified by multi-plex PCR The Proteus species detected may be due to the presence of nonviable organisms. Please correlate with culture results. REPORT STATUS : PRELIMINARY REPORT TEST:Blood Culture STATUS:Unauthenticated BODY SITE: SOURCE:Blood COLLECTED DATE/TIME:09/28/21 6:16 PMBlood Culture SPECIMEN DESCRIPTION : BLOOD R BICEP SPECIAL REQUESTS : NONE CULTURE : NO GROWTH 3 DAYS REPORT STATUS : PRELIMINARY REPORT Radiology Reports Exam Date Time Procedure Performing Provider Status 09/28/21 9:44 PM Chest Portable Sita New; Auth (Verified) Notes:(Chest Portable) Reason For Exam: Shortness of BreathRESULT: Chest Portable Chest Portable Hx of Present Illness: ?OD; Reason: Shortness of Breath; Clinical Question(s): CHF COMPARISON: 09/26/2021 FINDINGS: LINES AND TUBES: None. LUNGS AND PLEURA: Increased density noted in the left lower lung field which appears new compared to the previous examination. Findings suspicious for pneumonia. This could also represent atelectasis. No pleural effusion. No pneumothorax. HEART, MEDIASTINUM AND MING: Heart is normal in size. Normal upper mediastinal and hilar contour. BONES AND SOFT TISSUES: No acute abnormality. IMPRESSION: Atelectasis versus pneumonia in the left lower lung field. This does appear to be new compared to the recent examination 09/26/2021. WSN: [id number] Ordering Physician: Erika Alejandro Dictated By: Merrick Maya MD Dictated Date/Time: 09/28/21 9:55 pm Reviewed By: Merrick Maya MD Signed By: Merrick Maya MD Signed Date/Time: 09/28/21 9:55 pm Transcribed By: DAVIN Transcribed Date/Time: 09/28/21 9:53 pm Vital Signs Most recent to oldest 1 2 3 [Reference Range]: Height 165 cm 165 cm 165 cm (10/01/21 4:57 AM) (09/30/21 11:31 PM) (09/30/21 4: 39 PM) Weight 86 kg 88 kg (09/30/21 12:29 AM) (09/29/21 6:14 PM) Oxygen Saturation [94-100 %] 95 % 96 % 95 % (10/01/21 4:57 AM) (09/30/21 11:31 PM) (09/30/21 4: 39 PM) Pulse Rate [55-90 bpm] 66 bpm 68 bpm 90 bpm (10/01/21 4:57 AM) (09/30/21 11:31 PM) (09/30/21 4: 39 PM) Body Mass Index [18.5-24.99] 31.59 32.32 *>HHI* *>HHI* (09/30/21 12:29 AM) (09/29/21 6:14 PM) Blood Pressure [90-138/55-84 138/89 mm Hg 141/92 mm Hg 132 /86 mm Hg mm Hg] (10/01/21 4:57 AM) *H* (09/30/21 8:14 PM) (09/30/21 11:31 PM) Respiratory Rate [16-30 18 br/min 18 br/min 18 br/mi n br/min] (10/01/21 4:57 AM) (09/30/21 11:31 PM) (09/30/21 4: 39 PM) Temperature [96.8-100.4 DegF] 98.2 DegF 98.0 DegF 98 .2 DegF (10/01/21 4:57 AM) (09/30/21 11:31 PM) (09/30/21 4: 39 PM) Liters per Minute 4 L/min 2 L/min 4 L/min (09/29/21 8:00 PM) (09/29/21 4:21 PM) (09/29/21 2:2 2 PM) Mode of Delivery (Oxygen) Room air Room air Room a ir (10/01/21 4:57 AM) (09/30/21 11:31 PM) (09/30/21 4: 39 PM) Blood pressure sites Arm, left Arm, left Arm, left (10/01/21 4:57 AM) (09/30/21 11:31 PM) (09/30/21 4: 39 PM) Temperature Route Oral Oral Oral (10/01/21 4:57 AM) (09/30/21 11:31 PM) (09/30/21 4: 39 PM) Dry Weight 86 kg 88 kg (09/30/21 12:29 AM) (09/29/21 6:14 PM) Social History Social History Type Response Smoking Status Not obtained due to cognitiv e impairment entered on: 09/24/21 Sex
--- OUTSIDE RECORDS SUMMARY | 2022-06-23 20:29 | XMS_ITS | Continuity of Care Document ---
:1965 Author Organization [facility] Address [address] [place] [address]- Care Team Providers Name Role Phone Елена Leung MD Primary Care Physician [place] [facility] [place] 12/24/20 - 12/27/[address] [address]- Encounter Diagnosis Opioid overdose (Final) - 12/24/20 Discharge Disposition: A-D/C AMA Attending Physician: Diomedes Apple MD Admitting Physician: Anibal Alegria MD, Stephen Referring Physician: Not on Staff, Referring MD [...] Given Permanently Refused influenza virus vaccine, inactivated 11/5/16 Not Given Patient Refuses influenza virus vaccine, [...] Maintenance, 12/27/20 9:09:00 EDT, CR Tablet, [facility]/pharmacy #1130, Partial fill upon patient request if the prescription is for a schedule II opioid drug., 182, cm, 12/27/20 6:15:00 E... Start Date: 12/27/20 Stop Date: 04/26/21 Status: OrderedcloNIDine 0.1 mg oral tablet 1, tablet, By Mouth, 2 times a day, # 60 tablet, Refills 0, Tot. Refills 0, Maintenance, 12/22/20 15:38:00 EDT, Route to Pharmacy Electronically, [facility], 182, cm, 11/22/20 11:13:00 EDT, Height, 88.2, [...] Refills, Maintenance, 11/22/20 11:29:00 EDT, Inhaler, [facility]/pharmacy #1130, Partial fill upon patient request if the prescription is for a schedule II opioid drug., 1 puffs Inhalation Daily, 182, cm, 11/22/20 11:... Start Date: 11/22/20 Status: Orderedfolic acid 1 mg oral tablet 1 mg, 1, tablet, By Mouth, Daily, # 30 tablet, Refills 0, Tot. Refills 0, Maintenance, 09/19/20 11:10:00 EDT, Route to Pharmacy Electronically, [facility]/pharmacy #1130, 182, cm, 09/19/20 0:43:00 EDT, Height, 88.2, kg, 09/17/20 2:30:00 EDT, Dry Weight Start Date: 09/19/20 Stop Date: 10/19/20 Status: Orderedmethadone 10 mg oral tablet 35 mg, Tablet, By Mouth, 12/27/20 9:00:00 EDT Start Date: 12/27/20 Stop Date: 12/27/20 Status: Completedmultivitamin Multiple Vitamins oral tablet 1 tablet, By Mouth, Daily, # 30 tablet, 0 Refills, Maintenance, 10/11/20 9:27:00 EDT, Tablet, [facility], Partial fill upon patient request if [...] oral capsule 5 mg, Capsule, By Mouth, 12/26/20 21:00:00 EDT Start Date: 12/26/20 Stop Date: 12/26/20 Status: Completedprazosin 5 mg oral capsule 5 mg, 1, capsule, By Mouth, Daily at bedtime, # 30 capsule, Refills 0, Tot. Refills 0, Maintenance, 11/22/20 11:31:00 EDT, Route to Pharmacy Electronically, [facility]/pharmacy #[id number], Partial fill upon patient request if [...] 15:38:00 EDT, Route to Pharmacy Electronically, [id number], 182, cm, 11/22/20 11:13:00 EDT, Height, 88.2, kg, 09/17/20 2:30:00 EDT, Dry Weight Start Date: 12/22/20 Status: OrderedrisperiDONE 2 mg oral tablet 1, tablet, By Mouth, Daily at bedtime, # 30 tablet, Refills 0, Tot. Refills 0, Maintenance, 12/22/2114:38:00 EDT, Route to Pharmacy Electronically, [facility], 182, cm, 11/22/20 11:13:00 EDT, Height, 88.2, kg, 09/17/20 2:30:00 EDT, Dry Weight Start Date: 12/22/20 Status: OrderedtraZODone 150 mg oral tablet 1 tablet = 150 mg, By Mouth, Daily at bedtime, # 30 tablet, 0 Refills, Maintenance, 11/22/20 11:31:00 EDT, Tablet, [facility]/pharmacy #1130, Partial fill upon patient request if the prescription is for a schedule II opioid drug., 182, cm, 11/22/20 11:13:00... Start Date: 11/22/20 Status: OrderedTrileptal 600 mg oral tablet 1 tablet = 600 mg, By Mouth, 2 times a day, # 60 tablet, 0 Refills, Maintenance, 11/22/20 11:31:00 EDT, Tablet, [facility]/pharmacy #1130, Partial fill upon patient request if the prescription is for a schedule II opioid drug., 182, cm, 11/22/20 11:13:00 EDT... Start Date: 11/22/20 Status: OrderedViagra 25 mg oral tablet 1 tablet = 25 mg, By Mouth, Daily, PRN as needed for erectile dysfunction, # 5 tablet, 0 Refills, Maintenance, 11/22/20 11:36:00 EDT, Tablet, [facility]/pharmacy #1130, Partial fill upon patient request if [...] Exam Date Time Procedure Performing Provider Status 12/24/20 1:24 PM Chest Portable Gena Murillo; Auth (Verif ied) Notes:(Chest Portable) Reason For Exam: Abdominal PainRESULT: Chest Portable Chest Portable Hx of Present Illness: OD; Reason: Abdominal Pain; Clinical Question(s): Other:; AIR UNDER DIAPHRAGM?; Special Instructions: UPRIGHT CXR PLEASE COMPARISON: Multiple prior chest radiographs, most recently November 30, 2020. FINDINGS: LINES AND TUBES: None. LUNGS AND PLEURA: Mild pulmonary vascular congestion without yancy pulmonary edema. Slight irregularity of the left hemidiaphragm, which peaks somewhat laterally and is partially obscured. No pneumothorax. HEART, MEDIASTINUM AND MING: Heart is normal in size. Normal upper mediastinal and hilar contour. BONES AND SOFT TISSUES: No acute abnormality. Well-healed fractures of the lateral fifth rib and lateral right clavicle are unchanged. No pneumoperitoneum is identified. IMPRESSION: 1. Mild pulmonary vascular congestion without yancy edema. 2. Irregular opacity left lung base may be due to atelectasis, consolidation, pleural effusion, or subpulmonic effusion. 3. No pneumoperitoneum as questioned. WSN: [id number] Ordering Physician: Lázaro Medina Dictated By: Wisam Luke MD Dictated Date/Time: 12/24/20 1:30 pm Reviewed By: Wisam Luke MD Signed By: Wisam Luke MD Signed Date/Time: 12/24/20 1:30 pm Transcribed By: DAVIN Transcribed Date/Time: 12/24/20 1:25 pm Vital Signs Most recent to oldest 1 2 3 [Reference Range]: Height 182 cm 182 cm 182 cm (12/27/20 6:15 AM) (12/27/20 12:08 AM) (12/26/20 3: 57 PM) Weight 91.9 kg 88.0 kg (12/26/20 3:57 PM) (12/24/20 6:26 PM) Oxygen Saturation [94-100 %] 97 % 95 % 96 % (12/27/20 6:15 AM) (12/27/20 12:08 AM) (12/26/20 3: 57 PM) Pulse Rate [55-90 bpm] 74 bpm 65 bpm 72 bpm (12/27/20 6:15 AM) (12/27/20 12:08 AM) (12/26/20 3: 57 PM) Body Mass Index [18.5-24.99] 27.74 26.57 *H* *H* (12/26/20 3:57 PM) (12/24/20 6:26 PM) Blood Pressure [90-138/55-84 114/85 mm Hg 133/84 mm Hg 122 /78 mm Hg mm Hg] (12/27/20 6:15 AM) (12/27/20 12:08 AM) (12/26/20 8: 24 PM) Respiratory Rate [16-30 19 br/min 16 br/min 20 br/mi n br/min] (12/27/20 9:04 AM) (12/27/20 6:15 AM) (12/27/20 12: 08 AM) Temperature [96.8-100.4 97.9 DegF 98.9 DegF 98.3 Deg F DegF] (12/27/20 6:15 AM) (12/27/20 12:08 AM) (12/26/20 3: 57 PM) Liters per Minute 2 L/min 2 L/min 2 L/min (12/26/20 11:08 AM) (12/24/20 5:21 PM) (12/24/20 3: 36 PM) Mode of Delivery (Oxygen) Room air Room air Room a ir (12/27/20 6:15 AM) (12/27/20 12:08 AM) (12/26/20 3: 57 PM) Blood pressure sites Arm, left Arm, left Arm, left (12/27/20 6:15 AM) (12/27/20 12:08 AM) (12/26/20 3: 57 PM) Temperature Route Oral Oral Oral (12/27/20 6:15 AM) (12/27/20 12:08 AM) (12/26/20 3: 57 PM) Dry Weight 88.0 kg (12/24/20 6:26 PM) Weight Obtained Via Bed scale (12/26/20 3:57 PM) Social History Social History Type Response Smoking Status 10 or more cigarettes (1/2 p ack or more)/day in last 30 days; Other: smokes 2 ppd for over 35+ years (age 11); entered on: 08/16/20 Sex
--- OUTSIDE RECORDS SUMMARY | 2022-06-23 20:29 | XMS_ITS | Continuity of Care Document ---
:1965 Author Organization [facility] Address [address] [place] [id number]- Care Team Providers Name Role Phone Елена Leung MD Primary Care Physician Encounter [facility] [place] Date(s): 12/04/21 - 12/04/[address] [address]- Encounter Diagnosis Alcohol intoxication (Final) - 12/04/21 Discharge Disposition: A-D/C AMA Attending Physician: Mila Mccall MD Admitting Physician: Justin HASSAN, Art Hicks Referring Physician: Not on Staff, Referring MD Allergies, Adverse Reactions, Alerts Substance Reaction Severity Status penicillins1 Active Naprosyn itching Active Swelling cefTRIAXone2 Anaphylactic reaction requiring IM epinephrine S evere Active 1Tolerates [id number] reaction requiring IM epinephrine Immunizations Given and [...] tablet, 11 Refills, Maintenance, 07/10/21 7:55:00EST, Tablet, [facility]-, Partial fill upon patient request [...] each, 1 Refills, SoftStop, 11/30/21 12:47:00 EDT, [facility]/pharmacy #[id number],... Start Date: 11/30/21 Status: OrderedOXcarbazepine 600 mg [...] 3 Refills, Maintenance, 07/10/21 7:55:00 EST, Aerosol, [facility]-, Partial fill upon patient request [...] 0 Refills, Maintenance, 07/10/21 7:55:00 EST, Tablet, [facility]-, Partial fill upon patient request [...] Exam Date Time Procedure Performing Provider Status 12/04/21 3:47 PM Chest Portable Ivette Valle; Auth (Ve rified) Notes:(Chest Portable) Reason For Exam: Shortness of BreathRESULT: Chest Portable Chest Portable Hx of Present Illness: pt brought in by ems after friend called saying he drank a lot - pt was here and eloped at 0730 today; Reason: Shortness of Breath; Clinical Question(s): CHF COMPARISON: 12/03/2021 FINDINGS: No acute cardiopulmonary process IMPRESSION: No acute abnormality. WSN: [id number] Ordering Physician: Gaston Gutierrez Dictated By: Morales White MD Dictated Date/Time: 12/04/21 3:54 pm Reviewed By: Morales White MD Signed By: Morales White MD Signed Date/Time: 12/04/21 3:54 pm Transcribed By: DAVIN Transcribed Date/Time: 12/04/21 3:53 pm Vital Signs Most recent to oldest 1 2 3 [Reference Range]: Oxygen Saturation [94-100 %] 97 % 92 % 98 % (12/04/21 4:43 PM) *L* (12/04/21 3:19 PM) (12/04/21 4:42 PM) Pulse Rate [55-90 bpm] 91 bpm 87 bpm 80 bpm *H* (12/04/21 3:19 PM) (12/04/21 3:05 PM) (12/04/21 4:42 PM) Blood Pressure [90-138/55-84 mm 136/103 mm Hg 110/80 mm Hg 137/94 mm Hg Hg] (12/04/21 4:42 PM) (12/04/21 3:19 PM) (12/04/21 3:0 5 PM) Respiratory Rate [16-30 br/min] 15 br/min 12 br/min 14 br/min *L* *L* *L* (12/04/21 4:42 PM) (12/04/21 3:19 PM) (12/04/21 3:0 5 PM) Temperature [96.8-100.4 DegF] 97.6 DegF 97.5 DegF (12/04/21 3:19 PM) (12/04/21 1:22 PM) Liters per Minute 2 L/min (12/04/21 4:43 PM) Mode of Delivery (Oxygen) Nasal cannula Room air Room a ir (12/04/21 4:43 PM) (12/04/21 4:42 PM) (12/04/21 3:1 9 PM) Blood pressure sites Arm, left Arm, left Arm, left (12/04/21 4:42 PM) (12/04/21 3:19 PM) (12/04/21 3:0 5 PM) Temperature Route Oral Axillary (12/04/21 3:19 PM) (12/04/21 1:22 PM) Social History Social History Type Response Smoking Status Not obtained due to cognitiv e impairment entered on: 09/24/21 Sex
--- OUTSIDE RECORDS SUMMARY | 2022-06-23 20:29 | XMS_ITS | Continuity of Care Document ---
:1965 Author Organization [facility] Address [address] [place] [id number]- Care Team Providers Name Role Phone Madhu HASSAN, Елена Primary Care Physician [place] [facility] [place] - 10/11/[address] [address] Encounter Diagnosis Acute depression (Final) - 10/07/20 Discharge Disposition: A-D/C Senior Living, Correction, or [facility] Attending Physician: Gonzalo Chou MD Admitting Physician: Stephanie Delgado MD Referring Physician: Not on Staff, Referring [...] he undersands but continues to refuse. Medications azithromycin 250 mg oral tablet = 250 mg, By Mouth, Daily, for 1 days, Take on 10/12 (last dose), # 1 tablet, 0 Refills, Acute 10/12/20 9:26:00 EDT, 10/11/20 9:26:00 EDT, Tablet, [facility], Partial fill upon patient request if the prescription is for a schedule II opioi... Start Date: 10/11/20 Stop Date: 10/12/20 Status: OrderedcloNIDine 0.1 mg oral tablet 0.1 mg, 1, [...] 0 Refills, Maintenance, 10/11/20 9:27:00 EDT, Inhaler, [facility], Partial fill upon patient request if the prescription is for a schedule II opioid drug., 1 puffs Inhalation Daily, 182, cm, 09/19/20... Start Date: 10/11/20 Status: Orderedfolic acid 1 mg oral tablet 1 mg, 1, tablet, By Mouth, Daily, # 30 tablet, Refills 0, Tot. Refills 0, Maintenance, 09/19/20 11:10:00 EDT, Route to Pharmacy Electronically, [facility]/pharmacy #[id number], 182, cm, 09/19/20 0:43:00 EDT, Height, 88.2, kg, 09/17/20 2:30:00 EDT, Dry Weight Start Date: 09/19/20 Stop Date: 10/19/20 Status: OrderedHabitrol 21 mg/24 hr transdermal film, extended release 1 patch, Topically, Daily, for 30 days, # 30 patch, 0 Refills, Acute 10/19/20 11:12:00 EDT, 09/19/2110:12:00 EDT, Patch, [facility]/pharmacy #[id number], Partial fill upon patient request if the prescription is for a schedule II opioid drug., 1 patch Topically Da... Start Date: 09/19/20 Stop Date: 10/19/20 Status: OrderedMethadone Liquid 45 mg, Solution, By Mouth, 10/11/20 9:00:00 EDT Start Date: 10/11/20 Stop Date: 10/11/20 Status: CompletedMethadone Liquid = 45 mg, By Mouth, Daily, 0 Refills, Maintenance, 09/16/20 21:50:00 EDT, Solution, Partial fill uponpatient request if the prescription is for a schedule II opioid drug. Start Date: 09/16/20 Status: Orderedmultivitamin Multiple Vitamins oral tablet 1 tablet, By Mouth, Daily, # 30 tablet, 0 Refills, Maintenance, 10/11/20 9:27:00 EDT, Tablet, [facility], Partial fill upon patient request if the prescription is for a schedule II opioiddrug., 1 tablet By Mouth Daily,x30 days, 182, cm,... Start Date: 10/11/20 Stop Date: 11/10/20 Status: Orderedprazosin 5 mg oral capsule 5 mg, Capsule, By Mouth, 10/10/20 21:00:00 EDT Start Date: 10/10/20 Stop Date: 10/10/20 Status: Completedprazosin 5 mg oral capsule 5 mg, 1, capsule, By Mouth, Daily at bedtime, Refills 0, Maintenance, 02/05/20 7:33:00 EDT Start Date: 02/05/20 Status: OrderedProAir HFA 90 mcg/inh inhalation aerosol 2 puffs, Inhalation, Every 4 hours, PRN as needed for wheezing, # 2 each, 0 Refills, Maintenance, 07/02/20 9:41:00 EST, Aerosol, [facility]/pharmacy #[id number], Partial fill upon patient request if the prescription is for a schedule II opioid drug., 2 puffs Inhal... Start Date: 07/02/20 Stop Date: 08/01/20 Status: Orderedpyridoxine 50 mg oral tablet 50 mg, 1, tablet, By Mouth, Daily, for 30 days, # 30 tablet, Refills 0, Tot. Refills 0, Acute 11/10/20 9:27:00 EDT, 10/11/20 9:27:00 EDT, Route to Pharmacy Electronically, [facility], Partial fill upon patient [...] 10/11/20 9:28:00 EDT, Route to Pharmacy Electronically, [facility], Partial fill upon patient [...] Exam Date Time Procedure Performing Provider Status 10/07/20 11:58 PM Chest 2 Views Frontal and Lat Demetrio Guillne; Willard (Verified) Notes:(Chest 2 Views Frontal and Lat) Reason For Exam: Shortness of Breath RESULT: Chest 2 Views Frontal and Lat Chest 2 Views Frontal and Lat INDICATION: Dyspnea. COMPARISON: multiple priors, the most [id number]. FINDINGS: LINES AND TUBES: None. LUNGS AND PLEURA: LEFT basilar atelectasis. Otherwise the lungs are clear. Normal pulmonary vascularity. No pleural effusion. No pneumothorax. HEART, MEDIASTINUM AND MING: Heart is normal in size. Aorta is somewhat tortuous. BONES AND SOFT TISSUES: No acute abnormality. IMPRESSION: No acute abnormality. I have personally reviewed the images and I agree with this report. WSN: [id number] Ordering Physician: Haris Moe Dictated By: Justin[Radiology] Lukasz HASSAN Dictated Date/Time: 10/08/20 10:41 a Reviewed By: Shaun Bates MD Signed By: Shaun Bates MD Signed Date/Time: 10/08/20 10:46 am Transcribed By: DAVIN Transcribed Date/Time: 10/08/20 10:15 am Vital Signs Most recent to oldest 1 2 3 [Reference Range]: Oxygen Saturation [94-100 %] 91 % 96 % 97 % *L* (10/10/20 11:17 PM) (10/10/20 7:16 PM) (10/11/20 7:46 AM) Pulse Rate [55-90 bpm] 90 bpm 67 bpm 74 bpm (10/11/20 7:46 AM) (10/10/20 11:17 PM) (10/10/20 7: 16 PM) Blood Pressure [90-138/55-84 101/70 mm Hg 106/72 mm Hg 109 /70 mm Hg mm Hg] (10/11/20 7:46 AM) (10/10/20 11:17 PM) (10/10/20 8: 03 PM) Respiratory Rate [16-30 14 br/min 17 br/min 19 br/mi n br/min] *L* (10/11/20 8:48 AM) (10/11/20 7:46 AM) (10/11/20 9:48 AM) Temperature [96.8-100.4 DegF] 97.6 DegF 98.1 DegF 98 DegF (10/11/20 7:46 AM) (10/10/20 11:17 PM) (10/10/20 7: 16 PM) Mode of Delivery (Oxygen) Room air Room air Room a ir (10/11/20 7:46 AM) (10/10/20 11:17 PM) (10/10/20 7: 16 PM) Blood pressure sites Arm, right Arm, right Arm, right (10/11/20 7:46 AM) (10/10/20 11:17 PM) (10/10/20 7: 16 PM) Temperature Route Oral Oral Oral (10/11/20 7:46 AM) (10/10/20 11:17 PM) (10/10/20 7: 16 PM) Social History Social History Type Response Smoking Status 10 or more cigarettes (1/2 p ack or more)/day in last 30 days; Other: smokes 2 ppd for over 35+ years (age 11); entered on: 08/16/20 Sex
--- OUTSIDE RECORDS SUMMARY | 2022-06-23 20:29 | XMS_ITS | Continuity of Care Document ---
:1965 Author Organization [facility] Address [address] [place] [id number]- Care Team Providers Name Role Phone Елена Leung MD Primary Care Physician Encounter [facility] [place] Date(s): 01/14/21 - 01/14/[address] [address]- Encounter Diagnosis Alcohol intoxication (Final) - 01/14/21 Fentanyl use disorder, severe (Final) - 01/14/21 Discharge Disposition: A-D/C Home Attending Physician: Ciro [...] Refills, Maintenance, 12/27/20 9:09:00 EDT, CR Tablet, [facility]/pharmacy #[id number], Partial fill upon patient request if the prescription is for a schedule II opioid drug., 182, cm, 12/27/20 6:15:00 E... Start Date: 12/27/20 Stop Date: 04/26/21 Status: OrderedcloNIDine 0.1 mg oral tablet 1, tablet, By Mouth, 2 times a day, # 60 tablet, Refills 0, Tot. Refills 0, Maintenance, 12/22/20 15:38:00 EDT, Route to Pharmacy Electronically, [facility] [id number], 182, cm, 11/22/20 11:13:00 EDT, Height, 88.2, [...] 11 Refills, Maintenance, 11/22/20 11:29:00 EDT, Inhaler, [facility]/pharmacy #[id number], Partial fill upon patient request if the prescription is for a schedule II opioid drug., 1 puffs Inhalation Daily, 182, cm, 11/22/20 11:... Start Date: 11/22/20 Status: Orderedfolic acid 1 mg oral tablet 1 mg, 1, tablet, By Mouth, Daily, # 30 tablet, Refills 0, Tot. Refills 0, Maintenance, 09/19/20 11:10:00 EDT, Route to Pharmacy Electronically, [facility]/pharmacy #1130, 182, cm, 09/19/20 0:43:00 EDT, Height, 88.2, kg, 09/17/20 2:30:00 EDT, Dry Weight Start Date: 09/19/20 Stop Date: 10/19/20 Status: Orderedmultivitamin Multiple Vitamins oral tablet 1 tablet, By Mouth, Daily, # 30 tablet, 0 Refills, Maintenance, 10/11/20 9:27:00 EDT, Tablet, [facility], Partial fill upon patient request [...] 11/22/20 11:31:00 EDT, Route to Pharmacy Electronically, [facility]/pharmacy #[id number], Partial fill upon patient request if the prescription is for a schedule II... Start Date: 11/22/20 Status: OrderedProAir HFA 90 mcg/inh inhalation aerosol 2 puffs, Inhalation, Every 4 hours, PRN as needed for wheezing, # 2 each, 11 Refills, Maintenance, 11/22/20 11:29:00 EDT, Aerosol, [facility]/pharmacy #1130, Partial fill upon patient request if the prescription is for a schedule II opioid drug., 2 puffs Inh... Start Date: 11/22/20 Stop Date: 11/17/21 Status: OrderedrisperiDONE 1 mg oral tablet 1, tablet, By Mouth, Daily in AM, # 30 tablet, Refills 0, Tot. Refills 0, Maintenance, 12/22/20 15:38:00 EDT, Route to Pharmacy Electronically, [facility], 182, cm, 11/22/20 11:13:00 EDT, Height, 88.2, kg, 09/17/20 2:30:00 EDT, Dry Weight Start Date: 12/22/20 Status: OrderedrisperiDONE 2 mg oral tablet 1, tablet, By Mouth, Daily at bedtime, # 30 tablet, Refills 0, Tot. Refills 0, Maintenance, 12/22/2114:38:00 EDT, Route to Pharmacy Electronically, [facility], 182, cm, 11/22/20 11:13:00 EDT, Height, 88.2, kg, 09/17/20 2:30:00 EDT, Dry Weight Start Date: 12/22/20 Status: OrderedtraZODone 150 mg oral tablet 1 tablet = 150 mg, By Mouth, Daily at bedtime, # 30 tablet, 0 Refills, Maintenance, 11/22/20 11:31:00 EDT, Tablet, [facility]/pharmacy #1130, Partial fill upon patient request if the prescription is for a schedule II opioid drug., 182, cm, 11/22/20 11:13:00... Start Date: 11/22/20 Status: OrderedTrileptal 600 mg oral tablet 1 tablet = 600 mg, By Mouth, 2 times a day, # 60 tablet, 0 Refills, Maintenance, 11/22/20 11:31:00 EDT, Tablet, [facility]/pharmacy #1130, Partial fill upon patient request if the prescription is for a schedule II opioid drug., 182, cm, 11/22/20 11:13:00 EDT... Start Date: 11/22/20 Status: OrderedViagra 25 mg oral tablet 1 tablet = 25 mg, By Mouth, Daily, PRN as needed for erectile dysfunction, # 5 tablet, 0 Refills, Maintenance, 11/22/20 11:36:00 EDT, Tablet, [facility]/pharmacy #1130, Partial fill upon patient [...] 2 3 Range]: Oxygen Saturation [94-100 %] 99 % 96 % 94 % (01/14/21 11:07 AM) (01/14/21 9:38 AM) (01/14/21 8:24 AM) Pulse Rate [55-90 bpm] 64 bpm 89 bpm 90 bpm (01/14/21 11:07 AM) (01/14/21 9:38 AM) (01/14/21 8:24 AM) Blood Pressure [90-138/55-84 mm 136/68 mm Hg 117/74 mm Hg 128/82 mm Hg Hg] (01/14/21 11:07 AM) (01/14/21 9:38 AM) (01/14/21 8:24 AM) Respiratory Rate [16-30 br/min] 18 br/min 16 br/min 21 br/min (01/14/21 11:07 AM) (01/14/21 9:38 AM) (01/14/21 8:24 AM) Temperature [96.8-100.4 DegF] 97.6 DegF 97.2 DegF (01/14/21 11:07 AM) (01/14/21 8:24 AM) Liters per Minute 2 L/min (01/14/21 11:07 AM) Mode of Delivery (Oxygen) Nasal cannula Room air Room a ir (01/14/21 11:07 AM) (01/14/21 9:38 AM) (01/14/21 8:24 AM) Blood pressure sites Arm, right Arm, right Arm, left (01/14/21 11:07 AM) (01/14/21 9:38 AM) (01/14/21 8:24 AM) Temperature Route Oral Temporal (01/14/21 11:07 AM) (01/14/21 8:24 AM) Social History Social History Type Response Smoking Status 10 or more cigarettes (1/2 p ack or more)/day in last 30 days; Other: smokes 2 ppd for over 35+ years (age 11); entered on: 08/16/20 Sex
--- OUTSIDE RECORDS SUMMARY | 2022-06-23 20:29 | XMS_ITS | Continuity of Care Document ---
:1965 Author Organization [facility] Address [address] [place] [address]- Care Team Providers Name Role Phone Елена Leung MD Primary Care Physician Encounter [facility] [place](s): 11/27/21 - 11/28/[address] [address]- Encounter Diagnosis Alcohol intoxication (Final) - 11/27/21 Discharge Disposition: A-D/C Home Attending Physician: Dennis Mckeon MD Admitting Physician: Dennis Mckeon MD Referring Physician: Not on Staff, Referring MD Allergies, Adverse Reactions, Alerts Substance Reaction Severity Status penicillins1 Active Naprosyn itching Active Swelling [id number] Anaphylactic reaction requiring IM epinephrine S evere Active 1Tolerates [id number] reaction requiring IM epinephrine Immunizations Given and [...] tablet, 11 Refills, Maintenance, 07/10/21 7:55:00EST, Tablet, [facility]-, Partial fill upon patient request [...] 3 Refills, Maintenance, 07/10/21 7:55:00 EST, Aerosol, [facility], Partial fill upon patient request [...] 0 Refills, Maintenance, 07/10/21 7:55:00 EST, Tablet, [facility], Partial fill upon patient request [...] Range]: Oxygen Saturation [94-100 %] 95 % 86 % 92 % (11/28/21 6:00 AM) *L* *L* (11/28/21 12:03 AM) (11/27/21 10:0 5 PM) Pulse Rate [55-90 bpm] 101 bpm 83 bpm 81 bpm *H* (11/28/21 12:03 AM) (11/27/21 10:0 5 PM) (11/28/21 6:00 AM) Blood Pressure [90-138/55-84 167/97 mm Hg 112/71 mm Hg 119 /78 mm Hg mm Hg] *H* (11/28/21 12:03 AM) (11/27/21 10:0 5 PM) (11/28/21 6:00 AM) Respiratory Rate [16-30 18 br/min 16 br/min 18 br/mi n br/min] (11/28/21 6:00 AM) (11/28/21 12:03 AM) (11/27/21 10 :05 PM) Temperature [96.8-100.4 DegF] 98.8 DegF 97.7 DegF 96 .4 DegF (11/28/21 6:00 AM) (11/28/21 12:03 AM) *L* (11/27/21 7:29 PM ) Liters per Minute 3 L/min 3 L/min (11/27/21 7:29 PM) (11/27/21 7:29 PM) Mode of Delivery (Oxygen) Room air Room air Room a ir (11/28/21 6:00 AM) (11/28/21 12:03 AM) (11/27/21 10 :05 PM) Blood pressure sites Arm, left Arm, right Arm, left (11/28/21 6:00 AM) (11/28/21 12:03 AM) (11/27/21 10 :05 PM) Temperature Route Oral Oral Axillary (11/28/21 6:00 AM) (11/28/21 12:03 AM) (11/27/21 7: 29 PM) Social History Social History Type Response Smoking Status Not obtained due to cognitiv e impairment entered on: 09/24/21 Sex
--- OUTSIDE RECORDS SUMMARY | 2022-06-23 20:29 | XMS_ITS | Continuity of Care Document ---
:1965 Author Organization [facility] Address [address] [place] [phone]- Care Team Providers Name Role Phone Елена Leung MD Primary Care Physician Encounter [facility] [place] Date(s): 08/21/21 - 08/22/[address] [address]- Discharge Disposition: A-D/C Home Attending Physician: Rian [...] 0 Refills, Maintenance, 07/10/21 7:55:00 EST, Tablet, [facility]-, Partial fill upon patient [...] Range]: Oxygen Saturation [94-100 %] 97 % 94 % 93 % (08/21/21 10:30 PM) (08/21/21 8:00 PM) *L* (08/21/21 6:00 PM ) Pulse Rate [55-90 bpm] 90 bpm 90 bpm 88 bpm (08/21/21 10:30 PM) (08/21/21 8:00 PM) (08/21/21 6: 00 PM) Blood Pressure [90-138/55-84 121/83 mm Hg 109/73 mm Hg 110 /75 mm Hg mm Hg] (08/21/21 10:30 PM) (08/21/21 8:00 PM) (08/21/21 6: 00 PM) Respiratory Rate [16-30 16 br/min 19 br/min 22 br/mi n br/min] (08/21/21 8:00 PM) (08/21/21 6:00 PM) (08/21/21 4:0 0 PM) Temperature [96.8-100.4 DegF] 97.6 DegF 97.6 DegF (08/21/21 1:41 PM) (08/21/21 12:08 PM) Mode of Delivery (Oxygen) Room air Room air Room a ir (08/21/21 10:30 PM) (08/21/21 8:00 PM) (08/21/21 6: 00 PM) Blood pressure sites Arm, left Arm, left Arm, left (08/21/21 8:00 PM) (08/21/21 6:00 PM) (08/21/21 4:0 0 PM) Temperature Route Oral Oral (08/21/21 1:41 PM) (08/21/21 12:08 PM) Social History Social History Type Response Smoking Status 10 or more cigarettes (1/2 p ack or more)/day in last 30 days; Other: smokes 2 ppd for over 35+ years (age 11); entered on: 08/16/20 Sex
--- OUTSIDE RECORDS SUMMARY | 2022-06-23 20:29 | XMS_ITS | Continuity of Care Document ---
:1965 Author Organization [facility] Address [address] [place] [id number]- Care Team Providers Name Role Phone Madhu HASSAN, Елена Primary Care Physician Encounter [facility] Date(s): 01/15/21 - 01/24/[address] [address] Discharge Disposition: Disch/Trans to IP Rehab or unit w/in Hos Attending Physician: Gonzalo Chou MD Admitting Physician: Parag Chou MD Referring Physician: Not on Staff, Referring [...] Refills, Maintenance, 12/27/20 9:09:00 EDT, CR Tablet, [facility]/pharmacy #[id number], Partial fill upon patient request if the prescription is for a schedule II opioid drug., 182, cm, 12/27/20 6:15:00 E... Start Date: 12/27/20 Stop Date: 04/26/21 Status: OrderedcloNIDine 0.1 mg oral tablet 1, tablet, By Mouth, 2 times a day, # 60 tablet, Refills 0, Tot. Refills 0, Maintenance, 12/22/20 15:38:00 EDT, Route to Pharmacy Electronically, [id number], 182, cm, 11/22/20 11:13:00 EDT, Height, 88.2, [...] 11 Refills, Maintenance, 11/22/20 11:29:00 EDT, Inhaler, [facility]/pharmacy #[id number], Partial fill upon patient request if the prescription is for a schedule II opioid drug., 1 puffs Inhalation Daily, 182, cm, 11/22/20 11:... Start Date: 11/22/20 Status: Orderednicotine 21 mg/24 hr transdermal film, extended release 1 patch, Topically, Daily, # 30 patch, 0 Refills, Maintenance, 01/24/21 13:02:00 EDT, Patch, [facility], Partial fill upon [...] 0 Refills, Maintenance, 01/24/21 13:01:00 EDT, Lozenge, [facility], Partial fill upon [...] 11/22/20 11:31:00 EDT, Route to Pharmacy Electronically, [facility]/pharmacy #[id number], Partial fill upon patient request if the prescription is for a schedule II... Start Date: 11/22/20 Status: OrderedProAir HFA 90 mcg/inh inhalation aerosol 2 puffs, Inhalation, Every 4 hours, PRN as needed for wheezing, # 2 each, 11 Refills, Maintenance, 11/22/20 11:29:00 EDT, Aerosol, [facility]/pharmacy #[id number], Partial fill upon patient request if the prescription is for a schedule II opioid drug., 2 puffs Inh... Start Date: 11/22/20 Stop Date: 11/17/21 Status: OrderedrisperiDONE 1 mg oral tablet 1, tablet, By Mouth, Daily in AM, # 30 tablet, Refills 0, Tot. Refills 0, Maintenance, 12/22/20 15:38:00 EDT, Route to Pharmacy Electronically, [id number], 182, cm, 11/22/20 11:13:00 EDT, Height, 88.2, kg, 09/17/20 2:30:00 EDT, Dry Weight Start Date: 12/22/20 Status: OrderedrisperiDONE 2 mg oral tablet 1, tablet, By Mouth, Daily at bedtime, # 30 tablet, Refills 0, Tot. Refills 0, Maintenance, 12/22/2114:38:00 EDT, Route to Pharmacy Electronically, [id number], 182, cm, 11/22/20 11:13:00 EDT, Height, 88.2, kg, 09/17/20 2:30:00 EDT, Dry Weight Start Date: 12/22/20 Status: OrderedSuboxone 8 mg-2 mg sublingual film 1 film, Sublingual, Daily, dissolve under the tongue, # 7 film, 0 Refills, Maintenance, 01/24/21 11:11:00 EDT, Film, [facility], Partial fill upon patient request if the prescription is for a schedule II opioid drug. [id number], 1 film Hilario... Start Date: 01/24/21 Status: Orderedthiamine 100 mg oral tablet 100 mg, 1, tablet, By Mouth, 2 times a day, # 90 tablet, Refills 0, Tot. Refills 0, Maintenance, 01/24/21 13:02:00 EDT, Route to Pharmacy Electronically, [facility], Partial fill upon patient request if the prescription is for a schedule... Start Date: 01/24/21 Status: OrderedtraZODone 150 mg oral tablet 1 tablet = 150 mg, By Mouth, Daily at bedtime, # 30 tablet, 0 Refills, Maintenance, 11/22/20 11:31:00 EDT, Tablet, [facility]/pharmacy #[id number], Partial fill upon patient [...] Exam Date Time Procedure Performing Provider Status 01/15/21 8:36 AM Chest 2 Views Frontal and Lat [facility] (Verified) Notes:(Chest 2 Views Frontal and Lat) Reason For Exam: Shortness of Breath, Fever;Other:RESULT: Chest 2 Views Frontal and Lat Chest 2 Views Frontal and Lat Hx of Present Illness: pt walked to hospital w abd pain n v, with concerns for hematemesis; pt also reports sob; reports last ETOH was yesterday afternoon along with fentanyl and a lot of cocaine ; Reason: Other:; Shortness of Breath, Fever; Clinical Question(s): Pneumonia; Order Comment: WATCH PT RNwill call back--748hrs COMPARISON: 01/10/2021. FINDINGS: LINES AND TUBES: None. LUNGS AND PLEURA: Mild hazy bibasilar opacities, decreased from 01/10/21, possibly atelectasis. Otherwise clear lungs. Normal pulmonary vascularity. No pleural effusion. No pneumothorax. HEART, MEDIASTINUM AND MING: Heart is normal in size. Aorta is somewhat tortuous. BONES AND SOFT TISSUES: No acute abnormality. IMPRESSION: Slight improvement in bibasilar opacities, possibly atelectasis. WSN: [id number] Ordering Physician: Lilli Rutherford Dictated By: Tara Man MD Dictated Date/Time: 01/15/21 10:22 a Reviewed By: Tara Man MD Signed By: Tara Man MD Signed Date/Time: 01/15/21 10:22 am Transcribed By: DAVIN Transcribed Date/Time: 01/15/21 10:20 am Vital Signs Most recent to oldest 1 2 3 [Reference Range]: Height 183 cm 183 cm 183 cm (01/24/21 11:13 AM) (01/24/21 6:25 AM) (01/23/21 11 :48 PM) Weight 90 kg 86.4 kg 86.4 kg (01/23/21 6:11 AM) (01/15/21 5:14 PM) (01/15/21 5:14 PM) Oxygen Saturation [94-100 %] 95 % 95 % 93 % (01/24/21 11:13 AM) (01/24/21 6:25 AM) *L* (01/23/21 11:48 P M) Pulse Rate [55-90 bpm] 95 bpm 82 bpm 72 bpm *H* (01/24/21 6:25 AM) (01/23/21 11:48 PM) (01/24/21 11:13 AM) Body Mass Index [18.5-24.99] 26.87 25.8 *H* *H* (01/23/21 6:11 AM) (01/15/21 5:14 PM) Blood Pressure [90-138/55-84 109/69 mm Hg 113/74 mm Hg 96/ 50 mm Hg mm Hg] (01/24/21 11:13 AM) (01/24/21 6:25 AM) (01/23/21 11 :48 PM) Respiratory Rate [16-30 18 br/min 16 br/min 18 br/mi n br/min] (01/24/21 11:13 AM) (01/24/21 6:25 AM) (01/23/21 11 :48 PM) Temperature [96.8-100.4 DegF] 97.2 DegF 97.7 DegF 97 .4 DegF (01/24/21 11:13 AM) (01/24/21 6:25 AM) (01/23/21 11 :48 PM) Liters per Minute 2 L/min 2 L/min 2.5 L/min (01/18/21 6:00 AM) (01/18/21 12:00 AM) (01/17/21 3:48 PM) Mode of Delivery (Oxygen) Room air Room air Room a ir (01/24/21 11:13 AM) (01/24/21 6:25 AM) (01/23/21 11 :48 PM) Blood pressure sites Arm, left Arm, left Arm, right (01/24/21 11:13 AM) (01/24/21 6:25 AM) (01/23/21 11 :48 PM) Temperature Route Axillary Oral Oral (01/24/21 11:13 AM) (01/24/21 6:25 AM) (01/23/21 11 :48 PM) Dry Weight 86.4 kg (01/15/21 5:14 PM) Weight Obtained Via Bed scale Bed scale (01/23/21 6:11 AM) (01/15/21 5:14 PM) Social History Social History Type Response Smoking Status 10 or more cigarettes (1/2 p ack or more)/day in last 30 days; Other: smokes 2 ppd for over 35+ years (age 11); entered on: 08/16/20 Sex
--- OUTSIDE RECORDS SUMMARY | 2022-06-23 20:30 | XMS_ITS | Continuity of Care Document ---
:[address] [facility] Address [address] [place] [address]- Care Team Providers Name Role Phone Not on Staff, PCP Primary Care Physician Unavailable Encounter [facility] [place] Date(s): 02/15/20 - 04/17/[address] [address]- [facility] Discharge Disposition: A-D/C Home Attending Physician: Jazmin Cosby DO Admitting Physician: Jazmin Cosby DO Referring Physician: Jazmin Cosby DO Allergies, Adverse Reactions, Alerts Substance Reaction Severity [...] 09/01/19 8:57:00 EDT, Route to Pharmacy Electronically, [facility], 183, cm, 09/01/19 0:45:00 EDT, Height, 86.5, kg, 08/29/19 22:05:00 EDT, Dry Weight Start Date: 09/01/19 Status: Orderedgabapentin 100 mg oral capsule 100 mg, 1, capsule, By Mouth, 3 times a day, # 90 capsule, Refills 0, Tot. Refills 0, Maintenance, 08/09/19 17:41:00 EST, Route to Pharmacy Electronically, [facility]/pharmacy #[id number], 186, cm, 07/31/19 11:36:00 EST, Height, 86, kg, 07/30/19 23:47:00 EST, Dry... Start Date: 08/09/19 Status: OrderedoxyCODONE 5 mg oral tablet 5 mg, 1, tablet, By Mouth, Every 6 hours, PRN, # 10 tablet, Refills 0, Tot. Refills 0, Maintenance, for pain, 09/01/19 8:57:00 EDT, Route to Pharmacy Electronically, [facility], Partial fill upon patient [...] 09/01/19 9:03:00 EDT, Route to Pharmacy Electronically, [facility], 183, cm, 09/01/19 0:45:00 EDT, Height, 86.5, kg, 08/29/19 22:05:00 EDT... Start Date: 09/01/19 Status: OrderedtiZANidine 4 mg oral capsule 1 capsule = 4 mg, By Mouth, 3 times a day, # 90 capsule, 1 Refills, Maintenance, 01/26/20 16:20:00 EDT, Capsule, [facility], 183, cm, 09/01/19 0:45:00 EDT, Height, 86.5, kg, 08/29/19 22:05:00 EDT, Dry Weight Start Date: 01/26/20 Status: OrderedtiZANidine 4 mg oral tablet 4 mg, 1, tablet, By Mouth, 3 times a day, PRN, # 21 tablet, Refills 0, Tot. Refills 0, Maintenance, Spasm, 01/29/20 9:18:00 EDT, Route to Pharmacy Electronically, [facility], 183, cm, 09/01/19 0:45:00 [...]
--- OUTSIDE RECORDS SUMMARY | 2022-06-23 20:30 | XMS_ITS ---
:1965 Author Care Team Providers Name Role Phone [facility] OTHER [phone] Allergies Code Code System Name Reaction Severity Status Onset 7258 RxNorm Naproxen ? ? Active ? Penicillins ? ? Active ? Medications No Medications Reported Notes: Med list reviewed, may not be u p to date, see MAR Problems Name Status Onset Date Source ? Bipolar Disorder Active 06/25/2019 ? Alcohol Abuse Active 06/25/2019 ? Tobacco User Active 06/25/2019 ? Chronic Post-traumatic Stress Disorder Active 0 ? Asthma Active 06/25/2019 ? 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 Gastroesophageal Reflux Disease without Esophagitis Active 06/25/2019 ? Procedures None recorded. Results Lab Results None recorded. Past Encounters None recorded. Social History Tobacco Smoking Status Heavy Tobacco Smoker (2 packs per day ) Vaccine List None recorded. Plan of Care Reminders Provider Appointments None recorded. ? ? Lab None recorded. ? ? Referral None recorded. ? ? Procedures None recorded. ? ? Surgeries None recorded. ? ? Imaging None recorded. ? ? Vitals 07/21/2019 12:47PM Discharge Summary Blood Pressure 120/75 mm[Hg] 07/13/2019 12:31PM Acute Rounding Visit Blood Pressure 134/80 mm[Hg] 07/07/2019 11:20AM Acute Rounding Visit Blood Pressure 134/80 mm[Hg] 06/30/2019 04:21PM Acute Rounding Visit Blood Pressure 123/90 mm[Hg] 06/25/2019 10:21AM Admitting H&P Blood Pressure 126/77 mm[Hg] 06/22/2019 12:34PM Initial Intake Note Blood Pressure 140/86 mm[Hg]
--- OUTSIDE RECORDS SUMMARY | 2022-06-23 20:30 | XMS_ITS | Continuity of Care Document ---
:1965 Author Organization [facility] Address [address] [place] [address]- Care Team Providers Name Role Phone Not on Staff, PCP Primary Care Physician Unavailable Encounter [facility] [place] Date(s): 08/16/20 - 08/23/20 [facility] [address] [place] [address]- Encounter Diagnosis Alcohol abuse (Discharge Diagnosis) - 08/16/20 Alcohol dependency (Discharge Diagnosis) - 08/16/20 PTSD (post-traumatic stress disorder) (Discharge Diagnosis) - 08/16/20 Asthma (Discharge Diagnosis) - 08/16/20 Attending Physician: Madhu HASSAN, Елена Allergies, Adverse Reactions, Alerts Substance Reaction Severity [...] 09/01/19 8:57:00 EDT, Route to Pharmacy Electronically, [facility], 183, cm, 09/01/19 0:45:00 EDT, Height, 86.5, kg, 08/29/19 22:05:00 EDT, Dry Weight Start Date: 09/01/19 Status: Orderedgabapentin 100 mg oral capsule 100 mg, 1, capsule, By Mouth, 3 times a day, # 90 capsule, Refills 0, Tot. Refills 0, Maintenance, 08/09/19 17:41:00 EST, Route to Pharmacy Electronically, [facility]/pharmacy #[id number], 186, cm, 07/31/19 11:36:00 EST, Height, 86, kg, 07/30/19 23:47:00 EST, Dry... Start Date: 08/09/19 Status: Orderedondansetron 4 mg oral tablet, disintegrating 1 tablet = 4 mg, By Mouth, Every 8 hours, PRN as needed for nausea/vomiting, # 9 tablet, 0 Refills, Maintenance, 07/02/20 9:41:00 EST, DIS Tablet, [facility]/pharmacy #[id number], Partial fill upon patient request,192, cm, 05/08/20 10:23:00 EST, Height, 88.5, kg,... Start Date: 07/02/20 Stop Date: 07/05/20 Status: Orderedprazosin 5 mg oral capsule 5 mg, 1, capsule, By Mouth, Daily at bedtime, Refills 0, Maintenance, 02/05/20 7:33:00 EDT Start Date: 02/05/20 Status: OrderedProAir HFA 90 mcg/inh inhalation aerosol 2 puffs, Inhalation, Every 4 hours, PRN as needed for wheezing, # 2 each, 0 Refills, Maintenance, 07/02/20 9:41:00 EST, Aerosol, [facility]/pharmacy #[id number], Partial fill upon patient request [...] 09/01/19 9:03:00 EDT, Route to Pharmacy Electronically, [facility], 183, cm, 09/01/19 0:45:00 EDT, Height, 86.5, kg, 08/29/19 22:05:00 EDT... Start Date: 09/01/19 Status: OrderedtiZANidine 4 mg oral capsule 1 capsule = 4 mg, By Mouth, 3 times a day, # 90 capsule, 1 Refills, Maintenance, 01/26/20 16:20:00 EDT, Capsule, [facility], 183, cm, 09/01/19 0:45:00 EDT, Height, 86.5, kg, 08/29/19 22:05:00 EDT, Dry Weight Start Date: 01/26/20 Status: OrderedtiZANidine 4 mg oral tablet 4 mg, 1, tablet, By Mouth, 3 times a day, PRN, # 21 tablet, Refills 0, Tot. Refills 0, Maintenance, Spasm, 01/29/20 9:18:00 EDT, Route to Pharmacy Electronically, [facility], 183, cm, 09/01/19 0:45:00 [...] Dates Health Clinical Infor mant Status Service Alcohol abuse Discharge 08/16/20 Diagnosis Alcohol Discharge 08/16/20 dependency Diagnosis PTSD Discharge 08/16/20 (post-traumatic Diagnosis stress disorder) Asthma Discharge 08/16/20 Diagnosis Social History Social History Type Response Smoking Status 10 or more cigarettes (1/2 p ack or more)/day in last 30 days; Other: smokes 2 ppd for over 35+ years (age 11); entered on: 08/16/20 Sex
[2022-06-23 20:35] LABS: Alanine Aminotransferase 25 U/L (0-40); Albumin Level 3.9 g/dL (3.5-5.0); Alkaline Phosphatase 75 U/L (39-117); Anion Gap 17 (12-20); Aspartate Amino Transferase 45 U/L (5-37); Bilirubin Total 0.2 mg/dL (0.0-1.0); Blood Urea Nitrogen 7 mg/dL (9-16); Calcium 8.7 mg/dL (8.4-10.2); Carbon Dioxide 26 mmol/L (22-29); Chloride 105 mmol/L (96-108); Creatinine Clr Calc Pharmacy 108.4; Estimated Glomerular Filt Rate > 60; Ethanol 325 mg/dL; Glucose Random 105 mg/dL (60-115); Potassium 3.4 mmol/L (3.3-5.1); Sodium 145 mmol/L (135-145); Total Protein 6.5 g/dL (6.5-8.0)
[2022-06-23 21:59] VITALS: BP 127/67; PULSE 80; RESP 16; TEMP 36.6; O2SAT 97
--- NOTE | 2022-06-23 22:00 | MHC.EDTECH ---
2200 vitals sign taken ,pt asleep ,awaiting urine sample .
--- NOTE | 2022-06-23 23:16 | ED_ITS ---
HPI - Alcohol General Chief Complaint: ETOH/Substance Use Stated Complaint: ETOH w/ drug use Source: patient and EMS Mode of arrival: EMS Limitations: altered mental status (Secondary to alcohol intoxication) History of Present Illness HPI narrative: 57-year-old male who was brought to emergency department by EMS for evaluation of acute alcohol intoxication and opiate abuse. [place] was [place] to stand. Patient was seen earlier today in the emergency department with alcohol intoxication. In reviewing the patient's note from 11:00 this morning, patient was found at a bus stop acutely intoxicated. Reported drinking a 0.5 gal of vodka. Patient's urine tox screen was positive for barbiturates. His alcohol was elevated 233. Patient was noted to have abrasions on his hands and there was concern about head injury, CT scan of the head and neck was unremarkable. The note also states the patient was seen previously at [facility] was treated with phenobarbital for withdrawal. The patient told me that he was drinking alcohol but he cannot drug use. His speech is very slurred, he appears to be acutely intoxicated. He is also very disheveled and unkempt. Related Data Allergies Allergy/AdvReac Type Severity Reaction Status Date / Time naproxen [NAPROXEN] Allergy Intermediate RASH Unverified 02/29/20 17:00 [facility] Past Medical History [facility] Narrative: Past medical history: Alcohol use disorder, rhabdomyolysis, hypokalemia. Social History Social History Alcohol intake: current Advance Directives: No Advance Directives Information Provided: No Physical Exam ED Vital Signs: Vital Signs - 24 hr 06/23/22 19:31 06/23/22 21:59 Temperature 97.8 F 97.9 F Pulse Rate 92 80 Respiratory Rate 14 16 Blood Pressure 131/77 127/67 Pulse Oximetry 94 97 Oxygen Delivery Method Room Air Room Air BMI result Body Mass Index 36.6 Vital signs were stable General: Patient appears acutely intoxicated, he has slurred speech, he is unkempt and disheveled, he falls asleep when not engaged. HEENT: Head is normal cephalic, atraumatic, pupils equal round reactive light sclera contact however normal, mouth revealed dry mucous membranes, patient has a strong odor of alcohol on his breath Neck: Supple Lungs: Clear to auscultation breath sounds symmetric bilaterally, Heart: Regular rate rhythm, normal S1-S2 no murmurs rubs or gallops Abdomen: Soft, nontender, nondistended with normoactive bowel sounds Back: No CVA tenderness Extremities: No evidence of trauma Neurologic: Somnolent secondary to alcohol intoxication, cranial nerves are intact strength moves extremities symmetrically Medical Decision Making Medical Decision Making [facility] Narrative: 57-year-old male who presents emergency department for evaluation of acute alcohol intoxication. Patient was seen earlier this morning at 11:00 with similar complaint. At that time he had a workup which revealed an alcohol level of 233, urinalysis was positive for barbiturates but he had been treated 1 day prior at [facility] with phenobarbital for alcohol withdrawal. Patient's exam is consistent with acute alcohol intoxication. I ordered a CBC, CMP, alcohol level and urine drug screen. 2324: My interpretation patient's laboratory evaluation is as follows: Normal WBC, microcytic anemia with an H&H 10.5 and 33.3, MCV low 71.6. Coag studies normal. AST elevated 43. ETOH level 325. 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 2327: Start physician observation: Given the patient's acute intoxication, he will be kept in the emergency department on observation status until he is awake, can walk and can be discharged home. At the end of my shift, patient's care was turned over to my colleague, Dr. Pratima Aceves. Differential Diagnosis Differential Diagnoses: The differential diagnosis associated with the presentation includes Differential diagnosis includes was not limited to alcohol intoxication, opiate use disorder, head injury, cerebral bleed, toxic metabolic syndrome Lab Data [facility] Lab Attestation statement: I reviewed the patient's lab results. Please see [facility] for my discussion of laboratory data 06/23/22 20:07 06/23/22 20:07 Labs: Lab Results 06/23/22 06/23/22 Range/Units 20:07 20:07 WBC 4.8 (4.8-10.8) X10*3/uL RBC 4.65 (4.60-5.80) X10*6/uL Hgb 10.5 L (14.0-18.0) g/dl Hct 33.3 L (42.0-52.0) % MCV 71.6 L (80.0-98.0) fL MCH 22.6 L (27.0-33.0) pg MCHC 31.5 (31.0-36.0) g/dl RDW 22.5 H (11.0-16.0) % Plt Count 223 (160-400) X10*3/uL MPV 9.1 L (9.4-12.4) fL Immature Gran % (Auto) 0.2 (0.0-0.4) % Neut % (Auto) 50.0 (45-73) % Lymph % (Auto) 37.0 (20-40) % [place] % (Auto) 8.9 (2-11) % Eos % (Auto) 3.3 (0-4) % Baso % (Auto) 0.6 (0-2) % Lymph # (Auto) 1.8 (1.2-4.9) X10*3/uL [place] # (Auto) 0.4 (0.1-1.2) X10*3/uL Eos # (Auto) 0.2 (0.0-0.4) X10*3/uL Baso # (Auto) 0.0 (0.0-0.2) X10*3/uL Abs Immat Gran (auto) 0.01 (0.00-0.03) X10*3/uL Absolute Neuts (auto) 2.4 (2.0-8.3) x10*3/uL Absolute Nucleated RBC 0.000 (0.0-0.012) X10*3/uL Nucleated RBC % (auto) 0.0 (0.0-0.2) /100WBC Sodium 145 (135-145) mmol/L Potassium 3.4 (3.3-5.1) mmol/L Chloride 105 (96-108) mmol/L Carbon Dioxide 26 (22-29) mmol/L Anion Gap 17 (12-20) BUN 7 L (9-16) mg/dL Creatinine 0.68 (0.5-1.4) mg/dL Estim Creat Clear Calc 108.4 Estimated GFR > 60 Random Glucose 105 (60-115) mg/dL Calcium 8.7 (8.4-10.2) mg/dL Total Bilirubin 0.2 (0.0-1.0) mg/dL AST 45 H (5-37) U/L ALT 25 (0-40) U/L Alkaline Phosphatase 75 (39-117) U/L Total Protein 6.5 (6.5-8.0) g/dL Albumin 3.9 (3.5-5.0) g/dL Ethyl Alcohol 325 H* mg/dL Tests considered The following testing was considered but not selected: CT scan of the head to rule out bleed-was done earlier today and does not need to be repeated Discharge Plan Discharge Clinical Impression: Alcoholic intoxication, Microcytic anemia Patient Disposition: Still a Patient Instructions: Iron Deficiency Anemia (ED), Alcohol Use Disorder (ED) Additional Instructions: Your alcohol level was very high at 325. The legal limit of intoxication is 80. If you continue to drink alcohol like this you will developed cirrhosis of the liver and from liver failure. You are anemic, this is most likely caused by inflammation of your stomach from drinking too much alcohol (alcoholic gastritis) You need to take the iron supplement, ferrous sulfate 325 mg pills, 1 pill 3 times a day for 3 months. This medication can be purchased in any pharmacy. You should also take a multivitamin with thiamin and folate once a day. Follow-up with your doctor in 2 days. Please return to the emergency department if your symptoms get worse or if you develop any symptoms that are concerning to you.
[2022-06-24 00:20] VITALS: BP 105/73; PULSE 84; TEMP 36.4; O2SAT 94
[2022-06-24] MEDS: PHENobarbitaL 15 MG TABLET PO (02:35)
[2022-06-24 03:45] LABS: Amphetamine Screen Urine Not Detected (Not Detect); Barbiturates, Urine POSITIVE (Not Detect); Benzodiazepines Screen Urine Not Detected (Not Detect); Cannabinoid Screen Urine Not Detected (Not Detect); Cocaine Screen Urine Not Detected (Not Detect); Fentanyl, urine POSITIVE (Not Detect); Opiate Screen Urine Not Detected (Not Detect); Phencyclidine Screen Urine Not Detected (Not Detect)
[2022-06-24 03:50] VITALS: BP 97/68; PULSE 103; TEMP 36.6; O2SAT 96
[2022-06-24 06:01] VITALS: BP 123/81; PULSE 104; TEMP 36.8; O2SAT 94
[2022-06-24 07:53] VITALS: BP 144/95; PULSE 94; RESP 14; TEMP 36.8; O2SAT 93
--- NOTE | 2022-06-24 08:24 | PC.NURSE ---
Pts clothes were washed, obtained clothes from dryer and given to patient. Pt ambulated with strong steady gait in ED. MD Calvert aware.
== END 2022-06-24 08:38 | disposition home or self-care (01) ==
PROVIDERS: Emergency Medicine Emergency Medical Services; Emergency Provider Emergency Medicine
DX: F10.220 Alcohol dependence with intoxication, uncomplicated (principal); R40.0 Somnolence; Y90.8 Blood alcohol level of 240 mg/100 ml or more; D50.9 Iron deficiency anemia, unspecified; F11.10 Opioid abuse, uncomplicated; Z91.81 History of falling
CPT/HCPCS: 36415; 70450; 72125; 80048; 80053; 80076; 80307; 82077; 82550; 83735; 85025; 85610; 85730; 99284; 99285

== ENCOUNTER 2022-06-24 20:37 | Emergency (ER) | payer MEDICARE, MEDICAID, SELFPAY ==
--- NOTE | ~2022-06-24 | CT_ITS ---
EXAMINATION: CT CHEST WITHOUT CONTRAST CLINICAL INFORMATION: Pain after fall COMPARISON: None TECHNIQUE: Multidetector volumetric CT imaging of the chest was done. Axial MIP volume rendering provided. Sagittal and coronal reformatted images were obtained. This CT examination was performed using dose optimization techniques as appropriate, variously including the following: *Automated exposure control *Adjustment of mA and/or kV according to patient size (this includes techniques or standardized protocols for targeted exams where dose is matched to indication/reason for exam; i.e. extremities or head) *Use of iterative reconstruction technique DLP: 1337 mGy-cm FINDINGS: LUNGS: Bullous changes are present at the apices suggesting COPD. Scattered calcified granulomas are present in both lungs. There is a 9 x 7 x 12 mm nodule present in the left lower lobe (7:398). Bandlike atelectasis present at the right lung base. MEDIASTINUM: Thyroid appears normal. No mediastinal or hilar lymphadenopathy is seen. The aorta appears mildly dilated with maximal transverse dimension of 3.9 cm. When measurements are made perpendicular to a center line there are about 3 mm smaller at 3.6 cm. No mediastinal hemorrhage CORONARY ARTERY CALCIFICATION: None visualized on this study. PLEURA: There is no pleural effusion. No pleural mass or thickening. AXILLA: No lymphadenopathy. UPPER ABDOMEN: Unremarkable. OSSEOUS STRUCTURES: No fractures are seen. Degenerative changes are present in the cervical spine. CT/CT chest wo IV con IMPRESSION: 1. No evidence of an acute traumatic injury in the chest. 3. 9 x 7 x 12 mm left lower lobe lung nodule. Repeat CT in 3 months (see below). 4. Mildly dilated ascending aorta with maximal dimension somewhere between 3.7 and 3.9 cm. Upper limits of normal for patient of 57 years of age would be 4.0 cm. 2017 Fleischner Society Recommendations for Lung Nodule(s): Follow-Up based on size (average of long- and short-axis diameters). Use most suspicious nodule for followup. Single Solid lung nodule > 8 mm: Consider non-contrast Chest CT at 3 months, PET/CT, or tissue sampling. These guidelines do not apply to patients younger than 35 years, immunocompromised patients, and patients with cancer. F/u in patients with significant comorbidities as clinically warranted. For lung cancer screening, adhere to Lung-RADS guidelines. Reference: Radiology. 2017 Dec; 284(1):228-243 Normal aortic diameters (in millimeters) Ascending aorta: 31+0.16 x age. Descending aorta: 21+0.16 x age. Reference: Scandinavian Cardiovascular J 2005; 40 (3): 175-178
--- NOTE | ~2022-06-24 | CT_ITS ---
EXAMINATION: HEAD CT WITHOUT CONTRAST CERVICAL SPINE CT WITHOUT CONTRAST CLINICAL INFORMATION: Neck pain. Fall with head strike. COMPARISON: 06/23/2022 TECHNIQUE: Contiguous axial imaging of the head was performed without the administration of IV contrast. Axial multidetector volumetric images were also performed through the cervical spine without intravenous contrast. Multiplanar reconstructed images in coronal and sagittal orientations were submitted. This CT examination was performed using dose optimization techniques as appropriate, variously including the following: *Automated exposure control *Adjustment of mA and/or kV according to patient size (this includes techniques or standardized protocols for targeted exams where dose is matched to indication/reason for exam; i.e. extremities or head) *Use of iterative reconstruction technique DOSE: 1525 mGy-cm FINDINGS: HEAD: There is no evidence of acute intracranial hemorrhage or territorial infarction. No abnormal mass-effect or midline shift. No extra-axial fluid collections. Khan to white matter differentiation is well preserved. Moderate enlargement of the ventricles, sulci, and extra-axial CSF spaces is indicative of parenchymal volume loss. Multiple areas of hypoattenuation in the subcortical and periventricular white matter are most consistent with mild chronic microvascular ischemic changes. Chronic changes of prior left pterional craniotomy. Plate and screw fixation construct in the imaged portion of the right mandible. Cerclage wires are present at the right inferior orbital rim with chronic posttraumatic deformity at the green of the inferior orbit and maxillary sinus. Chronic partial opacification of the right maxillary sinus, unchanged. Old nasal bone fracture. Paranasal sinuses are otherwise clear. Mastoid air cells are clear. No acute soft tissue abnormalities. Dehiscence of the right lamina papyracea is chronic and unchanged. Chronic appearing prominence of the soft tissue at the calvarial vertex posteriorly. No subgaleal hematomas. CERVICAL SPINE: Vertebral body heights are normal. No fractures of the vertebral bodies or posterior elements. Reversal of the normal cervical lordosis is likely positional or degenerative. No vertebral body or posterior element subluxation. Degenerative changes are present at the craniocervical and atlantoaxial articulations, though normal alignment is maintained. There is ankylosis at the C6 and C7 vertebral bodies and facet joints and at the C3-C4 facet joints. Multilevel degenerative disc disease is most notable at C4-C5 and C5-C6 with loss of vertebral disc height, endplate osteophytes, endplate irregularity, and uncovertebral osteophytes. Facet arthropathy is most notable at C7-T1 and at C4-C5. Posterior disc osteophyte complexes at C5-C6 and C6-7 produce at least mild to moderate central canal stenoses at these levels. Multilevel neural foraminal stenoses are produced by facet and uncovertebral osteophytes, most notably on the right at C4-C5. No significant paravertebral soft tissue swelling. Atherosclerotic calcifications are present in the carotid arteries. Paraseptal blebs are again seen at the lung apices. CT/CT cervical spine wo IV con IMPRESSION: 1. No acute intracranial pathology. 2. No acute fracture or acute malalignment in the cervical spine. 3. Multilevel degenerative spondylosis in the cervical spine, unchanged.
--- NOTE | ~2022-06-24 | CT_ITS ---
EXAMINATION: CT ABDOMEN AND PELVIS WITHOUT CONTRAST CLINICAL INFORMATION: Abdominal discomfort status post fall. COMPARISON: CT chest from the same date. TECHNIQUE: Multidetector volumetric imaging was performed from the superior aspect of the liver through the pubic symphysis. Sagittal and coronal reformatted images were obtained on the technologist's workstation. This CT examination was performed using dose optimization techniques as appropriate, variously including the following: *Automated exposure control. *Adjustment of mA and/or kV according to patient size (this includes techniques or standardized protocols for targeted exams where dose is matched to indication/reason for exam; i.e. extremities or head). *Use of iterative reconstruction technique. DLP: 1338 mGy-cm FINDINGS: LUNG BASES: Mild dependent atelectasis. In the posterior segment of the left lower lobe, there is an oblong solid nodule measuring 11 mm in average diameter. Mild surrounding atelectasis. Pleural-parenchymal scarring is evident in the anterior basilar segment of the left lower lobe. There is a linear band of pleural-parenchymal scarring in the right lower lobe as well. No effusion. LIVER, GALLBLADDER, AND BILIARY TREE: The liver is normal in size, shape, and attenuation. No focal hepatic lesion or biliary ductal dilatation is present. The gallbladder is unremarkable with no evidence of radiopaque gallstones, gallbladder wall thickening, or obvious pericholecystic inflammatory changes. PANCREAS: Multiple calcifications are evident in the uncinate process of the pancreas as well as the head, potentially corresponding to sequela of chronic pancreatitis. Pancreas otherwise normal in appearance. No ductal dilatation. No appreciable focal lesions. SPLEEN: Unremarkable. ADRENAL GLANDS: Unremarkable. KIDNEYS AND URETERS: Multiple bilateral renal cysts are identified. The largest on the right measures 1.9 cm in diameter. Assessment of attenuation values is somewhat limited by streak artifact. These cysts are indeterminate based on these images. Kidneys normal in size. No nephrolithiasis or hydronephrosis. BLADDER: Unremarkable. GASTROINTESTINAL TRACT: There is circumferential wall thickening of the distal esophagus, potentially due to esophagitis. Stomach, small bowel, and colon are normal in caliber. Moderate sigmoid diverticulosis. No evidence of acute diverticulitis. Normal appendix. No intraperitoneal free fluid or free air. ABDOMINAL WALL: No significant hernia is appreciated. LYMPH NODES: Normal. VASCULAR: Mild calcific atherosclerosis at the ostia of the major splanchnic branches of the abdominal aorta. No aneurysmal dilatation. PELVIC VISCERA: Dystrophic calcifications in the central prostate gland. No acute findings. OSSEOUS STRUCTURES: Multilevel degenerative disc disease and facet arthropathy throughout the lumbar spine with increased kyphosis at the thoracolumbar junction. There is retrolisthesis of L3 on L4 by 3 mm with moderate disease of degenerative disc disease at this level. More uphs-ad-lonbssum degenerative disc disease at other levels. Multilevel facet arthropathy is noted throughout the lumbar spine. Minimal osteoarthritis in the hips and SI joints. No acute osseous findings. Old healed left L3 transverse process fracture. CT/CT abdomen pelvis wo IV con IMPRESSION: 1. No acute intra-abdominal or intrapelvic abnormalities. 2. Multiple pancreatic calcifications, potentially corresponding to sequela of chronic pancreatitis. 3. A 11 mm solid nodule in the left lower lobe. According to the UPDATED 2017 Fleischner Society recommendations, the advised follow-up imaging for a single solid nodule measuring 8 mm or greater is: Consider CT, PET/CT, or tissue sampling at 3 months. 4. Moderate sigmoid diverticulosis without evidence of acute diverticulitis. 5. Multilevel degenerative spondylosis in the lumbar spine. Fleischner guidelines were followed.
[2022-06-24 20:49] VITALS: BP 106/73; BP 162/78; PULSE 82; PULSE 86; RESP 16; TEMP 37.1; O2SAT 96; O2SAT 98; BMI 25.7
--- NOTE | 2022-06-24 20:53 | ECG_ITS ---
Test Reason : ALCOHOL ABUSE Blood Pressure : / mmHG Vent. Rate : 081 BPM Atrial Rate : 081 BPM P-R Int : 184 ms QRS Dur : 142 ms QT Int : 418 ms P-R-T Axes : 076 069 059 degrees QTc Int : 485 ms Normal sinus rhythm Right bundle branch block Abnormal ECG No previous ECGs available Referred By: Ruthie Chen Electronically Signed By:Kwaku Higgins
--- OUTSIDE RECORDS SUMMARY | 2022-06-24 21:01 | XMS_ITS ---
:1965 Author Care Team Providers Name Role Phone [facility] ([facility]) OTHER [phone] Allergies Code Code System Name Reaction Severity [...]
--- NOTE | 2022-06-24 21:21 | ED.ALCOHOL ---
HPI - Alcohol General Chief Complaint: ETOH/Substance Use Stated Complaint: ETOH WITH FALL Time Seen by Provider: 06/24/22 20:51 Source: patient Mode of arrival: ambulatory Limitations: other (intoxication) History of Present Illness HPI narrative: 57 year old male hx of alcohol abuse, on xerelto fo unknown reason per patient presenting to the emergency department via ambulance status post fall on bus, patient reports he lost consciousness and sustained head strike. He tells me he does not know how he fell. Patient very intoxicated unable to tell me when his last drink was however smells like alcohol. Patient poor historian. Unclear medical history. Denies medical complaints at this time. Related Data Allergies Allergy/AdvReac Type Severity Reaction Status Date / Time naproxen [NAPROXEN] Allergy Intermediate RASH Verified 06/24/22 06:10 Penicillins Allergy Anaphylaxis Verified 06/24/22 06:10 Review of Systems Review of Systems: Yes Unobtainable due to mental status PMFSH Past Medical History Attestation statement: The following information was validated with the patient. Source: old records reviewed and nursing notes reviewed Social History Social History Alcohol intake: current Alcohol intake frequency: 3 or more drinks per day Alcohol type: hard liquor Smoked in Last 30 Days: No Use of substances other than those prescribed or required for medical reasons: No Advance Directives: No Advance Directives Information Provided: No Physical Exam ED Vital Signs: Vital Signs - 24 hr 06/24/22 20:49 06/24/22 22:27 Temperature 98.7 F Pulse Rate 82 82 Respiratory Rate 16 14 Blood Pressure 106/73 120/78 Pulse Oximetry 96 96 Oxygen Delivery Method Room Air Room Air BMI result Body Mass Index 25.7 Vital signs stable Appearance: Alert.? Oriented X3.? No acute distress.? Patient appears unkempt, appears older than stated age. Head: Normocephalic, atraumatic, no step-offs or deformities. 3 cm area of dried blood on the top of the head, no open wounds. Eyes: Pupils equal, round and reactive to light.? ENT: Pharynx normal.? Neck: Normal inspection.? Neck supple.? CVS: Normal heart rate and rhythm.? Pulses normal.? Respiratory: No respiratory distress.? Breath sounds normal.? Abdomen: Soft and nontender.? Skin: Skin warm and dry.? Normal skin color.? Normal skin turgor.? Extremities: No lower extremity edema.? No calf ttp. Global weakness ? Dorsal aspect of digits 2 through 5 on the bilateral hands with superficial abrasions in various stages of healing. Back: No midline tenderness, no C-spine tenderness, full range of motion, no CVA tenderness bilaterally Neuro: Oriented X 3.? No motor deficit.? No sensory deficit. Follows simple commands intermittently, somewhat hostile Course Reevaluation(s) Reevaluation #1: Difficulty obtaining patient's lab secondary to patient being a tough stick, a nursing actively trying to start a line on this patient. Time: 21:27 Reevaluation #2: Patient's CBC appears to be at baseline with a microcytic anemia. Chemistry with low potassium, oral potassium was ordered and given to patient. Patient's troponin negative, EKG showing a right bundle-branch block however no ST elevations or inversions concerning for ischemia. Coags within normal limits. Patient's ethanol level 343 significant for alcohol intoxication. No signs of withdrawal at this time. COVID negative. CT of the head with no acute intracranial pathology. CT of chest with no evidence of acute traumatic injury to the chest, left lower lung nodule noted recommend repeat CT in 3 months. Mildly dilated ascending aorta with maximal dimension between 3.7 and 3.9 cm. Will make patient aware of these findings. And attached him to his discharge for when he is discharged. CT of cervical spine no acute finding. Pending CT of the abdomen and pelvis. Time: 23:26 Reevaluation #3: At this time patient will be placed in physician observation to allow time for patient to become clinically sober. CIWA monitoring has been put in, if CIWA greater than 9 patient will likely require medications. Patient resting comfortably vital signs stable. I will place a substance use disorder evaluation for alcohol, fentanyl and barbiturates. Sign out to Time: 23:28 Medical Decision Making Medical Decision Making MDM Narrative: 2100 57-year-old male presents status post fall with head strike reports he is on blood thinners, patient intoxicated in poor historian. Patient adamantly refusing cervical collar for EMS and for this PA. Upon chart review it appears as though patient was seen here earlier today at 11:22 in the morning. Patient came in with acute alcohol intoxication refuse detox and requested to leave. Upon chart review it is also noted that patient was at [facility] last night at 06:45 after he was found noncommunicative at a bus station with a broken bottle of liquor next him he was given 100 mg of phenobarbital and ultimately discharged same day. His records reveal that he frequently leaves against medical advice Physical exam unkempt male, global weakness, hostile, alert and oriented x3. Dried blood on head and abrasions that are superficial in a sure to bilateral dorsal aspects of digits 2 through 5 on bilateral hands all in various stages of healing. Will obtain trauma scans on this patient. Concerns for possible fracture, dislocation, intracranial hemorrhage. Unable to obtain an accurate NIH stroke scale as patient is extremely intoxicated and is intermittently following commands. Likely alcohol intoxication or polysubstance abuse. Plan at this time scans, lab work. Differential Diagnosis Differential Diagnoses: The differential diagnosis associated with the presentation includes Concerns for possible fracture, dislocation, intracranial hemorrhage. Unable to obtain an accurate NIH stroke scale as patient is extremely intoxicated and is intermittently following commands. Likely alcohol intoxication or polysubstance abuse. Admission/Observation Consideration of admission/observation: Escalation of care including admission/observation considered Possible admission into the hospital Lab Data 06/24/22 21:37 06/24/22 21:37 Labs: Lab Results 06/24/22 06/24/22 06/24/22 Range/Units 21:37 21:37 21:37 WBC (4.8-10.8) X10*3/uL RBC (4.60-5.80) X10*6/uL Hgb (14.0-18.0) g/dl Hct (42.0-52.0) % MCV (80.0-98.0) fL MCH (27.0-33.0) pg MCHC (31.0-36.0) g/dl RDW (11.0-16.0) % Plt Count (160-400) X10*3/uL MPV (9.4-12.4) fL Immature Gran % (Auto) (0.0-0.4) % Neut % (Auto) (45-73) % Lymph % (Auto) (20-40) % [place] % (Auto) (2-11) % Eos % (Auto) (0-4) % Baso % (Auto) (0-2) % Lymph # (Auto) (1.2-4.9) X10*3/uL [place] # (Auto) (0.1-1.2) X10*3/uL Eos # (Auto) (0.0-0.4) X10*3/uL Baso # (Auto) (0.0-0.2) X10*3/uL Abs Immat Gran (auto) (0.00-0.03) X10*3/uL Absolute Neuts (auto) (2.0-8.3) x10*3/uL Absolute Nucleated RBC (0.0-0.012) X10*3/uL Nucleated RBC % (auto) (0.0-0.2) /100WBC PT 10.8 (10.0-13.1) SEC INR 0.9 (0.9-1.1) Sodium 141 (135-145) mmol/L Potassium 3.0 L (3.3-5.1) mmol/L Chloride 103 (96-108) mmol/L Carbon Dioxide 27 (22-29) mmol/L Anion Gap 14 (12-20) BUN 6 L (9-16) mg/dL Creatinine 0.64 (0.5-1.4) mg/dL Estim Creat Clear Calc 139.7 Estimated GFR > 60 Random Glucose 93 (60-115) mg/dL Calcium 8.4 (8.4-10.2) mg/dL Magnesium 1.6 (1.6-2.6) mg/dL Total Bilirubin 0.3 (0.0-1.0) mg/dL AST 43 H (5-37) U/L ALT 31 (0-40) U/L Alkaline Phosphatase 77 (39-117) U/L Troponin I High Sens (<3.5-35.0) ng/L Total Protein 6.2 L (6.5-8.0) g/dL Albumin 3.6 (3.5-5.0) g/dL Ethyl Alcohol 343 H* mg/dL COVID-19 (JOSE G) Negative (Negative) COVID-19 Clin Com See Note 06/24/22 06/24/22 Range/Units 21:37 22:44 WBC 5.3 (4.8-10.8) X10*3/uL RBC 4.49 L (4.60-5.80) X10*6/uL Hgb 10.3 L (14.0-18.0) g/dl Hct 32.8 L (42.0-52.0) % MCV 73.1 L (80.0-98.0) fL MCH 22.9 L (27.0-33.0) pg MCHC 31.4 (31.0-36.0) g/dl RDW 22.9 H (11.0-16.0) % Plt Count 219 (160-400) X10*3/uL MPV 9.1 L (9.4-12.4) fL Immature Gran % (Auto) 0.4 (0.0-0.4) % Neut % (Auto) 46.3 (45-73) % Lymph % (Auto) 42.7 H (20-40) % [place] % (Auto) 7.1 (2-11) % Eos % (Auto) 2.8 (0-4) % Baso % (Auto) 0.7 (0-2) % Lymph # (Auto) 2.3 (1.2-4.9) X10*3/uL [place] # (Auto) 0.4 (0.1-1.2) X10*3/uL Eos # (Auto) 0.2 (0.0-0.4) X10*3/uL Baso # (Auto) 0.0 (0.0-0.2) X10*3/uL Abs Immat Gran (auto) 0.02 (0.00-0.03) X10*3/uL Absolute Neuts (auto) 2.5 (2.0-8.3) x10*3/uL Absolute Nucleated RBC 0.000 (0.0-0.012) X10*3/uL Nucleated RBC % (auto) 0.0 (0.0-0.2) /100WBC PT (10.0-13.1) SEC INR (0.9-1.1) Sodium (135-145) mmol/L Potassium (3.3-5.1) mmol/L Chloride (96-108) mmol/L Carbon Dioxide (22-29) mmol/L Anion Gap (12-20) BUN (9-16) mg/dL Creatinine (0.5-1.4) mg/dL Estim Creat Clear Calc Estimated GFR Random Glucose (60-115) mg/dL Calcium (8.4-10.2) mg/dL Magnesium (1.6-2.6) mg/dL Total Bilirubin (0.0-1.0) mg/dL AST (5-37) U/L ALT (0-40) U/L Alkaline Phosphatase (39-117) U/L Troponin I High Sens < 3.5 (<3.5-35.0) ng/L Total Protein (6.5-8.0) g/dL Albumin (3.5-5.0) g/dL Ethyl Alcohol mg/dL COVID-19 (JOSE G) (Negative) COVID-19 Clin Com Core Measures AMI core measures followed: Yes Measure exclusions: not indicated Medications Administered Discontinued Medications Generic Name Dose Route Start Last Admin Trade Name Freq PRN Reason Stop Dose Admin Potassium Chloride 40 meq 06/24/22 22:08 06/24/22 22:26 Potassium Chloride Packet 20 Meq Packet PO 06/24/22 22:09 40 meq ONCE ONE Administration Critical Care Time Critical Care Time Critical Care Time: No Discharge Plan Discharge Clinical Impression: Alcoholic intoxication, Fall Patient Disposition: Still a Patient Instructions: Alcohol Intoxication (ED), Abuse of Alcohol (ED), Fall Prevention (ED) Additional Instructions: Take your medications as prescribed. If you were prescribed antibiotics today, it is important that you take your medication to their entirety, do not skip any doses, do not finish them early. Follow-up with your primary care provider this week. Return to the emergency department with new or worsening symptoms. Such as fevers, chills, chest pain, shortness of breath, nausea, vomiting, dizziness, headache, vision changes, lethargy In case of emergency call 911 CT/CT chest wo IV con IMPRESSION: 1. No evidence of an acute traumatic injury in the chest. 3. 9 x 7 x 12 mm left lower lobe lung nodule. Repeat CT in 3 months (see below). 4. Mildly dilated ascending aorta with maximal dimension somewhere between 3.7 and 3.9 cm. Upper limits of normal for patient of 57 years of age would be 4.0 cm. 2017 Fleischner Society Recommendations for Lung Nodule(s): Follow-Up based on size (average of long- and short-axis diameters). Use most suspicious nodule for followup. Single Solid lung nodule > 8 mm: Consider non-contrast Chest CT at 3 months, PET/CT, or tissue sampling. CT/CT head/brain wo IV con IMPRESSION: 1.? No acute intracranial pathology. 2.? No acute fracture or acute malalignment in the cervical spine. 3.? Multilevel degenerative spondylosis in the cervical spine, unchanged. ? Interventions: [place]-Suicide Risk Severity Scale Last Done: 06/24/22 22:27
[2022-06-24 22:00] LABS: Alanine Aminotransferase 31 U/L (0-40); Albumin Level 3.6 g/dL (3.5-5.0); Alkaline Phosphatase 77 U/L (39-117); Anion Gap 14 (12-20); Aspartate Amino Transferase 43 U/L (5-37); Bilirubin Total 0.3 mg/dL (0.0-1.0); Blood Urea Nitrogen 6 mg/dL (9-16); Calcium 8.4 mg/dL (8.4-10.2); Carbon Dioxide 27 mmol/L (22-29); Chloride 103 mmol/L (96-108); Creatinine Clr Calc Pharmacy 139.7; Estimated Glomerular Filt Rate > 60; Ethanol 343 mg/dL; Glucose Random 93 mg/dL (60-115); INTERNATIONAL NORM RATIO 0.9 (0.9-1.1); Magnesium 1.6 mg/dL (1.6-2.6); Prothrombin Time 10.8 SEC (10.0-13.1); Sodium 141 mmol/L (135-145); Total Protein 6.2 g/dL (6.5-8.0)
[2022-06-24 22:05] LABS: COVID-19 Test Negative (Negative); IDNOW Serial# 6674DD1D
[2022-06-24 22:07] LABS: Troponin-I High Sensitivity < 3.5 ng/L (<3.5-35.0)
[2022-06-24] MEDS: Potassium Chloride Packet 20 MEQ PACKET 40 MEQ PO (22:26)
[2022-06-24 22:27] VITALS: BP 120/78; PULSE 82; RESP 14; O2SAT 96
[2022-06-24 22:52] LABS: Basophils Percent Auto 0.7 % (0-2); Eosinophils Absolute Auto 0.2 X10*3/uL (0.0-0.4); Eosinophils Percent Auto 2.8 % (0-4); Hematocrit 32.8 % (42.0-52.0); Hemoglobin 10.3 g/dl (14.0-18.0); Imm Gran Abs Auto 0.02 X10*3/uL (0.00-0.03); Imm Gran Pct Auto 0.4 % (0.0-0.4); Lymphocytes Absolute Auto 2.3 X10*3/uL (1.2-4.9); Lymphocytes Percent Auto 42.7 % (20-40); Mean Corpuscular HGB Conc 31.4 g/dl (31.0-36.0); Mean Corpuscular Hemoglobin 22.9 pg (27.0-33.0); Mean Corpuscular Volume 73.1 fL (80.0-98.0); Mean Platelet Volume 9.1 fL (9.4-12.4); Monocytes Absolute Auto 0.4 X10*3/uL (0.1-1.2); Monocytes Percent Auto 7.1 % (2-11); Neutrophils Absolute Auto 2.5 x10*3/uL (2.0-8.3); Neutrophils Percent Auto 46.3 % (45-73); Platelet Count 219 X10*3/uL (160-400); Red Blood Count 4.49 X10*6/uL (4.60-5.80); Red Cell Distribution Width 22.9 % (11.0-16.0); White Blood Count 5.3 X10*3/uL (4.8-10.8)
--- NOTE | 2022-06-24 23:00 | PC.NURSE ---
Unable to establish IV line by 3 nurse attempts. Pt req Ativan. MLP aware.
[2022-06-24 23:04] LABS: MANUAL DIFF FLAG NO
[2022-06-24] MEDS: LORazepam 1 MG TABLET PO (23:37)
--- NOTE | 2022-06-24 23:40 | PC.NURSE ---
Pt resting/sleeping at the bedside in no apparent distress. CIWA: 5. Pt medicated as ordered. Will continue to monitor.
[2022-06-25] VITALS (8 sets, daily range): BP systolic 106–128; BP diastolic 66–91; PULSE 81–100; RESP 14–19; TEMP 36.6–36.7; O2SAT 95–99
--- NOTE | 2022-06-25 01:02 | PC.NURSE ---
Pt sleeping at the bedside in no apparent distress. Breaths are even and unlabored. NSR on monitor with HR at 77. Will continue to monitor.
--- NOTE | 2022-06-25 03:52 | PC.NURSE ---
Pt sleeping in no apparent distress. Breaths are even and unlabored with equal chest rises. NSR on monitor with HR 80. Will continue to monitor.
--- NOTE | 2022-06-25 05:52 | PC.NURSE ---
Pt continues to sleep at the bedside. Breaths even and unlabored. No apparent distress noted. Will continue to monitor.
--- NOTE | 2022-06-25 06:07 | PC.NURSE ---
Pt awake and alert. Reports feeling alcohol withdrawal. CIWA = 9. MD aware.
[2022-06-25] MEDS: chlordiazePOXIDE HCl 25 MG CAPSULE PO ×3 (07:31→16:19)
--- NOTE | 2022-06-25 07:36 | PC.NURSE ---
pt is a/o x 4 no sob/nicolás noted speaks in full sentences. lungs - exp wheezing all lobes. heart sounds regular. abd soft and tender, bs + x 4 quad. 9/10 pain to llq abd pain with rebound tenderness. pt c/o l kidney pain 10/10. no edema noted. pt to be seen by care team, pt aware of plan of care.
[2022-06-25 08:17] LABS: Appearance Urine Clear; Color Urine Yellow; Glucose Urine UA Negative (Negative); Leukocyte Esterase Urine Negative (Negative); Nitrite Urine Negative (Negative); PH 6.5 (5.0-9.0); UMIC TRIGGER UACC YES; Urine Blood Small (1+) (Negative); Urine Ketones Negative (Negative); Urine Protein Trace mg/dL (Neg-Trace)
[2022-06-25 08:24] LABS: Bacteria Urine None Seen (None Seen); Hyaline Casts Urine 0-2 /LPF (0-2); Squamous Epithelial Cell Urine 0-2 /HPF (0-2); WBC Urine 0-5 /HPF (0-5)
[2022-06-25 08:26] LABS: Amphetamine Screen Urine Not Detected (Not Detect); Barbiturates, Urine POSITIVE (Not Detect); Benzodiazepines Screen Urine Not Detected (Not Detect); Cannabinoid Screen Urine Not Detected (Not Detect); Cocaine Screen Urine Not Detected (Not Detect); Fentanyl, urine POSITIVE (Not Detect); Opiate Screen Urine Not Detected (Not Detect); Phencyclidine Screen Urine Not Detected (Not Detect)
--- NOTE | 2022-06-25 09:45 | MHC.RECOVRN ---
This typewriter assembler met w/ patient after consult placed. Patient in bed, visibly tremulous. Patient reports drinking daily 1/2 gallon alcohol for past many months. Patient reports daily heroin use, 1 bundle IN daily. Patient reports history of ETOH seizures, most recent last week. Patient reports history of auditory/visual hallucinations when withdrawing. Patient reports history opiate overdose, 10 in past year. Patient reports opiate use since age 17 years. In the past patient has been through all levels of treatment, ATS, CSS, TSS. Patient requesting detox. COWS 9, CIWA 17. Patient reporting anxiety, sweats/cold chills, pins and needles, visible tremors. Provider aware. Detox bedsearch started.
[2022-06-25] MEDS: Lidocaine 4 % Patch ADH..PATCH 1 PATCH TRANSDERMA (10:23)
[2022-06-25] MEDS: oxyCODONE HCl Immed Release 5 MG TABLET 10 MG PO (10:23)
--- NOTE | 2022-06-25 15:32 | MHC.RECOVRN ---
Pt accepted to [facility]. Case discussed with ED provider as well as Brandi Arguelles APRN. Expressed concerns regarding pt traveling to [place] in a Lyft due to withdrawal symptoms. ED provider will order medication for withdrawal prior to dc and feels pt is safe to travel. Will be transported via Ly[employer].
[2022-06-25] MEDS: LORazepam 1 MG TABLET 2 MG PO (16:10)
== END 2022-06-25 16:19 | disposition home or self-care (01) ==
PROVIDERS: Physician Assistant; Emergency Provider Internal Medicine
DX: F10.129 Alcohol abuse with intoxication, unspecified (principal); Y90.8 Blood alcohol level of 240 mg/100 ml or more; M54.2 Cervicalgia; M54.6 Pain in thoracic spine; R51.9 Headache, unspecified; Z20.822 Contact with and (suspected) exposure to COVID-19; Z20.828 Contact with and (suspected) exposure to other viral communicable diseases; Z79.899 Other long term (current) drug therapy
CPT/HCPCS: 36415; 70450; 71250; 72125; 74176; 80053; 80307; 81001; 82077; 83735; 84484; 85025; 85610; 87635; 93005; 99285

== ENCOUNTER 2022-07-02 10:46 | Emergency (ER) | payer MEDICARE, MEDICAID, SELFPAY ==
[2022-07-02 10:51] VITALS: BP 106/72; BP 108/72; PULSE 100; PULSE 90; RESP 16; TEMP 37.7; O2SAT 94; O2SAT 96; BMI 25.7
--- NOTE | 2022-07-02 11:11 | ED_ITS ---
HPI - Overdose General Chief Complaint: Overdose Stated Complaint: HEROIN USE Time Seen by Provider: 07/02/22 11:05 Source: patient Mode of arrival: EMS Limitations: no limitations History of Present Illness HPI Narrative: 57-year-old male who presents emergency department for evaluation of an unintentional overdose. The patient was found unresponsive next to a liquor store by bystanders. The paramedics did give him 2 mg of intranasal Narcan and the patient woke up. He reports drinking alcohol and using fentanyl. The patient told me that he drinks a gal of vodka per day. He also states that he snorts 10 bags fentanyl or heroin daily. This is his 4th visit this month for alcohol intoxication. When the patient arrived in the emergency department he was very belligerent, refused to stay on the stretcher and demanded that we would let him leave the hospital. Related Data Allergies Allergy/AdvReac Type Severity Reaction Status Date / Time naproxen [NAPROXEN] Allergy Intermediate RASH Verified 07/02/22 11:00 Penicillins Allergy Anaphylaxis Verified 07/02/22 11:00 Review of Systems Review of Systems: Yes all other systems are reviewed and are negative [facility] Past Medical History [facility] Narrative: Past medical history: Alcohol use disorder, rhabdomyolysis, hypokalemia, atrial fibrillation. Social history: Patient states he is homeless. He drinks 1 gal of vodka per day. He smokes cigarettes. He uses 10 bags of fentanyl or heroin intranasally daily Social History Social History Alcohol intake: current Alcohol intake frequency: 3 or more drinks per day Alcohol type: hard liquor Use of substances other than those prescribed or required for medical reasons: Yes Substance Use Type: Heroin Advance Directives: No Advance Directives Information Provided: No Physical Exam Vital Signs: Vital Signs: Last Vital Signs Temp 99.9 F 07/02/22 10:51 Pulse 100 07/02/22 10:51 Resp 16 07/02/22 10:51 BP 106/72 07/02/22 10:51 Pulse Ox 94 07/02/22 10:51 O2 Del Method 07/02/22 10:51 BMI result Body Mass Index 25.7 Const: Other: The patient is awake and alert, is disheveled, he is uncooperative, he is yelling loudly and demanding that we let him leave, he has refused to get undressed HEENT: Head: Yes normal to inspection, Yes normocephalic and Yes atraumatic Ears: external ears normal General nose exam: Normal external nose present Face and sinus: Yes normal facial exam Mouth: Normal oral and palatal mucosa present Throat: Yes posterior oropharynx normal Eyes: General: appearance normal, both eyes and all related structures Pupils: Equal, round and reactive pupils present Neck: Neck: Yes normal visual inspection, Yes no lymphadenopathy, Yes trachea midline and Yes supple Chest: Chest palpation & inspection: normal inspection of the chest and normal palpation of entire chest wall Resp: Effort & Inspection: normal respiratory effort and able to speak in complete sentences Auscultation: clear to auscultation bilaterally Cardio: Rate: regular rate Rhythm: regular rhythm Heart sounds: S1 normal heart sound present, S2 normal heart sound present and no murmurs GI: Inspection: Yes normal to inspection Palpation (GI): Soft to palpation, nontender and no guarding Auscultation: normal bowel sounds : General: Yes no CVA tenderness Back/Spine/Pelvis: Back: no CVA tenderness Skin: General skin exam: no rashes or lesions noted Neuro: Other: Oriented to person and place Cranial nerves: Yes CN's II-XII intact bilaterally and Yes Equal, round and reactive pupils present Motor exam (neuro): 5/5 motor strength present throughout Extrem: General: Yes normal to inspection Medical Decision Making Medical Decision Making MDM Narrative: 57-year-old male who was brought to emergency department for evaluation with unintentional opiate overdose which responded to intranasal Narcan and for drinking alcohol. This is the patient's 4th visit this month for alcohol use disorder and opiate use disorder complications. The patient states that he does not want a stay here in the hospital he wants to leave so he can continue to drink. Patient is oriented to person and place, he understands the consequences of leaving without being fully evaluated. I did discuss with him the fact that the opiate that he used intranasally could last longer than Narcan and that if he leaves he could pass out, stop breathing and . Patient understood this discussion and still wants to leave against medical advice. The patient was discharged and advised to seek help for his polysubstance use disorder and his alcohol use disorder. Differential Diagnosis The differential includes was not limited to acute alcohol intoxication, opiate narcosis, head injury, cerebral bleed, pneumonia Discharge Plan Discharge Clinical Impression: Drug overdose, Alcohol intoxication, Left against medical advice Patient Disposition: Home, Self-Care Additional Instructions: You presented with an overdose caused by the fentanyl that you she snorted today Your also intoxicated I recommended that you stay in the hospital for at least 2-4 hours so that we could observe you a make sure that you do not pass out again from the fentanyl that he took however you do not want a stay in the emergency department You are able to understand the risks of leaving which include dying from alcohol intoxication or drug overdose. Despite this discussion you still want to leave. You are leaving against medical advice. If you change your mind and want to be treated here in the emergency department please return to the emergency department Follow-up with your doctor in 2 days. Please return to the emergency department if your symptoms get worse or if you develop any symptoms that are concerning to you. Stand Alone Forms: Against Medical Advice Interventions: [place]-Suicide Risk Severity Scale Last Done: 07/02/22 11:00 ED Discharge Assessment Last Done: 07/02/22 11:37 Discharge Date/Time: 07/02/22 11:37
--- NOTE | 2022-07-02 11:31 | PC.NURSE ---
MD and RN spoke to pt who initially stated he wanted to stay to look for help at [facility]. When pt was told he needed to be changed over, receive labs, urine and be seen by the care team pt then changed his mind stating I don't want to wait around for all that bullshit.. let me out of here, Ill sign the AMA. Pt walked for MD, stated he knew the risks of leaving and that he would come back if he changed his mind.
[2022-07-03 10:23] LABS: Glucose, Whole Blood 130 mg/dL (60-115)
== END 2022-07-02 11:37 | disposition home or self-care (01) ==
PROVIDERS: Emergency Provider Emergency Medicine Emergency Medical Services
DX: T40.1X1A Poisoning by heroin, accidental (unintentional), initial encounter (principal); Y92.9 Unspecified place or not applicable; F10.129 Alcohol abuse with intoxication, unspecified; Y90.9 Presence of alcohol in blood, level not specified
CPT/HCPCS: 82947; 99283

== ENCOUNTER 2022-07-02 13:34 | Emergency (ER) | payer MEDICARE, MEDICAID, SELFPAY ==
--- NOTE | ~2022-07-02 | XR_ITS ---
EXAMINATION: XR CHEST CLINICAL INFORMATION: Desaturation COMPARISON: CT chest 06/24/2022 TECHNIQUE: Portable upright AP view of the chest was obtained. FINDINGS: No hyperinflation, pneumothorax, or pleural reaction. Heart size normal. Vascularity normal. There is subsegmental linear disc atelectasis left lateral base. There is subtle groundglass opacities right mid and lower zone possibly early airspace consolidation. There is no lobar or segmental airspace consolidation or air bronchograms. XR/XR chest 1V IMPRESSION: 1. Subtle groundglass opacities right mid and lower zone possibly early airspace consolidation. 2. Disc atelectasis left lateral base. 3. No hyperinflation, pneumothorax, or pleural reaction.
--- NOTE | ~2022-07-02 | CT_ITS ---
EXAMINATION: CT CHEST, ABDOMEN AND PELVIS WITH CONTRAST. CLINICAL INFORMATION: Reason for Exam ?fall EtOH on Xarelto . COMPARISON: No pertinent prior studies are available for comparison. TECHNIQUE: Multidetector volumetric imaging was performed from the thoracic inlet through the pubic symphysis following the administration of: Oral contrast: No Intravenous contrast: 85 mL Omnipaque 350 No contrast reaction reported Sagittal and coronal reformatted images were obtained on the technologist workstation. In addition, thin section, high resolution reconstruction, targeted reformatted images through the thoracic and lumbar spine were obtained with coronal and sagittal high resolution reformatted images as well. This CT examination was performed using dose optimization techniques as appropriate, variously including the following: *Automated exposure control *Adjustment of mA and/or kV according to patient size (this includes techniques or standardized protocols for targeted exams where dose is matched to indication/reason for exam; i.e. extremities or head) *Use of iterative reconstruction technique Total exam dose-length product 293 mGy-cm FINDINGS: CHEST: VASCULAR: The aorta is normal; no evidence of dissection, aneurysm, or traumatic aortic injury. The central pulmonary arteries enhance normally. AORTIC ISTHMUS: Normal. MEDIASTINUM: There is fluid in the superior pericardial recess, similar to that seen on 06/24/2022 No mediastinal fluid or hematoma. No hilar or mediastinal lymphadenopathy. LUNG: Bibasilar dependent atelectasis is present. Apical bullae are present. Scattered calcified granulomas are seen. No worrisome lung mass. PLEURA: No pleural effusion. No pneumothorax. No pleural mass or thickening. CHEST WALL/AXILLA: There is a nondisplaced fracture of the 11th left rib 1.3 cm from the costovertebral junction. No other rib fractures are seen. No chest wall hematoma ABDOMEN/PELVIS : LIVER : The liver is normal in size, shape, and attenuation. No focal hepatic lesion or biliary ductal dilatation is present. GALLBLADDER, AND BILIARY TREE The gallbladder is unremarkable with no evidence of radiopaque gallstones, gallbladder wall thickening, or obvious pericholecystic inflammatory changes. PANCREAS: Normal; no mass or surrounding fluid. SPLEEN: Normal size. No focal lesion. ADRENAL GLANDS: Normal; no mass. KIDNEYS AND URETERS: The kidneys are normal in size, shape, and attenuation. Again seen are bilateral Bosniak class I renal cysts, unchanged. These need no additional imaging or follow-up. There is an area of cortical scarring seen in the mid left kidney at 5:00. No hydronephrosis, hydroureter, or calculi. URINARY BLADDER: No focal mass or wall thickening seen. No bladder calculi. GASTROINTESTINAL TRACT: Stomach and small bowel non-dilated. Colonic diverticulosis without diverticulitis. No colonic wall thickening or pericolonic inflammatory changes. Normal appendix. VASCULAR STRUCTURES: There is no evidence of aortic or iliac injury. The inferior vena cava is intact. ACTIVE BLEEDING: None LYMPH NODES: No lymphadenopathy. The aorta is unremarkable. PELVIC VISCERA: Mild BPH FREE FLUID: None. ABDOMINAL WALL: No significant hernia is appreciated. OSSEOUS STRUCTURES : No clavicle or scapula fracture. See above regarding the 11th left rib fracture. No sternal fracture seen.Normal sagittal alignment of the thoracic and lumbar spine. Degenerative changes are present throughout the spine; no acute compression fracture. Posterior elements intact. No sacral or pelvic fracture, The visualized hips are intact. CT/CT abdomen pelvis w IV con IMPRESSION: 1. Nondisplaced 11th left rib fracture. 2. No other acute traumatic injuries are identified in the chest, abdomen, and pelvis.
--- NOTE | ~2022-07-02 | CT_ITS ---
EXAMINATION: NONCONTRAST HEAD CT NONCONTRAST CERVICAL SPINE CT INDICATION INFORMATION: EtOH, fall COMPARISON: 06/24/2022 TECHNIQUE: Separate noncontrast CT examinations of the head and cervical spine were performed. Coronal and sagittal images were created for each examination at the technologist workstation. This CT examination was performed using dose optimization techniques as appropriate, variously including the following: *Automated exposure control *Adjustment of mA and/or kV according to patient size (this includes techniques or standardized protocols for targeted exams where dose is matched to indication/reason for exam; i.e. extremities or head) *Use of iterative reconstruction technique DLP: 1555 mGy-cm FINDINGS: Head: There is no evidence of acute intracranial hemorrhage or territorial infarction. No abnormal mass effect or midline shift is seen. Khan to white matter differentiation is well preserved. No extra-axial fluid collections are identified. No hydrocephalus. Proportional prominence of the ventricles and sulcal spaces is consistent with mild volume loss. Patchy periventricular and deep white matter hypoattenuation is consistent with moderate small vessel ischemic changes. No acute osseous or soft tissue abnormality. Chronic hyperostotic changes of the right maxillary sinus green with unchanged depression of the right lamina papyracea. Nasal bone deformities are unchanged. Moderate mucosal thickening of the right maxillary sinus. The mastoid air cells and visualized paranasal sinuses are clear. Plate and screw fixation of the right mandible Cervical spine: Straightening of the normal cervical lordosis. No evidence for acute fracture. The atlantooccipital and atlantoaxial articulations are intact. Moderate to advanced degenerative arthropathy throughout the cervical spine. Ankylosis of the C3-C4 and C6-C7 facets. No evidence of acute fracture or subluxation. The vertebral body heights are maintained. Advanced degenerative disc disease at C3-C4 and from C5-T1. Facet and uncovertebral joint arthropathy with unchanged osseous encroachment on the neural foramina from C2-C7. Prevertebral soft tissues unremarkable. The thyroid gland and remaining cervical soft tissues are normal in appearance. Emphysematous changes in the lung apices. CT/CT cervical spine wo IV con IMPRESSION: No acute intracranial process. Moderate microangiopathy and involutional change. No acute abnormality in the cervical spine. Advanced degenerative changes in the cervical spine.
[2022-07-02 13:50] VITALS: BP 100/58; PULSE 86; PULSE 97; RESP 18; TEMP 37; O2SAT 92; O2SAT 97; BMI 25.7
--- NOTE | 2022-07-02 15:35 | ECG_ITS ---
Test Reason : ams Blood Pressure : / mmHG Vent. Rate : 147 BPM Atrial Rate : 000 BPM P-R Int : 000 ms QRS Dur : 130 ms QT Int : 334 ms P-R-T Axes : 000 061 -02 degrees QTc Int : 522 ms Atrial fibrillation with rapid ventricular response Right bundle branch block Abnormal ECG When compared with ECG of 24-JUN-2022 20:57, Atrial fibrillation has replaced Sinus rhythm Vent. rate has increased BY 66 BPM Nonspecific T wave abnormality now evident in Inferior leads Referred By: Laurence Amaya Electronically Signed By:RADHA MUÑOZ MD
[2022-07-02] MEDS: Naloxone HCl Nasal TAKE HOME 4 MG SPRAY NOSTRILALT (16:20)
--- NOTE | 2022-07-02 16:38 | ED_ITS ---
HPI - General Adult General Chief complaint: ETOH/Substance Use Stated complaint: ETOH AND OPIOID USE,SEEN FOR SAME TODAY Time Seen by Provider: 07/02/22 16:02 Source: patient and EMS Mode of arrival: EMS History of Present Illness HPI narrative: 57-year-old male with past medical history of ETOH and substance abuse, on Xarelto for unknown reason, presented to ED via EMS for ETOH intoxication, patient was A&O x4 on EMS arrival, no reported Narcan given. Patient was seen and treated in our ED earlier today for similar symptoms, given Narcan with positive result. On this show card writer's initial evaluation patient diaphoretic, pale, unresponsive to sternal rub, satting in the 40s on RA. history limited due to patient's acute mental status. Onset (ago): unknown Related Data Allergies Allergy/AdvReac Type Severity Reaction Status Date / Time naproxen [NAPROXEN] Allergy Intermediate RASH Verified 07/02/22 11:00 Penicillins Allergy Anaphylaxis Verified 07/02/22 11:00 Review of Systems Review of Systems: ROS limited secondary to patient's acute mental status Yes all other systems are reviewed and are negative Constitutional: Constitutional: Reports as per HPI [facility] Past Medical History Attestation statement: The following information was validated with the patient. Social History Social History Alcohol intake: current Alcohol intake frequency: 3 or more drinks per day Alcohol type: hard liquor Use of substances other than those prescribed or required for medical reasons: Yes Substance Use Type: Heroin Advance Directives: No Advance Directives Information Provided: No Physical Exam ED Vital Signs: Vital Signs - 24 hr 07/02/22 13:50 07/02/22 17:56 07/02/22 20:08 Temperature 98.6 F Pulse Rate 97 92 97 Respiratory Rate 18 13 18 Blood Pressure 100/58 L 102/75 95/61 Pulse Oximetry 92 100 97 Oxygen Delivery Method Room Air Nasal Cannula Nasal Cannula Oxygen Flow Rate 15 3 07/02/22 22:23 07/03/22 00:39 Temperature Pulse Rate 106 H 83 Respiratory Rate 13 14 Blood Pressure 90/63 101/71 Pulse Oximetry 95 94 Oxygen Delivery Method Non-Rebreather Mask Nasal Cannula Oxygen Flow Rate 2 BMI result Body Mass Index 25.7 Const Other: diaphoretic, pale General: patient obtunded Orientation/consciousness: patient obtunded Limitations: no limitations and altered mental status HENMT Head: Yes normal to inspection and Yes atraumatic Ears: hearing grossly normal bilaterally General nose exam: Normal external nose present Face and sinus: Yes normal facial exam Eyes Other: pinpoint reactive pupils bilaterally General: appearance normal, both eyes and all related structures EOM: EOMs intact bilaterally Neck Neck: Yes normal visual inspection and Yes no meningeal signs Resp Effort & Inspection: normal respiratory effort and no respiratory distress Auscultation: clear to auscultation bilaterally Cardio Rate: regular rate Heart sounds: S1 normal heart sound present and S2 normal heart sound present GI Inspection: Yes normal to inspection Palpation (GI): Soft to palpation, nontender, no guarding and not rigid Back/Spine/Pelvis Other: No midline thoracic/lumbar spinous tenderness/step-off or deformity Skin Rashes: no rashes Wounds: no wounds Neuro General: tone normal, moves all extremities, no meningeal signs and patient obtunded Extrem General: Yes normal to inspection Psych Thought content: suicidality and no homicidality Course Course Course Narrative: - on re-evaluation patient with diffuse abdominal tenderness and left CVA tenderness. Will obtain CT chest and abdomen/ pelvis with IV contrast -1828-- H&H stable. Troponin negative. Labs otherwise reassuring. - Tox screen positive for opiates, fentanyl, barbituates, benzos, & ethanol 242 CT head/brain wo IV con/CT cervical spine wo IV con IMPRESSION: No acute intracranial process. Moderate microangiopathy and involutional change. No acute abnormality in the cervical spine. Advanced degenerative changes in the cervical spine. -1899-- on re-evaluation patient easily arousable - will give patient 1 mg of IV Ativan for possible withdrawal and elevated heart rate. >> positive result, heart rate now 89 CT chest w IV con/CT abdomen pelvis w IV con IMPRESSION: 1.? Nondisplaced 11th left rib fracture. 2.? No other acute traumatic injuries are identified in the chest, abdomen, and pelvis. - Patient was evaluated by voice coach and requesting detox, no available detox is this evening will remain in the ED overnight for detox bed search. 2229-- patient was noted again to be increasingly lethargic and unresponsive by assistant community manager, desatting, patient's clothes were at bedside with bags of drugs found. Patient suspected to have used again was given 0.4 of IV Narcan with positive result. Physician observation initiated -0200-- ED care transferred to Dr. Galindo pending detox bedsearch Medications Administered Discontinued Medications Generic Name Dose Route Start Last Admin Trade Name Kayley PRN Reason Stop Dose Admin Chlordiazepoxide HCl 25 mg 07/02/22 21:23 07/02/22 21:51 Chlordiazepoxide Hcl 25 Mg Capsule PO 07/02/22 21:24 25 mg ONCE ONE Administration Folic Acid 1 mg 07/02/22 21:23 07/02/22 21:51 Folic Acid 1 Mg Tablet PO 07/02/22 21:24 1 mg ONCE ONE Administration Sodium Chloride 1,000 mls @ 999 mls/hr 07/02/22 16:45 07/02/22 18:37 Ns IV 07/02/22 17:45 Infused .Q1H1M CRESCENCIO Infusion Lactated Ringer's 1,000 mls @ 999 mls/hr 07/02/22 16:45 07/02/22 20:09 Lr IV 07/02/22 17:45 Infused .Q1H1M CRESCENCIO Infusion Lactated Ringer's 1,000 mls @ 999 mls/hr 07/02/22 21:30 07/02/22 21:56 Lr IV 07/02/22 22:30 999 mls/hr .Q1H1M CRESCENCIO Administration Iohexol 100 ml 07/02/22 18:20 07/02/22 18:24 Iohexol 350 Mg/Ml 100 Ml Infus..Btl IV 07/02/22 18:21 85 ml ONCE ONE Administration Lidocaine 1 patch 07/02/22 21:26 07/02/22 21:51 Lidocaine 4 % Patch Adh..Patch TRANSDERMA 07/02/22 21:27 1 patch ONCE ONE Administration Protocol Lorazepam 1 mg 07/02/22 19:40 07/02/22 19:45 Lorazepam 2 Mg/Ml Vial IVPUSH 07/02/22 19:41 1 mg STAT STA Administration Multivitamins/Vitamin C 1 tab 07/02/22 21:23 07/02/22 21:51 Multivitamin Tablet PO 07/02/22 21:24 1 tab ONCE ONE Administration Naloxone HCl 4 mg 07/02/22 16:13 07/02/22 16:20 Naloxone Hcl Nasal Take Home 4 Mg [place] NOSTRILALT 07/02/22 16:14 4 mg ONCE ONE Administration Naloxone HCl 0.4 mg 07/02/22 22:39 07/02/22 22:41 Naloxone Hcl 0.4 Mg/Ml Vial IVPUSH 07/02/22 22:40 0.4 mg ONCE ONE Administration Thiamine HCl 100 mg 07/02/22 21:23 07/02/22 21:51 Thiamine Hcl 100 Mg Tablet PO 07/02/22 21:24 100 mg ONCE ONE Administration Medical Decision Making Medical Decision Making MDM Narrative: 57-year-old male with past medical history of ETOH and substance abuse, on Xarelto for unknown reason, presented to ED via EMS for ETOH intoxication, patient was A&O x4 on EMS arrival, no reported Narcan given. On this show card writer's initial evaluation patient diaphoretic, pale, unresponsive to sternal rub, satting in the 40s on RA > 4 mg of intranasal Narcan given w/o much improvement, non-rebreather and nasal cannula placed, IV established, patient became more responsive, verbal, tachycardic, admitted to drinking a lot & snorting cocaine and heroin. Denies SI/HI. Unknown injury/ fall or trauma. EKG AFib with RVR at a rate of 147, suspect withdrawal vs patient w/hx Afib w/being on Xarelto, but no documented history. No rate control medications on fill history from pharmacy. No evidence of trauma. Suspect patient used illicit substances in the ED bathroom as reportedly was yelling and screaming at staff after his arrival. Concern for ICH/fracture and metabolic abnormalities vs substance abuse low suspicion for severe sepsis time, tachycardia likely from substance abuse/potential withdrawal plan: EKG, labs, CXR, head/ C-spine CT, UA, drug screen, IVF, re-evaluate Differential Diagnosis Differential Diagnoses: The differential diagnosis associated with the presentation includes as above Admission/Observation Consideration of admission/observation: Escalation of care including admission/observation considered Lab Data [facility] Lab Attestation statement: I reviewed the patient's lab results. 07/02/22 16:41 07/02/22 16:41 Labs: Lab Results 07/02/22 07/02/22 07/02/22 Range/Units 16:41 16:41 16:41 WBC 10.2 (4.8-10.8) X10*3/uL RBC 4.64 (4.60-5.80) X10*6/uL Hgb 10.6 L (14.0-18.0) g/dl Hct 35.1 L (42.0-52.0) % MCV 75.6 L (80.0-98.0) fL MCH 22.8 L (27.0-33.0) pg MCHC 30.2 L (31.0-36.0) g/dl RDW 24.9 H (11.0-16.0) % Plt Count 275 D (160-400) X10*3/uL MPV 8.7 L (9.4-12.4) fL Immature Gran % (Auto) 0.4 (0.0-0.4) % Neut % (Auto) 45.2 (45-73) % Lymph % (Auto) 45.5 H (20-40) % [place] % (Auto) 7.4 (2-11) % Eos % (Auto) 0.9 (0-4) % Baso % (Auto) 0.6 (0-2) % Lymph # (Auto) 4.7 (1.2-4.9) X10*3/uL Hardeman # (Auto) 0.8 (0.1-1.2) X10*3/uL Eos # (Auto) 0.1 (0.0-0.4) X10*3/uL Baso # (Auto) 0.1 (0.0-0.2) X10*3/uL Abs Immat Gran (auto) 0.04 H (0.00-0.03) X10*3/uL Absolute Neuts (auto) 4.6 (2.0-8.3) x10*3/uL Absolute Nucleated RBC 0.000 (0.0-0.012) X10*3/uL Nucleated RBC % (auto) 0.0 (0.0-0.2) /100WBC PT (10.0-13.1) SEC INR (0.9-1.1) Sodium 140 (135-145) mmol/L Potassium 3.7 D (3.3-5.1) mmol/L Chloride 106 (96-108) mmol/L Carbon Dioxide 23 (22-29) mmol/L Anion Gap 15 (12-20) BUN 8 L (9-16) mg/dL Creatinine 1.13 (0.5-1.4) mg/dL Estim Creat Clear Calc 79.1 Estimated GFR > 60 Random Glucose 117 H (60-115) mg/dL Calcium 8.7 (8.4-10.2) mg/dL Magnesium 2.1 (1.6-2.6) mg/dL Total Bilirubin 0.2 (0.0-1.0) mg/dL AST 21 (5-37) U/L ALT 19 (0-40) U/L Alkaline Phosphatase 89 (39-117) U/L Troponin I High Sens < 3.5 (<3.5-35.0) ng/L Total Protein 6.9 (6.5-8.0) g/dL Albumin 4.1 (3.5-5.0) g/dL Lipase 55 (8-78) U/L Urine Color Urine Appearance Urine pH (5.0-9.0) Ur Specific [place] (1.005-1.025) Urine Protein (Neg-Trace) mg/dL Urine Glucose (UA) (Negative) mg/dL Urine Ketones (Negative) mg/dL Urine Blood (Negative) Urine Nitrite (Negative) Ur Leukocyte Esterase (Negative) Salicylates < 5.0 L (15-30) mg/dL Urine Opiates Screen (Not Detect) Urine Fentanyl Screen (Not Detect) Acetaminophen < 17 (<30) mcg/mL Ur Barbiturates Screen (Not Detect) Ur Phencyclidine Scrn (Not Detect) Ur Amphetamines Screen (Not Detect) U Benzodiazepines Scrn (Not Detect) Urine Cocaine Screen (Not Detect) U Marijuana (THC) Screen (Not Detect) Ethyl Alcohol 242 mg/dL 07/02/22 07/02/22 07/02/22 Range/Units 17:13 18:05 18:05 WBC (4.8-10.8) X10*3/uL RBC (4.60-5.80) X10*6/uL Hgb (14.0-18.0) g/dl Hct (42.0-52.0) % MCV (80.0-98.0) fL MCH (27.0-33.0) pg MCHC (31.0-36.0) g/dl RDW (11.0-16.0) % Plt Count (160-400) X10*3/uL MPV (9.4-12.4) fL Immature Gran % (Auto) (0.0-0.4) % Neut % (Auto) (45-73) % Lymph % (Auto) (20-40) % Hardeman % (Auto) (2-11) % Eos % (Auto) (0-4) % Baso % (Auto) (0-2) % Lymph # (Auto) (1.2-4.9) X10*3/uL [place] # (Auto) (0.1-1.2) X10*3/uL Eos # (Auto) (0.0-0.4) X10*3/uL Baso # (Auto) (0.0-0.2) X10*3/uL Abs Immat Gran (auto) (0.00-0.03) X10*3/uL Absolute Neuts (auto) (2.0-8.3) x10*3/uL Absolute Nucleated RBC (0.0-0.012) X10*3/uL Nucleated RBC % (auto) (0.0-0.2) /100WBC PT 10.3 (10.0-13.1) SEC INR 0.9 (0.9-1.1) Sodium (135-145) mmol/L Potassium (3.3-5.1) mmol/L Chloride (96-108) mmol/L Carbon Dioxide (22-29) mmol/L Anion Gap (12-20) BUN (9-16) mg/dL Creatinine (0.5-1.4) mg/dL Estim Creat Clear Calc Estimated GFR Random Glucose (60-115) mg/dL Calcium (8.4-10.2) mg/dL Magnesium (1.6-2.6) mg/dL Total Bilirubin (0.0-1.0) mg/dL AST (5-37) U/L ALT (0-40) U/L Alkaline Phosphatase (39-117) U/L Troponin I High Sens (<3.5-35.0) ng/L Total Protein (6.5-8.0) g/dL Albumin (3.5-5.0) g/dL Lipase (8-78) U/L Urine Color Yellow Urine Appearance Clear Urine pH 6.5 (5.0-9.0) Ur Specific [place] <= 1.005 (1.005-1.025) Urine Protein Trace (Neg-Trace) mg/dL Urine Glucose (UA) Negative (Negative) mg/dL Urine Ketones Negative (Negative) mg/dL Urine Blood Negative (Negative) Urine Nitrite Negative (Negative) Ur Leukocyte Esterase Negative (Negative) Salicylates (15-30) mg/dL Urine Opiates Screen POSITIVE H (Not Detect) Urine Fentanyl Screen POSITIVE H (Not Detect) Acetaminophen (<30) mcg/mL Ur Barbiturates Screen POSITIVE H (Not Detect) Ur Phencyclidine Scrn Not Detected (Not Detect) Ur Amphetamines Screen Not Detected (Not Detect) U Benzodiazepines Scrn POSITIVE H (Not Detect) Urine Cocaine Screen Not Detected (Not Detect) U Marijuana (THC) Screen Not Detected (Not Detect) Ethyl Alcohol mg/dL Independent Interpretation I performed an independent interpretation of an: EKG Interpretation: My interpretation: A fib w/RVR rate 147. QTc 522. RBBB. No STEMI Radiology Impression Discussion of test interpretation with radiology: I have reviewed the radiologist's reading. Independent Historian Clinical information obtained from an independent historian. History obtained from or confirmed by: EMS External Record Review External record reviewed: Prior outpatient radiology prior ED record Social Determinants Patient?s care significantly limited by Social Determinants of Health including: Alcoholism and drug addiction in family Critical Care Time Critical Care Time Critical Care Time: Yes Total Critical Care Time: 60 Attestation: I have personally provided critical care time exclusive of time spent on separately billable procedures. Time includes review of lab data, radiology results, discussion with consultants, and monitoring for potential decompensation. Intervention performed as documented. Discharge Plan Discharge Clinical Impression: Alcohol intoxication, Active substance abuse, Fracture of rib, Drug overdose Patient Disposition: Still a Patient Interventions: [place]-Suicide Risk Severity Scale Last Done: 07/02/22 13:58
[2022-07-02 16:49] LABS: MANUAL DIFF FLAG NO
[2022-07-02] MEDS: 0.9 % Sodium Chloride 1,000 ML 999 ML IV (16:50)
[2022-07-02 16:56] LABS: Basophils Absolute Auto 0.1 X10*3/uL (0.0-0.2); Basophils Percent Auto 0.6 % (0-2); Eosinophils Absolute Auto 0.1 X10*3/uL (0.0-0.4); Eosinophils Percent Auto 0.9 % (0-4); Hematocrit 35.1 % (42.0-52.0); Hemoglobin 10.6 g/dl (14.0-18.0); Imm Gran Abs Auto 0.04 X10*3/uL (0.00-0.03); Imm Gran Pct Auto 0.4 % (0.0-0.4); Lymphocytes Absolute Auto 4.7 X10*3/uL (1.2-4.9); Lymphocytes Percent Auto 45.5 % (20-40); Mean Corpuscular HGB Conc 30.2 g/dl (31.0-36.0); Mean Corpuscular Hemoglobin 22.8 pg (27.0-33.0); Mean Corpuscular Volume 75.6 fL (80.0-98.0); Mean Platelet Volume 8.7 fL (9.4-12.4); Monocytes Absolute Auto 0.8 X10*3/uL (0.1-1.2); Monocytes Percent Auto 7.4 % (2-11); Neutrophils Absolute Auto 4.6 x10*3/uL (2.0-8.3); Neutrophils Percent Auto 45.2 % (45-73); Platelet Count 275 X10*3/uL (160-400); Red Blood Count 4.64 X10*6/uL (4.60-5.80); Red Cell Distribution Width 24.9 % (11.0-16.0); White Blood Count 10.2 X10*3/uL (4.8-10.8)
--- NOTE | 2022-07-02 17:09 | PC.NURSE ---
Addendum entered by Eliana Hall RN 07/02/22 17:15: Pt initially non-compliant with changeover, yelling at staff to get all vital equipment off of him and to get away from him. Attempted to speak with pt again shortly after to which he was snoring and non-responsive to verbal or painful stimuli. Pt was given narcan and oxygen due to desat. Pt then moved into room, IV, EKG and labs obtained, pt changed over. Report given to JULIO Khan. Original Note: Pt initially non-compliant with changeover, yelling at staff to get all vital equipment off of him and to get away from him. Attempted to speak with pt again shortly after to which he was snoring and non-responsive to verbal or painful stimuli. Pt was given narcan, oxygen
[2022-07-02 17:23] LABS: Acetaminophen LAB < 17 mcg/mL (<30); Alanine Aminotransferase 19 U/L (0-40); Albumin Level 4.1 g/dL (3.5-5.0); Alkaline Phosphatase 89 U/L (39-117); Anion Gap 15 (12-20); Aspartate Amino Transferase 21 U/L (5-37); Bilirubin Total 0.2 mg/dL (0.0-1.0); Blood Urea Nitrogen 8 mg/dL (9-16); Calcium 8.7 mg/dL (8.4-10.2); Carbon Dioxide 23 mmol/L (22-29); Chloride 106 mmol/L (96-108); Creatinine Clr Calc Pharmacy 79.1; Estimated Glomerular Filt Rate > 60; Ethanol 242 mg/dL; Glucose Random 117 mg/dL (60-115); Lipase 55 U/L (8-78); Magnesium 2.1 mg/dL (1.6-2.6); Potassium 3.7 mmol/L (3.3-5.1); Salicylate < 5.0 mg/dL (15-30); Sodium 140 mmol/L (135-145); Total Protein 6.9 g/dL (6.5-8.0); Troponin-I High Sensitivity < 3.5 ng/L (<3.5-35.0)
[2022-07-02 17:28] LABS: INTERNATIONAL NORM RATIO 0.9 (0.9-1.1); Prothrombin Time 10.3 SEC (10.0-13.1)
[2022-07-02 17:56] VITALS: BP 102/75; PULSE 92; RESP 13; O2SAT 100
[2022-07-02 18:15] LABS: Appearance Urine Clear; Color Urine Yellow; Glucose Urine UA Negative (Negative); Leukocyte Esterase Urine Negative (Negative); Nitrite Urine Negative (Negative); PH 6.5 (5.0-9.0); Specific Gravity - Urine <= 1.005 (1.005-1.025); Urine Blood Negative (Negative); Urine Ketones Negative (Negative); Urine Protein Trace mg/dL (Neg-Trace)
[2022-07-02 18:24] LABS: Amphetamine Screen Urine Not Detected (Not Detect); Barbiturates, Urine POSITIVE (Not Detect); Benzodiazepines Screen Urine POSITIVE (Not Detect); Cannabinoid Screen Urine Not Detected (Not Detect); Cocaine Screen Urine Not Detected (Not Detect); Fentanyl, urine POSITIVE (Not Detect); Opiate Screen Urine POSITIVE (Not Detect); Phencyclidine Screen Urine Not Detected (Not Detect)
[2022-07-02] MEDS: iohexoL 350 MG/ML 100 ML INFUS..BTL IV (18:24)
[2022-07-02] MEDS: Lactated Ringers 1,000 ML 999 ML IV ×2 (18:37→21:56)
[2022-07-02] MEDS: LORazepam 2 MG/ML VIAL 1 MG IVPUSH (19:45)
--- NOTE | 2022-07-02 19:48 | PC.NURSE ---
Pt given 1mg ativan IV per providers orders for HR up to 140s-150. Pt tremulous, anxious stating he is going through alcohol withdrawals . Pt otherwise cooperative and compliant.
[2022-07-02 20:08] VITALS: BP 95/61; PULSE 97; RESP 18; O2SAT 97
--- NOTE | 2022-07-02 20:50 | MHC.RECOVSUP ---
? Reason for consult:ETOH o? Current location:ED04? o? Identified substance use concern:? -? Seeking ATS (detox) -? Support ? Intervention: o? ATS bed search started/completed/in process o? Community resources provided o? Harm reduction discussion ? Plan: o? Follow up tomorrow? ? Additional information:IRINA spoke with pt and he informed me that he is willing to try ATS treatment at [facility]. Irina called them but they don't have any availability, call at 9 am. Pt is awaiting eval.
[2022-07-02] MEDS: Multivitamin TABLET 1 TAB PO (21:51)
[2022-07-02] MEDS: Thiamine HCL 100 MG TABLET PO (21:51)
[2022-07-02] MEDS: chlordiazePOXIDE HCl 25 MG CAPSULE PO (21:51)
[2022-07-02] MEDS: Folic Acid 1 MG TABLET PO (21:51)
[2022-07-02] MEDS: Lidocaine 4 % Patch ADH..PATCH 1 PATCH TRANSDERMA (21:51)
[2022-07-02 22:23] VITALS: BP 90/63; PULSE 106; RESP 13; O2SAT 95
--- NOTE | 2022-07-02 22:31 | MHC.EDTECH ---
pt was lethargic when entering the room. pt stated he wasn't feeling well. pct ann and myself started to place him back on the monitor. pt o2 low. Made RN aware. Rn Aware and Charge nurse aware. pt is now resting comfortably
--- NOTE | 2022-07-02 22:34 | PC.NURSE ---
Pt was found unresponsive by plant and maintenance technician Pt was given 0.4 mg of Narcan and pt awoke. Pt appeared to taken some opioids from his clothes and used them in his room.
[2022-07-02] MEDS: Naloxone HCl 0.4 MG/ML VIAL IVPUSH (22:41)
[2022-07-03] VITALS (7 sets, daily range): BP systolic 101–128; BP diastolic 71–88; PULSE 80–100; RESP 10–14; TEMP 37.1; O2SAT 92–98
--- NOTE | 2022-07-03 04:22 | PC.NURSE ---
Pt complaining of opioid withdrawal symptoms. Pt is tremulous and diaphoretic. Complaining of body aches and chills. Provider made aware. Plan to give ativan to treat withdrawal.
[2022-07-03] MEDS: LORazepam 1 MG TABLET 2 MG PO (04:29)
--- NOTE | 2022-07-03 04:43 | PC.NURSE ---
Pt vomited PO ativan immediately after receiving the dose. CIWA and COWS assessment completed and pt is at risk for alcoholic withdrawal. Provider ordered IV zofran and ativan.
[2022-07-03] MEDS: ondansetron HCL 4 MG/2 ML VIAL IVPUSH (04:45)
[2022-07-03] MEDS: LORazepam 2 MG/ML VIAL IVPUSH (04:45)
== END 2022-07-03 07:26 | disposition home or self-care (01) ==
PROVIDERS: Physician Assistant; Physician Assistant Medical; Emergency Provider Internal Medicine
DX: S22.32XA Fracture of one rib, left side, initial encounter for closed fracture (principal); F10.129 Alcohol abuse with intoxication, unspecified; F11.10 Opioid abuse, uncomplicated; R51.9 Headache, unspecified; M54.2 Cervicalgia; M54.6 Pain in thoracic spine; Y90.8 Blood alcohol level of 240 mg/100 ml or more; W18.30XA Fall on same level, unspecified, initial encounter; Y93.9 Activity, unspecified; Y92.9 Unspecified place or not applicable; Y99.9 Unspecified external cause status; Z79.01 Long term (current) use of anticoagulants; Z79.899 Other long term (current) drug therapy
CPT/HCPCS: 36415; 70450; 71045; 71260; 72125; 74177; 80053; 80143; 80179; 80307; 81003; 82077; 82947; 83690; 83735; 84484; 85025; 85610; 93005; 96361; 96374; 96375; 96376; 99283; 99285; J2060; J2405; Q9967